=== PATIENT | female | born 1945 | race Caucasian/White ===

== ENCOUNTER 2019-10-31 08:11 | Outpatient (CLI) | payer MEDICARE, OTHER ==
[2019-10-31] MEDS ORDERED: IOVERSOL 320 100 ML VIAL IVP ONE ×2 (08:24→10:18)
[2019-10-31 09:22] LABS: ALBUMIN 3.7 g/dL (3.2-5.5); ALBUMIN/GLOBULIN RATIO 1.2 (1.0-2.2); BILIRUBIN,TOTAL 0.7 mg/dL (0.2-1.0); CALCIUM 9.6 mg/dL (8.5-10.3); CREATININE 1.2 mg/dL (0.4-1.0); TOTAL PROTEIN 6.9 g/dL (6.7-8.2)
[2019-10-31 10:36] LABS: BASOPHILS # (AUTO) 0.1 10^3/uL (0.0-0.1); BASOPHILS % (AUTO) 1.1 %; EOSINOPHILS # (AUTO) 0.2 10^3/uL (0.0-0.7); EOSINOPHILS % (AUTO) 2.6 %; HGB - HEMOGLOBIN 11.6 g/dL (12.0-16.0); LYMPHOCYTES # (AUTO) 2.2 10^3/uL (1.5-3.5); LYMPHOCYTES % (AUTO) 24.8 %; MEAN CORPUSCULAR HEMOGLOBIN 24.3 pg (27.0-31.0); MEAN CORPUSCULAR HGB CONC 29.5 g/dL (32.0-36.0); MEAN CORPUSCULAR VOLUME 82.2 fL (81.0-99.0); MEAN PLATELET VOLUME 9.2 fL (7.9-10.8); MONOCYTES # (AUTO) 0.5 10^3/uL (0.0-1.0); MONOCYTES % (AUTO) 5.7 %; NEUTROPHILS # (AUTO) 5.7 10^3/uL (1.5-6.6); NEUTROPHILS % (AUTO) 65.6 %; PLT - PLATELET COUNT 342 10^3/uL (130-450); RED BLOOD COUNT 4.78 10^6/uL (4.20-5.40); RED CELL DISTRIBUTION WIDTH 17.9 % (12.0-15.0); WHITE BLOOD COUNT 8.7 x10^3/uL (4.8-10.8)
[2019-10-31 10:58] LABS: CHOL/HDL RATIO 4.1 (<4.4); CHOLESTEROL 268 mg/dL; HDL CHOLESTEROL 65 mg/dL; LDL CHOLESTEROL,CALCULATED 178 mg/dL; LDL/HDL RATIO 2.7 (<4.4); VLDL CHOLESTEROL 25 mg/dL
[2019-10-31 11:22] LABS: HB2 TOTAL 12.2 g/dL; HEMOGLOBIN A1C 0.89 g/dL; HEMOGLOBIN A1C % 8.8 % (4.6-6.2)
--- NOTE | 2019-10-31 18:00 | CT Report ---
PROCEDURE: CHEST W INDICATIONS: SMOKER,PULMONARY NODULE,COPD CONTRAST: IV CONTRAST: Optiray 320 ml: 80 PO CONTRAST: *NO PO CONTRAST TECHNIQUE: After the administration of intravenous contrast, 5 mm thick sections acquired from the pulmonary api scott to the posterior costophrenic angles. 7 mm thick coronal MIP reformats were acquired. For radia tion dose reduction, the following was used: automated exposure control, adjustment of mA and/or kV according to patient size. COMPARISON: None. FINDINGS: Image quality: Excellent. Lungs and pleura: Moderate centrilobular emphysema is seen. 4 mm nodular density is noted in right up per lobe with mild adjacent atelectatic changes series 4 image 83. Scattered atelectasis and scarring in posterior aspect of bilateral upper lobes and right middle lobe is seen adjacent to the fissures. Oval nodular opacity in posterior aspect of left lingular segment anterior to the oblique fissure is seen measures 1.8 x 0.9 cm in size series 4 image 217. Atelectasis in posterior medial left lower lo be is also seen. No pleural effusions or pneumothorax. Central and peripheral airways are patent and normal in caliber. Mediastinum: Heart size is normal. No pericardial effusion. Borderline enlarged mediastinal lymph n odes are seen measures up to 1 cm in short axis diameter in precarinal space. Subcentimeter lymph nod es also noted in right hilar region measures up to 9 mm in size. Thoracic aorta and central pulmonary arteries are normal in size. Mild atherosclerotic calcifications are seen. Esophagus is normal in c aliber. There is a small hiatal hernia. Bones and chest wall: No suspicious bony lesions. No acute vertebral body compression fractures. Po stsurgical changes are noted in the lower cervical spine. Chronic appearing anterior wedge compressio n deformity at T11 level is seen. Degenerative endplate changes are noted throughout thoracic and upp er lumbar spine. No axillary or supraclavicular adenopathy by size criteria. Thyroid gland is within normal limits. Abdomen: Visualized upper abdominal solid organs appear normal. Upper abdominal bowel loops are nor mal in caliber. IMPRESSION: 1. Moderate centrilobular emphysema. Tiny 4 mm nodular density in right upper lobe with adjacent atel ectasis. Scarring/atelectasis scattered in bilateral lung du along the fissures. Questionable ova l nodular density along the anterior aspect of the oblique fissure involving the left lingula segment and measures 1.8 x 0.9 cm in size. Finding likely represent scarring/atelectasis. Given the size of the lesion, follow-up CT of chest study in 6 months is recommended for evaluation of stability. 2. No pleural effusion or pneumothorax. Airway is patent. 3. Borderline enlarged mediastinal and right hilar lymph nodes as above. This is a fairly nonspecific finding. Reviewed by: Edward Roberts MD on 10/31/2019 5:59 PM PDT Approved by: Edward Roberts MD on 10/31/2019 5:59 PM PDT Station ID: [id number]
== END 2019-10-31 08:12 | disposition home or self-care (01) ==
LOC: LAB 08:11
PROVIDERS: ATTEND Nurse Practitioner
DX: J43.2 Centrilobular emphysema (principal); R91.1 Solitary pulmonary nodule; R59.0 Localized enlarged lymph nodes; E11.9 Type 2 diabetes mellitus without complications; I73.9 Peripheral vascular disease, unspecified
CPT/HCPCS: 36415; 71260; 80053; 80061; 83036; 84443; 85025; Q9967; 83721

== ENCOUNTER 2019-11-07 07:53 | Outpatient (CLI) | payer MEDICARE, OTHER | END 2019-11-07 07:54 | disposition home or self-care (01) | LOC: DI 07:53 | PROVIDERS: ATTEND Nurse Practitioner | DX: R01.1 Cardiac murmur, unspecified (principal); I08.0 Rheumatic disorders of both mitral and aortic valves; I27.20 Pulmonary hypertension, unspecified | CPT/HCPCS: 93306 ==

== ENCOUNTER 2020-02-05 14:39 | Outpatient (CLI) | payer MEDICARE, OTHER ==
[2020-02-05 14:57] LABS: BASOPHILS # (AUTO) 0.1 10^3/uL (0.0-0.1); BASOPHILS % (AUTO) 1.3 %; EOSINOPHILS # (AUTO) 0.5 10^3/uL (0.0-0.7); EOSINOPHILS % (AUTO) 6.8 %; HGB - HEMOGLOBIN 12.1 g/dL (12.0-16.0); LYMPHOCYTES % (AUTO) 28.3 %; MEAN CORPUSCULAR HEMOGLOBIN 25.5 pg (27.0-31.0); MEAN CORPUSCULAR HGB CONC 30.4 g/dL (32.0-36.0); MONOCYTES # (AUTO) 0.5 10^3/uL (0.0-1.0); MONOCYTES % (AUTO) 7.1 %; NEUTROPHILS # (AUTO) 4.1 10^3/uL (1.5-6.6); NEUTROPHILS % (AUTO) 56.2 %; PLT - PLATELET COUNT 283 10^3/uL (130-450); RED BLOOD COUNT 4.74 10^6/uL (4.20-5.40); RED CELL DISTRIBUTION WIDTH 16.1 % (12.0-15.0); WHITE BLOOD COUNT 7.2 x10^3/uL (4.8-10.8)
[2020-02-05 15:20] LABS: ALBUMIN/GLOBULIN RATIO 1.1 (1.0-2.2); ALKALINE PHOSPHATASE 122 IU/L (42-121); ALT ALANINE AMINOTRANSFERASE 12 IU/L (10-60); AST ASPARTATE AMINOTRANSFERASE 17 IU/L (10-42); BILIRUBIN,TOTAL 0.9 mg/dL (0.2-1.0); BUN - BLOOD UREA NITROGEN 24 mg/dL (6-20); CARBON DIOXIDE - CO2 27 mmol/L (21-32); CHLORIDE 102 mmol/L (101-111); CHOL/HDL RATIO 2.6 (<4.4); CHOLESTEROL 169 mg/dL; CREATININE 1.3 mg/dL (0.4-1.0); GLUCOSE 180 mg/dL (70-100); HDL CHOLESTEROL 66 mg/dL; LDL CHOLESTEROL,CALCULATED 89 mg/dL; LDL/HDL RATIO 1.3 (<4.4); SODIUM 140 mmol/L (135-145); TOTAL PROTEIN 7.5 g/dL (6.7-8.2); VLDL CHOLESTEROL 14 mg/dL
[2020-02-05] MEDS ORDERED: IOVERSOL 320 100 ML VIAL IVP ONE ×2 (15:23→16:51)
--- NOTE | 2020-02-05 16:51 | CT Report ---
PROCEDURE: CHEST W INDICATIONS: PULMONARY NODULE, SMOKER CONTRAST: IV CONTRAST: Optiray 320 ml: 80 PO CONTRAST: *NO PO CONTRAST TECHNIQUE: After the administration of intravenous contrast, 5 mm thick sections acquired from the pulmonary api scott to the posterior costophrenic angles. 7 mm thick coronal MIP reformats were acquired. For radia tion dose reduction, the following was used: automated exposure control, adjustment of mA and/or kV according to patient size. COMPARISON: None. FINDINGS: Image quality: Excellent. Lungs and pleura: No acute air space opacities. There has been no change in a right upper lobe nodul e measuring 4 mm with adjacent slight alveolar airspace disease possibly representing scarring from a prior inflammatory event. This is best seen centered on series 4 image 83 on the prior study from and on series 4 image 77 currently. An ovoid area of what appears to have represented rounded atelectasis has virtually completely resolved at the lingular segment margin left upper lobe near th e ventricular apex. Additional patchy areas of lung scarring are present stable over time and centril obular emphysema is prominent in this patient consistent with COPD. No adenopathy has developed. No d efinite acute bone or soft tissue lesion is found. No pleural effusions or pneumothorax. Central and peripheral airways are patent and normal in caliber. Mediastinum: Heart size is normal. No pericardial effusion. No mediastinal or hilar adenopathy by size criteria. Thoracic aorta and central pulmonary arteries are normal in size. Esophagus is gema l in caliber. No hiatal hernia. Bones and chest wall: No suspicious bony lesions. No vertebral body compression fractures. No axil douglas or supraclavicular adenopathy by size criteria. Thyroid gland appears normal where well seen. Abdomen: Visualized upper abdominal solid organs appear normal. Upper abdominal bowel loops are nor mal in caliber. IMPRESSION: Stable appearance of a 4 mm nodule right upper lobe, virtual resolution of a larger nodular radiodens ity at the lingular segment left upper lobe near the ventricular apex. No new pulmonary nodule is see n. Presumed long-standing smoking history. 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 Reviewed by: Pablo Perez MD on 02/05/2020 4:49 PM PDT Approved by: Pablo Perez MD on 02/05/2020 4:49 PM PDT Station ID: [id number]
== END 2020-02-05 14:40 | disposition home or self-care (01) ==
LOC: LAB 14:39 → DI 14:40
PROVIDERS: ATTEND Nurse Practitioner
DX: R91.1 Solitary pulmonary nodule (principal); J44.9 Chronic obstructive pulmonary disease, unspecified; F17.200 Nicotine dependence, unspecified, uncomplicated; E78.5 Hyperlipidemia, unspecified; E11.9 Type 2 diabetes mellitus without complications; I10 Essential (primary) hypertension
CPT/HCPCS: 36415; 71260; 80053; 80061; 83036; 85025; Q9967; 82043; 82570; 83721

== ENCOUNTER 2020-02-05 15:20 | Outpatient (CLI) | payer MEDICARE, OTHER ==
--- NOTE | 2020-02-06 06:49 | XRAY Report ---
PROCEDURE: Knee 3 View RT INDICATIONS: RT KNEE JOINT PAIN TECHNIQUE: 3 views of the right knee(s) were acquired. COMPARISON: None. FINDINGS: Bones: No fractures or dislocations. There are severe prbo-lb-atsl joint space loss of the right me dial compartment. There is hardware fixation within the patella. Moderate marginal spur formation in the patellofemoral and medial compartments. There is mild tibiofemoral subluxation. Rounded lucency a long the lateral tibial plateau suggesting subcortical cyst. Soft tissues: Small joint effusion. No suspicious soft tissue calcifications. Moderate atherosclero tic calcification. IMPRESSION: 1. Severe medial compartment joint space loss and osteoarthritic spurring. 2. Intact surgical hardware in the patella. 3. Small joint effusion. 4. Probable intraosseous ganglion in the lateral tibial plateau. Reviewed by: Jenni Diaz MD on 02/05/2020 5:35 PM PDT Approved by: Jenni Diaz MD on 02/05/2020 5:35 PM PDT Station ID: [id number]
== END 2020-02-05 15:21 | disposition home or self-care (01) ==
LOC: DI 15:20
PROVIDERS: ATTEND Nurse Practitioner
DX: M17.11 Unilateral primary osteoarthritis, right knee (principal); R91.1 Solitary pulmonary nodule; J44.9 Chronic obstructive pulmonary disease, unspecified; F17.200 Nicotine dependence, unspecified, uncomplicated; E78.5 Hyperlipidemia, unspecified; E11.9 Type 2 diabetes mellitus without complications; I10 Essential (primary) hypertension
CPT/HCPCS: 36415; 71260; 73562; 80053; 80061; 83036; 85025; Q9967; 82043; 82570; 83721

== ENCOUNTER 2020-05-18 13:03 | Outpatient (CLI) | payer MEDICARE, OTHER | END 2020-05-18 13:04 | disposition critical access hospital (66) | LOC: EMS 13:03 | PROVIDERS: ATTEND Surgery | DX: R06.02 Shortness of breath (principal); R05 Cough | CPT/HCPCS: A0425; A0427 ==

== ENCOUNTER 2020-05-18 13:16 | Inpatient (IN) | payer MEDICARE, OTHER ==
[2020-05-18] MEDS ORDERED: methylPREDNISolone SUCCINATE 125 MG/2 ML VIAL IVP STA (13:21)
[2020-05-18] MEDS ORDERED: cefTRIAXone 2 GM in SODIUM CHLORIDE 0.9% MINIBAG 100 ML IV STA (13:21)
[2020-05-18] MEDS ORDERED: LEVALBUTEROL 1.25 MG/3 ML NEB INH STA (13:21)
--- NOTE | 2020-05-18 13:24 | ED Physician Documentation ---
PD HPI DYSPNEA - Stated complaint Stated Complaint: SOA - History obtained from History obtained from: Patient, EMS - Additional information Additional information: 75-year-old woman presents by ambulance from home for apparent COPD exacerba tion. For several weeks now she is had increased shortness of breath and actually just finished a 10-day outpatient steroid taper a couple of days ago. She has increasing shortness of breath despite that with a cough productive of scant green mucus, noted to have a temperature of 100.0. She only has pain when she coughs. She was noted to have a pulse oximetry of 65% at home. She does wear oxygen at night usually but has did wear it continuously for the last week or so. Review of Systems Ten Systems: 10 systems reviewed and negative Constitutional: reports: Chills, Fatigue Nose: denies: Rhinorrhea / runny nose Throat: denies: Oral lesions / sores Respiratory: reports: Dyspnea, Cough GI: denies: Abdominal Pain PD PAST MEDICAL HISTORY - Past Medical History Past Medical History: Yes Respiratory: COPD - Present Medications Home Medications: Ambulatory Orders Medication Instructions Recorded Confirmed Albuterol Sulf [Ventolin Hfa 2 puffs INH Q4H PRN 05/18/20 05/18/20 Inhaler] Amlodipine Besylate [Norvasc] 5 mg PO DAILY 05/18/20 05/18/20 Atorvastatin [Lipitor] 1 tab PO DAILY 05/18/20 05/18/20 Atorvastatin [Lipitor] 10 mg PO QPM 05/18/20 Clopidogrel [Plavix] 1 tab PO DAILY 05/18/20 05/18/20 Clopidogrel [Plavix] 75 mg PO DAILY 05/18/20 Diclofenac Sodium [Voltaren] 4 gm TOP QID PRN 05/18/20 05/18/20 Fluticasone/Umeclidin/Vilanter 1 puffs INH DAILY 05/18/20 05/18/20 [Trelegy Ellipta 100-62.5-25] Imipramine HCl 150 mg PO QPM 05/18/20 05/18/20 Ipratropium/Albuterol [Duoneb] 3 ml INH TID PRN 05/18/20 05/18/20 Losartan [Cozaar] 50 mg PO DAILY 05/18/20 05/18/20 Metformin HCl [Glucophage Xr] 1,000 mg PO BID 05/18/20 05/18/20 Oxybutynin [Ditropan] 5 mg PO BID 05/18/20 05/18/20 Roflumilast [Daliresp] 250 mcg PO DAILY 05/18/20 05/18/20 - Allergies Allergies/Adverse Reactions: Allergies Allergy/AdvReac Type Severity Reaction Status Date / Time No Known Drug Allergies Allergy Verified 05/18/20 13:31 - Social History Does the pt smoke?: Yes Does the pt have substance abuse?: No - Family History Family history: reports: Non contributory PD ED PE NORMAL - Vitals Vital signs reviewed: Yes - General General: Alert and oriented X 3, Other (She appears breathless and is speaking i n short sentences.) - HEENT HEENT: PERRL, EOMI - Neck Neck: Supple, no meningeal sign, No bony TTP - Cardiac Cardiac: Other (Tachycardic but regular, no clear murmur but heart sounds are somewhat obscured by loud breath sounds.) - Respiratory Respiratory: Other (Neck and mildly labored, rhonchorous throughout with moderate air motion and expiratory wheezing.) - Abdomen Abdomen: Soft, Non tender - Back Back: No CVA TTP, No spinal TTP - Derm Derm: Normal color, No rash - Extremities Extremities: No edema, No calf tenderness / cord - Neuro Neuro: Alert and oriented X 3, Normal speech Results - Vitals Vitals: Vital Signs - 24 hr 05/18/20 05/18/20 13:29 14:04 Temperature 37.9 C Heart Rate 122 H 117 H Respiratory 26 H 33 H Rate Blood Pressure 106/89 H O2 Saturation 97 Oxygen O2 Source Room air - EKG (time done) 1424 Rate: Rate (enter#) (120) Rhythm: Sinus tachycardia, LAE [place]: Normal Intervals: Normal IN QRS: Normal Ischemia: Normal ST segments Computer interpretation: Agree with computer - Labs Labs: Laboratory Tests 05/18/20 05/18/20 05/18/20 13:43 13:43 13:43 WBC 18.6 H RBC 3.91 L Hgb 10.5 L Hct 33.8 L MCV 86.4 MCH 26.9 L MCHC 31.1 L RDW 14.6 Plt Count 307 MPV 9.3 Neut # (Auto) 15.6 H Lymph # (Auto) 1.5 [place] # (Auto) 1.3 H Eos # (Auto) 0.0 Baso # (Auto) 0.1 Absolute Nucleated RBC 0.00 Nucleated RBC % 0.0 Sodium 134 L Potassium 3.6 Chloride 99 L Carbon Dioxide 21 Anion Gap 14.0 H BUN 21 H Creatinine 1.1 H Estimated GFR (MDRD) 48 L Glucose 145 H Lactic Acid 3.5 H* Calcium 9.2 Total Bilirubin 1.0 AST 15 ALT 11 Alkaline Phosphatase 95 Troponin I High Sens B-Natriuretic Peptide Total Protein 6.9 Albumin 3.3 Globulin 3.6 Albumin/Globulin Ratio 0.9 L Nasal Adenovirus (PCR) Nasal B. parapertussis DNA (PCR) Nasal Coronavir 229E PCR Nasal Coronavir HKU1 PCR Nasal Coronavir NL63 PCR Nasal Coronavir OC43 PCR Nasal Enterovir/Rhinovir PCR Nasal Influenza B PCR Nasal Influenza A PCR Nasal Parainfluen 1 PCR Nasal Parainfluen 2 PCR Nasal Parainfluen 3 PCR Nasal Parainfluen 4 PCR Nasal RSV (PCR) Nasal B.pertussis DNA PCR Nasal C.pneumoniae (PCR) Scott Human Metapneumo PCR Nasal M.pneumoniae (PCR) Nasal SARS-CoV-2 (PCR) 05/18/20 05/18/20 05/18/20 13:43 13:43 14:00 WBC RBC Hgb Hct MCV MCH MCHC RDW Plt Count MPV Neut # (Auto) Lymph # (Auto) [place] # (Auto) Eos # (Auto) Baso # (Auto) Absolute Nucleated RBC Nucleated RBC % Sodium Potassium Chloride Carbon Dioxide Anion Gap BUN Creatinine Estimated GFR (MDRD) Glucose Lactic Acid Calcium Total Bilirubin AST ALT Alkaline Phosphatase Troponin I High Sens 9.3 B-Natriuretic Peptide 71 Total Protein Albumin Globulin Albumin/Globulin Ratio Nasal Adenovirus (PCR) NOT DETECTED Nasal B. parapertussis DNA (PCR) NOT DETECTED Nasal Coronavir 229E PCR NOT DETECTED Nasal Coronavir HKU1 PCR NOT DETECTED Nasal Coronavir NL63 PCR NOT DETECTED Nasal Coronavir OC43 PCR NOT DETECTED Nasal Enterovir/Rhinovir PCR NOT DETECTED Nasal Influenza B PCR NOT DETECTED Nasal Influenza A PCR NOT DETECTED Nasal Parainfluen 1 PCR NOT DETECTED Nasal Parainfluen 2 PCR NOT DETECTED Nasal Parainfluen 3 PCR NOT DETECTED Nasal Parainfluen 4 PCR NOT DETECTED Nasal RSV (PCR) NOT DETECTED Nasal B.pertussis DNA PCR NOT DETECTED Nasal C.pneumoniae (PCR) NOT DETECTED Scott Human Metapneumo PCR NOT DETECTED Nasal M.pneumoniae (PCR) NOT DETECTED Nasal SARS-CoV-2 (PCR) NOT DETECTED - Rads (name of study) Single view chest x-ray Radiology: EMP read contemporaneously (Hyperinflation and flattening of the hemidiaphragm can suggestive of COPD, no consolidation. Increased vascularity suggestive of edema.) PD MEDICAL DECISION MAKING - ED course ED course: 75-year-old woman with history of COPD presents with apparent exacerbation with wheezing, rhonchi, productive cough, borderline febrile. She is tachypneic, tachycardic. Nothing in the history or physical to suggest PE. Nothing in the history physical or labs to suggest ACS or CHF noting that the radiologist felt there might be some edematous component to her chest x-ray though. She was looking better after 3 nebs in the department but still tachycardic to 120 and tachypneic into the mid 20s and as such merits admission. In the department besides to Xopenex nebs in addition to the DuoNeb she received in route she also received 125 mg of Solu-Medrol and 2 g of Rocephin after blood cultures. Departure - Departure Disposition: 66 [facility] DC/Xfer Clinical Impression: COPD exacerbation Condition: Serious
[2020-05-18 13:47] LABS: BASOPHILS # (AUTO) 0.1 10^3/uL (0.0-0.1); BASOPHILS % (AUTO) 0.3 %; EOSINOPHILS % (AUTO) 0.2 %; HGB - HEMOGLOBIN 10.5 g/dL (12.0-16.0); LYMPHOCYTES # (AUTO) 1.5 10^3/uL (1.5-3.5); LYMPHOCYTES % (AUTO) 8.2 %; MEAN CORPUSCULAR HEMOGLOBIN 26.9 pg (27.0-31.0); MEAN CORPUSCULAR HGB CONC 31.1 g/dL (32.0-36.0); MEAN CORPUSCULAR VOLUME 86.4 fL (81.0-99.0); MEAN PLATELET VOLUME 9.3 fL (7.9-10.8); MONOCYTES # (AUTO) 1.3 10^3/uL (0.0-1.0); MONOCYTES % (AUTO) 7.1 %; NEUTROPHILS # (AUTO) 15.6 10^3/uL (1.5-6.6); NEUTROPHILS % (AUTO) 83.7 %; PLT - PLATELET COUNT 307 10^3/uL (130-450); RED BLOOD COUNT 3.91 10^6/uL (4.20-5.40); RED CELL DISTRIBUTION WIDTH 14.6 % (12.0-15.0); WHITE BLOOD COUNT 18.6 x10^3/uL (4.8-10.8)
[2020-05-18 13:58] LABS: ALBUMIN 3.3 g/dL (3.2-5.5); ALBUMIN/GLOBULIN RATIO 0.9 (1.0-2.2); CALCIUM 9.2 mg/dL (8.5-10.3); CREATININE 1.1 mg/dL (0.4-1.0); TOTAL PROTEIN 6.9 g/dL (6.7-8.2)
--- NOTE | 2020-05-18 13:59 | XRAY Report ---
PROCEDURE: Chest 1 View X-Ray INDICATIONS: dyspnea TECHNIQUE: One view of the chest was acquired. COMPARISON: CT chest 02/05/2020. FINDINGS: Surgical changes and devices: Right shoulder tendon anchor as well as lower cervical spine fixation s crews are noted. Lungs and pleura: Lungs are hyperinflated. Mild appearance of chronic interstitial changes are noted. Mild appearance of increased vascularity. Mediastinum: Mediastinal contours appear normal. Heart size is normal. Bones and chest wall: No suspicious bony lesions. Overlying soft tissues appear unremarkable. IMPRESSION: Hyperinflation and flattening of the hemidiaphragm suggestive COPD. No consolidations. Increased vasc ularity is present suggestive of edema. Reviewed by: Yisel Richard MD on 05/18/2020 1:58 PM PST Approved by: Yisel Richard MD on 05/18/2020 1:58 PM [facility] Station ID: [id number]
[2020-05-18] MEDS ORDERED: LEVALBUTEROL 1.25 MG/3 ML NEB INH ONE (14:10)
[2020-05-18] MEDS ORDERED: SODIUM CHLORIDE 0.9% 1,000 ML IV STA (14:30)
[2020-05-18] MEDS ORDERED: SODIUM CHLORIDE FLUSH 0.9% 10 ML SYRINGE IVP PRN (14:42)
[2020-05-18] MEDS ORDERED: IPRATROPIUM/ALBUTEROL 3 ML NEB INH PRN (14:54)
--- NOTE | 2020-05-18 14:58 | HISTORY & PHYSICAL EXAMINATION ---
Chief Complaint - Chief Complaint Chief Complaint: dyspnea and hypoxia History of Present Illness - Admitted From Admitted From:: [facility] ED - History Obtained From Records Reviewed: yes History obtained from: patient - History of Present Illness HPI Comment/Other: Patient is a 75-year-old female with medical history significant for COPD, italo betes mellitus and hypertension who presented to the ED with complaint of dyspnea for the past 1-1/2 weeks. However it was significantly worse today. When her daughter came over to her house and so her distress she called EMS. The patient recently moved to [facility] to be close to her daughter. She moved from [facility]. She has also been experiencing productive greenish cough for the past week. She cannot tell if she was febrile at home but reported chills. She denied chest pain, nausea, vomiting, abdominal pain. She was recently on steroid taper ordered by her primary care physician Gabriela Schaffer. In the ED she was very tachypneic with a heart rate as high as 35. She was also tachycardic. Had a white blood cell count of 18.6 and a lactic acid of 3.5. She had hyperinflation and flattening of the hemidiaphragm on chest x-ray which was suggestive of COPD. As a result she was presented for admission for further treatment. At bedside she has significant conversational dyspnea on auscultation there is decreased air movement through her lung. She has some expiratory wheezing as well. She uses 2 L of oxygen via nasal cannula during the day and 3 L at night. The rest of her history is unremarkable. History - Past Medical History Cardiovascular: reports: Hypertension Respiratory: reports: COPD Endocrine/Autoimmune: reports: Type 2 diabetes - Past Surgical History Ortho: reports: Knee replacement (Right side), Rotator cuff repair (Right side), Other (Cervical surgery) HEENT: reports: Tonsil/Adenoidectomy - Family & Social History Family History Comment/Other: Her brother recently in March 2020 from a CVA. Her father when the patient was 16 years old from lung cancer. He was a smoker. Her mother of natural causes. Living arrangement: At home Living Situation: Alone Social History Notes: The patient lives alone but her family lives nearby. She moved to [facility] to live close to her daughter. She used to living [facility]. She reports quitting smoking cigarettes a few weeks ago. She has smoked cigarettes from the age of 15. She used to smoke 1 pack/day. She reports drinking a glass of wine daily. She denies any recreational substances. Meds/Allgy - Home Medications Home Medications: Ambulatory Orders Medication Instructions Recorded Confirmed Albuterol Sulf [Ventolin Hfa 2 puffs INH Q4H PRN 05/18/20 05/18/20 Inhaler] Amlodipine Besylate [Norvasc] 5 mg PO DAILY 05/18/20 05/18/20 Atorvastatin [Lipitor] 1 tab PO DAILY 05/18/20 05/18/20 Atorvastatin [Lipitor] 10 mg PO QPM 05/18/20 Clopidogrel [Plavix] 1 tab PO DAILY 05/18/20 05/18/20 Clopidogrel [Plavix] 75 mg PO DAILY 05/18/20 Diclofenac Sodium [Voltaren] 4 gm TOP QID PRN 05/18/20 05/18/20 Fluticasone/Umeclidin/Vilanter 1 puffs INH DAILY 05/18/20 05/18/20 [Trelegy Ellipta 100-62.5-25] Imipramine HCl 150 mg PO QPM 05/18/20 05/18/20 Ipratropium/Albuterol [Duoneb] 3 ml INH TID PRN 05/18/20 05/18/20 Losartan [Cozaar] 50 mg PO DAILY 05/18/20 05/18/20 Metformin HCl [Glucophage Xr] 1,000 mg PO BID 05/18/20 05/18/20 Oxybutynin [Ditropan] 5 mg PO BID 05/18/20 05/18/20 Roflumilast [Daliresp] 250 mcg PO DAILY 05/18/20 05/18/20 - Allergies Allergies/Adverse Reactions: Allergies Allergy/AdvReac Type Severity Reaction Status Date / Time No Known Drug Allergies Allergy Verified 05/18/20 13:31 Review of Systems - Constitutional Constitutional: reports: Fever, Chills - Eyes Eyes: denies: Pain, Vision loss, Dipolpia - Ears, Nose & Throat Ears, Nose & Throat: reports: Sore throat. denies: Ear pain, Hoarseness - Cardiovascular Cariovascular: reports: Palpitations. denies: Chest pain, Edema, Lightheadedne ss, Syncope - Respiratory Respiratory: reports: Cough, Sputum production, Wheezing, SOB at rest, SOB with exertion - Gastrointestinal Gastrointestinal: denies: Abdominal pain, Abdominal distention, Diarrhea, Nausea, Vomiting, Coffee grounds emesis, Reflux/heartburn - Genitourinary Genitourinary: denies: Dysuria, Frequency, Urgency, Hematuria - Musculoskeletal Musculoskeletal: denies: Muscle pain, Back pain, Muscle aches, Stiffness - Integumentary Integumentary: denies: Rash, Pruritis, Lesions - Neurological Neurological: denies: General weakness, Focal weakness, Headache, Dizziness - Psychiatric Psychiatric: denies: Depression, Anxiety - Endocrine Endocrine: denies: Polyuria, Polydypsia - Hematologic/Lymphatic Hematologic/Lymphatic: denies: Anemia, Bruising, Petechiae Prior Level of Functionality: The patient lives alone but her family lives nearby. She moved to [facility] to live close to her daughter. She used to living [facility]. She is independent of activities of daily living. Exam - Vital Signs Vital Signs: Vital Signs x48h Temp Pulse Resp BP Pulse Ox 05/18/20 14:04 117 H 33 H 05/18/20 13:29 37.9 C 122 H 26 H 106/89 H 97 - Physical Exam General Appearance: positive: Alert, Moderate distress (Respiratory distress) Eyes Bilateral: positive: PERRL, EOMI ENT: positive: Dry mucous membranes Neck: positive: No JVD, Trachea midline Respiratory: positive: Wheezes, Other (Moderate Respiratory distress, Labored breathing, Conversational dyspnea). negative: Rales, Rhonchi Cardiovascular: positive: No murmur, Tachycardia Back: positive: Nml inspection Skin: positive: Color nml, No rash, Warm, Dry Extremities: positive: Non-tender, Full ROM, Nml appearance, No pedal edema Neurologic/Psychiatric: positive: Oriented x3, Mood/affect nml Conclusion/Plan - Problem List (1) COPD exacerbation Conclusion/Plan: DuoNeb ordered 4 times daily. Albuterol ordered every 4 hours as needed. Budesonide and formoterol ordered. Solu-Medrol 40 mg 3 times daily IV ordered. Patient was given Solu-Medrol 125 mg IV x1 in the ED. Admitting patient on supplemental oxygen. On Rocephin and azithromycin. (2) Diabetes mellitus Conclusion/Plan: Metformin held. Sliding scale insulin ordered. Carb controlled diet ordered. Qualifiers: Diabetes mellitus type: type 2 (3) Hypertension Conclusion/Plan: Currently normotensive. If needed will order an antihypertensive as needed. (4) Lactic acidosis Conclusion/Plan: Likely from respiratory failure. Patient receiving IV hydration. Treating patient's COPD exacerbation. We will trend lactic acid. Initial lactic acid was 3.5. Recheck 2.3. (5) Sore throat Conclusion/Plan: Magic wash ordered every 4 hours as needed. Patient has history of frequent oral thrush. - Lab Results Fish Bones: 05/18/20 13:43 05/18/20 13:43 Core Measures - Anticipated LOS I expect patient to be DC'd or transferred within 96 hours.: Yes - DVT/VTE - Prophylaxis VTE/DVT Device ordered at admit?: Yes VTE/DVT Prophylaxis med ordered at admit?: Yes
[2020-05-18 15:02] LABS: VBG PCO2 38.3 mmHg (41-51); VBG PH 7.357 (7.31-7.41); VBG PO2 29.5 mmHg (25-47)
[2020-05-18 15:03] LABS: VBG BASE EXCESS -4.1 mmol/L (-2 - +2); VBG TOTAL CO2 22.2 mmol/L (24-29)
[2020-05-18 15:21] LABS: C. PNEUMONIAE- RESP PCR PANEL NOT DETECTED
[2020-05-18] MEDS: SODIUM CHLORIDE 0.9% 1,000 ML IV SCH (15:29)
[2020-05-18] MEDS ORDERED: AZITHROMYCIN INJ 500 MG in SODIUM CHLORIDE 0.9% 250 ML IV ONE (17:00)
[2020-05-18] MEDS: ALBUTEROL NEB 2.5 MG/3 ML INH PRN ×2 (17:51→19:42)
[2020-05-18] MEDS: SODIUM CHLORIDE FLUSH 0.9% 10 ML SYRINGE IVP SCH (18:41)
[2020-05-18] MEDS: INSULIN ASPART 300 UNIT/3 ML PEN SUBQ SCH ×2 (18:41→21:30)
[2020-05-18] MEDS: ACETAMINOPHEN 325 MG TABLET PO PRN (18:42)
[2020-05-18] MEDS: BUDESONIDE 0.5 MG/2 ML NEB INH SCH (19:42)
[2020-05-18] MEDS: FORMOTEROL FUMARATE NEB 20 MCG/2 ML INH SCH (19:42)
[2020-05-18] MEDS: guaiFENesin 600 MG TABLET PO SCH (21:33)
[2020-05-18] MEDS ORDERED: methylPREDNISolone SUCCINATE 40 MG/ML VIAL IVP SCH (22:00)
[2020-05-18] MEDS: IPRATROPIUM/ALBUTEROL 3 ML NEB INH SCH (22:53)
[2020-05-18] MEDS: methylPREDNISolone SUCCINATE 40 MG/ML VIAL IVP SCH (23:20)
[2020-05-19] MEDS: SODIUM CHLORIDE 0.9% 1,000 ML IV SCH ×3 (01:45→21:36)
[2020-05-19] MEDS: SODIUM CHLORIDE FLUSH 0.9% 10 ML SYRINGE IVP SCH ×4 (01:46→23:47)
[2020-05-19 05:28] LABS: BASOPHILS % (AUTO) 0.2 %; HGB - HEMOGLOBIN 10.2 g/dL (12.0-16.0); LYMPHOCYTES # (AUTO) 0.4 10^3/uL (1.5-3.5); LYMPHOCYTES % (AUTO) 3.2 %; MEAN CORPUSCULAR HEMOGLOBIN 26.5 pg (27.0-31.0); MEAN CORPUSCULAR HGB CONC 30.4 g/dL (32.0-36.0); MEAN CORPUSCULAR VOLUME 87.3 fL (81.0-99.0); MEAN PLATELET VOLUME 9.6 fL (7.9-10.8); MONOCYTES # (AUTO) 0.1 10^3/uL (0.0-1.0); MONOCYTES % (AUTO) 0.9 %; NEUTROPHILS # (AUTO) 11.5 10^3/uL (1.5-6.6); PLT - PLATELET COUNT 306 10^3/uL (130-450); RED BLOOD COUNT 3.85 10^6/uL (4.20-5.40); RED CELL DISTRIBUTION WIDTH 14.7 % (12.0-15.0); WHITE BLOOD COUNT 12.1 x10^3/uL (4.8-10.8)
[2020-05-19 05:44] LABS: CALCIUM 9.2 mg/dL (8.5-10.3); CREATININE 0.9 mg/dL (0.4-1.0)
[2020-05-19] MEDS: PANTOPRAZOLE 40 MG TABLET PO SCH (06:36)
[2020-05-19] MEDS: methylPREDNISolone SUCCINATE 40 MG/ML VIAL IVP SCH ×3 (06:37→21:34)
[2020-05-19] MEDS: IPRATROPIUM/ALBUTEROL 3 ML NEB INH SCH ×4 (07:48→20:52)
[2020-05-19] MEDS: FORMOTEROL FUMARATE NEB 20 MCG/2 ML INH SCH ×2 (07:48→20:51)
[2020-05-19] MEDS: BUDESONIDE 0.5 MG/2 ML NEB INH SCH ×2 (07:48→20:52)
--- NOTE | 2020-05-19 08:41 | XRAY Report ---
PROCEDURE: Chest 1 View X-Ray INDICATIONS: dyspnea, hypoxia TECHNIQUE: One view of the chest was acquired. COMPARISON: 05/18/2020, correlation is also made with CT 02/05/2020 FINDINGS: Surgical changes and devices: There is partial visualization of cervical fixation hardware. Lungs and pleura: No pleural effusions or pneumothorax. Lungs are clear. The lungs are hyperexpand ed. Mediastinum: The aorta is prominent and tortuous. The cardiac contours are within normal limits. Bones and chest wall: Age-appropriate degenerative changes are seen. No suspicious bony lesions. Overlying soft tissues appear unremarkable. IMPRESSION: Hyperexpanded lungs, without an acute abnormality identified. Reviewed by: Amol Hernandez MD on 05/19/2020 7:40 AM [facility] Approved by: Amol Hernandez MD on 05/19/2020 7:40 AM [facility] Station ID: [id number]
[2020-05-19] MEDS: cefTRIAXone 1 GM in SODIUM CHLORIDE 0.9% MINIBAG 100 ML IV SCH (08:52)
[2020-05-19] MEDS: guaiFENesin 600 MG TABLET PO SCH ×2 (08:55→21:30)
[2020-05-19] MEDS: ENOXAPARIN 40 MG/0.4 ML SYRINGE SUBQ SCH (08:57)
[2020-05-19] MEDS: INSULIN ASPART 300 UNIT/3 ML PEN SUBQ SCH ×4 (08:59→21:31)
[2020-05-19] MEDS: AZITHROMYCIN INJ 500 MG in SODIUM CHLORIDE 0.9% 250 ML IV SCH (10:02)
[2020-05-19] MEDS: NICOTINE 14 MG PATCH TOP SCH (10:13)
--- NOTE | 2020-05-19 11:22 | PHARMACY PROGRESS NOTE ---
- Best Possible Medication History Admit Date and Time: 05/18/20 1442 Processed by: Pharmacy Medication History completed: Yes Patient Interview: Completed Secondary Source(s): Physician records, Insurance records As the person ultimately responsible for medication therapy, providers are able to order a medication from an existing home medication list in [facility] via the "Reconcile Routine" prior to Confirmation of that medication by network and threat support specialist. Such practice is discouraged except when the physician, in their clinical judgment, deems that a medical need exists for a medication without regard to previous use.
[2020-05-19] MEDS: ACETAMINOPHEN 325 MG TABLET PO PRN (11:29)
--- NOTE | 2020-05-19 11:41 | PROVIDER PROGRESS NOTE ---
Assessment/Plan - Problem List (1) COPD exacerbation Assessment/Plan: There is slight improvement in patient's respiratory status. DuoNeb ordered 4 times daily. Albuterol ordered every 4 hours as needed. Budesonide and formoterol ordered. Solu-Medrol 80 mg 3 times daily IV ordered. Patient was given Solu-Medrol 125 mg IV x1 in the ED. On supplemental oxygen. On Rocephin and azithromycin. Patient declined BiPAP/CPAP One of the patient's blood cultures came back positive for MRSE. While this is usually a contaminant, the patient presented with a lactic acid of 3.5, WBC 18, temperature of 38 C, tachypneic and tachycardic. She was also positive for MRSA in her nares As a result the patient was started on vancomycin today.Pharmacy to dose (2) Bacteremia Assessment/Plan: One of the patient's blood cultures came back positive for MRSE. While this is usually a contaminant, the patient presented with a lactic acid of 3.5, WBC 18, temperature of 38 C, tachypneic and tachycardic. She was also positive for MRSA in her nares As a result the patient was started on vancomycin today.Pharmacy to dose (3) Diabetes mellitus Qualifiers: Diabetes mellitus type: type 2 Assessment/Plan: Metformin held. Sliding scale insulin ordered. Carb controlled diet ordered. (4) Hypertension Assessment/Plan: Currently normotensive. If needed will order an antihypertensive as needed. (5) Lactic acidosis Assessment/Plan: Likely from respiratory failure and possible infection Patient receiving IV hydration. Treating patient's COPD exacerbation. We will trend lactic acid. Initial lactic acid was 3.5. Recheck 1.3 (6) Sore throat Assessment/Plan: Magic wash ordered every 4 hours as needed. Patient has history of frequent oral thrush. - Current Meds Current Meds: Current Medications Generic Name Dose Route Start Last Admin Trade Name Freq PRN Reason Stop Dose Admin Acetaminophen 650 mg 05/18/20 14:42 05/19/20 11:29 Acetaminophen 325 Mg Tablet PO 650 mg Q4HR PRN Administration Pain 1 to 4 Albuterol 2.5 mg 05/18/20 17:35 05/18/20 19:42 Albuterol Neb 2.5 Mg/3 Ml INH 2.5 mg RTQ4H PRN Administration Wheezing Albuterol/Ipratropium 3 ml 05/18/20 21:00 05/19/20 11:29 Ipratropium/Albuterol 3 Ml Neb INH 3 ml RTQID LUCHO Administration Budesonide 0.5 mg 05/18/20 19:00 05/19/20 07:48 Budesonide 0.5 Mg/2 Ml Neb INH 0.5 mg RTBID LUCHO Administration Enoxaparin Sodium 40 mg 05/19/20 09:00 05/19/20 08:57 Enoxaparin 40 Mg/0.4 Ml Syringe SUBQ 40 mg DAILY LUCHO Administration Formoterol Fumarate 20 mcg 05/18/20 19:00 05/19/20 07:48 Formoterol Fumarate Neb 20 Mcg/2 Ml INH 20 mcg RTBID LUCHO Administration Guaifenesin 600 mg 05/18/20 21:00 05/19/20 08:55 Guaifenesin 600 Mg Tablet PO 600 mg BID LUCHO Administration Sodium Chloride 1,000 mls @ 100 mls/hr 05/18/20 15:00 05/19/20 08:55 Normal Saline 0.9% IV 0 mls/hr .Q10H LUCHO Infusion Azithromycin 500 mg/ Sodium 250 mls @ 250 mls/hr 05/19/20 09:00 05/19/20 10:02 Chloride IV 05/20/20 09:59 250 mls/hr DAILY LUCHO Administration Ceftriaxone Sodium 1 gm/ 100 mls @ 200 mls/hr 05/19/20 09:00 05/19/20 09:31 Sodium Chloride IV 05/23/20 09:29 Infused DAILY LUCHO Infusion Insulin Aspart 1 - 5 unit 05/18/20 17:00 05/19/20 08:59 Insulin Aspart 300 Unit/3 Ml Pen SUBQ 1 unit 0800,1200,1700,2100 LUCHO Administration Protocol Methylprednisolone 80 mg 05/18/20 22:00 05/19/20 06:37 Methylprednisolone Succinate 40 Mg/Ml Vial IVP 80 mg TID LUCHO Administration Nicotine 1 patch 05/19/20 10:00 05/19/20 10:13 Nicotine 14 Mg Patch TOP 1 patch DAILY LUCHO Administration Pantoprazole Sodium 40 mg 05/19/20 07:00 05/19/20 06:36 Pantoprazole 40 Mg Tablet PO 40 mg QDAC LUCHO Administration Sodium Chloride 10 ml 05/18/20 17:00 05/19/20 10:08 Sodium Chloride Flush 0.9% 10 Ml Syringe IVP Not Given 0100,0900,1700 LUCHO - Lab Result Fish Bone Diagrams: 05/20/20 05:12 05/20/20 05:12 - Additional Planning My Orders: My Active Orders 05/18/20 14:42 Activity Orders [RC] Q2HR IO [RC] IOSHIFT Initiate Bowel Care Protocol [RC] .protocol Initiate Line Care Protocol [RC] QSHIFT Initiate Personal Care Protoco [RC] .protocol Oxygen Therapy [RC] .PRN Telemetry- [RC] Q4HR Vital Signs [RC] 0800,1600,0000 Acetaminophen [Tylenol] 650 mg PO Q4HR PRN Sodium Chloride Flush 0.9% [Normal Saline Flush 0.9%] 10 ml IVP PRN PRN Condition of Patient [OTHERS] Routine DVT Prophylaxis [OTHERS] Routine 05/18/20 14:49 SCDs [RC] QSHIFT 05/18/20 15:00 Sodium Chloride 0.9% [Normal Saline 0.9%] 1,000 ml IV 100 mls/hr 05/18/20 15:04 Blood Glucose Checks - Eating [RC] 0800,1200,1700,2100 Initiate Hypoglycemia Protocol [RC] .protocol 05/18/20 Dinner Carb-controlled Diet [DIET] 05/18/20 17:00 Insulin Aspart [NovoLOG] 1 - 5 unit SUBQ 0800,1200,1700,2100 Sodium Chloride Flush 0.9% [Normal Saline Flush 0.9%] 10 ml IVP 0100,0900,1700 05/18/20 17:35 Nebulizer/MDI Tx. [RC] .QID Resp Teach Nebulizer/MDI [RC] .ONCE Albuterol 2.5 mg INH RTQ4H PRN 05/18/20 17:36 Code Status [OTHERS] Routine 05/18/20 17:38 Magic Mouthwash 30 ml PO Q4H PRN 05/18/20 19:00 Budesonide [Pulmicort] 0.5 mg INH RTBID Formoterol Fumarate [Perforomist] 20 mcg INH RTBID 05/18/20 21:00 Ipratropium/Albuterol [Duoneb] 3 ml INH RTQID guaiFENesin [Mucinex] 600 mg PO BID 05/18/20 22:00 methylPREDNISolone SUCCINATE [SOLU-Medrol (40MG VIAL)] 80 mg IVP TID 05/19/20 07:00 Pantoprazole [Protonix] 40 mg PO QDAC 05/19/20 09:00 Azithromycin Inj [Zithromax Inj] 500 mg Sodium Chloride 0.9% [Normal Saline 0.9%] 250 ml IV DAILY Enoxaparin [Lovenox] 40 mg SUBQ DAILY cefTRIAXone [Rocephin] 1 gm Sodium Chloride 0.9% Minibag [Normal Saline 0.9% Minibag] 100 ml IV DAILY 05/19/20 10:00 Nicotine 14 mg Patch [Nicoderm] 1 patch TOP DAILY 05/19/20 11:38 Carboxymethylcellulose 1% Opht [Refresh 1% Ophth Drops] 1 drops EACHEYE PRN PRN 05/20/20 05:00 BMP - BASIC METABOLIC PANEL [CHEM] DAILYLAB CBC - COMP BLD CT W/AUTO DIFF [HEME] DAILYLAB 05/21/20 05:00 BMP - BASIC METABOLIC PANEL [CHEM] DAILYLAB CBC - COMP BLD CT W/AUTO DIFF [HEME] DAILYLAB 05/22/20 05:00 BMP - BASIC METABOLIC PANEL [CHEM] DAILYLAB CBC - COMP BLD CT W/AUTO DIFF [HEME] DAILYLAB 05/23/20 05:00 BMP - BASIC METABOLIC PANEL [CHEM] DAILYLAB CBC - COMP BLD CT W/AUTO DIFF [HEME] DAILYLAB Subjective - Subjective Patient Reports: Other (Patient's work of breathing appears slightly improved today. However she was still very dyspneic. She denied chest pain, abdominal pain, nausea or vomiting. She complains of feeling hot. One of her blood cultures came back pos for MRSE. Nares were MRSA+) Objective Vital Signs: Vital Signs - 24 hr 05/18/20 05/18/20 05/18/20 13:29 14:04 15:47 Temperature 37.9 C Heart Rate 122 H 117 H 111 H Heart Rate [ Brachial] Respiratory 26 H 33 H 26 H Rate Blood Pressure 106/89 H 125/66 Blood Pressure [Left Brachial artery] Blood Pressure [Right Brachial artery] O2 Saturation 97 100 05/18/20 05/18/20 05/18/20 16:00 17:59 19:43 Temperature 38.0 C H Heart Rate 109 H 95 Heart Rate [ 112 H Brachial] Respiratory 22 28 H 24 Rate Blood Pressure Blood Pressure 130/63 [Left Brachial artery] Blood Pressure [Right Brachial artery] O2 Saturation 95 05/18/20 05/19/20 05/19/20 21:37 00:00 01:43 Temperature 37.0 C 36.8 C 36.9 C Heart Rate Heart Rate [ 91 55 L 85 Brachial] Respiratory 20 22 Rate Blood Pressure Blood Pressure 99/60 99/80 112/71 [Left Brachial artery] Blood Pressure [Right Brachial artery] O2 Saturation 95 97 99 05/19/20 05/19/20 07:48 08:00 Temperature 37.2 C Heart Rate 94 Heart Rate [ 95 Brachial] Respiratory 18 16 Rate Blood Pressure Blood Pressure [Left Brachial artery] Blood Pressure 109/71 [Right Brachial artery] O2 Saturation 93 Oxygen O2 Source Nasal cannula I&O (Last 24 Hrs): Intake and Output Totals x24h 05/17/20 05/18/20 05/19/20 23:59 23:59 23:59 Intake Total 1650 2056.667 Output Total 750 Balance 1650 1306.667 General: Alert, Oriented x3, Mild distress, Moderate distress HEENT: Atraumatic, PERRLA, EOMI Neck: Supple, No JVD Cardiovascular: Regular rate Respiratory: Other (Diminished breath sounds with inspiratory and expiratory wheezing. However this was an improvement from the previous day.) Abdomen: Normal bowel sounds, Soft Extremities: No clubbing, No edema - Results Results: Laboratory Results WBC 12.1 x10^3/uL (4.8-10.8) H 05/19/20 03:56 RBC 3.85 10^6/uL (4.20-5.40) L 05/19/20 03:56 Hgb 10.2 g/dL (12.0-16.0) L 05/19/20 03:56 Hct 33.6 % (37.0-47.0) L 05/19/20 03:56 MCV 87.3 fL (81.0-99.0) 05/19/20 03:56 MCH 26.5 pg (27.0-31.0) L 05/19/20 03:56 MCHC 30.4 g/dL (32.0-36.0) L 05/19/20 03:56 RDW 14.7 % (12.0-15.0) 05/19/20 03:56 Plt Count 306 10^3/uL (130-450) 05/19/20 03:56 MPV 9.6 fL (7.9-10.8) 05/19/20 03:56 Neut # (Auto) 11.5 10^3/uL (1.5-6.6) H 05/19/20 03:56 Lymph # (Auto) 0.4 10^3/uL (1.5-3.5) L 05/19/20 03:56 [place] # (Auto) 0.1 10^3/uL (0.0-1.0) 05/19/20 03:56 Eos # (Auto) 0.0 10^3/uL (0.0-0.7) 05/19/20 03:56 Baso # (Auto) 0.0 10^3/uL (0.0-0.1) 05/19/20 03:56 Absolute Nucleated RBC 0.00 x10^3/uL 05/19/20 03:56 Nucleated RBC % 0.0 /100WBC 05/19/20 03:56 VBG pH 7.357 (7.31-7.41) 05/18/20 14:56 VBG pCO2 38.3 mmHg (41-51) L 05/18/20 14:56 VBG pO2 29.5 mmHg (25-47) 05/18/20 14:56 VBG HCO3 21.0 mmol/L (23-28) L 05/18/20 14:56 VBG Total CO2 22.2 mmol/L (24-29) L 05/18/20 14:56 VBG O2 Saturation 57.5 % (60-80) L 05/18/20 14:56 VBG Base Excess -4.1 mmol/L (-2 - +2) L 05/18/20 14:56 Sodium 139 mmol/L (135-145) 05/19/20 03:56 Potassium 3.9 mmol/L (3.5-5.0) 05/19/20 03:56 Chloride 108 mmol/L (101-111) 05/19/20 03:56 Carbon Dioxide 22 mmol/L (21-32) 05/19/20 03:56 Anion Gap 9.0 (6-13) 05/19/20 03:56 BUN 19 mg/dL (6-20) 05/19/20 03:56 Creatinine 0.9 mg/dL (0.4-1.0) 05/19/20 03:56 Estimated GFR (MDRD) 61 (>89) L 05/19/20 03:56 Glucose 214 mg/dL (70-100) H 05/19/20 03:56 Lactic Acid 2.3 mmol/L (0.5-2.2) H 05/18/20 22:02 Calcium 9.2 mg/dL (8.5-10.3) 05/19/20 03:56 Total Bilirubin 1.0 mg/dL (0.2-1.0) 05/18/20 13:43 AST 15 IU/L (10-42) 05/18/20 13:43 ALT 11 IU/L (10-60) 05/18/20 13:43 Alkaline Phosphatase 95 IU/L (42-121) 05/18/20 13:43 Troponin I High Sens 9.3 ng/L (2.3-14.8) 05/18/20 13:43 B-Natriuretic Peptide 71 pg/mL (5-100) 05/18/20 13:43 Total Protein 6.9 g/dL (6.7-8.2) 05/18/20 13:43 Albumin 3.3 g/dL (3.2-5.5) 05/18/20 13:43 Globulin 3.6 g/dL (2.1-4.2) 05/18/20 13:43 Albumin/Globulin Ratio 0.9 (1.0-2.2) L 05/18/20 13:43 Nasal Adenovirus (PCR) NOT DETECTED 05/18/20 14:00 Nasal B. parapertussis DNA (PCR) NOT DETECTED 05/18/20 14:00 Nasal Coronavir 229E PCR NOT DETECTED 05/18/20 14:00 Nasal Coronavir HKU1 PCR NOT DETECTED 05/18/20 14:00 Nasal Coronavir NL63 PCR NOT DETECTED 05/18/20 14:00 Nasal Coronavir OC43 PCR NOT DETECTED 05/18/20 14:00 Nasal Enterovir/Rhinovir PCR NOT DETECTED 05/18/20 14:00 Nasal Influenza B PCR NOT DETECTED 05/18/20 14:00 Nasal Influenza A PCR NOT DETECTED 05/18/20 14:00 Nasal Parainfluen 1 PCR NOT DETECTED 05/18/20 14:00 Nasal Parainfluen 2 PCR NOT DETECTED 05/18/20 14:00 Nasal Parainfluen 3 PCR NOT DETECTED 05/18/20 14:00 Nasal Parainfluen 4 PCR NOT DETECTED 05/18/20 14:00 Nasal RSV (PCR) NOT DETECTED 05/18/20 14:00 Nasal B.pertussis DNA PCR NOT DETECTED 05/18/20 14:00 Nasal C.pneumoniae (PCR) NOT DETECTED 05/18/20 14:00 Scott Human Metapneumo PCR NOT DETECTED 05/18/20 14:00 Nasal M.pneumoniae (PCR) NOT DETECTED 05/18/20 14:00 Nasal SARS-CoV-2 (PCR) NOT DETECTED 05/18/20 14:00 ABX Reporting Has patient been on IV antibiotics over the past 48 hours?: Yes
[2020-05-19] MEDS: CARBOXYMETHYLCELLULOSE OPHTH DROPS EACHEYE PRN ×2 (12:16→22:16)
[2020-05-19] MEDS: MAGIC MOUTHWASH 120 ML BOTTLE PO PRN ×2 (13:26→21:33)
--- NOTE | 2020-05-19 16:47 | PHARMACY PROGRESS NOTE ---
- Therapy Status Vancomycin regimen day #: 1 Therapy status: Awaiting steady state Basis for treatment: Empirical Treatment indication: Sepsis Trough goal: 15-20 Concurrent antibiotics: Ceftriaxone and azithromycin - RANDOLPH Risk Risk level for Acute Kidney Injury: Moderate Acute Kidney Injury risk factors: Baseline CrCl <50, Goal trough >15, Sepsis - Monitoring and Recommendation Clinical response to treatment: I&O Previous 24 hours 05/17/20 05/18/20 05/19/20 23:59 23:59 23:59 Intake Total 1650 2440.000 Output Total 975 Balance 1650 1465.000 Lab Results 05/19/20 05/18/20 03:56 13:43 BUN 19 21 H Creatinine 0.9 1.1 H Estimated GFR (MDRD) 61 L 48 L Cultures 05/18/20 13:43 Blood Blood Culture (PCR) - Final 05/18/20 13:43 Blood Blood Culture - Preliminary 05/18/20 13:40 Blood Blood Culture - Preliminary NO GROWTH AFTER 1 DAY Monitoring plan: Daily serum creatinine, Draw trough early, Suggest ongoing fluid replacement Areas for additional monitoring: IV to PO when appropriate, Therapy de- escalation based on culture results Pharmacy recommendation: Continue current regime
[2020-05-19] MEDS: MORPHINE 2 MG/ML CARPUJECT IVP PRN ×2 (16:58→22:16)
[2020-05-19] MEDS ORDERED: VANCOMYCIN INJ 1 GM, VANCOMYCIN INJ 500 MG in SODIUM CHLORIDE 0.9% 500 ML IV ONE (18:00)
[2020-05-19] MEDS: ethyl alcohoL 62% SWAB AMPULE NAS SCH (21:29)
[2020-05-20] MEDS: ALBUTEROL NEB 2.5 MG/3 ML INH PRN (01:40)
[2020-05-20] MEDS: BENZOCAINE/MENTHOL LOZENGE MM PRN ×3 (01:56→07:06)
[2020-05-20] MEDS: MORPHINE 2 MG/ML CARPUJECT IVP PRN ×2 (02:00→08:38)
[2020-05-20 05:22] LABS: BASOPHILS % (AUTO) 0.1 %; EOSINOPHILS % (AUTO) 0.1 %; LYMPHOCYTES # (AUTO) 0.4 10^3/uL (1.5-3.5); LYMPHOCYTES % (AUTO) 2.8 %; MEAN CORPUSCULAR HEMOGLOBIN 27.4 pg (27.0-31.0); MEAN CORPUSCULAR HGB CONC 31.4 g/dL (32.0-36.0); MEAN CORPUSCULAR VOLUME 87.1 fL (81.0-99.0); MEAN PLATELET VOLUME 9.1 fL (7.9-10.8); MONOCYTES # (AUTO) 0.3 10^3/uL (0.0-1.0); MONOCYTES % (AUTO) 1.8 %; NEUTROPHILS # (AUTO) 13.9 10^3/uL (1.5-6.6); NEUTROPHILS % (AUTO) 94.8 %; PLT - PLATELET COUNT 329 10^3/uL (130-450); RED BLOOD COUNT 3.65 10^6/uL (4.20-5.40); RED CELL DISTRIBUTION WIDTH 14.9 % (12.0-15.0); WHITE BLOOD COUNT 14.7 x10^3/uL (4.8-10.8)
[2020-05-20 05:30] LABS: CALCIUM 9.1 mg/dL (8.5-10.3); CREATININE 0.7 mg/dL (0.4-1.0)
[2020-05-20] MEDS: methylPREDNISolone SUCCINATE 40 MG/ML VIAL IVP SCH ×3 (06:57→20:55)
[2020-05-20] MEDS: PANTOPRAZOLE 40 MG TABLET PO SCH (07:06)
[2020-05-20] MEDS: SODIUM CHLORIDE 0.9% 1,000 ML IV SCH ×2 (07:06→18:57)
[2020-05-20] MEDS: IPRATROPIUM/ALBUTEROL 3 ML NEB INH SCH ×4 (07:13→19:51)
[2020-05-20] MEDS: FORMOTEROL FUMARATE NEB 20 MCG/2 ML INH SCH ×2 (07:14→19:51)
[2020-05-20] MEDS: BUDESONIDE 0.5 MG/2 ML NEB INH SCH ×2 (07:14→19:51)
[2020-05-20] MEDS: INSULIN ASPART 300 UNIT/3 ML PEN SUBQ SCH ×4 (07:39→20:53)
[2020-05-20] MEDS: cefTRIAXone 1 GM in SODIUM CHLORIDE 0.9% MINIBAG 100 ML IV SCH (08:01)
[2020-05-20] MEDS: ENOXAPARIN 40 MG/0.4 ML SYRINGE SUBQ SCH (08:01)
[2020-05-20] MEDS: guaiFENesin 600 MG TABLET PO SCH ×2 (08:02→20:48)
[2020-05-20] MEDS: SODIUM CHLORIDE FLUSH 0.9% 10 ML SYRINGE IVP SCH ×3 (08:02→23:43)
[2020-05-20] MEDS: NICOTINE 14 MG PATCH TOP SCH (08:02)
[2020-05-20] MEDS: ethyl alcohoL 62% SWAB AMPULE NAS SCH ×2 (08:02→20:47)
--- NOTE | 2020-05-20 08:10 | PROVIDER PROGRESS NOTE ---
Assessment/Plan - Problem List (1) COPD exacerbation Assessment/Plan: Patient's respiratory status continues to slowly improve. DuoNeb ordered 4 times daily. Albuterol ordered every 4 hours as needed. Budesonide and formoterol ordered. Solu-Medrol 80 mg 3 times daily IV ordered. Patient was given Solu-Medrol 125 mg IV x1 in the ED. On supplemental oxygen. On Rocephin and azithromycin. Patient declined BiPAP/CPAP She had a choking episode this morning. A swallow eval was done. A mechanical soft diet was recommended. (2) Bacteremia Assessment/Plan: One of the patient's blood cultures came back positive for MRSE. While this is usually a contaminant, the patient presented with a lactic acid of 3.5, WBC 18, temperature of 38 C, tachypneic and tachycardic. She was also positive for MRSA in her nares As a result the patient was started on vancomycin today.Pharmacy to dose Patient's WBC today is 14.7. (3) Diabetes mellitus Qualifiers: Diabetes mellitus type: type 2 Assessment/Plan: Metformin held. Sliding scale insulin ordered. Carb controlled diet ordered. (4) Hypertension Assessment/Plan: Currently normotensive. If needed will order an antihypertensive as needed. (5) Lactic acidosis Assessment/Plan: Resolved (6) Sore throat Assessment/Plan: Magic wash ordered every 4 hours as needed. Patient has history of frequent oral thrush. - Current Meds Current Meds: Current Medications Generic Name Dose Route Start Last Admin Trade Name Freq PRN Reason Stop Dose Admin Acetaminophen 650 mg 05/18/20 14:42 05/19/20 11:29 Acetaminophen 325 Mg Tablet PO 650 mg Q4HR PRN Administration Pain 1 to 4 Albuterol 2.5 mg 05/18/20 17:35 05/20/20 01:40 Albuterol Neb 2.5 Mg/3 Ml INH 2.5 mg RTQ4H PRN Administration Wheezing Albuterol/Ipratropium 3 ml 05/18/20 21:00 05/20/20 07:13 Ipratropium/Albuterol 3 Ml Neb INH 3 ml RTQID LUCHO Administration Alcohol 1 amp 05/19/20 21:00 05/19/20 21:29 Ethyl Alcohol 62% Swab Ampule AYAKA 1 amp BID LUCHO Administration Budesonide 0.5 mg 05/18/20 19:00 05/20/20 07:14 Budesonide 0.5 Mg/2 Ml Neb INH 0.5 mg RTBID LUCHO Administration Carboxymethylcellulose 1 drops 05/19/20 11:38 05/19/20 22:16 Carboxymethylcellulose Ophth Drops EACHEYE 1 drops PRN PRN Administration Dry Eye Enoxaparin Sodium 40 mg 05/19/20 09:00 05/19/20 08:57 Enoxaparin 40 Mg/0.4 Ml Syringe SUBQ 40 mg DAILY LUCHO Administration Formoterol Fumarate 20 mcg 05/18/20 19:00 05/20/20 07:14 Formoterol Fumarate Neb 20 Mcg/2 Ml INH 20 mcg RTBID LUCHO Administration Guaifenesin 600 mg 05/18/20 21:00 05/19/20 21:30 Guaifenesin 600 Mg Tablet PO 600 mg BID LUCHO Administration Sodium Chloride 1,000 mls @ 100 mls/hr 05/18/20 15:00 05/20/20 07:06 Normal Saline 0.9% IV 100 mls/hr .Q10H LUCHO Administration Azithromycin 500 mg/ Sodium 250 mls @ 250 mls/hr 05/19/20 09:00 05/19/20 11:02 Chloride IV 05/20/20 09:59 Infused DAILY LUCHO Infusion Ceftriaxone Sodium 1 gm/ 100 mls @ 200 mls/hr 05/19/20 09:00 05/19/20 09:31 Sodium Chloride IV 05/23/20 09:29 Infused DAILY LUCHO Infusion Insulin Aspart 1 - 9 unit 05/19/20 17:00 05/20/20 07:39 Insulin Aspart 300 Unit/3 Ml Pen SUBQ 3 unit 0800,1200,1700,2100 LUCHO Administration Protocol Methylprednisolone 80 mg 05/18/20 22:00 05/20/20 06:57 Methylprednisolone Succinate 40 Mg/Ml Vial IVP 80 mg TID LUCHO Administration Morphine Sulfate 2 mg 05/19/20 16:42 05/20/20 02:00 Morphine 2 Mg/Ml Carpuject IVP 2 mg Q4HR PRN Administration Pain or air hunger Multi-Ingredient Mouthwash/Gargle 30 ml 05/18/20 17:38 05/19/20 21:33 Magic Mouthwash 120 Ml Bottle PO 30 ml Q4H PRN Administration Mouth Sore Pain Nicotine 1 patch 05/19/20 10:00 05/19/20 10:13 Nicotine 14 Mg Patch TOP 1 patch DAILY LUCHO Administration Pantoprazole Sodium 40 mg 05/19/20 07:00 05/20/20 07:06 Pantoprazole 40 Mg Tablet PO 40 mg QDAC LUCHO Administration Sodium Chloride 10 ml 05/18/20 17:00 05/19/20 23:47 Sodium Chloride Flush 0.9% 10 Ml Syringe IVP Not Given 0100,0900,1700 LUCHO Throat Lozenges 1 lozenge 05/20/20 00:44 05/20/20 07:06 Benzocaine/Menthol Lozenge MM 1 lozenge Q2HR PRN Administration Throat pain - Lab Result Fish Bone Diagrams: 05/20/20 05:12 05/20/20 05:12 - Additional Planning My Orders: My Active Orders 05/19/20 09:00 Azithromycin Inj [Zithromax Inj] 500 mg Sodium Chloride 0.9% [Normal Saline 0.9%] 250 ml IV DAILY Enoxaparin [Lovenox] 40 mg SUBQ DAILY cefTRIAXone [Rocephin] 1 gm Sodium Chloride 0.9% Minibag [Normal Saline 0.9% Minibag] 100 ml IV DAILY 05/19/20 10:00 Nicotine 14 mg Patch [Nicoderm] 1 patch TOP DAILY 05/19/20 11:38 Carboxymethylcellulose 1% Opht [Refresh 1% Ophth Drops] 1 drops EACHEYE PRN PRN 05/19/20 16:42 Morphine Inj (Carpuject) [Morphine (Carpuject)] 2 mg IVP Q4HR PRN 05/19/20 17:00 Insulin Aspart [NovoLOG] 1 - 9 unit SUBQ 0800,1200,1700,2100 05/19/20 21:00 ethyl alcohoL 62% swab [NoZin] 1 amp AYAKA BID 05/20/20 00:44 Benzocaine/Menthol [Cepacol] 1 lozenge MM Q2HR PRN 05/20/20 08:05 Echo Transthoracic Complete [ECHO] Routine 05/20/20 18:00 Vancomycin Inj [Vancomycin] 1 gm Sodium Chloride 0.9% [Normal Saline 0.9%] 250 ml IV Q24H 05/21/20 05:00 BMP - BASIC METABOLIC PANEL [CHEM] DAILYLAB CBC - COMP BLD CT W/AUTO DIFF [HEME] DAILYLAB 05/22/20 05:00 BMP - BASIC METABOLIC PANEL [CHEM] DAILYLAB CBC - COMP BLD CT W/AUTO DIFF [HEME] DAILYLAB 05/23/20 05:00 BMP - BASIC METABOLIC PANEL [CHEM] DAILYLAB CBC - COMP BLD CT W/AUTO DIFF [HEME] DAILYLAB Subjective - Subjective Patient Reports: Other (Patient complained of not doing well this morning. She had a choking episode when she was eating. It appears she was trying to swallow at the same time she felt the need to take a breath.) Objective Vital Signs: Vital Signs - 24 hr 05/19/20 05/19/20 05/19/20 11:54 15:34 16:05 Temperature 37.1 C 37.0 C Heart Rate 104 H Heart Rate [ 107 H 116 H Brachial] Respiratory 24 30 H 24 Rate Blood Pressure 103/54 L [Left Brachial artery] Blood Pressure 123/71 [Right Brachial artery] O2 Saturation 94 94 05/19/20 05/19/20 05/20/20 20:00 20:50 00:00 Temperature 36.8 C 37.0 C Heart Rate 106 H Heart Rate [ 109 H 105 H Brachial] Respiratory 20 20 16 Rate Blood Pressure 130/73 [Left Brachial artery] Blood Pressure 132/71 H [Right Brachial artery] O2 Saturation 94 94 05/20/20 05/20/20 05/20/20 01:40 04:00 05:35 Temperature 36.8 C 36.9 C Heart Rate 103 H Heart Rate [ 108 H 118 H Brachial] Respiratory 18 22 18 Rate Blood Pressure 123/75 [Left Brachial artery] Blood Pressure 151/80 H [Right Brachial artery] O2 Saturation 96 95 05/20/20 07:28 Temperature Heart Rate 98 Heart Rate [ Brachial] Respiratory 18 Rate Blood Pressure [Left Brachial artery] Blood Pressure [Right Brachial artery] O2 Saturation Oxygen O2 Source Nasal cannula I&O (Last 24 Hrs): Intake and Output Totals x24h 05/18/20 05/19/20 05/20/20 23:59 23:59 23:59 Intake Total 1650 4465.000 950 Output Total 1125 1825 Balance 1650 3340.000 -875 General: Alert, Oriented x3, Cooperative, Mild distress, Moderate distress HEENT: PERRLA, EOMI Neck: Supple, No JVD Neuro: Alert, Non Focal, Oriented Times 3 Cardiovascular: Regular rate Respiratory: Other (Bilateral wheezing. Both inspiratory and expiratory wheezing. However this is improved today compared to yesterday.) Abdomen: Normal bowel sounds, Soft Extremities: No clubbing, No cyanosis, No edema - Results Results: Laboratory Results WBC 14.7 x10^3/uL (4.8-10.8) H 05/20/20 05:12 RBC 3.65 10^6/uL (4.20-5.40) L 05/20/20 05:12 Hgb 10.0 g/dL (12.0-16.0) L 05/20/20 05:12 Hct 31.8 % (37.0-47.0) L 05/20/20 05:12 MCV 87.1 fL (81.0-99.0) 05/20/20 05:12 MCH 27.4 pg (27.0-31.0) 05/20/20 05:12 MCHC 31.4 g/dL (32.0-36.0) L 05/20/20 05:12 RDW 14.9 % (12.0-15.0) 05/20/20 05:12 Plt Count 329 10^3/uL (130-450) 05/20/20 05:12 MPV 9.1 fL (7.9-10.8) 05/20/20 05:12 Neut # (Auto) 13.9 10^3/uL (1.5-6.6) H 05/20/20 05:12 Lymph # (Auto) 0.4 10^3/uL (1.5-3.5) L 05/20/20 05:12 Coal # (Auto) 0.3 10^3/uL (0.0-1.0) 05/20/20 05:12 Eos # (Auto) 0.0 10^3/uL (0.0-0.7) 05/20/20 05:12 Baso # (Auto) 0.0 10^3/uL (0.0-0.1) 05/20/20 05:12 Absolute Nucleated RBC 0.00 x10^3/uL 05/20/20 05:12 Nucleated RBC % 0.0 /100WBC 05/20/20 05:12 VBG pH 7.357 (7.31-7.41) 05/18/20 14:56 VBG pCO2 38.3 mmHg (41-51) L 05/18/20 14:56 VBG pO2 29.5 mmHg (25-47) 05/18/20 14:56 VBG HCO3 21.0 mmol/L (23-28) L 05/18/20 14:56 VBG Total CO2 22.2 mmol/L (24-29) L 05/18/20 14:56 VBG O2 Saturation 57.5 % (60-80) L 05/18/20 14:56 VBG Base Excess -4.1 mmol/L (-2 - +2) L 05/18/20 14:56 Sodium 139 mmol/L (135-145) 05/20/20 05:12 Potassium 3.3 mmol/L (3.5-5.0) L 05/20/20 05:12 Chloride 109 mmol/L (101-111) 05/20/20 05:12 Carbon Dioxide 20 mmol/L (21-32) L 05/20/20 05:12 Anion Gap 10.0 (6-13) 05/20/20 05:12 BUN 19 mg/dL (6-20) 05/20/20 05:12 Creatinine 0.7 mg/dL (0.4-1.0) 05/20/20 05:12 Estimated GFR (MDRD) 81 (>89) L 05/20/20 05:12 Glucose 234 mg/dL (70-100) H 05/20/20 05:12 Lactic Acid 1.3 mmol/L (0.5-2.2) 05/19/20 18:08 Calcium 9.1 mg/dL (8.5-10.3) 05/20/20 05:12 Total Bilirubin 1.0 mg/dL (0.2-1.0) 05/18/20 13:43 AST 15 IU/L (10-42) 05/18/20 13:43 ALT 11 IU/L (10-60) 05/18/20 13:43 Alkaline Phosphatase 95 IU/L (42-121) 05/18/20 13:43 Troponin I High Sens 9.3 ng/L (2.3-14.8) 05/18/20 13:43 B-Natriuretic Peptide 71 pg/mL (5-100) 05/18/20 13:43 Total Protein 6.9 g/dL (6.7-8.2) 05/18/20 13:43 Albumin 3.3 g/dL (3.2-5.5) 05/18/20 13:43 Globulin 3.6 g/dL (2.1-4.2) 05/18/20 13:43 Albumin/Globulin Ratio 0.9 (1.0-2.2) L 05/18/20 13:43 Nasal Adenovirus (PCR) NOT DETECTED 05/18/20 14:00 Nasal B. parapertussis DNA (PCR) NOT DETECTED 05/18/20 14:00 Nasal Coronavir 229E PCR NOT DETECTED 05/18/20 14:00 Nasal Coronavir HKU1 PCR NOT DETECTED 05/18/20 14:00 Nasal Coronavir NL63 PCR NOT DETECTED 05/18/20 14:00 Nasal Coronavir OC43 PCR NOT DETECTED 05/18/20 14:00 Nasal Enterovir/Rhinovir PCR NOT DETECTED 05/18/20 14:00 Nasal Influenza B PCR NOT DETECTED 05/18/20 14:00 Nasal Influenza A PCR NOT DETECTED 05/18/20 14:00 Nasal Parainfluen 1 PCR NOT DETECTED 05/18/20 14:00 Nasal Parainfluen 2 PCR NOT DETECTED 05/18/20 14:00 Nasal Parainfluen 3 PCR NOT DETECTED 05/18/20 14:00 Nasal Parainfluen 4 PCR NOT DETECTED 05/18/20 14:00 Nasal RSV (PCR) NOT DETECTED 05/18/20 14:00 Nasal Screen MRSA (PCR) POSITIVE (NEGATIVE) A* 05/19/20 18:10 Nasal B.pertussis DNA PCR NOT DETECTED 05/18/20 14:00 Nasal C.pneumoniae (PCR) NOT DETECTED 05/18/20 14:00 [place] Human Metapneumo PCR NOT DETECTED 05/18/20 14:00 Nasal M.pneumoniae (PCR) NOT DETECTED 05/18/20 14:00 Nasal SARS-CoV-2 (PCR) NOT DETECTED 05/18/20 14:00 ABX Reporting Has patient been on IV antibiotics over the past 48 hours?: Yes
[2020-05-20] MEDS ORDERED: POTASSIUM CHLORIDE 20 MEQ TABLET PO ONE (08:12)
[2020-05-20] MEDS: AZITHROMYCIN INJ 500 MG in SODIUM CHLORIDE 0.9% 250 ML IV SCH (08:40)
--- NOTE | 2020-05-20 11:59 | PHARMACY PROGRESS NOTE ---
- Therapy Status Therapy status: Awaiting steady state Basis for treatment: Empirical Trough goal: 15-20 - [facility] Risk Risk level for Acute Kidney Injury: Moderate Acute Kidney Injury risk factors: Goal trough >15, Diabetes, Sepsis - Monitoring and Recommendation Clinical response to treatment: I&O Previous 24 hours 05/18/20 05/19/20 05/20/20 23:59 23:59 23:59 Intake Total 1650 4465.000 1540 Output Total 1125 1825 Balance 1650 3340.000 -285 Lab Results 05/20/20 05/19/20 05/18/20 05:12 03:56 13:43 BUN H Creatinine 0.7 0.9 1.1 H Estimated GFR (MDRD) 81 L 61 L 48 L Cultures 05/18/20 13:43 Blood Blood Culture (PCR) - Final 05/18/20 13:43 Blood Blood Culture - Preliminary 05/18/20 13:40 Blood Blood Culture - Preliminary NO GROWTH AFTER 1 DAY Monitoring plan: Daily serum creatinine, Draw trough early, Suggest ongoing fluid replacement (Renal function improved significantly, adjusted dose to 1000 mg (~15mg/kg) Q12h, plan to check level 05/21 prior to 4th dose. Blood cultures show CoNS, likely contaminant. Will continue to follow cultures.) Areas for additional monitoring: IV to PO when appropriate, Therapy de- escalation based on culture results Pharmacy recommendation: Continue current regime
[2020-05-20] MEDS: VANCOMYCIN INJ 1 GM in SODIUM CHLORIDE 0.9% 250 ML IV SCH ×2 (12:33→23:54)
[2020-05-20] MEDS: ACETAMINOPHEN 325 MG TABLET PO PRN ×2 (14:39→20:48)
[2020-05-20] MEDS: CARBOXYMETHYLCELLULOSE OPHTH DROPS EACHEYE PRN (20:52)
[2020-05-20] MEDS: MAGIC MOUTHWASH 120 ML BOTTLE PO PRN (20:57)
[2020-05-21] MEDS: diphenhydrAMINE 25 MG CAPSULE PO PRN (00:01)
[2020-05-21] MEDS: methylPREDNISolone SUCCINATE 40 MG/ML VIAL IVP SCH (05:40)
[2020-05-21] MEDS: PANTOPRAZOLE 40 MG TABLET PO SCH (05:40)
[2020-05-21] MEDS: CARBOXYMETHYLCELLULOSE OPHTH DROPS EACHEYE PRN (05:41)
[2020-05-21] MEDS: MAGIC MOUTHWASH 120 ML BOTTLE PO PRN (05:43)
[2020-05-21] MEDS: SODIUM CHLORIDE 0.9% 1,000 ML IV SCH ×2 (05:47→23:04)
[2020-05-21 06:00] LABS: BASOPHILS % (AUTO) 0.2 %; HGB - HEMOGLOBIN 11.8 g/dL (12.0-16.0); LYMPHOCYTES # (AUTO) 0.5 10^3/uL (1.5-3.5); LYMPHOCYTES % (AUTO) 4.8 %; MEAN CORPUSCULAR HGB CONC 31.5 g/dL (32.0-36.0); MEAN CORPUSCULAR VOLUME 85.8 fL (81.0-99.0); MEAN PLATELET VOLUME 9.2 fL (7.9-10.8); MONOCYTES # (AUTO) 0.2 10^3/uL (0.0-1.0); MONOCYTES % (AUTO) 2.4 %; NEUTROPHILS # (AUTO) 8.8 10^3/uL (1.5-6.6); PLT - PLATELET COUNT 386 10^3/uL (130-450); RED BLOOD COUNT 4.37 10^6/uL (4.20-5.40); WHITE BLOOD COUNT 9.5 x10^3/uL (4.8-10.8)
[2020-05-21 06:10] LABS: CALCIUM 9.3 mg/dL (8.5-10.3); CREATININE 0.7 mg/dL (0.4-1.0)
[2020-05-21] MEDS: BUDESONIDE 0.5 MG/2 ML NEB INH SCH ×2 (07:31→20:29)
[2020-05-21] MEDS: FORMOTEROL FUMARATE NEB 20 MCG/2 ML INH SCH ×2 (07:31→20:29)
[2020-05-21] MEDS: IPRATROPIUM/ALBUTEROL 3 ML NEB INH SCH ×4 (07:31→20:29)
[2020-05-21] MEDS: INSULIN ASPART 300 UNIT/3 ML PEN SUBQ SCH ×4 (07:57→21:51)
[2020-05-21] MEDS: ENOXAPARIN 40 MG/0.4 ML SYRINGE SUBQ SCH (08:14)
[2020-05-21] MEDS: cefTRIAXone 1 GM in SODIUM CHLORIDE 0.9% MINIBAG 100 ML IV SCH (08:14)
[2020-05-21] MEDS: guaiFENesin 600 MG TABLET PO SCH ×2 (08:14→21:48)
[2020-05-21] MEDS: ethyl alcohoL 62% SWAB AMPULE NAS SCH ×2 (08:14→21:48)
[2020-05-21] MEDS: SODIUM CHLORIDE FLUSH 0.9% 10 ML SYRINGE IVP SCH ×2 (08:15→17:40)
[2020-05-21] MEDS: NICOTINE 14 MG PATCH TOP SCH (08:15)
--- NOTE | 2020-05-21 09:09 | XRAY Report ---
PROCEDURE: Chest 1 View X-Ray INDICATIONS: Had aspiration/choking yesterday TECHNIQUE: One view of the chest was acquired. COMPARISON: Chest x-ray 05/19/2020 FINDINGS: Surgical changes and devices: Partially visualized lower cervical fixation rods are noted. Lungs and pleura: Chronic interstitial changes are present. There is blunting of the costophrenic ang les bilaterally with prominent dependent changes in the bases, minimally improved. Mediastinum: Mediastinal contours appear normal. Heart size is normal. Bones and chest wall: No suspicious bony lesions. Overlying soft tissues appear unremarkable. IMPRESSION: Persistent appearance of chronic interstitial changes with likely minimal effusions and bibasilar ate lectasis, minimally improved. Reviewed by: Yisel Richard MD on 05/21/2020 9:07 AM [facility] Approved by: Yisel Rcihard MD on 05/21/2020 9:07 AM [facility] Station ID: [id number]
[2020-05-21] MEDS: MORPHINE 2 MG/ML CARPUJECT IVP PRN ×2 (10:16→21:49)
[2020-05-21] MEDS: INSULIN GLARGINE 300 UNIT/3 ML PEN SUBQ SCH (10:22)
[2020-05-21] MEDS: predniSONE 20 MG TABLET PO SCH (10:24)
[2020-05-21 11:52] LABS: VANCOMYCIN,TROUGH 17.4 ug/mL (10.0-20.0)
[2020-05-21] MEDS: VANCOMYCIN INJ 1 GM in SODIUM CHLORIDE 0.9% 250 ML IV SCH (12:08)
--- NOTE | 2020-05-21 15:08 | PROVIDER PROGRESS NOTE ---
Subjective - Prog Note Date Prog Note Date: 05/21/20 - Subjective Subjective: She reports feeling much improved compared to admission. She still does not feel quite back to her baseline. She still has wheezing present at all times. She has not been ambulating yet. Still has a nonproductive cough. Current Medications - Current Medications Current Medications: Active Medications Acetaminophen (Acetaminophen 325 Mg Tablet) 650 mg PO Q4HR PRN PRN Reason: Pain 1 to 4 Last Admin: 05/20/20 20:48 Dose: 650 mg Documented by: Albuterol (Albuterol Neb 2.5 Mg/3 Ml) 2.5 mg INH RTQ4H PRN PRN Reason: Wheezing Last Admin: 05/20/20 01:40 Dose: 2.5 mg Documented by: Albuterol/Ipratropium (Ipratropium/Albuterol 3 Ml Neb) 3 ml INH RTQID [facility] Last Admin: 05/21/20 12:20 Dose: 3 ml Documented by: Alcohol (Ethyl Alcohol 62% Swab Ampule) 1 amp AYAKA BID [facility] Last Admin: 05/21/20 08:14 Dose: 1 amp Documented by: Budesonide (Budesonide 0.5 Mg/2 Ml Neb) 0.5 mg INH RTBID [facility] Last Admin: 05/21/20 07:31 Dose: 0.5 mg Documented by: Carboxymethylcellulose (Carboxymethylcellulose Ophth Drops) 1 drops EACHEYE PRN PRN PRN Reason: Dry Eye Last Admin: 05/21/20 05:41 Dose: 1 drops Documented by: Diphenhydramine HCl (Diphenhydramine 25 Mg Capsule) 25 mg PO QPM PRN PRN Reason: Insomnia Last Admin: 05/21/20 00:01 Dose: 25 mg Documented by: Enoxaparin Sodium (Enoxaparin 40 Mg/0.4 Ml Syringe) 40 mg SUBQ DAILY [facility] Last Admin: 05/21/20 08:14 Dose: 40 mg Documented by: Formoterol Fumarate (Formoterol Fumarate Neb 20 Mcg/2 Ml) 20 mcg INH RTBID [facility] Last Admin: 05/21/20 07:31 Dose: 20 mcg Documented by: Guaifenesin (Guaifenesin 600 Mg Tablet) 600 mg PO BID [facility] Last Admin: 05/21/20 08:14 Dose: 600 mg Documented by: Sodium Chloride (Normal Saline 0.9%) 1,000 mls @ 100 mls/hr IV .Q10H [facility] Last Admin: 05/21/20 05:47 Dose: 100 mls/hr Documented by: Ceftriaxone Sodium 1 gm/ (Sodium Chloride) 100 mls @ 200 mls/hr IV DAILY [facility] Stop: 05/23/20 09:29 Last Infusion: 05/21/20 10:16 Dose: Infused Documented by: Vancomycin HCl 1 gm/ Sodium (Chloride) 250 mls @ 167 mls/hr IV Q12H [facility] Last Infusion: 05/21/20 14:19 Dose: Infused Documented by: Insulin Aspart (Insulin Aspart 300 Unit/3 Ml Pen) 2 - 10 unit SUBQ 0800,1200,1700,2100 [facility]; Protocol Last Admin: 05/21/20 11:40 Dose: 6 unit Documented by: Insulin Glargine (Insulin Glargine 300 Unit/3 Ml Pen) 10 unit SUBQ DAILY [facility] Last Admin: 05/21/20 10:22 Dose: 10 unit Documented by: Morphine Sulfate (Morphine 2 Mg/Ml Carpuject) 2 mg IVP Q4HR PRN PRN Reason: Pain or air hunger Last Admin: 05/21/20 10:16 Dose: 2 mg Documented by: Multi-Ingredient Mouthwash/Gargle (Magic Mouthwash 120 Ml Bottle) 30 ml PO Q4H PRN PRN Reason: Mouth Sore Pain Last Admin: 05/21/20 05:43 Dose: 30 ml Documented by: Nicotine (Nicotine 14 Mg Patch) 1 patch TOP DAILY [facility] Last Admin: 05/21/20 08:15 Dose: 1 patch Documented by: Pantoprazole Sodium (Pantoprazole 40 Mg Tablet) 40 mg PO QDAC [facility] Last Admin: 05/21/20 05:40 Dose: 40 mg Documented by: Prednisone (Prednisone 20 Mg Tablet) 40 mg PO DAILYWM [facility] Last Admin: 05/21/20 10:24 Dose: 40 mg Documented by: Sodium Chloride (Sodium Chloride Flush 0.9% 10 Ml Syringe) 10 ml IVP PRN PRN PRN Reason: NEEDED PER PROVIDER ORDERS Sodium Chloride (Sodium Chloride Flush 0.9% 10 Ml Syringe) 10 ml IVP 0100,0900,1700 [facility] Last Admin: 05/21/20 08:15 Dose: Not Given Documented by: Throat Lozenges (Benzocaine/Menthol Lozenge) 1 lozenge MM Q2HR PRN PRN Reason: Throat pain Last Admin: 05/20/20 07:06 Dose: 1 lozenge Documented by: Albuterol Sulf [Ventolin Hfa Inhaler] 2 puffs INH Q4H PRN 05/18/20 Amlodipine Besylate [Norvasc] 10 mg PO DAILY 05/18/20 Atorvastatin [Lipitor] 10 mg PO QPM 05/18/20 Clopidogrel [Plavix] 75 mg PO DAILY 05/18/20 Diclofenac Sodium [Voltaren] 4 gm TOP QID PRN 05/18/20 Fluticasone/Umeclidin/Vilanter [Trelegy Ellipta 100-62.5-25] 1 puffs INH DAILY 05/18/20 Imipramine HCl 150 mg PO QPM 05/18/20 Ipratropium/Albuterol [Duoneb] 3 ml INH TID PRN 05/18/20 Losartan [Cozaar] 50 mg PO QPM 05/18/20 Metformin HCl [Glucophage Xr] 500 mg PO BID 05/18/20 Oxybutynin [Ditropan] 5 mg PO DAILY 05/18/20 Roflumilast [Daliresp] 250 mcg PO DAILY 05/18/20 Objective - Vital Signs/Intake & Output Reviewed Vital Signs: Yes Vital Signs: Vital Signs x48h Temp Pulse Pulse Resp BP Pulse Ox 05/21/20 12:33 37.0 C 114 H 22 152/92 H 97 05/21/20 12:20 111 H 20 05/21/20 08:47 36.4 C L 106 H 20 166/103 H 95 05/21/20 07:31 109 H 22 Intake & Output: Intake & Output 05/18/20 05/19/20 05/20/20 05/21/20 23:59 23:59 23:59 23:59 Intake Total 1650 4465.000 3140 2080 Output Total 1125 2275 2050 Balance 1650 3340.000 865 30 - Objective General Appearance: positive: No acute distress, Alert Eyes Bilateral: positive: Normal inspection, Conjunctivae nml ENT: positive: ENT inspection nml, Other (Nasal cannula in place.) Neck: positive: Nml inspection Respiratory: positive: No respiratory distress, Wheezes. negative: Rales Cardiovascular: positive: Tachycardia. negative: Irregularly irregular, Systolic murmur Abdomen: positive: Non-tender, No distention. negative: Tenderness Skin: positive: Warm, Dry Extremities: positive: No pedal edema Neurologic/Psychiatric: negative: Disoriented to person, Disoriented to place - Lab Results Fish Bones: 05/21/20 05:12 05/21/20 05:12 Other Labs: Lab Results x24hrs 05/21/20 05/21/20 05/21/20 Range/Units 11:35 05:12 05:12 WBC 9.5 (4.8-10.8) x10^3/uL RBC 4.37 (4.20-5.40) 10^6/uL Hgb 11.8 L (12.0-16.0) g/dL Hct 37.5 (37.0-47.0) % MCV 85.8 (81.0-99.0) fL MCH 27.0 (27.0-31.0) pg MCHC 31.5 L (32.0-36.0) g/dL RDW 15.0 (12.0-15.0) % Plt Count 386 (130-450) 10^3/uL MPV 9.2 (7.9-10.8) fL Neut # (Auto) 8.8 H (1.5-6.6) 10^3/uL Lymph # (Auto) 0.5 L (1.5-3.5) 10^3/uL [place] # (Auto) 0.2 (0.0-1.0) 10^3/uL Eos # (Auto) 0.0 (0.0-0.7) 10^3/uL Baso # (Auto) 0.0 (0.0-0.1) 10^3/uL Absolute Nucleated RBC 0.00 x10^3/uL Nucleated RBC % 0.0 /100WBC Sodium 138 (135-145) mmol/L Potassium 3.6 (3.5-5.0) mmol/L Chloride 106 (101-111) mmol/L Carbon Dioxide 23 (21-32) mmol/L Anion Gap 9.0 (6-13) BUN 15 (6-20) mg/dL Creatinine 0.7 (0.4-1.0) mg/dL Estimated GFR (MDRD) 81 L (>89) Glucose 223 H (70-100) mg/dL Calcium 9.3 (8.5-10.3) mg/dL Last Dose Date 05/21/20 Last Dose Time 01:33 Vancomycin Trough 17.4 (10.0-20.0) ug/mL ABX Reporting Has patient been on IV antibiotics over the past 48 hours?: Yes Assessment/Plan - Problem List (1) COPD exacerbation Impression: She is improving but not back to her baseline. She is on her baseline 3 L of oxygen but she does continue to have wheezing throughout all lung du. We we will change her to oral prednisone today. Continue with nebulizers [id number]. Continue with ceftriaxone IV. She is on appropriate medical therapy at home. We will continue to assess her on a daily basis but suspect she will be ready for discharge over next 24 to 48 hours. (2) Bacteremia due to Staphylococcus epidermidis Impression: Culture from admission grew MRSE in 1 out of 4 blood cultures. I suspect this is a contaminant but she did present with a fever of 38.0 C as well as a leukocytosis and elevated lactic acidosis. There has been no obvious source of infection. She has been on vancomycin IV and her white count has improved and she has been afebrile. Will discuss with infectious disease as at this point, I am not sure if she should be truly treated for this or not. (3) Chronic respiratory failure with hypoxia Impression: This is secondary to COPD. This is stable. She is on 2 L of oxygen at rest and 3 L with exertion. We will perform an exercise desaturation test prior to discharge. (4) Hypertension Impression: Blood pressure has been elevated with systolic in the 140s. We will resume her home amlodipine and losartan. (5) Type 2 diabetes mellitus Impression: Her blood glucose has been elevated at greater than 200. This is likely due to the steroids. We will continue with sliding scale and carb controlled diet. We will add Lantus 10 units daily.
--- NOTE | 2020-05-21 16:57 | PHARMACY PROGRESS NOTE ---
- Therapy Status Vancomycin regimen day #: 2 Therapy status: Trough therapeutic Basis for treatment: Empirical Trough goal: 15-20 - [facility] Risk Risk level for Acute Kidney Injury: Moderate Acute Kidney Injury risk factors: Goal trough >15, Diabetes, Sepsis - Monitoring and Recommendation Clinical response to treatment: I&O Previous 24 hours 05/19/20 05/20/20 05/21/20 23:59 23:59 23:59 Intake Total 4465.000 3140 2320 Output Total 1125 2275 2050 Balance 3340.000 865 270 Lab Results 05/21/20 05/20/20 05/19/20 05:12 05:12 03:56 BUN Creatinine 0.7 0.7 0.9 Estimated GFR (MDRD) 81 L 81 L 61 L 05/18/20 13:43 BUN 21 H Creatinine 1.1 H Estimated GFR (MDRD) 48 L Vancomycin Monitoring 05/21/20 11:35 Vancomycin Trough 17.4 Cultures 05/18/20 13:43 Blood Blood Culture - Preliminary Staphylococcus Epidermidis 05/18/20 13:40 Blood Blood Culture - Preliminary NO GROWTH AFTER 2 DAYS 05/18/20 13:43 Blood Blood Culture (PCR) - Final A/P: Renal function stable today, good UOP, level within range, drawn before the 4th dose.Currently no other nephrotoxic agents. Blood cx showing staph epi, likely contaminant. Consider discontinuing vancomycin therapy. Plan to recheck level at steady state, prior to 7th or 8th dose. Monitoring plan: Daily serum creatinine, Draw trough early, Suggest ongoing fluid replacement (Renal function improved significantly, adjusted dose to 1000 mg (~15mg/kg) Q12h, plan to check level 05/21 prior to 4th dose. Blood cultures show CoNS, likely contaminant. Will continue to follow cultures.) Next trough due prior to maintenance dose #: 8 Next trough due (date/time): 05/23 @~1130 Areas for additional monitoring: IV to PO when appropriate, Therapy de- escalation based on culture results Pharmacy recommendation: Continue current regime
[2020-05-21] MEDS: ACETAMINOPHEN 325 MG TABLET PO PRN (18:22)
[2020-05-21] MEDS: ATORVASTATIN 10 MG TABLET PO SCH (21:48)
[2020-05-21] MEDS: LOSARTAN 50 MG TABLET PO SCH (21:48)
[2020-05-22] MEDS: SODIUM CHLORIDE FLUSH 0.9% 10 ML SYRINGE IVP SCH ×3 (00:06→19:57)
[2020-05-22] MEDS: VANCOMYCIN INJ 1 GM in SODIUM CHLORIDE 0.9% 250 ML IV SCH ×2 (00:06→11:15)
[2020-05-22 05:33] LABS: BASOPHILS % (AUTO) 0.2 %; EOSINOPHILS % (AUTO) 0.1 %; HGB - HEMOGLOBIN 11.2 g/dL (12.0-16.0); LYMPHOCYTES % (AUTO) 18.3 %; MEAN CORPUSCULAR HEMOGLOBIN 26.7 pg (27.0-31.0); MEAN CORPUSCULAR HGB CONC 31.3 g/dL (32.0-36.0); MEAN CORPUSCULAR VOLUME 85.2 fL (81.0-99.0); MEAN PLATELET VOLUME 9.3 fL (7.9-10.8); MONOCYTES % (AUTO) 7.3 %; PLT - PLATELET COUNT 426 10^3/uL (130-450); RED CELL DISTRIBUTION WIDTH 14.7 % (12.0-15.0); WHITE BLOOD COUNT 12.2 x10^3/uL (4.8-10.8)
[2020-05-22 05:50] LABS: ABNORMAL LYMPHS % (MANUAL) 0 %
[2020-05-22 05:52] LABS: CALCIUM 9.2 mg/dL (8.5-10.3); CREATININE 0.6 mg/dL (0.4-1.0)
[2020-05-22] MEDS: diphenhydrAMINE 25 MG CAPSULE PO PRN (06:10)
[2020-05-22] MEDS: PANTOPRAZOLE 40 MG TABLET PO SCH (06:10)
[2020-05-22 06:24] LABS: BAND NEUTROPHILS % (MANUAL) 1 %; DIFFERENTIAL COMMENT MANUAL DIFFERENTIAL; LYMPHOCYTES # (MANUAL) 3.2 10^3/uL (1.5-3.5); LYMPHOCYTES % (MANUAL) 26 %; MONOCYTES # (MANUAL) 0.7 10^3/uL (0.0-1.0); PLATELET ESTIMATE, MANUAL NORMAL (130-450,000) (NORMAL); RBC MORPHOLOGY (MULTIPLE) NORMAL APPEARANCE (NORMAL)
[2020-05-22] MEDS: FORMOTEROL FUMARATE NEB 20 MCG/2 ML INH SCH ×2 (07:19→19:30)
[2020-05-22] MEDS: BUDESONIDE 0.5 MG/2 ML NEB INH SCH ×2 (07:19→19:30)
[2020-05-22] MEDS: IPRATROPIUM/ALBUTEROL 3 ML NEB INH SCH ×4 (07:19→19:30)
[2020-05-22] MEDS: predniSONE 20 MG TABLET PO SCH (08:28)
[2020-05-22] MEDS: guaiFENesin 600 MG TABLET PO SCH ×2 (08:29→21:19)
[2020-05-22] MEDS: CLOPIDOGREL 75 MG TABLET PO SCH (08:29)
[2020-05-22] MEDS: amLODIPine 5 MG TABLET PO SCH (08:29)
[2020-05-22] MEDS: NICOTINE 14 MG PATCH TOP SCH (08:30)
[2020-05-22] MEDS: ethyl alcohoL 62% SWAB AMPULE NAS SCH ×2 (08:30→21:22)
[2020-05-22] MEDS: INSULIN GLARGINE 300 UNIT/3 ML PEN SUBQ SCH (08:32)
[2020-05-22] MEDS: ENOXAPARIN 40 MG/0.4 ML SYRINGE SUBQ SCH ×2 (08:33→08:34)
[2020-05-22] MEDS: cefTRIAXone 1 GM in SODIUM CHLORIDE 0.9% MINIBAG 100 ML IV SCH (08:35)
[2020-05-22] MEDS: INSULIN ASPART 300 UNIT/3 ML PEN SUBQ SCH ×4 (08:40→21:22)
[2020-05-22] MEDS: SODIUM CHLORIDE 0.9% 1,000 ML IV SCH (11:17)
--- NOTE | 2020-05-22 11:41 | PROVIDER PROGRESS NOTE ---
Subjective - Prog Note Date Prog Note Date: 05/22/20 - Subjective Subjective: She is much improved today. She reports no dyspnea at rest. She was able to walk although she felt a little short of breath with exertion. Feels that her wheezing has improved. She feels quite close to her baseline. Current Medications - Current Medications Current Medications: Active Medications Acetaminophen (Acetaminophen 325 Mg Tablet) 650 mg PO Q4HR PRN PRN Reason: Pain 1 to 4 Last Admin: 05/21/20 18:22 Dose: 650 mg Documented by: Albuterol (Albuterol Neb 2.5 Mg/3 Ml) 2.5 mg INH RTQ4H PRN PRN Reason: Wheezing Last Admin: 05/20/20 01:40 Dose: 2.5 mg Documented by: Albuterol/Ipratropium (Ipratropium/Albuterol 3 Ml Neb) 3 ml INH RTQID [facility] Last Admin: 05/22/20 10:55 Dose: 3 ml Documented by: Alcohol (Ethyl Alcohol 62% Swab Ampule) 1 amp AYAKA BID [facility] Last Admin: 05/22/20 08:30 Dose: 1 amp Documented by: Amlodipine Besylate (Amlodipine 5 Mg Tablet) 10 mg PO DAILY [facility] Last Admin: 05/22/20 08:29 Dose: 10 mg Documented by: Atorvastatin Calcium (Atorvastatin 10 Mg Tablet) 10 mg PO QPM [facility] Last Admin: 05/21/20 21:48 Dose: 10 mg Documented by: Budesonide (Budesonide 0.5 Mg/2 Ml Neb) 0.5 mg INH RTBID [facility] Last Admin: 05/22/20 07:19 Dose: 0.5 mg Documented by: Carboxymethylcellulose (Carboxymethylcellulose Ophth Drops) 1 drops EACHEYE PRN PRN PRN Reason: Dry Eye Last Admin: 05/21/20 05:41 Dose: 1 drops Documented by: Clopidogrel Bisulfate (Clopidogrel 75 Mg Tablet) 75 mg PO DAILY [facility] Last Admin: 05/22/20 08:29 Dose: 75 mg Documented by: Diphenhydramine HCl (Diphenhydramine 25 Mg Capsule) 25 mg PO QPM PRN PRN Reason: Insomnia Last Admin: 05/22/20 06:10 Dose: 25 mg Documented by: Enoxaparin Sodium (Enoxaparin 40 Mg/0.4 Ml Syringe) 40 mg SUBQ DAILY [facility] Last Admin: 05/22/20 08:34 Dose: 40 mg Documented by: Formoterol Fumarate (Formoterol Fumarate Neb 20 Mcg/2 Ml) 20 mcg INH RTBID [facility] Last Admin: 05/22/20 07:19 Dose: 20 mcg Documented by: Guaifenesin (Guaifenesin 600 Mg Tablet) 600 mg PO BID [facility] Last Admin: 05/22/20 08:29 Dose: 600 mg Documented by: Sodium Chloride (Normal Saline 0.9%) 1,000 mls @ 100 mls/hr IV .Q10H [facility] Last Admin: 05/22/20 11:17 Dose: 100 mls/hr Documented by: Ceftriaxone Sodium 1 gm/ (Sodium Chloride) 100 mls @ 200 mls/hr IV DAILY [facility] Stop: 05/23/20 09:29 Last Infusion: 05/22/20 09:15 Dose: Infused Documented by: Insulin Aspart (Insulin Aspart 300 Unit/3 Ml Pen) 2 - 10 unit SUBQ 0800,1200,1700,2100 [facility]; Protocol Last Admin: 05/22/20 11:17 Dose: 6 unit Documented by: Insulin Glargine (Insulin Glargine 300 Unit/3 Ml Pen) 10 unit SUBQ DAILY [facility] Last Admin: 05/22/20 08:32 Dose: 10 unit Documented by: Losartan Potassium (Losartan 50 Mg Tablet) 50 mg PO QPM [facility] Last Admin: 05/21/20 21:48 Dose: 50 mg Documented by: Morphine Sulfate (Morphine 2 Mg/Ml Carpuject) 2 mg IVP Q4HR PRN PRN Reason: Pain or air hunger Last Admin: 05/21/20 21:49 Dose: 2 mg Documented by: Multi-Ingredient Mouthwash/Gargle (Magic Mouthwash 120 Ml Bottle) 30 ml PO Q4H PRN PRN Reason: Mouth Sore Pain Last Admin: 05/21/20 05:43 Dose: 30 ml Documented by: Nicotine (Nicotine 14 Mg Patch) 1 patch TOP DAILY [facility] Last Admin: 05/22/20 08:30 Dose: 1 patch Documented by: Pantoprazole Sodium (Pantoprazole 40 Mg Tablet) 40 mg PO QDAC [facility] Last Admin: 05/22/20 06:10 Dose: 40 mg Documented by: Prednisone (Prednisone 20 Mg Tablet) 40 mg PO DAILYWM [facility] Last Admin: 05/22/20 08:28 Dose: 40 mg Documented by: Sodium Chloride (Sodium Chloride Flush 0.9% 10 Ml Syringe) 10 ml IVP PRN PRN PRN Reason: NEEDED PER PROVIDER ORDERS Sodium Chloride (Sodium Chloride Flush 0.9% 10 Ml Syringe) 10 ml IVP 0100,0900,1700 [facility] Last Admin: 05/22/20 08:40 Dose: Not Given Documented by: Throat Lozenges (Benzocaine/Menthol Lozenge) 1 lozenge MM Q2HR PRN PRN Reason: Throat pain Last Admin: 05/20/20 07:06 Dose: 1 lozenge Documented by: Albuterol Sulf [Ventolin Hfa Inhaler] 2 puffs INH Q4H PRN 05/18/20 Amlodipine Besylate [Norvasc] 10 mg PO DAILY 05/18/20 Atorvastatin [Lipitor] 10 mg PO QPM 05/18/20 Clopidogrel [Plavix] 75 mg PO DAILY 05/18/20 Diclofenac Sodium [Voltaren] 4 gm TOP QID PRN 05/18/20 Fluticasone/Umeclidin/Vilanter [Trelegy Ellipta 100-62.5-25] 1 puffs INH DAILY 05/18/20 Imipramine HCl 150 mg PO QPM 05/18/20 Ipratropium/Albuterol [Duoneb] 3 ml INH TID PRN 05/18/20 Losartan [Cozaar] 50 mg PO QPM 05/18/20 Metformin HCl [Glucophage Xr] 500 mg PO BID 05/18/20 Oxybutynin [Ditropan] 5 mg PO DAILY 05/18/20 Roflumilast [Daliresp] 250 mcg PO DAILY 05/18/20 Objective - Vital Signs/Intake & Output Reviewed Vital Signs: Yes Vital Signs: Vital Signs x48h Temp Pulse Pulse Resp BP Pulse Ox 05/22/20 10:55 105 H 18 05/22/20 08:25 36.3 C L 107 H 18 145/99 H 100 05/22/20 07:19 105 H 18 05/22/20 04:30 36.9 C 109 H 18 166/92 H 96 Intake & Output: Intake & Output 01/17/21 01/18/21 01/19/21 01/20/21 23:59 23:59 23:59 23:59 Intake Total 4465.000 3140 3960 1670 Output Total 1125 2275 2550 1650 Balance 3340.628 927 3570 20 - Objective General Appearance: positive: No acute distress, Alert Eyes Bilateral: positive: Normal inspection, Conjunctivae nml ENT: positive: ENT inspection nml Neck: positive: Nml inspection, Other (Nasal cannula in place.) Respiratory: positive: No respiratory distress, Wheezes (Faint expiratory wheezes bilaterally. Much improved compared to yesterday.) Cardiovascular: positive: Tachycardia. negative: Irregularly irregular, Systolic murmur Abdomen: positive: Non-tender, No distention. negative: Tenderness Skin: positive: Warm, Dry Extremities: positive: No pedal edema Neurologic/Psychiatric: negative: Disoriented to person, Disoriented to place - Lab Results Fish Bones: 05/22/20 03:55 05/22/20 03:55 Other Labs: Lab Results x24hrs 05/22/20 05/22/20 05/21/20 Range/Units 03:55 03:55 11:35 WBC 12.2 H (4.8-10.8) x10^3/uL RBC 4.20 (4.20-5.40) 10^6/uL Hgb 11.2 L (12.0-16.0) g/dL Hct 35.8 L (37.0-47.0) % MCV 85.2 (81.0-99.0) fL MCH 26.7 L (27.0-31.0) pg MCHC 31.3 L (32.0-36.0) g/dL RDW 14.7 (12.0-15.0) % Plt Count 426 (130-450) 10^3/uL MPV 9.3 (7.9-10.8) fL Neut # (Auto) Not Reportable Lymph # (Auto) Not Reportable [place] # (Auto) Not Reportable Eos # (Auto) Not Reportable Baso # (Auto) Not Reportable Absolute Nucleated RBC Not Reportable Total Counted 100 Band Neuts % (Manual) 1 (0 - 10) % Abnorm Lymph % (Manual) 0 % Nucleated RBC % Not Reportable Neutrophils # (Manual) 8.3 H (1.5-6.6) 10^3/uL Lymphocytes # (Manual) 3.2 (1.5-3.5) 10^3/uL Monocytes # (Manual) 0.7 (0.0-1.0) 10^3/uL Eosinophils # (Manual) 0.0 (0-0.7) 10^3/uL Basophils # (Manual) 0.0 (0-0.1) 10^3/uL Differential Comment MANUAL DIFFERENTIAL Platelet Estimate NORMAL (130-450,000) (NORMAL) RBC Morph Micro Appear NORMAL APPEARANCE (NORMAL) Sodium 140 (135-145) mmol/L Potassium 3.6 (3.5-5.0) mmol/L Chloride 107 (101-111) mmol/L Carbon Dioxide 24 (21-32) mmol/L Anion Gap 9.0 (6-13) BUN 15 (6-20) mg/dL Creatinine 0.6 (0.4-1.0) mg/dL Estimated GFR (MDRD) 97 (>89) Glucose 142 H (70-100) mg/dL Calcium 9.2 (8.5-10.3) mg/dL Last Dose Date 05/21/20 Last Dose Time 01:33 Vancomycin Trough 17.4 (10.0-20.0) ug/mL Assessment/Plan - Problem List (1) COPD exacerbation Impression: She is much improved today. She feels close to her baseline and her wheezing is significantly improved. We will keep her hospitalized 1 more day and we will look to discharge her tomorrow. Up and out of bed as tolerated. We will discharge her on a prednisone taper over a few days given the severity of her COPD and that she has had multiple tapers in the past. Continue supplemental oxygen. Selena arango [id number]. (2) Bacteremia due to Staphylococcus epidermidis Impression: This is likely a contaminant. I discussed this with infectious disease at [facility] who are in agreement given it was just 1 out of 4 bottles and this is a common contaminant. We will discontinue the vancomycin. We will not repeat blood cultures given her clinical improvement. (3) Chronic respiratory failure with hypoxia Impression: She is on her baseline 2 L of oxygen at rest. We will perform an exercise desaturation test prior to discharge tomorrow. (4) Hypertension Impression: Stable. We have resumed her home and hypertensives. (5) Type 2 diabetes mellitus Impression: Blood glucose is better controlled after adding Lantus. We will continue with the current insulin regimen. We will discharge her on her home regimen.
[2020-05-22] MEDS: ACETAMINOPHEN 325 MG TABLET PO PRN (19:55)
[2020-05-22] MEDS: LOSARTAN 50 MG TABLET PO SCH (21:19)
[2020-05-22] MEDS: ATORVASTATIN 10 MG TABLET PO SCH (21:19)
[2020-05-23] MEDS: SODIUM CHLORIDE FLUSH 0.9% 10 ML SYRINGE IVP SCH ×2 (01:00→08:28)
[2020-05-23 05:55] LABS: BASOPHILS % (AUTO) 0.3 %; EOSINOPHILS % (AUTO) 0.3 %; HGB - HEMOGLOBIN 11.5 g/dL (12.0-16.0); LYMPHOCYTES # (AUTO) 3.5 10^3/uL (1.5-3.5); MEAN CORPUSCULAR HEMOGLOBIN 26.9 pg (27.0-31.0); MEAN CORPUSCULAR HGB CONC 31.5 g/dL (32.0-36.0); MEAN CORPUSCULAR VOLUME 85.5 fL (81.0-99.0); MEAN PLATELET VOLUME 9.2 fL (7.9-10.8); MONOCYTES # (AUTO) 0.7 10^3/uL (0.0-1.0); MONOCYTES % (AUTO) 6.1 %; NEUTROPHILS # (AUTO) 6.7 10^3/uL (1.5-6.6); NEUTROPHILS % (AUTO) 60.1 %; PLT - PLATELET COUNT 377 10^3/uL (130-450); RED BLOOD COUNT 4.27 10^6/uL (4.20-5.40); RED CELL DISTRIBUTION WIDTH 14.8 % (12.0-15.0); WHITE BLOOD COUNT 11.1 x10^3/uL (4.8-10.8)
[2020-05-23 06:03] LABS: CREATININE 0.6 mg/dL (0.4-1.0)
[2020-05-23] MEDS: PANTOPRAZOLE 40 MG TABLET PO SCH (06:12)
[2020-05-23] MEDS ORDERED: POTASSIUM CHLORIDE 20 MEQ TABLET PO ONE (07:24)
[2020-05-23] MEDS: FORMOTEROL FUMARATE NEB 20 MCG/2 ML INH SCH (07:38)
[2020-05-23] MEDS: BUDESONIDE 0.5 MG/2 ML NEB INH SCH (07:38)
[2020-05-23] MEDS: IPRATROPIUM/ALBUTEROL 3 ML NEB INH SCH ×2 (07:38→11:26)
--- NOTE | 2020-05-23 07:59 | Discharge Plan ---
Discharge Plan Problem Reviewed?: Yes Disposition: Home Health Service Condition: Stable Prescriptions: Potassium Chloride 10 meq PO DAILY #30 tablet.er Diet: Regular Activity Restrictions: Activity as Tolerated Instruction Topics: COPD Dc, MRSA Infec Health Concerns: You were seen in the hospital because of exacerbation of your COPD. You were treated with steroids, antibiotics, and breathing treatments with improvement in your breathing. You need 2 L of oxygen at rest and 3 L with exertion. We did check for infection and initially one of the cultures that we al from your blood did grow bacteria. After review of this, this was felt to be a skin contaminant and not a true infection. This was discussed with infectious disease doctors who were in agreement. Plan of Treatment: There have been no changes made to your medications. You will not be discharged on steroids as you have already completed 5 days of therapy. I have written you a prescription for potassium as your potassium has been on the lower side. I placed a referral for pulmonary rehab as well. This can benefit you on an outpatient basis to help increase your conditioning. Care Goals: Return to the emergency department if you develop worsening shortness of breath, fever, chest pain. The goal is to try and control your COPD best we can to keep you to the hospital Assessment: Patient expressed understanding of the treatment plan. Additional Instructions or Follow Up instructions: Please follow-up with your primary care provider in 1 week. Follow-Up Care: [facility] - [facility], Home Health - PT No Smoking: If you smoke, Please STOP! Call for help. Follow-up with: Gabriela Schaffer ARNP, [employer] [facility] [employer] [Primary Care Provider] -
--- NOTE | 2020-05-23 08:02 | DISCHARGE SUMMARY ---
"Discharge Summary Admit Date: 05/18/20 Discharge Date: 05/23/20 Discharging Provider: Jonnie Gomez Primary Care Provider: Gabriela Schaffer Condition at Discharge: Stable Discharge Disposition: Home Health Service - DIAGNOSES Admission Diagnoses: COPD exacerbation Diabetes mellitus type 2 Hypertension Lactic acidosis Sore throat Discharge Diagnoses with Status of Each Condition: COPD exacerbation - resolved. Bacteremia due to contaminant - resolved. Chronic respiratory failure with hypoxia - stable. Hypertension - stable. Type 2 diabetes mellitus - stable. - HPI History of Present Illness: H&P per Dr. Verdugo: Patient is a 75-year-old female with medical history significant for COPD, diabetes mellitus and hypertension who presented to the ED with complaint of dyspnea for the past 1-1/2 weeks. However it was significantly worse today. When her daughter came over to her house and so her distress she called EMS. The patient recently moved to [facility] to be close to her daughter. She moved from [facility]. She has also been experiencing productive greenish cough for the past week. She cannot tell if she was febrile at home but reported chills. She denied chest pain, nausea, vomiting, abdominal pain. She was recently on steroid taper ordered by her primary care physician Gabriela Schaffer. In the ED she was very tachypneic with a heart rate as high as 35. She was also tachycardic. Had a white blood cell count of 18.6 and a lactic acid of 3.5. She had hyperinflation and flattening of the hemidiaphragm on chest x-ray which was suggestive of COPD. As a result she was presented for admission for further treatment. At bedside she has significant conversational dyspnea on auscultation there is decreased air movement through her lung. She has some expiratory wheezing as well. She uses 2 L of oxygen via nasal cannula during the day and 3 L at night. The rest of her history is unremarkable. - CONSULTS | PROCEDURES Consultations: PT - HOSPITAL COURSE Hospital Course: She was admitted to the floor for COPD exacerbation. She did have a low-grade fever on admission and an elevated white count as well as a lactic acid elevated at 3.5. There was concern for sepsis and so blood cultures were obtained. She was started on antibiotics with ceftriaxone/azithromycin for the COPD exacerbation as well as steroids. Lactic acidosis resolved after gentle IV hydration. One of her blood cultures came back positive for methicillin- resistant staph epidermidis. This was felt to be a contaminant given it was 1 out of 4 bottles but given her presentation with a low-grade fever, leukocytosis and elevated lactic acid, she was started on vancomycin empirically. During his hospitalization, she did not have any further fevers and her white count improved appropriately. The positive blood culture was discussed with infectious disease at [facility] and they were also in agreement that this is likely contaminant and so the vancomycin was discontinued. The patient COPD was slow to improve but on hospital day 5, she felt back to her baseline. She had completed 5 days of steroids. She was discharged on her home inhalers which is appropriate therapy for her COPD. She was referred to pulmonary rehab. She was evaluated by physical therapy prior to discharge given she has multiple steps at home. The patient declined a residential facility and so home health PT was recommended. We did do an exercise desaturation test prior to discharge and the patient continues to require 2 L of oxygen at rest and 3 L with activity which is what she was requiring prior to admission, - ALLERGIES Allergies/Adverse Reactions: Allergies Allergy/AdvReac Type Severity Reaction Status Date / Time No Known Drug Allergies Allergy Verified 05/18/20 13:31 - MEDICATIONS Home Medications: Ambulatory Orders Medication Instructions Recorded Confirmed Albuterol Sulf [Ventolin Hfa 2 puffs INH Q4H PRN 05/18/20 05/18/20 Inhaler] Amlodipine Besylate [Norvasc] 10 mg PO DAILY 05/18/20 05/19/20 Atorvastatin [Lipitor] 10 mg PO QPM 05/18/20 05/19/20 Clopidogrel [Plavix] 75 mg PO DAILY 05/18/20 05/19/20 Diclofenac Sodium [Voltaren] 4 gm TOP QID PRN 05/18/20 05/18/20 Fluticasone/Umeclidin/Vilanter 1 puffs INH DAILY 05/18/20 05/18/20 [Trelegy Ellipta 100-62.5-25] Imipramine HCl 150 mg PO QPM 05/18/20 05/18/20 Ipratropium/Albuterol [Duoneb] 3 ml INH TID PRN 05/18/20 05/18/20 Losartan [Cozaar] 50 mg PO QPM 05/18/20 05/19/20 Metformin HCl [Glucophage Xr] 500 mg PO BID 05/18/20 05/19/20 Oxybutynin [Ditropan] 5 mg PO DAILY 05/18/20 05/19/20 Roflumilast [Daliresp] 250 mcg PO DAILY 05/18/20 05/18/20 Potassium Chloride 10 meq PO DAILY #30 tablet.er 05/23/20 - PHYSICAL EXAM AT DISCHARGE General Appearance: positive: No acute distress, Alert Eyes Bilateral: positive: Normal inspection, Conjunctivae nml ENT: positive: ENT inspection nml, Other (Nasal cannula in place.) Neck: positive: Nml inspection Respiratory: positive: No respiratory distress. negative: Wheezes, Rales Cardiovascular: positive: Regular rate & rhythm, Tachycardia. negative: Irregularly irregular, Systolic murmur Abdomen: positive: Non-tender, No distention. negative: Tenderness, Guarding, Rebound Skin: positive: Warm, Dry Extremities: positive: No pedal edema Neurologic/Psychiatric: positive: Motor nml. negative: Disoriented to person, Disoriented to place, Disoriented to time Physical Exam Other/Comments: Vital Signs - 24 hr 05/22/20 05/22/20 05/22/20 13:00 15:00 15:33 Temperature 36.9 C 37.2 C Heart Rate 105 H Heart Rate [ 110 H 104 H Brachial] Respiratory 18 20 20 Rate Blood Pressure [Left Brachial artery] Blood Pressure 116/77 110/73 [Right Brachial artery] O2 Saturation 97 95 05/22/20 05/22/20 05/23/20 19:30 20:17 00:06 Temperature 36.4 C L 36.6 C Heart Rate 92 Heart Rate [ 104 H 72 Brachial] Respiratory 18 20 16 Rate Blood Pressure 125/59 L 133/86 H [Left Brachial artery] Blood Pressure [Right Brachial artery] O2 Saturation 98 98 05/23/20 05/23/20 05/23/20 05:00 07:38 07:59 Temperature 36.8 C 36.8 C Heart Rate 104 H Heart Rate [ 103 H 100 Brachial] Respiratory 16 20 16 Rate Blood Pressure 147/91 H 147/85 H [Left Brachial artery] Blood Pressure [Right Brachial artery] O2 Saturation 96 98 05/23/20 11:26 Temperature Heart Rate 100 Heart Rate [ Brachial] Respiratory 22 Rate Blood Pressure [Left Brachial artery] Blood Pressure [Right Brachial artery] O2 Saturation Oxygen O2 Source Nasal cannula - LABS Result Diagrams: 05/23/20 05:41 05/23/20 05:41 Other Lab Results: Laboratory Results - last 24 hr 05/18/20 05/18/20 05/19/20 16:32 21:29 07:45 WBC RBC Hgb Hct MCV MCH MCHC RDW Plt Count MPV Neut # (Auto) Lymph # (Auto) [place] # (Auto) Eos # (Auto) Baso # (Auto) Absolute Nucleated RBC Nucleated RBC % Sodium Potassium Chloride Carbon Dioxide Anion Gap BUN Creatinine Estimated GFR (MDRD) Glucose POC Whole Bld Glucose 234 H 296 H 177 H Calcium 05/19/20 05/19/20 05/19/20 11:16 16:31 20:54 WBC RBC Hgb Hct MCV MCH MCHC RDW Plt Count MPV Neut # (Auto) Lymph # (Auto) [place] # (Auto) Eos # (Auto) Baso # (Auto) Absolute Nucleated RBC Nucleated RBC % Sodium Potassium Chloride Carbon Dioxide Anion Gap BUN Creatinine Estimated GFR (MDRD) Glucose POC Whole Bld Glucose 276 H 199 H 280 H Calcium 05/20/20 05/20/20 05/20/20 07:36 11:23 16:40 WBC RBC Hgb Hct MCV MCH MCHC RDW Plt Count MPV Neut # (Auto) Lymph # (Auto) [place] # (Auto) Eos # (Auto) Baso # (Auto) Absolute Nucleated RBC Nucleated RBC % Sodium Potassium Chloride Carbon Dioxide Anion Gap BUN Creatinine Estimated GFR (MDRD) Glucose POC Whole Bld Glucose 206 H 193 H 228 H Calcium 05/20/20 05/21/20 05/21/20 20:37 07:41 11:36 WBC RBC Hgb Hct MCV MCH MCHC RDW Plt Count MPV Neut # (Auto) Lymph # (Auto) [place] # (Auto) Eos # (Auto) Baso # (Auto) Absolute Nucleated RBC Nucleated RBC % Sodium Potassium Chloride Carbon Dioxide Anion Gap BUN Creatinine Estimated GFR (MDRD) Glucose POC Whole Bld Glucose 224 H 199 H 231 H Calcium 05/21/20 05/21/20 05/22/20 16:36 20:50 07:29 WBC RBC Hgb Hct MCV MCH MCHC RDW Plt Count MPV Neut # (Auto) Lymph # (Auto) [place] # (Auto) Eos # (Auto) Baso # (Auto) Absolute Nucleated RBC Nucleated RBC % Sodium Potassium Chloride Carbon Dioxide Anion Gap BUN Creatinine Estimated GFR (MDRD) Glucose POC Whole Bld Glucose 176 H 204 H 119 H Calcium 05/22/20 05/22/20 05/22/20 11:16 16:26 20:31 WBC RBC Hgb Hct MCV MCH MCHC RDW Plt Count MPV Neut # (Auto) Lymph # (Auto) [place] # (Auto) Eos # (Auto) Baso # (Auto) Absolute Nucleated RBC Nucleated RBC % Sodium Potassium Chloride Carbon Dioxide Anion Gap BUN Creatinine Estimated GFR (MDRD) Glucose POC Whole Bld Glucose 255 H 225 H 206 H Calcium 05/23/20 05/23/20 05/23/20 05:41 05:41 07:27 WBC 11.1 H RBC 4.27 Hgb 11.5 L Hct 36.5 L MCV 85.5 MCH 26.9 L MCHC 31.5 L RDW 14.8 Plt Count 377 MPV 9.2 Neut # (Auto) 6.7 H Lymph # (Auto) 3.5 [place] # (Auto) 0.7 Eos # (Auto) 0.0 Baso # (Auto) 0.0 Absolute Nucleated RBC 0.00 Nucleated RBC % 0.0 Sodium 140 Potassium 2.9 L Chloride 104 Carbon Dioxide 27 Anion Gap 9.0 BUN 16 Creatinine 0.6 Estimated GFR (MDRD) 97 Glucose 116 H POC Whole Bld Glucose 110 H Calcium 9.0 05/23/20 11:19 WBC RBC Hgb Hct MCV MCH MCHC RDW Plt Count MPV Neut # (Auto) Lymph # (Auto) [place] # (Auto) Eos # (Auto) Baso # (Auto) Absolute Nucleated RBC Nucleated RBC % Sodium Potassium Chloride Carbon Dioxide Anion Gap BUN Creatinine Estimated GFR (MDRD) Glucose POC Whole Bld Glucose 184 H Calcium - DIAGNOSTIC IMAGING Diagnostic Imaging Results: Final report reviewed - SEPSIS Current Stage of Sepsis: Ruled out - FOLLOW UP Follow Up: She will be following up with her primary care provider in 1 week. A referral was also made to pulmonary rehab. - TIME SPENT Time Spent in Discharge (Minutes): 34"
[2020-05-23] MEDS: CLOPIDOGREL 75 MG TABLET PO SCH (08:23)
[2020-05-23] MEDS: cefTRIAXone 1 GM in SODIUM CHLORIDE 0.9% MINIBAG 100 ML IV SCH (08:23)
[2020-05-23] MEDS: INSULIN ASPART 300 UNIT/3 ML PEN SUBQ SCH ×2 (08:23→11:59)
[2020-05-23] MEDS: guaiFENesin 600 MG TABLET PO SCH (08:23)
[2020-05-23] MEDS: amLODIPine 5 MG TABLET PO SCH (08:24)
[2020-05-23] MEDS: NICOTINE 14 MG PATCH TOP SCH (08:24)
[2020-05-23] MEDS: ethyl alcohoL 62% SWAB AMPULE NAS SCH (08:24)
[2020-05-23] MEDS: ENOXAPARIN 40 MG/0.4 ML SYRINGE SUBQ SCH (08:24)
[2020-05-23] MEDS: INSULIN GLARGINE 300 UNIT/3 ML PEN SUBQ SCH (08:27)
[2020-05-23 14:11] VITALS: BP 118/64
== END 2020-05-23 14:03 | disposition home health service (06) | DRG 191 ==
LOC: EDUNIT# → ED 13:16 → MS2 14:42
PROVIDERS: ADMIT Internal Medicine; ATTEND Internal Medicine
DX: J44.1 Chronic obstructive pulmonary disease with (acute) exacerbation (principal); F17.200 Nicotine dependence, unspecified, uncomplicated; E87.2 Acidosis; J96.11 Chronic respiratory failure with hypoxia; J02.9 Acute pharyngitis, unspecified; E11.9 Type 2 diabetes mellitus without complications; I10 Essential (primary) hypertension; F17.210 Nicotine dependence, cigarettes, uncomplicated; Z96.651 Presence of right artificial knee joint; Z99.81 Dependence on supplemental oxygen; Z79.51 Long term (current) use of inhaled steroids; Z79.02 Long term (current) use of antithrombotics/antiplatelets; Z79.899 Other long term (current) drug therapy; Z79.84 Long term (current) use of oral hypoglycemic drugs; Z22.322 Carrier or suspected carrier of Methicillin resistant Staphylococcus aureus
CPT/HCPCS: 36415; 71045; 80048; 80053; 80202; 82803; 83605; 83735; 83880; 84484; 85025; 87040; 87150; 87181; 87631; 87640; 92610; 93005; 93306; 94640; 94761; 96365; 96375; 97162; 99285; A9270; J1650; J1815; J3370; J7512; J7626; 0202U

== ENCOUNTER 2020-07-08 08:00 | Outpatient (CLI) | payer MEDICARE, OTHER ==
[2020-07-08 18:28] LABS: BASOPHILS # (AUTO) 0.1 10^3/uL (0.0-0.1); BASOPHILS % (AUTO) 0.7 %; EOSINOPHILS # (AUTO) 0.1 10^3/uL (0.0-0.7); HCT - HEMATOCRIT 40.8 % (37.0-47.0); HGB - HEMOGLOBIN 11.9 g/dL (12.0-16.0); LYMPHOCYTES % (AUTO) 25.8 %; MEAN CORPUSCULAR HEMOGLOBIN 25.9 pg (27.0-31.0); MEAN CORPUSCULAR HGB CONC 29.2 g/dL (32.0-36.0); MEAN CORPUSCULAR VOLUME 88.9 fL (81.0-99.0); MEAN PLATELET VOLUME 10.1 fL (7.9-10.8); MONOCYTES # (AUTO) 0.7 10^3/uL (0.0-1.0); NEUTROPHILS # (AUTO) 7.6 10^3/uL (1.5-6.6); PLT - PLATELET COUNT 392 10^3/uL (130-450); RED BLOOD COUNT 4.59 10^6/uL (4.20-5.40); RED CELL DISTRIBUTION WIDTH 14.6 % (12.0-15.0); WHITE BLOOD COUNT 11.5 x10^3/uL (4.8-10.8)
[2020-07-08 18:47] LABS: ALBUMIN 4.3 g/dL (3.2-5.5); ALBUMIN/GLOBULIN RATIO 1.3 (1.0-2.2); BILIRUBIN,TOTAL 0.6 mg/dL (0.2-1.0); POTASSIUM 4.2 mmol/L (3.5-5.0); TOTAL PROTEIN 7.5 g/dL (6.7-8.2)
[2020-07-08 20:37] LABS: ESTIMATED AVERAGE GLUCOSE 151 mg/dL (70-100); HEMOGLOBIN A1c% 6.9 % (4.27-6.07)
== END 2020-07-08 23:59 | disposition home or self-care (01) ==
LOC: LAB.WCP 08:00
PROVIDERS: ATTEND Nurse Practitioner
DX: E78.5 Hyperlipidemia, unspecified (principal); I27.20 Pulmonary hypertension, unspecified; J44.9 Chronic obstructive pulmonary disease, unspecified; E11.9 Type 2 diabetes mellitus without complications
CPT/HCPCS: 36415; 80053; 83036; 85025

== ENCOUNTER 2020-07-29 07:00 | Outpatient (CLI) | payer MEDICARE, OTHER ==
--- NOTE | 2020-07-29 12:45 | XRAY Report ---
PROCEDURE: Cervical Spine 2 View INDICATIONS: ARTHRITIS, CERVICAL SPINE TECHNIQUE: 2 view(s) of the cervical spine (4 images) were acquired. COMPARISON: None. FINDINGS: Bones: Bilateral laminectomies and posterior transverse pedicle screws with vertical fixation rods sp anning from C3 3 through C6 No fractures or dislocations to the T1 level. The lateral masses of C1 a ppear intact on the odontoid view. No suspicious bony lesions. Soft tissues: No prevertebral soft tissue swelling. IMPRESSION: No abnormal alignment this patient with prior mid and lower cervical laminectomies and p osterior fixation devices from C3 3 through C6. Reviewed by: Pablo Perez MD on 07/29/2020 12:43 PM PDT Approved by: Pablo Perez MD on 07/29/2020 12:43 PM PDT Station ID: [id number]
== END 2020-07-29 23:59 | disposition home or self-care (01) ==
LOC: DI.N 07:00
PROVIDERS: ATTEND Physician Assistant
DX: M47.812 Spondylosis without myelopathy or radiculopathy, cervical region (principal)

== ENCOUNTER 2020-09-26 18:35 | Outpatient (CLI) | payer MEDICARE, OTHER ==
--- NOTE | 2020-09-26 16:25 | XRAY Report ---
PROCEDURE: Knee 4 View RT INDICATIONS: OSTEOARTHRITIS, R KNEE TECHNIQUE: 4 views of the right knee(s) were acquired. COMPARISON: None. FINDINGS: Bones: Status post ORIF of patellar fracture with placement of K wires and cerclage wire. No fractur es or dislocations. No suspicious bony lesions. Severe medial compartment osteoarthritis with joint space narrowing, subchondral sclerosis and marginal osteophytosis.. Mild lateral and patellofemoral c ompartment osteoarthritis with marginal osteophytosis. Soft tissues: No joint effusion. No suspicious soft tissue calcifications. IMPRESSION: Tricompartmental osteoarthritis as described above. Reviewed by: Pam Isaacs MD, PhD on 09/26/2020 4:23 PM PDT Approved by: Pam Isaacs MD, PhD on 09/26/2020 4:23 PM PDT Station ID: [id number]
== END 2020-09-26 23:59 | disposition home or self-care (01) ==
LOC: DI.N 18:35
PROVIDERS: ATTEND Physician Assistant
DX: M17.11 Unilateral primary osteoarthritis, right knee (principal)

== ENCOUNTER 2021-02-09 10:02 | Outpatient (CLI) | payer MEDICARE, OTHER ==
--- NOTE | 2021-02-09 13:52 | CT Report ---
PROCEDURE: CHEST WO INDICATIONS: PULMONARY NODULE TECHNIQUE: Noncontrast 1mm axial images were acquired from the pulmonary apices to the posterior costophrenic an gles. Axial 5 mm soft tissue kernel reconstructions were performed as well as 8 mm axial MIP and cor onal and sagittal 5 mm reformations. For radiation dose reduction, the following was used: automate d exposure control, adjustment of mA and/or kV according to patient size. COMPARISON: 02/05/2020, 10/31/2019 FINDINGS: Image quality: Excellent. Lungs and pleura: There is nodular opacity seen involving the right upper lobe, with a 4 to 5 mm gabby tral focus, as before. Irregular thickening can be seen along both oblique fissures superiorly, which is stable compared to the prior examination and is attributed to scarring change. Underlying emphyse matous changes are seen. No acute air space opacities. No pleural effusions or pneumothorax. Centra l and peripheral airways are patent and normal in caliber. Mediastinum: Heart size is normal. No pericardial effusion. Mildly enlarged mediastinal lymph node s are seen, including a precarinal lymph node that measures 15 x 11 mm in greatest axial dimension. T horacic aorta and central pulmonary arteries are normal in size. Atherosclerotic calcification is see n. Esophagus is normal in caliber. No hiatal hernia. Bones and chest wall: No suspicious bony lesions. There is a chronic T11 anterior wedge deformity s een. No acute appearing vertebral body compression fractures. Mild dextroconvex scoliotic curvature i s seen. Age-appropriate degenerative changes are seen. No axillary or supraclavicular adenopathy by size criteria. The thyroid is normal in size and there are no incidental findings. Abdomen: Visualized upper abdominal solid organs and bowel loops appear normal in the absence of con trast. IMPRESSION: Stable right upper lobe pulmonary nodule, likely related to scarring change. Likely scarring seen along the oblique fissures. Emphysematous changes are seen. Stable mild mediastinal lymph node enlargement. Incidental note is made of: Chronic T11 anterior wedge deformity Dextroconvex scoliotic curvature Reviewed by: Amol Hernandez MD on 02/09/2021 12:51 PM AKDT Approved by: Amol Hernandez MD on 02/09/2021 12:51 PM AKDT Station ID: [id number]
== END 2021-02-09 10:03 | disposition home or self-care (01) ==
LOC: DI 10:02
PROVIDERS: ATTEND Internal Medicine
DX: R91.1 Solitary pulmonary nodule (principal); J43.9 Emphysema, unspecified; R59.0 Localized enlarged lymph nodes; R91.8 Other nonspecific abnormal finding of lung field

== ENCOUNTER 2021-10-29 08:42 | Outpatient (CLI) | payer MEDICARE, OTHER ==
[2021-10-29 08:56] LABS: BASOPHILS # (AUTO) 0.1 10^3/uL (0.0-0.1); BASOPHILS % (AUTO) 0.9 %; EOSINOPHILS # (AUTO) 0.3 10^3/uL (0.0-0.7); EOSINOPHILS % (AUTO) 3.6 %; HCT - HEMATOCRIT 31.6 % (37.0-47.0); HGB - HEMOGLOBIN 9.2 g/dL (12.0-16.0); LYMPHOCYTES # (AUTO) 2.7 10^3/uL (1.5-3.5); LYMPHOCYTES % (AUTO) 27.9 %; MEAN CORPUSCULAR HEMOGLOBIN 22.3 pg (27.0-31.0); MEAN CORPUSCULAR HGB CONC 29.1 g/dL (32.0-36.0); MEAN CORPUSCULAR VOLUME 76.7 fL (81.0-99.0); MEAN PLATELET VOLUME 8.9 fL (7.9-10.8); MONOCYTES # (AUTO) 0.6 10^3/uL (0.0-1.0); MONOCYTES % (AUTO) 6.7 %; NEUTROPHILS # (AUTO) 5.8 10^3/uL (1.5-6.6); NEUTROPHILS % (AUTO) 60.7 %; PLT - PLATELET COUNT 423 10^3/uL (130-450); RED BLOOD COUNT 4.12 10^6/uL (4.20-5.40); RED CELL DISTRIBUTION WIDTH 15.8 % (12.0-15.0); WHITE BLOOD COUNT 9.6 x10^3/uL (4.8-10.8)
[2021-10-29 09:19] LABS: ALBUMIN 3.9 g/dL (3.2-5.5); ALBUMIN/GLOBULIN RATIO 1.2 (1.0-2.2); ALKALINE PHOSPHATASE 94 IU/L (42-121); ALT ALANINE AMINOTRANSFERASE 14 IU/L (10-60); AST ASPARTATE AMINOTRANSFERASE 19 IU/L (10-42); BILIRUBIN,TOTAL 0.3 mg/dL (0.2-1.0); BUN - BLOOD UREA NITROGEN 20 mg/dL (6-20); CALCIUM 9.8 mg/dL (8.5-10.3); CARBON DIOXIDE - CO2 25 mmol/L (21-32); CHLORIDE 105 mmol/L (101-111); CHOL/HDL RATIO 2.5 (<4.4); CHOLESTEROL 204 mg/dL; CREATININE 1.1 mg/dL (0.4-1.0); GFR - MDRD 48 (>89); GLUCOSE 113 mg/dL (70-100); HDL CHOLESTEROL 81 mg/dL; LDL CHOLESTEROL,CALCULATED 100 mg/dL; LDL/HDL RATIO 1.2 (<4.4); POTASSIUM 4.4 mmol/L (3.5-5.0); SODIUM 140 mmol/L (135-145); TOTAL PROTEIN 7.1 g/dL (6.7-8.2); TRIGLYCERIDES 113 mg/dL; VLDL CHOLESTEROL 23 mg/dL
[2021-10-29 09:32] LABS: THYROID STIMULATING HORMONE 1.7 uIU/mL (0.34-5.60)
[2021-10-29 13:17] LABS: ESTIMATED AVERAGE GLUCOSE 160 mg/dL (70-100); HEMOGLOBIN A1c% 7.2 % (4.27-6.07)
== END 2021-10-29 08:43 | disposition home or self-care (01) ==
LOC: LAB 08:42
PROVIDERS: ATTEND Internal Medicine
DX: E78.5 Hyperlipidemia, unspecified (principal); E11.9 Type 2 diabetes mellitus without complications; R53.83 Other fatigue; I10 Essential (primary) hypertension
CPT/HCPCS: 36415; 80053; 80061; 82043; 82570; 83036; 83721; 84443; 85025

== ENCOUNTER 2021-10-31 08:00 | Outpatient (CLI) | payer MEDICARE, OTHER ==
[2021-10-31 13:12] LABS: CREATININE,URINE 105.1 mg/dL; MICROALBUM/CREATININE RATIO,UR 29.5 ug/mg (<30.0); MICROALBUMIN,URINE 3.1 mg/dL (0-300.0)
== END 2021-10-31 23:59 | disposition home or self-care (01) ==
LOC: LAB.N 08:00
PROVIDERS: ATTEND Family Medicine
DX: E11.9 Type 2 diabetes mellitus without complications (principal)
CPT/HCPCS: 82043; 82570

== ENCOUNTER 2021-10-31 12:00 | Outpatient (CLI) | payer MEDICARE, OTHER ==
[2021-10-31 12:12] LABS: BASOPHILS # (AUTO) 0.1 10^3/uL (0.0-0.1); EOSINOPHILS # (AUTO) 0.3 10^3/uL (0.0-0.7); EOSINOPHILS % (AUTO) 2.5 %; HCT - HEMATOCRIT 31.6 % (37.0-47.0); HGB - HEMOGLOBIN 9.4 g/dL (12.0-16.0); LYMPHOCYTES # (AUTO) 2.7 10^3/uL (1.5-3.5); LYMPHOCYTES % (AUTO) 25.9 %; MEAN CORPUSCULAR HEMOGLOBIN 22.8 pg (27.0-31.0); MEAN CORPUSCULAR HGB CONC 29.7 g/dL (32.0-36.0); MEAN CORPUSCULAR VOLUME 76.7 fL (81.0-99.0); MONOCYTES # (AUTO) 0.7 10^3/uL (0.0-1.0); MONOCYTES % (AUTO) 6.4 %; NEUTROPHILS # (AUTO) 6.8 10^3/uL (1.5-6.6); PLT - PLATELET COUNT 420 10^3/uL (130-450); RED BLOOD COUNT 4.12 10^6/uL (4.20-5.40); RED CELL DISTRIBUTION WIDTH 15.9 % (12.0-15.0); WHITE BLOOD COUNT 10.6 x10^3/uL (4.8-10.8)
[2021-10-31 12:52] LABS: FOLATE 7.91 ng/mL (5.90 - >24.8)
[2021-10-31 12:57] LABS: % IRON SATURATION 3 % (20-50); IRON 18 ug/dL (28-170); TOTAL IRON BINDING CAPACITY 595 ug/dL (250-450); TRANSFERRIN 425 mg/dL (192-382)
[2021-10-31 15:31] LABS: ABSOLUTE RETICS # AUTO 0.05 10^6/uL (0.020-0.110); RED BLOOD COUNT 4.15 10^6/uL (4.20-5.40); RETICULOCYTE COUNT % (AUTO) 1.21 % (0.5-2.3)
== END 2021-10-31 12:01 | disposition home or self-care (01) ==
LOC: LAB 12:00
PROVIDERS: ATTEND Internal Medicine
DX: D50.9 Iron deficiency anemia, unspecified (principal); E11.9 Type 2 diabetes mellitus without complications
CPT/HCPCS: 36415; 82043; 82570; 82607; 82728; 82746; 83540; 84466; 85025; 85045

== ENCOUNTER 2021-11-06 10:15 | Outpatient (CLI) | payer MEDICARE, OTHER | END 2021-11-06 10:16 | disposition critical access hospital (66) | LOC: EMS 10:15 | DX: S99.911A Unspecified injury of right ankle, initial encounter (principal); W18.39XA Other fall on same level, initial encounter; Y92.009 Unspecified place in unspecified non-institutional (private) residence as the place of occurrence of the external cause | CPT/HCPCS: A0425; A0427 ==

== ENCOUNTER 2021-11-06 10:28 | Emergency (ER) | payer MEDICARE, OTHER ==
--- NOTE | 2021-11-06 10:29 | ED Physician Documentation ---
PD HPI LOWER EXT INJURY - Stated complaint Stated Complaint: DIZZY, FALL - History obtained from History obtained from: Patient, Family (daughter), EMS - History of Present Illness PD HPI LOW EXT INJURY LOCATION: Right, Knee, Ankle, Other (some tender right lateral chestwall. Denies hitting head but does take Plavix.) Type of injury: Fall (she states she felt lightheaded and fell last night while walking. Has cane and walker but does not like to use them.) Where injury occurred: Home Similar symptoms before: Diagnosis (has had lightheaded with walking/ getting up at times the past couple of weeks. No near syncope. Seen in [facility] with labs done showing anemia, likely iron deficiency. No other acute labs abnormal.) Recently seen: Clinic Review of Systems Constitutional: denies: Fever, Chills Nose: denies: Rhinorrhea / runny nose, Congestion Throat: denies: Sore throat Cardiac: reports: Chest pain / pressure (right lateral chestwall some tender after fall and this morning.) Respiratory: denies: Cough GI: denies: Abdominal Pain, Nausea, Vomiting, Diarrhea, Bloody / black stool Skin: denies: Abrasion (s), Laceration (s) Musculoskeletal: reports: Joint pain (right ankle.), Joint swelling Neurologic: denies: Focal weakness, Numbness PD PAST MEDICAL HISTORY - Past Medical History Cardiovascular: None Respiratory: None - Present Medications Home Medications: Ambulatory Orders Medication Instructions Recorded Confirmed Albuterol Sulf [Ventolin Hfa 2 puffs INH Q4H PRN 05/18/20 05/18/20 Inhaler] Amlodipine Besylate [Norvasc] 10 mg PO DAILY 05/18/20 05/19/20 Atorvastatin [Lipitor] 10 mg PO QPM 05/18/20 05/19/20 Clopidogrel [Plavix] 75 mg PO DAILY 05/18/20 05/19/20 Diclofenac Sodium [Voltaren] 4 gm TOP QID PRN 05/18/20 05/18/20 Fluticasone/Umeclidin/Vilanter 1 puffs INH DAILY 05/18/20 05/18/20 [Trelegy Ellipta 100-62.5-25] Imipramine HCl 150 mg PO QPM 05/18/20 05/18/20 Ipratropium/Albuterol [Duoneb] 3 ml INH TID PRN 05/18/20 05/18/20 Losartan [Cozaar] 50 mg PO QPM 05/18/20 05/19/20 Metformin HCl [Glucophage Xr] 500 mg PO BID 05/18/20 05/19/20 Oxybutynin [Ditropan] 5 mg PO DAILY 05/18/20 05/19/20 Roflumilast [Daliresp] 250 mcg PO DAILY 05/18/20 05/18/20 Potassium Chloride 10 meq PO DAILY #30 tablet.er 05/23/20 Acetaminophen [Acetaminophen Extra 500 mg PO QID PRN #50 tablet 11/06/21 Strength] oxyCODONE [Roxicodone] 5 mg PO Q8H PRN #14 tablet 11/06/21 - Allergies Allergies/Adverse Reactions: Allergies Allergy/AdvReac Type Severity Reaction Status Date / Time No Known Drug Allergies Allergy Verified 11/06/21 10:40 - Living Situation Living Situation: reports: With family Living Arrangement: reports: At home - Social History Does the pt smoke?: No Does the pt drink ETOH?: No PD ED PE NORMAL - Vitals Vital signs reviewed: Yes - General General: Alert and oriented X 3, Well developed/nourished - HEENT HEENT: Atraumatic - Neck Neck: Supple, no meningeal sign, No bony TTP, No adenopathy, C-Spine cleared by NEXUS criteria - Cardiac Cardiac: RRR, No murmur - Respiratory Respiratory: No respiratory distress, Clear bilaterally, Other (right lateral chestwall tender without deformity nor crepitance. ) - Abdomen Abdomen: Soft, Non tender - Back Back: No spinal TTP - Derm Derm: Normal color, Warm and dry - Extremities Extremities: Other (right knee with some tenderness anteriorly. Right ankle with swelling/effusion lateral malleolus. Medial some tender. Achilles intact. Pain with palpation and inversion but no gross laxity. 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 Age related changes noted. ), See rad report chest xray Radiology: Prelim report reviewed (no acute abnormality.), See rad report right knee Radiology: Prelim report reviewed (no fractures.), See rad report right ankle Radiology: Prelim report reviewed (artifact from splint initially; repeat without splint shows distal fibular avulsion. No other noted fractures. ), See rad report PD MEDICAL DECISION MAKING - ED course Complexity details: reviewed results (initial xray with splint on still had wrinkles and lines the could be c/w fracture. Rpeated without splint and improved. Distal fibular avulsion likely. Head okay. ), considered differential, d/w patient Departure - Departure Disposition: 01 Home, Self Care Clinical Impression: Antiplatelet or antithrombotic long-term use Fall from slip, trip, or stumble Qualifiers: Encounter type: initial encounter Qualified Code(s): W01.0XXA - Fall on same level from slipping, tripping and stumbling without subsequent striking against object, initial encounter Chest wall contusion Qualifiers: Encounter type: initial encounter Laterality: right Qualified Code(s): S20.211A - Contusion of right front wall of thorax, initial encounter Fracture of distal end of fibula Qualifiers: Encounter type: initial encounter Fracture type: closed Fracture morphology: unspecified fracture morphology Laterality: right Qualified Code(s): S82.831A - Other fracture of upper and lower end of right fibula, initial encounter for closed fracture Condition: Stable Record reviewed to determine appropriate education?: Yes Instructions: ED Fx Ankle Lateral Malleolus Follow-Up: Geoff Plascencia MD [Primary Care Provider] - [facility] [Provider Group] Prescriptions: Acetaminophen [Acetaminophen Extra Strength] 500 mg PO QID PRN #50 tablet PRN Reason: Pain oxyCODONE [Roxicodone] 5 mg PO Q8H PRN #14 tablet PRN Reason: Pain Comments: Your CT of the head does not show any signs of acute bleeding or problems. Your chest x-ray and knee x-ray are normal as well. You will still likely be sore in those areas from the fall. The x-ray of your ankle showed a small likely avulsion fracture at the very tip of the fibula which is the outer part of the ankle. This should be able to be treated with the ankle brace/boot orthosis. Wear this when up and around for the next 2 to 3 weeks to allow support and healing of the ligaments. This type of fracture (small avulsion) is more billing representative of a ligament injury and not needing treated as a "fracture" per se. Elevate ice and rest your ankle often to reduce swelling. Use your walker to help support your balance. I would suggest some acetaminophen 4 times daily for the next 7 to 10 days to help with pain. To that add some Aleve for ibuprofen couple of times daily if needed or oxycodone every 6-8 hours if needed for worse pain. I transmitted your prescription to the [facility] pharmacy here in [place]. Call the orthopedic office for follow-up appointment for about a week from now or so. I am prescribing a short course of narcotic pain medication for you. These are potentially dangerous and addictive medications that should be used carefully. These medications may constipate you. Take an [id number] stool softener such as docusate twice daily with plenty of water while taking these medications. If you go 24 hours without a bowel movement, take [id number] MiraLAX, per package instructions. Do not drink or drive while taking these medications. If you received narcotic or sedating medications while in the emergency department do not drive for 24 hours. Store this medication in a safe, secure place and out of reach of children. It is a violation of federal law to give or sell this medication to another person or to use in a manner other than prescribed. The ED will not refill narcotic prescriptions, including prescriptions lost or stolen. You can dispose of unwanted medications at the [facility]'s office or at several pharmacies such as [facility]. Discharge Date/Time: 11/06/21 13:46
[2021-11-06] MEDS ORDERED: MORPHINE 2 MG/ML CARPUJECT IVP STA (10:41)
--- NOTE | 2021-11-06 11:31 | XRAY Report ---
PROCEDURE: Chest 1 View X-Ray INDICATIONS: fall, right chest tender TECHNIQUE: One view of the chest was acquired. COMPARISON: Chest x-ray one view, 05/18/2020 and 05/21/2020. FINDINGS: Surgical changes and devices: None. Lungs and pleura: Bilateral interstitial prominence. No focal consolidation. No pleural effusions or pneumothorax. Mediastinum: Mediastinal contours appear normal. Heart size is normal. Bones and chest wall: No suspicious bony lesions. Overlying soft tissues appear unremarkable. Bila teral shoulder joint degeneration. IMPRESSION: 1. No acute cardiopulmonary disease. 2. Bilateral chronic interstitial prominence. Reviewed by: Doris Balbuena MD on 11/06/2021 11:29 AM PDT Approved by: Doris Balbuena MD on 11/06/2021 11:29 AM PDT Station ID: [id number]
--- NOTE | 2021-11-06 11:36 | XRAY Report ---
PROCEDURE: Ankle 3 View RT INDICATIONS: fall, ankle injury TECHNIQUE: 3 views of the ankle were acquired. COMPARISON: None. FINDINGS: Suboptimal due to overlying artifacts. Bones: Oval spiral fracture of the distal fibula. There is a small ossicle distal to the lateral mal leolus, most likely sequelae of old injury. Ankle mortise is normally aligned. No suspicious bony le sions. Soft tissues: ? small tibiotalar joint effusion. Achilles tendon appears normal. Soft tissue swell ing over the lateral malleolus. IMPRESSION: 1. Probable spiral fracture of the distal fibula. Recommend a repeat examination after removing overl apping artifacts. Reviewed by: Doris Balbuena MD on 11/06/2021 11:35 AM PDT Approved by: Doris Balbuena MD on 11/06/2021 11:35 AM PDT Station ID: [id number]
--- NOTE | 2021-11-06 12:39 | XRAY Report ---
PROCEDURE: Knee 2 View RT INDICATIONS: FALL WITH KNEE PAIN TECHNIQUE: 3 views of the right knee(s) were acquired. COMPARISON: None. FINDINGS: Bones: No fractures or dislocations. No suspicious bony lesions. Medial and patellofemoral compart ment narrowing present. Fixation wires are noted overlying the patella. There is severe medial and mo derate patellofemoral compartment degenerative narrowing. Chondrocalcinosis is present as well as per iarticular osteophytes. Soft tissues: Mild joint effusion. No suspicious soft tissue calcifications. IMPRESSION: No visualized acute fracture or dislocation. However, occult injury cannot be excluded. Recommend short interval imaging follow-up in 7-10 days as clinically indicated for additional evalua tion. Reviewed by: Yisel Richard MD on 11/06/2021 12:38 PM PDT Approved by: Yisel Richard MD on 11/06/2021 12:38 PM PDT Station ID: [id number]
--- NOTE | 2021-11-06 12:42 | XRAY Report ---
PROCEDURE: Ankle 3 View RT INDICATIONS: fall ankle pain; repeat xray without splint TECHNIQUE: 3 views of the ankle were acquired. COMPARISON: None FINDINGS: Bones: There is small linear lucency at the distal fibula. Previous area of questioned spiral fractur e appears less prominent compared to prior exam. Ankle mortise is normally aligned. No suspicious gera ny lesions. Soft tissues: Significant lateral malleoli are edema is present. Achilles tendon appears normal. IMPRESSION: Small lucency at the distal fibular tip which could represent avulsion fracture. Previou s area of questionable spiral fracture of the tibia appears less prominent. However, given degree of soft tissue edema, occult fracture or ligamentous injury cannot be excluded. Recommend follow-up x-ra y in 7-[address]/MR as clinically appropriate. Reviewed by: Yisel Richard MD on 11/06/2021 12:41 PM PDT Approved by: Yisel Richard MD on 11/06/2021 12:41 PM PDT Station ID: [id number]
--- NOTE | 2021-11-06 13:06 | CT Report ---
PROCEDURE: HEAD WO INDICATIONS: fall, on plavix. no headache TECHNIQUE: Noncontrast 4.5 mm thick angled axial sections acquired from the foramen magnum to the vertex. For r adiation dose reduction, the following was used: automated exposure control, adjustment of mA and/or kV according to patient size. COMPARISON: None. FINDINGS: Image quality: Excellent. CSF spaces: Basal cisterns are patent. No extra-axial fluid collections. Ventricles are symmetric in size and shape. Brain: No midline shift. No acute intracranial hemorrhage or mass effect. There is generalized age-r elated cerebral and cerebellar parenchymal volume loss. Hypodensities in the subcortical and perivent ricular white matter are most commonly seen in the setting of chronic microvascular ischemic changes. Skull and face: Calvarium and visualized facial bones are intact, without suspicious lesions. Sinuses: Visualized sinuses and mastoids are clear. IMPRESSION: 1.No acute intracranial abnormality. 2.Chronic microvascular ischemic changes and age-related cerebral volume loss. Reviewed by: Matt Lebron MD on 11/06/2021 1:05 PM PDT Approved by: Matt Lebron MD on 11/06/2021 1:05 PM PDT Station ID: [id number]
[2021-11-06 13:11] VITALS: BP 150/90
[2021-11-06] MEDS ORDERED: KETOROLAC 15 MG/ML VIAL IVP STA (13:21)
[2021-11-06] MEDS ORDERED: HYDROmorphone 0.5 MG/0.5 ML SYRINGE IVP STA (13:21)
== END 2021-11-06 13:46 | disposition home or self-care (01) ==
LOC: EDUNIT# → ED 10:28
DX: S20.211A Contusion of right front wall of thorax, initial encounter (principal); S82.831A Other fracture of upper and lower end of right fibula, initial encounter for closed fracture; W01.0XXA Fall on same level from slipping, tripping and stumbling without subsequent striking against object, initial encounter; Z79.02 Long term (current) use of antithrombotics/antiplatelets
CPT/HCPCS: 70450; 71045; 73560; 73610; 96374; 96375; 99284; J1170

== ENCOUNTER 2022-03-11 08:28 | Outpatient (CLI) | payer MEDICARE, OTHER | END 2022-03-11 08:29 | disposition critical access hospital (66) | LOC: EMS 08:28 | DX: R06.00 Dyspnea, unspecified (principal); R53.1 Weakness; R05.9 Cough, unspecified; R11.0 Nausea; J44.9 Chronic obstructive pulmonary disease, unspecified; Z99.81 Dependence on supplemental oxygen | CPT/HCPCS: A0425; A0427 ==

== ENCOUNTER 2022-03-11 08:41 | Emergency (ER) | payer MEDICARE, OTHER ==
[2022-03-11] MEDS ORDERED: predniSONE 20 MG TABLET PO STA (08:51)
[2022-03-11] MEDS ORDERED: IPRATROPIUM/ALBUTEROL 3 ML NEB INH STA (08:51)
--- NOTE | 2022-03-11 08:53 | ED Physician Documentation ---
PD HPI DYSPNEA - Stated complaint Stated Complaint: SOA - History obtained from History obtained from: Patient, EMS - Additional information Additional information: Patient is a 77-year-old female with a history of COPD, uses home oxygen as n eeded at night, presenting for evaluation of worsening shortness of breath. She has had cough and congestion for 3 to 4 days and was seen at an outpatient clinic and started on prednisone. For some reason she did not take her medications yesterday. This morning she woke up feeling increasingly short of breath.When EMS arrived her oxygen saturations were 79% on room air. They did give 1 breathing treatment which has slightly helped. She reports cough of clear phlegm. She denies fever. She denies chest pain, abdominal pain, vomiting. Review of Systems Constitutional: denies: Fever Nose: reports: Congestion Cardiac: denies: Chest pain / pressure Respiratory: reports: Dyspnea, Cough GI: denies: Abdominal Pain, Vomiting : denies: Dysuria Musculoskeletal: denies: Back pain Neurologic: denies: Headache PD PAST MEDICAL HISTORY - Past Medical History Cardiovascular: None Respiratory: None Endocrine/Autoimmune: Type 2 diabetes - Past Surgical History Past Surgical History: No Ortho: Knee replacement, Rotator cuff repair, Other HEENT: Tonsil/Adenoidectomy - Present Medications Home Medications: Ambulatory Orders Medication Instructions Recorded Confirmed Albuterol Sulf [Ventolin Hfa 2 puffs INH Q4H PRN 05/18/20 05/18/20 Inhaler] Amlodipine Besylate [Norvasc] 10 mg PO DAILY 05/18/20 05/19/20 Atorvastatin [Lipitor] 10 mg PO QPM 05/18/20 05/19/20 Clopidogrel [Plavix] 75 mg PO DAILY 05/18/20 05/19/20 Diclofenac Sodium [Voltaren] 4 gm TOP QID PRN 05/18/20 05/18/20 Fluticasone/Umeclidin/Vilanter 1 puffs INH DAILY 05/18/20 05/18/20 [Trelegy Ellipta 100-62.5-25] Imipramine HCl 150 mg PO QPM 05/18/20 05/18/20 Ipratropium/Albuterol [Duoneb] 3 ml INH TID PRN 05/18/20 05/18/20 Losartan [Cozaar] 50 mg PO QPM 05/18/20 05/19/20 Metformin HCl [Glucophage Xr] 500 mg PO BID 05/18/20 05/19/20 Oxybutynin [Ditropan] 5 mg PO DAILY 05/18/20 05/19/20 Roflumilast [Daliresp] 250 mcg PO DAILY 05/18/20 05/18/20 Potassium Chloride 10 meq PO DAILY #30 tablet.er 05/23/20 Acetaminophen [Acetaminophen Extra 500 mg PO QID PRN #50 tablet 11/06/21 Strength] oxyCODONE [Roxicodone] 5 mg PO Q8H PRN #14 tablet 11/06/21 Amox/Clav 875/125 [Augmentin] 1 each PO Q12H #14 tablet 03/11/22 Azithromycin [Zithromax] 1 tab PO DAILY #4 tab 03/11/22 - Allergies Allergies/Adverse Reactions: Allergies Allergy/AdvReac Type Severity Reaction Status Date / Time No Known Drug Allergies Allergy Verified 11/06/21 10:40 - Social History Does the pt smoke?: No Smoking Status: Former smoker Does the pt drink ETOH?: No Does the pt have substance abuse?: No PD ED PE NORMAL - General General: Alert and oriented X 3, Other (Elderly, frail-appearing, tachypneic) - HEENT HEENT: Atraumatic - Neck Neck: Supple, no meningeal sign - Cardiac Cardiac: RRR, Strong equal pulses - Respiratory Respiratory: Other (Tachypneic, diminished breath sounds at the bases, wheezing) - Abdomen Abdomen: Soft, Non tender - Derm Derm: Warm and dry - Extremities Extremities: No edema - Neuro Neuro: Normal speech Results - Vitals Vitals: Vital Signs - 24 hr 03/11/22 03/11/22 03/11/22 08:52 08:55 09:08 Temperature 36.5 C Heart Rate 109 H 91 68 Respiratory 20 24 18 Rate Blood Pressure 144/74 H 144/74 H O2 Saturation 82 L 93 If not protocol 2 2 : Oxygen Flow, liters/minute 03/11/22 03/11/22 03/11/22 09:25 10:00 10:30 Temperature Heart Rate 83 90 95 Respiratory 19 23 23 Rate Blood Pressure 141/90 H 137/99 H 115/100 H O2 Saturation 98 100 94 If not protocol 2 2 2 : Oxygen Flow, liters/minute 03/11/22 03/11/22 03/11/22 11:04 11:30 12:29 Temperature Heart Rate 95 87 94 Respiratory 24 19 20 Rate Blood Pressure 118/85 H 141/85 H 142/86 H O2 Saturation 91 L 100 98 If not protocol 2 2 : Oxygen Flow, liters/minute 03/11/22 03/11/22 03/11/22 12:30 13:30 13:49 Temperature Heart Rate 94 92 92 Respiratory 25 H 21 18 Rate Blood Pressure 155/90 H 121/86 H 121/86 H O2 Saturation 99 93 99 If not protocol 2 2 2 : Oxygen Flow, liters/minute 03/11/22 03/11/22 14:00 14:30 Temperature Heart Rate 91 91 Respiratory 19 22 Rate Blood Pressure 122/85 H 144/93 H O2 Saturation 100 99 If not protocol 2 : Oxygen Flow, liters/minute Oxygen O2 Source Room air Oxygen Flow Rate 2 - EKG (time done) 0851 Rate: Rate (enter#) (87) Rhythm: NSR Ischemia: No: ST elevation c/w ischemia - Labs Labs: Laboratory Tests 03/11/22 03/11/22 03/11/22 09:06 09:06 09:06 WBC 28.4 H RBC 4.53 Hgb 11.9 L Hct 38.7 MCV 85.4 MCH 26.3 L MCHC 30.7 L RDW 15.6 H Plt Count 388 MPV 9.0 Neut # (Auto) 24.9 H Lymph # (Auto) 2.2 [place] # (Auto) 1.1 H Eos # (Auto) 0.0 Baso # (Auto) 0.1 Absolute Nucleated RBC 0.00 Nucleated RBC % 0.0 Manual Slide Review Indicated WBC Morphology 1+ HYPERSEG NEUT Platelet Estimate NORMAL (130-450,000) Platelet Morphology 1+ LARGE PLATELETS RBC Morph Micro Appear 1+ SCHISTOCYTES Sodium 135 Potassium 4.7 Chloride 102 Carbon Dioxide 24 Anion Gap 9.0 BUN 25 H Creatinine 0.9 Estimated GFR (MDRD) 60 L Glucose 176 H Lactic Acid Calcium 9.4 Total Bilirubin 1.0 AST 15 ALT 14 Alkaline Phosphatase 92 B-Natriuretic Peptide 116 H Total Protein 6.6 L Albumin 3.4 Globulin 3.2 Albumin/Globulin Ratio 1.1 Nasal Adenovirus (PCR) Nasal B. parapertussis DNA (PCR) Nasal Coronavir 229E PCR Nasal Coronavir HKU1 PCR Nasal Coronavir NL63 PCR Nasal Coronavir OC43 PCR Nasal Enterovir/Rhinovir PCR Nasal Influenza B PCR Nasal Influenza A PCR Nasal Parainfluen 1 PCR Nasal Parainfluen 2 PCR Nasal Parainfluen 3 PCR Nasal Parainfluen 4 PCR Nasal RSV (PCR) Nasal B.pertussis DNA PCR Nasal C.pneumoniae (PCR) Scott Human Metapneumo PCR Nasal M.pneumoniae (PCR) Nasal SARS-CoV-2 (PCR) 03/11/22 03/11/22 03/11/22 09:13 10:10 14:00 WBC RBC Hgb Hct MCV MCH MCHC RDW Plt Count MPV Neut # (Auto) Lymph # (Auto) [place] # (Auto) Eos # (Auto) Baso # (Auto) Absolute Nucleated RBC Nucleated RBC % Manual Slide Review WBC Morphology Platelet Estimate Platelet Morphology RBC Morph Micro Appear Sodium Potassium Chloride Carbon Dioxide Anion Gap BUN Creatinine Estimated GFR (MDRD) Glucose Lactic Acid 3.0 H* 2.6 H Calcium Total Bilirubin AST ALT Alkaline Phosphatase B-Natriuretic Peptide Total Protein Albumin Globulin Albumin/Globulin Ratio Nasal Adenovirus (PCR) NOT DETECTED Nasal B. parapertussis DNA (PCR) NOT DETECTED Nasal Coronavir 229E PCR NOT DETECTED Nasal Coronavir HKU1 PCR NOT DETECTED Nasal Coronavir NL63 PCR NOT DETECTED Nasal Coronavir OC43 PCR NOT DETECTED Nasal Enterovir/Rhinovir PCR NOT DETECTED Nasal Influenza B PCR NOT DETECTED Nasal Influenza A PCR NOT DETECTED Nasal Parainfluen 1 PCR NOT DETECTED Nasal Parainfluen 2 PCR NOT DETECTED Nasal Parainfluen 3 PCR NOT DETECTED Nasal Parainfluen 4 PCR NOT DETECTED Nasal RSV (PCR) NOT DETECTED Nasal B.pertussis DNA PCR NOT DETECTED Nasal C.pneumoniae (PCR) NOT DETECTED Scott Human Metapneumo PCR NOT DETECTED Nasal M.pneumoniae (PCR) NOT DETECTED Nasal SARS-CoV-2 (PCR) NOT DETECTED PD MEDICAL DECISION MAKING - ED course Complexity details: reviewed results, re-evaluated patient, d/w patient ED course: PORT/PSI Score = Category 3 Patient presenting with shortness of breath, wheezing, hypoxic. Appears to be in COPD exacerbation. She was given several neb treatments, resumed on her p.o. steroids as she had missed yesterday's dose. She was worked up with labs and imaging. She was found to have a left lower lobe pneumonia. She had significant improvement after nebs and steroids and was able to be weaned down on her oxygen. She does have home oxygen and was not requiring more than what she normally uses at home. She was breathing comfortably. Her port score places her into category 3. She is comfortable with plan for discharge with outpatient management of her COPD and pneumonia. She is advised on concerning symptoms to return for. Departure - Departure Disposition: Home, Self Care Clinical Impression: COPD exacerbation CAP (community acquired pneumonia) Qualifiers: Laterality: left Lung location: lower lobe of lung Qualified Code(s): J18.9 - Pneumonia, unspecified organism Condition: Stable Instructions: ED COPD Flare, ED Pneumonia Adult Prescriptions: Amox/Clav 875/125 [Augmentin] 1 each PO Q12H #14 tablet Azithromycin [Zithromax] 1 tab PO DAILY #4 tab Comments: You had a flareup of your COPD which was likely triggered by pneumonia. I have started you on 2 antibiotics and sent these prescriptions to [facility] in [place].I would recommend you continue with the prednisone that you are previously prescribed. You should also use oxygen as needed. No please have close follow-up with your primary care doctor. If you have any worsening symptoms please return to the ER. Discharge Date/Time: 03/11/22 15:18
[2022-03-11 09:12] LABS: BASOPHILS # (AUTO) 0.1 10^3/uL (0.0-0.1); BASOPHILS % (AUTO) 0.2 %; HCT - HEMATOCRIT 38.7 % (37.0-47.0); HGB - HEMOGLOBIN 11.9 g/dL (12.0-16.0); LYMPHOCYTES # (AUTO) 2.2 10^3/uL (1.5-3.5); LYMPHOCYTES % (AUTO) 7.8 %; MEAN CORPUSCULAR HEMOGLOBIN 26.3 pg (27.0-31.0); MEAN CORPUSCULAR HGB CONC 30.7 g/dL (32.0-36.0); MEAN CORPUSCULAR VOLUME 85.4 fL (81.0-99.0); MONOCYTES # (AUTO) 1.1 10^3/uL (0.0-1.0); MONOCYTES % (AUTO) 3.8 %; NEUTROPHILS # (AUTO) 24.9 10^3/uL (1.5-6.6); NEUTROPHILS % (AUTO) 87.7 %; PLT - PLATELET COUNT 388 10^3/uL (130-450); RED BLOOD COUNT 4.53 10^6/uL (4.20-5.40); RED CELL DISTRIBUTION WIDTH 15.6 % (12.0-15.0); WHITE BLOOD COUNT 28.4 x10^3/uL (4.8-10.8)
[2022-03-11 09:15] LABS: SLIDE REVIEW? Indicated
[2022-03-11 09:23] LABS: ALBUMIN 3.4 g/dL (3.2-5.5); ALBUMIN/GLOBULIN RATIO 1.1 (1.0-2.2); CALCIUM 9.4 mg/dL (8.5-10.3); CREATININE 0.9 mg/dL (0.4-1.0); POTASSIUM 4.7 mmol/L (3.5-5.0); TOTAL PROTEIN 6.6 g/dL (6.7-8.2)
--- NOTE | 2022-03-11 09:37 | XRAY Report ---
PROCEDURE: Chest 1 View X-Ray INDICATIONS: SOA TECHNIQUE: One view of the chest was acquired. COMPARISON: None. FINDINGS: Surgical changes and devices: Fusion hardware in visualized lower cervical spine is seen. Lungs and pleura: Air space opacities are noted in left mid to lower lung field. Trace left pleural effusion is also likely present. No gross pneumothorax. Right lung is clear. Mediastinum: Mildly tortuous thoracic aorta with aortic arch calcifications are seen. Heart size is normal.. Bones and chest wall: No suspicious bony lesions. Overlying soft tissues appear unremarkable. IMPRESSION: Finding is suggestive of left lower lobe infiltrate with possible trace left pleural effusion. No carmen ss pneumothorax. Right lung is clear. Reviewed by: Edward Roberts MD on 03/11/2022 9:35 AM PST Approved by: Edward Roberts MD on 03/11/2022 9:35 AM PST Station ID: [id number]
[2022-03-11 09:41] LABS: PLATELET ESTIMATE, MANUAL NORMAL (130-450,000) (NORMAL); PLATELET MORPHOLOGY 1+ LARGE PLATELETS (NORMAL); WBC MORPHOLOGY (MULTIPLE) 1+ HYPERSEG NEUT (NORMAL)
[2022-03-11] MEDS ORDERED: cefTRIAXone 1 GM in SODIUM CHLORIDE 0.9% MINIBAG 100 ML IV STA (09:56)
[2022-03-11] MEDS ORDERED: AZITHROMYCIN 250 MG TABLET PO STA (09:56)
[2022-03-11 10:23] LABS: B. PARAPERTUSSIS- RESP PCR PAN NOT DETECTED; B. PERTUSSIS- RESP PCR PANEL NOT DETECTED; C. PNEUMONIAE- RESP PCR PANEL NOT DETECTED; CORONAVIRUS 229E-RESP PCR NOT DETECTED; CORONAVIRUS HKU1-RESP PCR NOT DETECTED; CORONAVIRUS NL63-RESP PCR NOT DETECTED; CORONAVIRUS OC43-RESP PCR NOT DETECTED; HUMAN METAPNEUMOVIRUS NOT DETECTED; INFLUENZA A- RESP PCR PANEL NOT DETECTED; INFLUENZA B - RESP PCR PANEL NOT DETECTED; M. PNEUMONIAE- RESP PCR PANEL NOT DETECTED; PARAINFLUENZA VIRUS 1 NOT DETECTED; PARAINFLUENZA VIRUS 2 NOT DETECTED; PARAINFLUENZA VIRUS 3 NOT DETECTED; PARAINFLUENZA VIRUS 4 NOT DETECTED; RHINOVIRUS/ENTEROVIRUS NOT DETECTED; RSV- RESP PCR PANEL NOT DETECTED; SARS-CoV-2 -RESP PCR PANEL NOT DETECTED
[2022-03-11] MEDS ORDERED: SODIUM CHLORIDE 0.9% 1,000 ML IV STA (10:35)
[2022-03-11 14:52] VITALS: BP 144/93
== END 2022-03-11 15:18 | disposition home or self-care (01) ==
LOC: EDUNIT# → ED 08:41
DX: J44.0 Chronic obstructive pulmonary disease with (acute) lower respiratory infection (principal); J18.9 Pneumonia, unspecified organism; J44.1 Chronic obstructive pulmonary disease with (acute) exacerbation; R09.02 Hypoxemia; Z99.81 Dependence on supplemental oxygen; Z87.891 Personal history of nicotine dependence; I49.3 Ventricular premature depolarization; E11.9 Type 2 diabetes mellitus without complications; Z79.84 Long term (current) use of oral hypoglycemic drugs
CPT/HCPCS: 36415; 71045; 80053; 83605; 83880; 85025; 87040; 87633; 93005; 94640; 96365; 99284; A9270; J7512

== ENCOUNTER 2022-03-27 18:49 | Emergency (ER) | payer MEDICARE, OTHER ==
[2022-03-27] MEDS ORDERED: IPRATROPIUM/ALBUTEROL 3 ML NEB INH STA (19:40)
--- NOTE | 2022-03-27 19:41 | ED Physician Documentation ---
PD HPI DYSPNEA - Stated complaint Stated Complaint: SOA/WEAKNESS - Chief complaint Chief Complaint: Resp - History obtained from History obtained from: Patient - Additional information Additional information: 77-year-old woman with COPD, wears oxygen at home. She quit smoking about 2 and half years ago. Lives here with her daughter. Prior to quitting smoking she was having very frequent exacerbations and hospitalizations, has been doing somewhat better since she quit smoking. She was seen by my partner on March 11 for COPD exacerbation associate with a left lower lobe pneumonia. She was p laced on Augmentin and azithromycin. She was better while on the antibiotics, but since cessation of the antibiotics has gotten sicker again with a nonproductive cough and shortness of breath. She denies fevers. No pedal edema or calf pain. No chest pain. Review of Systems Ten Systems: 10 systems reviewed and negative Constitutional: reports: Fatigue. denies: Fever, Chills Cardiac: denies: Chest pain / pressure, Palpitations Respiratory: reports: Dyspnea, Cough PD PAST MEDICAL HISTORY - Past Medical History Cardiovascular: None Respiratory: None Endocrine/Autoimmune: Type 2 diabetes - Past Surgical History Past Surgical History: No Ortho: Knee replacement, Rotator cuff repair, Other HEENT: Tonsil/Adenoidectomy - Present Medications Home Medications: Ambulatory Orders Medication Instructions Recorded Confirmed Albuterol Sulf [Ventolin Hfa 2 puffs INH Q4H PRN 05/18/20 05/18/20 Inhaler] Amlodipine Besylate [Norvasc] 10 mg PO DAILY 05/18/20 05/19/20 Atorvastatin [Lipitor] 10 mg PO QPM 05/18/20 05/19/20 Clopidogrel [Plavix] 75 mg PO DAILY 05/18/20 05/19/20 Diclofenac Sodium [Voltaren] 4 gm TOP QID PRN 05/18/20 05/18/20 Fluticasone/Umeclidin/Vilanter 1 puffs INH DAILY 05/18/20 05/18/20 [Trelegy Ellipta 100-62.5-25] Imipramine HCl 150 mg PO QPM 05/18/20 05/18/20 Ipratropium/Albuterol [Duoneb] 3 ml INH TID PRN 05/18/20 05/18/20 Losartan [Cozaar] 50 mg PO QPM 05/18/20 05/19/20 Metformin HCl [Glucophage Xr] 500 mg PO BID 05/18/20 05/19/20 Oxybutynin [Ditropan] 5 mg PO DAILY 05/18/20 05/19/20 Roflumilast [Daliresp] 250 mcg PO DAILY 05/18/20 05/18/20 Potassium Chloride 10 meq PO DAILY #30 tablet.er 05/23/20 Acetaminophen [Acetaminophen Extra 500 mg PO QID PRN #50 tablet 11/06/21 Strength] oxyCODONE [Roxicodone] 5 mg PO Q8H PRN #14 tablet 11/06/21 Amox/Clav 875/125 [Augmentin] 1 each PO Q12H #14 tablet 03/11/22 Azithromycin [Zithromax] 1 tab PO DAILY #4 tab 03/11/22 Benzonatate [Tessalon] 200 mg PO TID PRN #20 cap 03/27/22 Cefdinir 300 mg PO BID #14 cap 03/27/22 Doxycycline [Vibramycin] 100 mg PO BID #14 tablet 03/27/22 guaiFENesin/CODEINE [Robitussin AC] 5 - 10 ml PO Q6H PRN #120 ml 03/27/22 predniSONE [Deltasone] 20 mg PO [id number] #21 tab 03/27/22 - Allergies Allergies/Adverse Reactions: Allergies Allergy/AdvReac Type Severity Reaction Status Date / Time No Known Drug Allergies Allergy Verified 11/06/21 10:40 - Social History Does the pt smoke?: No Smoking Status: Former smoker Does the pt drink ETOH?: No Does the pt have substance abuse?: No PD ED PE NORMAL - Vitals Vital signs reviewed: Yes - General General: Alert and oriented X 3 - HEENT HEENT: PERRL, EOMI - Neck Neck: Supple, no meningeal sign, No bony TTP - Cardiac Cardiac: RRR, No murmur - Respiratory Respiratory: Other (Frequent bronchitic coughing, diminished breath sounds throughout, mildly tachypneic but otherwise nonlabored. Speaking in full sentences.) - Abdomen Abdomen: Non tender - Extremities Extremities: No edema, No calf tenderness / cord - Neuro Neuro: Alert and oriented X 3, Normal speech Results - Vitals Vitals: Vital Signs - 24 hr 11/25/22 11/25/22 11/25/22 19:04 19:53 21:12 Temperature 36.8 C Heart Rate 99 98 97 Respiratory 30 H 26 H 18 Rate Blood Pressure 143/92 H 137/95 H O2 Saturation 95 100 If not protocol 2 : Oxygen Flow, liters/minute Oxygen O2 Source Room air Oxygen Flow Rate 3 - Labs Labs: Laboratory Tests 03/27/22 03/27/22 03/27/22 19:16 19:49 19:49 WBC 20.7 H RBC 4.55 Hgb 11.7 L Hct 38.7 MCV 85.1 MCH 25.7 L MCHC 30.2 L RDW 14.7 Plt Count 324 MPV 8.9 Neut # (Auto) Not Reportable Lymph # (Auto) Not Reportable Mclennan # (Auto) Not Reportable Eos # (Auto) Not Reportable Baso # (Auto) Not Reportable Absolute Nucleated RBC Not Reportable Total Counted 100 Band Neuts % (Manual) 1 Abnorm Lymph % (Manual) 0 Nucleated RBC % Not Reportable Neutrophils # (Manual) 18.6 H Lymphocytes # (Manual) 1.7 Monocytes # (Manual) 0.4 Eosinophils # (Manual) 0.0 Basophils # (Manual) 0.0 Differential Comment MANUAL DIFFERENTIAL Platelet Estimate NORMAL (130-450,000) Platelet Morphology NORMAL APPEARANCE RBC Morph Micro Appear NORMAL APPEARANCE VBG pH VBG pCO2 VBG pO2 VBG HCO3 VBG Total CO2 VBG O2 Saturation VBG Base Excess Sodium 139 Potassium 4.8 Chloride 105 Carbon Dioxide 26 Anion Gap 8.0 BUN 23 H Creatinine 0.8 Estimated GFR (MDRD) 69 L Glucose 171 H Lactic Acid Calcium 9.5 Phosphorus 3.2 Magnesium 2.0 Nasal Adenovirus (PCR) NOT DETECTED Nasal B. parapertussis DNA (PCR) NOT DETECTED Nasal Coronavir 229E PCR NOT DETECTED Nasal Coronavir HKU1 PCR NOT DETECTED Nasal Coronavir NL63 PCR NOT DETECTED Nasal Coronavir OC43 PCR NOT DETECTED Nasal Enterovir/Rhinovir PCR NOT DETECTED Nasal Influenza B PCR NOT DETECTED Nasal Influenza A PCR NOT DETECTED Nasal Parainfluen 1 PCR NOT DETECTED Nasal Parainfluen 2 PCR NOT DETECTED Nasal Parainfluen 3 PCR NOT DETECTED Nasal Parainfluen 4 PCR NOT DETECTED Nasal RSV (PCR) NOT DETECTED Nasal B.pertussis DNA PCR NOT DETECTED Nasal C.pneumoniae (PCR) NOT DETECTED Scott Human Metapneumo PCR NOT DETECTED Nasal M.pneumoniae (PCR) NOT DETECTED Nasal SARS-CoV-2 (PCR) NOT DETECTED 03/27/22 03/27/22 19:49 19:49 WBC RBC Hgb Hct MCV MCH MCHC RDW Plt Count MPV Neut # (Auto) Lymph # (Auto) Mclennan # (Auto) Eos # (Auto) Baso # (Auto) Absolute Nucleated RBC Total Counted Band Neuts % (Manual) Abnorm Lymph % (Manual) Nucleated RBC % Neutrophils # (Manual) Lymphocytes # (Manual) Monocytes # (Manual) Eosinophils # (Manual) Basophils # (Manual) Differential Comment Platelet Estimate Platelet Morphology RBC Morph Micro Appear VBG pH 7.383 VBG pCO2 44.4 VBG pO2 21.3 L VBG HCO3 25.9 VBG Total CO2 27.2 VBG O2 Saturation 38.1 L VBG Base Excess 0.5 Sodium Potassium Chloride Carbon Dioxide Anion Gap BUN Creatinine Estimated GFR (MDRD) Glucose Lactic Acid 0.8 Calcium Phosphorus Magnesium Nasal Adenovirus (PCR) Nasal B. parapertussis DNA (PCR) Nasal Coronavir 229E PCR Nasal Coronavir HKU1 PCR Nasal Coronavir NL63 PCR Nasal Coronavir OC43 PCR Nasal Enterovir/Rhinovir PCR Nasal Influenza B PCR Nasal Influenza A PCR Nasal Parainfluen 1 PCR Nasal Parainfluen 2 PCR Nasal Parainfluen 3 PCR Nasal Parainfluen 4 PCR Nasal RSV (PCR) Nasal B.pertussis DNA PCR Nasal C.pneumoniae (PCR) Scott Human Metapneumo PCR Nasal M.pneumoniae (PCR) Nasal SARS-CoV-2 (PCR) - Rads (name of study) 2 view chest x-ray demonstrates improved left basilar opacity and COPD. Radiology: EMP read contemporaneously PD MEDICAL DECISION MAKING - ED course ED course: 77-year-old woman with severe COPD presents with an exacerbation after recent pneumonia treated with Augmentin and azithromycin. She was improved on antibiotics but has relapsed somewhat, chest x-ray and blood work looks improved. Given the above findings though would restart antibiotics with a different regimen and third-generation oral cephalosporin and doxycycline were chosen. Departure - Departure Disposition: 01 Home, Self Care Clinical Impression: COPD exacerbation Condition: Good Record reviewed to determine appropriate education?: Yes Instructions: COPD Dc Prescriptions: Cefdinir 300 mg PO BID #14 cap predniSONE [Deltasone] 20 mg PO [id number] #21 tab guaiFENesin/CODEINE [Robitussin AC] 5 - 10 ml PO Q6H PRN #120 ml PRN Reason: Cough Benzonatate [Tessalon] 200 mg PO TID PRN #20 cap PRN Reason: Cough Doxycycline [Vibramycin] 100 mg PO BID #14 tablet Comments: Your chest x-ray and labs look improved over a couple of weeks ago. That said I think a repeat dosing of prednisone and different antibiotics are in order. Return for new or worsening symptoms. Follow-up with your doctor this week for recheck. I sent your prescription electronically to [facility] in [place]. Discharge Date/Time: 03/27/22 21:38
[2022-03-27 19:58] LABS: VBG BASE EXCESS 0.5 mmol/L (-2 - +2); VBG HCO3 25.9 mmol/L (23-28); VBG OXYGEN SATURATION 38.1 % (60-80); VBG PCO2 44.4 mmHg (41-51); VBG PH 7.383 (7.31-7.41); VBG PO2 21.3 mmHg (25-47); VBG TOTAL CO2 27.2 mmol/L (24-29)
[2022-03-27 20:00] LABS: BASOPHILS % (AUTO) 0.5 %; EOSINOPHILS % (AUTO) 0.2 %; HCT - HEMATOCRIT 38.7 % (37.0-47.0); HGB - HEMOGLOBIN 11.7 g/dL (12.0-16.0); LYMPHOCYTES % (AUTO) 3.6 %; MEAN CORPUSCULAR HEMOGLOBIN 25.7 pg (27.0-31.0); MEAN CORPUSCULAR HGB CONC 30.2 g/dL (32.0-36.0); MEAN CORPUSCULAR VOLUME 85.1 fL (81.0-99.0); MEAN PLATELET VOLUME 8.9 fL (7.9-10.8); MONOCYTES % (AUTO) 2.6 %; NEUTROPHILS % (AUTO) 92.7 %; PLT - PLATELET COUNT 324 10^3/uL (130-450); RED BLOOD COUNT 4.55 10^6/uL (4.20-5.40); RED CELL DISTRIBUTION WIDTH 14.7 % (12.0-15.0); WHITE BLOOD COUNT 20.7 x10^3/uL (4.8-10.8)
[2022-03-27 20:01] LABS: ABNORMAL LYMPHS % (MANUAL) 0 %
[2022-03-27 20:09] LABS: CALCIUM 9.5 mg/dL (8.5-10.3); CREATININE 0.8 mg/dL (0.4-1.0); PHOSPHORUS 3.2 mg/dL (2.5-4.6); POTASSIUM 4.8 mmol/L (3.5-5.0)
[2022-03-27 20:27] LABS: BAND NEUTROPHILS % (MANUAL) 1 %; LYMPHOCYTES # (MANUAL) 1.7 10^3/uL (1.5-3.5); LYMPHOCYTES % (MANUAL) 8 %; MONOCYTES # (MANUAL) 0.4 10^3/uL (0.0-1.0); NEUTROPHILS # (MANUAL) 18.6 10^3/uL (1.5-6.6); PLATELET ESTIMATE, MANUAL NORMAL (130-450,000) (NORMAL); PLATELET MORPHOLOGY NORMAL APPEARANCE (NORMAL); RBC MORPHOLOGY (MULTIPLE) NORMAL APPEARANCE (NORMAL)
[2022-03-27 20:28] LABS: DIFFERENTIAL COMMENT MANUAL DIFFERENTIAL
[2022-03-27] MEDS ORDERED: guaiFENesin/CODEINE 5 ML UDC PO STA (20:46)
[2022-03-27] MEDS ORDERED: BENZONATATE 100 MG CAPSULE PO STA (20:46)
[2022-03-27] MEDS ORDERED: DOXYCYCLINE 100 MG TABLET PO STA (20:46)
[2022-03-27 20:53] LABS: B. PARAPERTUSSIS- RESP PCR PAN NOT DETECTED; B. PERTUSSIS- RESP PCR PANEL NOT DETECTED; C. PNEUMONIAE- RESP PCR PANEL NOT DETECTED; CORONAVIRUS 229E-RESP PCR NOT DETECTED; CORONAVIRUS HKU1-RESP PCR NOT DETECTED; CORONAVIRUS NL63-RESP PCR NOT DETECTED; CORONAVIRUS OC43-RESP PCR NOT DETECTED; HUMAN METAPNEUMOVIRUS NOT DETECTED; INFLUENZA A- RESP PCR PANEL NOT DETECTED; INFLUENZA B - RESP PCR PANEL NOT DETECTED; M. PNEUMONIAE- RESP PCR PANEL NOT DETECTED; PARAINFLUENZA VIRUS 1 NOT DETECTED; PARAINFLUENZA VIRUS 2 NOT DETECTED; PARAINFLUENZA VIRUS 3 NOT DETECTED; PARAINFLUENZA VIRUS 4 NOT DETECTED; RHINOVIRUS/ENTEROVIRUS NOT DETECTED; RSV- RESP PCR PANEL NOT DETECTED; SARS-CoV-2 -RESP PCR PANEL NOT DETECTED
--- NOTE | 2022-03-27 21:13 | XRAY Report ---
PROCEDURE: Chest 2 View X-Ray INDICATIONS: cough/recent PNA/SOA TECHNIQUE: 2 views of the chest were acquired. COMPARISON: Chest x-ray 03/11/2022 FINDINGS: Surgical changes and devices: None. Lungs and pleura: There is hyperinflation of the lungs with flattening of the hemidiaphragms compati ble COPD. There are decreased left basilar airspace opacities compared to the prior study consistent with resolving pneumonia. No new areas of consolidation. No pleural effusions or pneumothorax. Mediastinum: Mediastinal contours are unchanged. Heart size is normal. Bones and chest wall: No suspicious bony abnormalities. Soft tissues appear unremarkable. IMPRESSION: 1. Decreased left basilar opacities consistent with resolving pneumonia. No new areas of consolidatio n. 2. Findings compatible with COPD redemonstrated. Reviewed by: Caleb Tyson MD on 03/27/2022 9:12 PM [facility] Approved by: Caleb Tyson MD on 03/27/2022 9:12 PM [facility] Station ID: [id number]
[2022-03-27] MEDS ORDERED: predniSONE 20 MG TABLET PO STA (21:32)
[2022-03-27 21:38] VITALS: BP 137/95
== END 2022-03-27 21:38 | disposition home or self-care (01) ==
LOC: ED 18:49
DX: J44.1 Chronic obstructive pulmonary disease with (acute) exacerbation (principal); Z87.891 Personal history of nicotine dependence
CPT/HCPCS: 36415; 71046; 80048; 82803; 83605; 83735; 84100; 85025; 87633; 94640; 99284; A9270; J7512

== ENCOUNTER 2023-03-27 08:59 | Outpatient (CLI) | payer MEDICARE, OTHER ==
--- NOTE | 2023-03-28 11:18 | CT Report ---
PROCEDURE: CHEST WO INDICATIONS: PULMONARY NODULE TECHNIQUE: Noncontrast 1mm axial images were acquired from the pulmonary apices to the posterior costophrenic an gles. Axial 5 mm soft tissue kernel reconstructions were performed as well as 8 mm axial MIP and cor onal and sagittal 5 mm reformations. For radiation dose reduction, the following was used: automate d exposure control, adjustment of mA and/or kV according to patient size. COMPARISON: CT chest on November 06, 2021 and October 31, 2019 FINDINGS: Image quality: Excellent. Lungs and pleura: Compared to CT chest dated November 06, 2021, no new or enlarging solid pulmonary nodule s or consolidation. Stable appearance of nodular opacity in the right upper lobe with 4 mm central fo cus (). Marked apical predominant centrilobular and paraseptal emphysema. Stable atelectasis/scar in the posterior aspect of the bilateral upper lobes and middle lobe adjacent to the fissures. Left lower lobe medial atelectasis/scar, stable. Mediastinum: Heart size is normal. No pericardial effusion. No large vessel abnormality. Ascending ao rta measures 4.1 cm (). Moderate calcification of the thoracic aorta. Mild coronary vessel calcif ication. Calcification of the aortic valve. No mediastinal adenopathy by size criteria. Small hiatal hernia. A few prominent, but not enlarged, mediastinal lymph nodes. For example, precarinal lymph no de measures 0.9 cm in short axis (06/27), previously 1.1 cm. Chest wall and lower neck: Thyroid is unremarkable. No axillary or supraclavicular adenopathy by size . Bones: No aggressive osseous abnormality. Moderate multilevel degenerative changes of the spine. Part ially visualized cervical spine hardware. Chronic T11 anterior wedge fracture with approximately 20% height loss and no osseous retropulsion. Dextroconvex curvature of the spine. Upper Abdomen: Limited noncontrast images of the upper abdomen demonstrate no acute findings. Moderat e calcification of the thoracic aorta. IMPRESSION: 1. Compared to CT chest dated November 06, 2021, no new or enlarging solid pulmonary nodules or consolidat ion. Stable appearance of nodular opacity in the right upper lobe with 4 mm central focus 2. Stable marked emphysema and scattered atelectasis/scar. 3. Similar to slightly decreased size of mediastinal adenopathy. Reviewed by: Holland Cee MD on 03/28/2023 11:17 AM PST Approved by: Holland Cee MD on 03/28/2023 11:17 AM PST Station ID: [id number]
== END 2023-03-27 09:00 | disposition home or self-care (01) ==
LOC: DI 08:59
PROVIDERS: ATTEND Internal Medicine
DX: R91.1 Solitary pulmonary nodule (principal); J43.9 Emphysema, unspecified; R59.0 Localized enlarged lymph nodes; D50.9 Iron deficiency anemia, unspecified; I10 Essential (primary) hypertension; E11.9 Type 2 diabetes mellitus without complications
CPT/HCPCS: 36415; 80053; 80061; 82043; 82570; 82728; 83036; 83721; 85025

== ENCOUNTER 2023-03-27 09:02 | Outpatient (CLI) | payer MEDICARE, OTHER ==
[2023-03-27 09:43] LABS: BASOPHILS # (AUTO) 0.1 10^3/uL (0.0-0.1); BASOPHILS % (AUTO) 1.1 %; EOSINOPHILS # (AUTO) 0.4 10^3/uL (0.0-0.7); EOSINOPHILS % (AUTO) 4.6 %; HCT - HEMATOCRIT 35.2 % (37.0-47.0); HGB - HEMOGLOBIN 10.2 g/dL (12.0-16.0); LYMPHOCYTES # (AUTO) 3.2 10^3/uL (1.5-3.5); LYMPHOCYTES % (AUTO) 35.9 %; MEAN CORPUSCULAR HEMOGLOBIN 25.5 pg (27.0-31.0); MEAN PLATELET VOLUME 9.3 fL (7.9-10.8); MONOCYTES # (AUTO) 0.7 10^3/uL (0.0-1.0); MONOCYTES % (AUTO) 7.4 %; NEUTROPHILS # (AUTO) 4.5 10^3/uL (1.5-6.6); NEUTROPHILS % (AUTO) 50.8 %; PLT - PLATELET COUNT 389 10^3/uL (130-450); RED CELL DISTRIBUTION WIDTH 15.4 % (12.0-15.0); WHITE BLOOD COUNT 8.8 x10^3/uL (4.8-10.8)
[2023-03-27 09:57] LABS: FERRITIN 6.3 ng/mL (11.0-306.8)
[2023-03-27 10:13] LABS: ESTIMATED AVERAGE GLUCOSE 151 mg/dL (70-100); HEMOGLOBIN A1c% 6.9 % (4.27-6.07)
[2023-03-27 10:50] LABS: ALBUMIN 4.1 g/dL (3.2-5.5); ALBUMIN/GLOBULIN RATIO 1.7 (1.0-2.2); ALKALINE PHOSPHATASE 82 IU/L (42-121); ALT ALANINE AMINOTRANSFERASE 12 IU/L (10-60); AST ASPARTATE AMINOTRANSFERASE 14 IU/L (10-42); BILIRUBIN,TOTAL 0.5 mg/dL (0.2-1.0); BUN - BLOOD UREA NITROGEN 24 mg/dL (6-20); CALCIUM 9.9 mg/dL (8.5-10.3); CARBON DIOXIDE - CO2 28 mmol/L (21-32); CHLORIDE 104 mmol/L (101-111); CHOL/HDL RATIO 2.3 (<4.4); CHOLESTEROL 180 mg/dL; CREATININE 1.3 mg/dL (0.6-1.3); GFR - MDRD 39 (>89); GLUCOSE 108 mg/dL (74-104); HDL CHOLESTEROL 78 mg/dL; LDL CHOLESTEROL,CALCULATED 83 mg/dL; LDL/HDL RATIO 1.1 (<4.4); POTASSIUM 4.7 mmol/L (3.5-4.5); SODIUM 139 mmol/L (135-145); TOTAL PROTEIN 6.5 g/dL (6.4-8.9); TRIGLYCERIDES 96 mg/dL (48-352); VLDL CHOLESTEROL 19 mg/dL
== END 2023-03-27 09:03 | disposition home or self-care (01) ==
LOC: LAB 09:02
PROVIDERS: ATTEND Internal Medicine
DX: D50.9 Iron deficiency anemia, unspecified (principal); I10 Essential (primary) hypertension; E11.9 Type 2 diabetes mellitus without complications
CPT/HCPCS: 36415; 80053; 80061; 82043; 82570; 82728; 83036; 83721; 85025

== ENCOUNTER 2023-04-21 12:19 | Emergency (ER) | payer MEDICARE, OTHER ==
--- NOTE | 2023-04-21 13:24 | XRAY Report ---
PROCEDURE: Chest 2 View X-Ray INDICATIONS: cough TECHNIQUE: 2 views of the chest were acquired. COMPARISON: None. FINDINGS: Surgical changes and devices: None. Lungs and pleura: Scarring at the lung bases versus small pleural effusions. Emphysema. Similar righ t middle lung zone scarring. Mediastinum: Mediastinal contours appear normal. Heart size is normal. Bones and chest wall: No suspicious bony lesions. Overlying soft tissues appear unremarkable. IMPRESSION: Scarring at the lung bases versus small pleural effusions. Reviewed by: Joon Willis MD on 04/21/2023 1:23 PM PST Approved by: Joon Willis MD on 04/21/2023 1:23 PM PST Station ID: [id number]
[2023-04-21 13:51] LABS: B. PARAPERTUSSIS- RESP PCR PAN NOT DETECTED; B. PERTUSSIS- RESP PCR PANEL NOT DETECTED; C. PNEUMONIAE- RESP PCR PANEL NOT DETECTED; CORONAVIRUS 229E-RESP PCR NOT DETECTED; CORONAVIRUS HKU1-RESP PCR NOT DETECTED; CORONAVIRUS NL63-RESP PCR NOT DETECTED; CORONAVIRUS OC43-RESP PCR NOT DETECTED; HUMAN METAPNEUMOVIRUS NOT DETECTED; INFLUENZA A- RESP PCR PANEL NOT DETECTED; INFLUENZA B - RESP PCR PANEL NOT DETECTED; M. PNEUMONIAE- RESP PCR PANEL NOT DETECTED; PARAINFLUENZA VIRUS 1 NOT DETECTED; PARAINFLUENZA VIRUS 2 NOT DETECTED; PARAINFLUENZA VIRUS 3 NOT DETECTED; PARAINFLUENZA VIRUS 4 NOT DETECTED; RHINOVIRUS/ENTEROVIRUS NOT DETECTED; RSV- RESP PCR PANEL NOT DETECTED; SARS-CoV-2 -RESP PCR PANEL NOT DETECTED
[2023-04-21] MEDS ORDERED: predniSONE 20 MG TABLET PO STA (16:10)
[2023-04-21] MEDS ORDERED: IPRATROPIUM/ALBUTEROL 3 ML NEB INH STA (16:10)
[2023-04-21 16:41] LABS: BASOPHILS # (AUTO) 0.1 10^3/uL (0.0-0.1); BASOPHILS % (AUTO) 0.6 %; EOSINOPHILS % (AUTO) 0.3 %; HCT - HEMATOCRIT 34.3 % (37.0-47.0); HGB - HEMOGLOBIN 10.3 g/dL (12.0-16.0); LYMPHOCYTES # (AUTO) 0.9 10^3/uL (1.5-3.5); LYMPHOCYTES % (AUTO) 7.5 %; MEAN CORPUSCULAR HEMOGLOBIN 25.4 pg (27.0-31.0); MEAN CORPUSCULAR VOLUME 84.7 fL (81.0-99.0); MEAN PLATELET VOLUME 9.1 fL (7.9-10.8); MONOCYTES # (AUTO) 0.3 10^3/uL (0.0-1.0); MONOCYTES % (AUTO) 2.7 %; NEUTROPHILS # (AUTO) 10.4 10^3/uL (1.5-6.6); NEUTROPHILS % (AUTO) 88.5 %; PLT - PLATELET COUNT 427 10^3/uL (130-450); RED BLOOD COUNT 4.05 10^6/uL (4.20-5.40); RED CELL DISTRIBUTION WIDTH 14.6 % (12.0-15.0); WHITE BLOOD COUNT 11.7 x10^3/uL (4.8-10.8)
[2023-04-21 16:59] LABS: ALBUMIN 4.2 g/dL (3.2-5.5); ALBUMIN/GLOBULIN RATIO 1.4 (1.0-2.2); BILIRUBIN,TOTAL 0.5 mg/dL (0.2-1.0); CALCIUM 10.6 mg/dL (8.5-10.3); CREATININE 1.2 mg/dL (0.6-1.3); POTASSIUM 4.3 mmol/L (3.5-4.5); TOTAL PROTEIN 7.3 g/dL (6.4-8.9)
--- NOTE | 2023-04-21 17:18 | ED Physician Documentation ---
History of Present Illness - Stated complaint Stated Complaint: COUGH/LOW O2 - Chief complaint Chief Complaint: Resp - History obtained from History obtained from: Patient, Family - History of Present Illness Timing: Today Pain level max: 0 Pain level now: 0 - Additonal information Additional information: Patient is an 78-year-old female with a longstanding history of COPD. She uses oxygen frequently at home, has a portable concentrator and a larger tank at home. She states often times she does not feel like she needs it so she does not use it. She has had some recent increase sputum production. She is currently only on 5 mg of prednisone at home. She is not on any long-acting beta agonist or inhaled steroids. She states that she does not like the inhaled steroids because they cause thrush. No fevers. No chills. Her daughter states that her oxygen levels are going up and down frequently at home, occasionally will be down into the 70s. No leg swelling. No chest pain. No recent travel. Review of Systems Constitutional: denies: Fever, Chills GI: denies: Vomiting, Diarrhea Skin: denies: Rash Musculoskeletal: denies: Neck pain, Back pain Neurologic: denies: Headache PD PAST MEDICAL HISTORY - Past Medical History Past Medical History: Yes Cardiovascular: None, Hypertension Respiratory: COPD Endocrine/Autoimmune: Type 2 diabetes Derm: None - Past Surgical History Past Surgical History: Yes Ortho: Knee replacement, Rotator cuff repair, Other HEENT: Tonsil/Adenoidectomy - Present Medications Home Medications: Ambulatory Orders Medication Instructions Recorded Confirmed Albuterol Sulf [Ventolin Hfa 2 puffs INH Q4H PRN 05/18/20 04/21/23 Inhaler] Atorvastatin [Lipitor] 10 mg PO QPM 05/18/20 04/21/23 Clopidogrel [Plavix] 75 mg PO DAILY 05/18/20 04/21/23 Imipramine HCl 150 mg PO QPM 05/18/20 04/21/23 Ipratropium/Albuterol [Duoneb] 3 ml INH TID PRN 05/18/20 04/21/23 Losartan [Cozaar] 50 mg PO QPM 05/18/20 04/21/23 Metformin HCl [Glucophage Xr] 500 mg PO BID 05/18/20 04/21/23 Oxybutynin [Ditropan] 5 mg PO DAILY 05/18/20 04/21/23 Potassium Chloride 10 meq PO DAILY #30 tablet.er 05/23/20 04/21/23 Acetaminophen [Acetaminophen Extra 500 mg PO QID PRN #50 tablet 11/06/21 04/21/23 Strength] Prednisone [Luis] 5 mg PO DAILY 04/21/23 04/21/23 Salmeterol Xinafoate [Serevent 50 mcg IH BID #1 each 04/21/23 Diskus] hydroCHLOROthiazide [Hydrodiuril] 12.5 mg PO DAILY 04/21/23 04/21/23 predniSONE [Deltasone] 10 mg PO [id number] #42 tab 04/21/23 - Allergies Allergies/Adverse Reactions: Allergies Allergy/AdvReac Type Severity Reaction Status Date / Time azithromycin Allergy Emesis Verified 04/21/23 12:41 - Social History Does the pt smoke?: No Smoking Status: Never smoker Does the pt drink ETOH?: Yes Does the pt have substance abuse?: No - Immunizations Immunizations are current?: Yes - POLST Patient has POLST: Yes PD ED PE NORMAL - Vitals Vital signs reviewed: Yes - General General: Alert and oriented X 3, No acute distress - HEENT HEENT: PERRL, Moist mucous membranes - Neck Neck: Supple, no meningeal sign - Cardiac Cardiac: RRR, Strong equal pulses - Respiratory Respiratory: No respiratory distress, Other (Mild diffuse wheezing bilaterally no respiratory distress) - Abdomen Abdomen: Soft, Non tender, Non distended - Derm Derm: Warm and dry - Extremities Extremities: No edema, No calf tenderness / cord - Neuro Neuro: Alert and oriented X 3 - Psych Psych: Normal mood, Normal affect Results - Vitals Vitals: Vital Signs - 24 hr 04/21/23 04/21/23 04/21/23 12:34 15:32 16:26 Temperature 36.7 C Heart Rate 96 94 80 Respiratory 30 H 26 H 20 Rate Blood Pressure 98/68 132/112 H O2 Saturation 100 98 04/21/23 17:12 Temperature 36.8 C Heart Rate 102 H Respiratory 27 H Rate Blood Pressure 117/82 H O2 Saturation 91 L Oxygen O2 Source Room air - EKG (time done) 1244 EKG releavant findings:: EKG personally interpreted by author of this note. Relevant findings are: Rate: Rate (enter#) (89) Rhythm: NSR [place]: Normal Intervals: Normal MT QRS: Normal Ischemia: Normal ST segments - Labs Labs: Laboratory Tests 04/21/23 04/21/23 04/21/23 12:52 16:21 16:21 WBC 11.7 H RBC 4.05 L Hgb 10.3 L Hct 34.3 L MCV 84.7 MCH 25.4 L MCHC 30.0 L RDW 14.6 Plt Count 427 MPV 9.1 Neut # (Auto) 10.4 H Lymph # (Auto) 0.9 L [place] # (Auto) 0.3 Eos # (Auto) 0.0 Baso # (Auto) 0.1 Absolute Nucleated RBC 0.00 Nucleated RBC % 0.0 Sodium 136 Potassium 4.3 Chloride 100 L Carbon Dioxide 29 Anion Gap 7.0 BUN 27 H Creatinine 1.2 Estimated GFR (MDRD) 43 L Glucose 148 H Calcium 10.6 H Total Bilirubin 0.5 AST 10 ALT 8 L Alkaline Phosphatase 98 Total Protein 7.3 Albumin 4.2 Globulin 3.1 Albumin/Globulin Ratio 1.4 Nasal Adenovirus (PCR) NOT DETECTED Nasal B. parapertussis DNA (PCR) NOT DETECTED Nasal Coronavir 229E PCR NOT DETECTED Nasal Coronavir HKU1 PCR NOT DETECTED Nasal Coronavir NL63 PCR NOT DETECTED Nasal Coronavir OC43 PCR NOT DETECTED Nasal Enterovir/Rhinovir PCR NOT DETECTED Nasal Influenza B PCR NOT DETECTED Nasal Influenza A PCR NOT DETECTED Nasal Parainfluen 1 PCR NOT DETECTED Nasal Parainfluen 2 PCR NOT DETECTED Nasal Parainfluen 3 PCR NOT DETECTED Nasal Parainfluen 4 PCR NOT DETECTED Nasal RSV (PCR) NOT DETECTED Nasal B.pertussis DNA PCR NOT DETECTED Nasal C.pneumoniae (PCR) NOT DETECTED Scott Human Metapneumo PCR NOT DETECTED Nasal M.pneumoniae (PCR) NOT DETECTED Nasal SARS-CoV-2 (PCR) NOT DETECTED - Rads (name of study) Chest x-ray Relevant Findings:: Final report received, See rad report PD Medical Decision Making - ED course Complexity details: reviewed results, re-evaluated patient, considered differential, d/w patient ED course: Patient with a longstanding history of COPD, appears to have a mild exacerbation. Respiratory PCR is negative. No acute findings on chest x-ray or laboratory testing. Feels better after albuterol treatment. Will place back on steroids. Will also prescribe a long-acting beta agonist to see if this helps to better control her COPD. She is not hypoxic here. Ambulating without difficulty. May benefit from a referral to a ingot header. No indication for antibiotics at this time. Patient and family counseled regarding signs and symptoms for which I believe and urgent re-evaluation would be necessary. Patient with good understanding of and agreement to plan and is comfortable going home at this time This document was made in part using voice recognition software. While efforts are made to proofread this document, sound alike and grammatical errors may occur. Departure - Departure Disposition: 01 Home, Self Care Clinical Impression: COPD exacerbation Condition: Good Instructions: ED COPD Flare Follow-Up: Geoff Plascencia MD [Primary Care Provider] - Within 1 week Prescriptions: predniSONE [Deltasone] 10 mg PO [id number] #42 tab Salmeterol Xinafoate [Serevent Diskus] 50 mcg IH BID #1 each Comments: Your prescriptions were sent to [facility] in [place]. Will start you on a steroid taper. You need to be using your albuterol nebulizer approximately every [address] you on a long-acting bronchodilator, this was sent to your pharmacy. If it is not covered by your insurance, your doctor may want to prescribe a different long-acting beta agonist. This inhaler does not contain a steroid so should not give you thrush. Please return if you worsen. Forms: PCP List Discharge Date/Time: 04/21/23 17:43
[2023-04-21 17:19] VITALS: BP 117/82; O2SAT 91
== END 2023-04-21 17:43 | disposition home or self-care (01) ==
LOC: ED 12:19
DX: J44.1 Chronic obstructive pulmonary disease with (acute) exacerbation (principal); Z99.81 Dependence on supplemental oxygen; I10 Essential (primary) hypertension; E11.9 Type 2 diabetes mellitus without complications; Z79.84 Long term (current) use of oral hypoglycemic drugs
CPT/HCPCS: 36415; 71046; 80053; 85025; 87633; 93005; 94640; 99284; J7512

== ENCOUNTER 2023-06-01 06:58 | Outpatient (CLI) | payer MEDICARE, OTHER | END 2023-06-01 06:59 | disposition critical access hospital (66) | LOC: EMS 06:58 | DX: S00.03XA Contusion of scalp, initial encounter (principal); M54.2 Cervicalgia; M54.50 Low back pain, unspecified; W18.39XA Other fall on same level, initial encounter; Y92.009 Unspecified place in unspecified non-institutional (private) residence as the place of occurrence of the external cause; Z79.02 Long term (current) use of antithrombotics/antiplatelets | CPT/HCPCS: A0425; A0429 ==

== ENCOUNTER 2023-06-03 11:08 | Emergency (ER) | payer MEDICARE, OTHER ==
--- NOTE | 2023-06-03 12:27 | ED Physician Documentation ---
PD HPI DYSPNEA - Stated complaint Stated Complaint: SOA - Chief complaint Chief Complaint: Resp - Additional information Additional information: 78-year-old female with history of severe COPD presents the emergency department today via EMS after having worsening shortness of breath. Patient says that she was seen here in our emergency department 2 to 3 days ago after experiencing a mechanical ground-level fall while taking her dog to the bathroom, since she has been home she feels like she has been more fatigued than normal been laying around more than normal and is now endorsing what she feels like is a worsening COPD exacerbation. Patient reports she is on home oxygen about 3 L [id number] but patient says that despite oxygen home nebulizer treatments nothing seems to be alleviating the shortness of breath and discomfort that she is experiencing. She denies any chest pain. No nausea or vomiting. PD PAST MEDICAL HISTORY - Past Medical History Past Medical History: Yes Cardiovascular: None, Hypertension Respiratory: COPD Endocrine/Autoimmune: Type 2 diabetes Derm: None - Past Surgical History Past Surgical History: Yes Ortho: Knee replacement, Rotator cuff repair, Other HEENT: Tonsil/Adenoidectomy - Present Medications Home Medications: Ambulatory Orders Medication Instructions Recorded Confirmed Albuterol Sulf [Ventolin Hfa 2 puffs INH Q4H PRN 05/18/20 04/21/23 Inhaler] Atorvastatin [Lipitor] 10 mg PO QPM 05/18/20 04/21/23 Clopidogrel [Plavix] 75 mg PO DAILY 05/18/20 04/21/23 Imipramine HCl 150 mg PO QPM 05/18/20 04/21/23 Ipratropium/Albuterol [Duoneb] 3 ml INH TID PRN 05/18/20 04/21/23 Losartan [Cozaar] 50 mg PO QPM 05/18/20 04/21/23 Metformin HCl [Glucophage Xr] 500 mg PO BID 05/18/20 04/21/23 Oxybutynin [Ditropan] 5 mg PO DAILY 05/18/20 04/21/23 Potassium Chloride 10 meq PO DAILY #30 tablet.er 05/23/20 04/21/23 Acetaminophen [Acetaminophen Extra 500 mg PO QID PRN #50 tablet 11/06/21 04/21/23 Strength] Prednisone [Luis] 5 mg PO DAILY 12/20/23 12/20/23 Salmeterol Xinafoate [Serevent 50 mcg IH BID #1 each 04/21/23 Diskus] hydroCHLOROthiazide [Hydrodiuril] 12.5 mg PO DAILY 04/21/23 04/21/23 Doxycycline [Vibramycin] 100 mg PO BID 5 Days #10 tablet 06/03/23 predniSONE [Deltasone] 10 mg PO [id number] #42 tab 06/03/23 - Allergies Allergies/Adverse Reactions: Allergies Allergy/AdvReac Type Severity Reaction Status Date / Time azithromycin Allergy Emesis Verified 06/03/23 11:22 - Social History Does the pt smoke?: No Smoking Status: Never smoker Does the pt drink ETOH?: Yes Does the pt have substance abuse?: No - Immunizations Immunizations are current?: Yes - POLST Patient has POLST: Yes PD ED PE NORMAL - Vitals Vital signs reviewed: Yes - General General: Alert and oriented X 3, Well developed/nourished, Other (increased work of breathing, speaking in about 3-4 word sentences before pausing to take a breath) - HEENT HEENT: Atraumatic, PERRL, EOMI - Cardiac Cardiac: Other (murmur,tachycardic) - Respiratory Respiratory: Other (Decreased breath sounds no wheezing or rhonchi) - Abdomen Abdomen: Normal bowel sounds, Non tender, No organomegaly - Back Back: No CVA TTP - Derm Derm: Normal color, Warm and dry, No rash - Extremities Extremities: No deformity, No edema, No calf tenderness / cord - Neuro Neuro: Alert and oriented X 3, 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, No motor deficit, Normal speech (55) Eye Opening: Spontaneous Motor: Obeys Commands Verbal: Oriented GCS Score: 15 - Psych Psych: Normal mood Results - Vitals Vitals: Vital Signs - 24 hr 06/03/23 06/03/23 06/03/23 11:17 13:13 13:42 Temperature 36.7 C 36.9 C Heart Rate 117 H 104 H 70 Respiratory 20 18 17 Rate Blood Pressure 119/86 H 138/75 H O2 Saturation 98 97 If not protocol 3 2 : Oxygen Flow, liters/minute 06/03/23 06/03/23 06/03/23 15:00 16:28 17:31 Temperature 37.1 C Heart Rate 105 H 101 H 79 Respiratory 20 18 18 Rate Blood Pressure 115/99 H 161/97 H O2 Saturation 99 96 If not protocol 2 3 2 : Oxygen Flow, liters/minute 06/03/23 18:49 Temperature 37.4 C Heart Rate 102 H Respiratory 18 Rate Blood Pressure 120/82 H O2 Saturation 96 If not protocol : Oxygen Flow, liters/minute Oxygen O2 Source Nasal cannula Oxygen Flow Rate 3 - Labs Labs: Laboratory Tests 06/03/23 06/03/23 06/03/23 12:33 12:33 12:33 WBC 6.8 RBC 3.85 L Hgb 10.2 L Hct 34.0 L MCV 88.3 MCH 26.5 L MCHC 30.0 L RDW 16.6 H Plt Count 295 MPV 8.9 Neut # (Auto) 4.8 Lymph # (Auto) 1.4 L [place] # (Auto) 0.5 Eos # (Auto) 0.0 Baso # (Auto) 0.1 Absolute Nucleated RBC 0.00 Nucleated RBC % 0.0 VBG pH 7.355 VBG pCO2 42.0 VBG pO2 26.7 VBG HCO3 22.9 L VBG Total CO2 24.2 VBG O2 Saturation 47.6 L VBG Base Excess -2.5 L Sodium 139 Potassium 3.9 Chloride 106 Carbon Dioxide 26 Anion Gap 7.0 BUN 22 H Creatinine 1.3 Estimated GFR (MDRD) 39 L Glucose 137 H Calcium 9.7 Magnesium 1.7 Total Bilirubin 0.5 AST 13 ALT 11 Alkaline Phosphatase 83 Total Protein 6.2 L Albumin 3.5 Globulin 2.7 Albumin/Globulin Ratio 1.3 Departure - Departure Disposition: 01 Home, Self Care Clinical Impression: COPD exacerbation Instructions: COPD Dc Prescriptions: predniSONE [Deltasone] 10 mg PO [id number] #42 tab Doxycycline [Vibramycin] 100 mg PO BID 5 Days #10 tablet Comments: . Thank you for trusting us with your care. As we discussed I think you really need to really evaluate your living situation as I am concerned that you are not able to care for yourself properly at home. In the meantime I think would be safest for you to discharge with your daughter to help you with your inhalers and medications that you need to take daily. Follow-up with your primary care provider to discuss long-term options and goals. I have sent a prescription to preferred pharmacy for a steroid taper to help with your COPD exacerbation as well as a medication called doxycycline that you will take twice a day for the next 5 days. Please come back to the emergency department for having any worsening shortness of breath, chest pain, worsening COPD symptoms despite the medications you are taking and make sure that you are taking your prescribed inhalers daily or as well as your nebulizer treatments. Wishing you a speedy recovery. Forms: PCP List Discharge Date/Time: 06/03/23 18:49
[2023-06-03 12:40] LABS: BASOPHILS # (AUTO) 0.1 10^3/uL (0.0-0.1); BASOPHILS % (AUTO) 0.7 %; EOSINOPHILS % (AUTO) 0.4 %; HGB - HEMOGLOBIN 10.2 g/dL (12.0-16.0); LYMPHOCYTES # (AUTO) 1.4 10^3/uL (1.5-3.5); LYMPHOCYTES % (AUTO) 20.6 %; MEAN CORPUSCULAR HEMOGLOBIN 26.5 pg (27.0-31.0); MEAN CORPUSCULAR VOLUME 88.3 fL (81.0-99.0); MEAN PLATELET VOLUME 8.9 fL (7.9-10.8); MONOCYTES # (AUTO) 0.5 10^3/uL (0.0-1.0); MONOCYTES % (AUTO) 6.8 %; NEUTROPHILS # (AUTO) 4.8 10^3/uL (1.5-6.6); NEUTROPHILS % (AUTO) 71.1 %; PLT - PLATELET COUNT 295 10^3/uL (130-450); RED BLOOD COUNT 3.85 10^6/uL (4.20-5.40); RED CELL DISTRIBUTION WIDTH 16.6 % (12.0-15.0); WHITE BLOOD COUNT 6.8 x10^3/uL (4.8-10.8)
[2023-06-03 12:41] LABS: VBG PH 7.355 (7.31-7.41); VBG PO2 26.7 mmHg (25-47)
[2023-06-03 12:42] LABS: VBG BASE EXCESS -2.5 mmol/L (-2 - +2); VBG HCO3 22.9 mmol/L (23-28); VBG OXYGEN SATURATION 47.6 % (60-80); VBG TOTAL CO2 24.2 mmol/L (24-29)
[2023-06-03] MEDS ORDERED: methylPREDNISolone SUCCINATE 125 MG/2 ML VIAL IVP STA (12:59)
[2023-06-03 13:08] LABS: ALBUMIN 3.5 g/dL (3.2-5.5); ALBUMIN/GLOBULIN RATIO 1.3 (1.0-2.2); BILIRUBIN,TOTAL 0.5 mg/dL (0.2-1.0); CALCIUM 9.7 mg/dL (8.5-10.3); CREATININE 1.3 mg/dL (0.6-1.3); MAGNESIUM 1.7 mg/dL (1.7-2.3); POTASSIUM 3.9 mmol/L (3.5-4.5); TOTAL PROTEIN 6.2 g/dL (6.4-8.9)
[2023-06-03] MEDS ORDERED: iohexoL-300 100 ML VIAL ONE (13:13)
[2023-06-03] MEDS: IPRATROPIUM/ALBUTEROL 3 ML NEB INH PRN ×2 (13:19→17:26)
[2023-06-03] MEDS ORDERED: SODIUM CHLORIDE 0.9% 1,000 ML IV ONE (13:22)
--- NOTE | 2023-06-03 14:51 | CT Report ---
PROCEDURE: Angio Chest INDICATIONS: r/o PE CONTRAST: Omni 300 80ml TECHNIQUE: After the administration of intravenous contrast, 2 mm axial images were acquired from the pulmonary apices to the posterior costophrenic angles during the arterial phase. In addition, 1 mm lung kernel and 5 mm soft tissue kernel reconstructions were performed. 3-dimensional coronal oblique maximum int ensity projection (MIP) reformats, 8 mm axial MIP, and 5 mm coronal and sagittal MPR reformats were t hen performed through the thorax. For radiation dose reduction, the following was used: automated exp osure control, adjustment of mA and/or kV according to patient size. COMPARISON: CT chest without contrast dated 03/27/2023. FINDINGS: Image quality: Excellent. Large vessels: No pulmonary emboli. Top normal size of ascending aorta, measuring 4.0 cm. Incidental note made of left ventricular hypertrophy. Reference axial image 73 of series 4. Additionally, there is subpulmonic stenosis, just below the pulmonic valve, in which the subpulmonic right ventricular mu scle is hypertrophied. This is well seen on axial image 65 of series 4 and coronal image 34 of series 8. Lungs and pleura: No consolidation. No pleural effusions. No pneumothorax. No suspicious pulmonary n odules which require follow up. Severe centrilobular emphysema. Mediastinum: Heart size is normal. No pericardial effusion. No large vessel abnormality. No mediastin al adenopathy by size criteria. Chest wall and lower neck: Thyroid is unremarkable. No axillary or supraclavicular adenopathy by size . Bones: No aggressive osseous abnormality. Upper Abdomen: Unremarkable. IMPRESSION: 1. No acute pulmonary emboli. 2. Severe emphysematous change. 3. Left ventricular hypertrophy. 4. 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 Reviewed by: Grady Palafox MD on 06/03/2023 2:49 PM PST Approved by: Grady Palafox MD on 06/03/2023 2:49 PM PST Station ID: [id number]
[2023-06-03] MEDS ORDERED: ACETAMINOPHEN 325 MG TABLET PO STA (15:06)
[2023-06-03] MEDS ORDERED: iohexoL-300 100 ML VIAL IVP ONE (15:16)
[2023-06-03] MEDS ORDERED: DOXYCYCLINE 100 MG TABLET PO STA (15:23)
[2023-06-03] MEDS ORDERED: ALBUTEROL NEB 2.5 MG/3 ML INH STA (16:16)
[2023-06-03 16:38] VITALS: O2SAT 96
[2023-06-03 19:03] VITALS: BP 120/82
== END 2023-06-03 18:49 | disposition home or self-care (01) ==
LOC: EDUNIT# → ED 11:08
DX: J44.1 Chronic obstructive pulmonary disease with (acute) exacerbation (principal); I10 Essential (primary) hypertension; E11.9 Type 2 diabetes mellitus without complications; Z79.84 Long term (current) use of oral hypoglycemic drugs
CPT/HCPCS: 36415; 71275; 80053; 82803; 83735; 85025; 94640; 96374; 99284; A9270; Q9967

== ENCOUNTER 2023-06-05 18:33 | Outpatient (CLI) | payer MEDICARE, OTHER | END 2023-06-05 23:59 | disposition critical access hospital (66) | LOC: EMS 18:33 | DX: R06.02 Shortness of breath (principal); R53.83 Other fatigue | CPT/HCPCS: A0425; A0427 ==

== ENCOUNTER 2023-06-05 18:39 | Inpatient (IN) | payer MEDICARE, OTHER ==
[2023-06-05 19:06] LABS: BASOPHILS % (AUTO) 0.2 %; EOSINOPHILS % (AUTO) 0.3 %; HCT - HEMATOCRIT 36.7 % (37.0-47.0); HGB - HEMOGLOBIN 11.1 g/dL (12.0-16.0); LYMPHOCYTES # (AUTO) 0.4 10^3/uL (1.5-3.5); LYMPHOCYTES % (AUTO) 3.1 %; MEAN CORPUSCULAR HEMOGLOBIN 26.2 pg (27.0-31.0); MEAN CORPUSCULAR HGB CONC 30.2 g/dL (32.0-36.0); MEAN CORPUSCULAR VOLUME 86.6 fL (81.0-99.0); MEAN PLATELET VOLUME 8.9 fL (7.9-10.8); MONOCYTES # (AUTO) 0.3 10^3/uL (0.0-1.0); MONOCYTES % (AUTO) 2.3 %; NEUTROPHILS # (AUTO) 11.2 10^3/uL (1.5-6.6); NEUTROPHILS % (AUTO) 93.7 %; PLT - PLATELET COUNT 400 10^3/uL (130-450); RED BLOOD COUNT 4.24 10^6/uL (4.20-5.40); WHITE BLOOD COUNT 11.9 x10^3/uL (4.8-10.8)
--- NOTE | 2023-06-05 19:13 | ED Physician Documentation ---
History of Present Illness - Stated complaint Stated Complaint: SOA, COPD - Chief complaint Chief Complaint: Resp - History obtained from History obtained from: Patient - History of Present Illness Timing: How many days ago (several days) Pain level max: 0 Pain level now: 0 - Additonal information Additional information: 78-year-old female with severe COPD presents to the emergency department with difficulty breathing, worsening over the past few days. She was seen here 2 days ago, did not have any acute findings on CT pulmonary angiogram of the chest. Improved with nebulizer treatment and steroids. She states she has been using her prednisone at home but her breathing is continuing to worsen. She is usually on 3 L of oxygen at home. She states she took her prednisone at home today. She received a breathing treatment and 125 mg Solu-Medrol with EMS tonight. Review of Systems Constitutional: denies: Fever, Chills Throat: denies: Sore throat Cardiac: denies: Palpitations Respiratory: reports: Dyspnea, Wheezing GI: denies: Vomiting, Diarrhea Skin: denies: Rash Musculoskeletal: denies: Neck pain, Back pain Neurologic: denies: Focal weakness, Numbness, Headache PD PAST MEDICAL HISTORY - Past Medical History Cardiovascular: None, Hypertension Respiratory: COPD Endocrine/Autoimmune: Type 2 diabetes Derm: None - Past Surgical History Past Surgical History: Yes Ortho: Knee replacement, Rotator cuff repair, Other HEENT: Tonsil/Adenoidectomy - Present Medications Home Medications: Ambulatory Orders Medication Instructions Recorded Confirmed Albuterol Sulf [Ventolin Hfa 2 puffs INH Q4H PRN 05/18/20 04/21/23 Inhaler] Atorvastatin [Lipitor] 10 mg PO QPM 05/18/20 04/21/23 Clopidogrel [Plavix] 75 mg PO DAILY 05/18/20 04/21/23 Imipramine HCl 150 mg PO QPM 05/18/20 04/21/23 Ipratropium/Albuterol [Duoneb] 3 ml INH TID PRN 05/18/20 04/21/23 Losartan [Cozaar] 50 mg PO QPM 05/18/20 04/21/23 Metformin HCl [Glucophage Xr] 500 mg PO BID 05/18/20 04/21/23 Oxybutynin [Ditropan] 5 mg PO DAILY 05/18/20 04/21/23 Potassium Chloride 10 meq PO DAILY #30 tablet.er 05/23/20 04/21/23 Acetaminophen [Acetaminophen Extra 500 mg PO QID PRN #50 tablet 11/06/21 04/21/23 Strength] Prednisone [Luis] 5 mg PO DAILY 04/21/23 04/21/23 Salmeterol Xinafoate [Serevent 50 mcg IH BID #1 each 04/21/23 Diskus] hydroCHLOROthiazide [Hydrodiuril] 12.5 mg PO DAILY 04/21/23 04/21/23 Doxycycline [Vibramycin] 100 mg PO BID 5 Days #10 tablet 06/03/23 predniSONE [Deltasone] 10 mg PO [id number] #42 tab 06/03/23 - Allergies Allergies/Adverse Reactions: Allergies Allergy/AdvReac Type Severity Reaction Status Date / Time azithromycin Allergy Emesis Verified 06/03/23 11:22 - Social History Does the pt smoke?: No Smoking Status: Never smoker Does the pt drink ETOH?: Yes Does the pt have substance abuse?: No - Immunizations Immunizations are current?: Yes - POLST Patient has POLST: Yes PD ED PE NORMAL - Vitals Vital signs reviewed: Yes - General General: Alert and oriented X 3, Other (Mild respiratory distress, Thin, frail, elderly female) - HEENT HEENT: Other (Dry lips and tongue) - Neck Neck: Supple, no meningeal sign - Cardiac Cardiac: Other (Tachycardic) - Respiratory Respiratory: Other (Diminished breath sounds bilateral, mild wheeze) - Abdomen Abdomen: Soft, Non tender, Non distended - Derm Derm: Warm and dry - Extremities Extremities: No edema, No calf tenderness / cord - Neuro Neuro: Alert and oriented X 3 Results - Vitals Vitals: Vital Signs - 24 hr 06/05/23 06/05/23 06/05/23 18:46 19:08 19:20 Temperature 36.6 C Heart Rate 140 H 133 H 126 H Respiratory 32 H 32 H 22 Rate Blood Pressure 183/109 H 148/98 H O2 Saturation 97 92 If not protocol 4 3 : Oxygen Flow, liters/minute 06/05/23 06/05/23 06/05/23 19:30 20:00 20:05 Temperature Heart Rate 127 H 125 H 122 H Respiratory 24 24 22 Rate Blood Pressure 102/89 H 145/89 H O2 Saturation 99 95 If not protocol 3 : Oxygen Flow, liters/minute 06/05/23 06/05/23 20:30 21:00 Temperature Heart Rate 122 H 116 H Respiratory 26 H 26 H Rate Blood Pressure 141/88 H 157/92 H O2 Saturation 95 95 If not protocol 3 : Oxygen Flow, liters/minute Oxygen O2 Source Nasal cannula - Labs Labs: Laboratory Tests 06/05/23 06/05/23 06/05/23 19:02 19:02 19:07 WBC 11.9 H RBC 4.24 Hgb 11.1 L Hct 36.7 L MCV 86.6 MCH 26.2 L MCHC 30.2 L RDW 17.0 H Plt Count 400 MPV 8.9 Neut # (Auto) 11.2 H Lymph # (Auto) 0.4 L Tensas # (Auto) 0.3 Eos # (Auto) 0.0 Baso # (Auto) 0.0 Absolute Nucleated RBC 0.00 Nucleated RBC % 0.0 Sodium 139 Potassium 4.3 Chloride 104 Carbon Dioxide 25 Anion Gap 10.0 BUN 33 H Creatinine 1.3 Estimated GFR (MDRD) 39 L Glucose 167 H Calcium 10.4 H Phosphorus 2.9 Magnesium 1.7 Total Bilirubin 0.5 AST 18 ALT 13 Alkaline Phosphatase 81 Total Protein 6.8 Albumin 4.0 Globulin 2.8 Albumin/Globulin Ratio 1.4 Lipase 12 Nasal Adenovirus (PCR) NOT DETECTED Nasal B. parapertussis DNA (PCR) NOT DETECTED Nasal Coronavir 229E PCR NOT DETECTED Nasal Coronavir HKU1 PCR NOT DETECTED Nasal Coronavir NL63 PCR NOT DETECTED Nasal Coronavir OC43 PCR NOT DETECTED Nasal Enterovir/Rhinovir PCR NOT DETECTED Nasal Influenza B PCR NOT DETECTED Nasal Influenza A PCR NOT DETECTED Nasal Parainfluen 1 PCR NOT DETECTED Nasal Parainfluen 2 PCR NOT DETECTED Nasal Parainfluen 3 PCR NOT DETECTED Nasal Parainfluen 4 PCR NOT DETECTED Nasal RSV (PCR) NOT DETECTED Nasal B.pertussis DNA PCR NOT DETECTED Nasal C.pneumoniae (PCR) NOT DETECTED Scott Human Metapneumo PCR DETECTED A Nasal M.pneumoniae (PCR) NOT DETECTED Nasal SARS-CoV-2 (PCR) NOT DETECTED - Rads (name of study) cxr Relevant Findings:: Final report received, See rad report PD Medical Decision Making - ED course Complexity details: reviewed results, re-evaluated patient, considered differential, d/w patient ED course: Patient was given several nebulizer treatments in the emergency department. Already took her oral prednisone at home and had Solu-Medrol with EMS. Despite 3 more nebulizer treatments in the emergency department, patient is still tachycardic, tachypneic and short of breath. No increased hypoxia, but is still having increased work of breathing. We will have her be admitted for further care. Will hold antibiotics at this time. No pneumonia on chest x-ray. Discussed the case with the nighttime hospitalist who accepts This document was made in part using voice recognition software. While efforts are made to proofread this document, sound alike and grammatical errors may occur. Departure - Departure Disposition: [facility] DC/[place] Clinical Impression: COPD exacerbation, Chronic respiratory failure with hypoxia Condition: Stable Discharge Date/Time: 06/05/23 21:47
[2023-06-05] MEDS: ALBUTEROL NEB 2.5 MG/3 ML INH STA ×2 (19:18→20:05)
[2023-06-05] MEDS: SODIUM CHLORIDE 0.9% 1,000 ML IV STA (19:24)
[2023-06-05 19:25] LABS: ALBUMIN/GLOBULIN RATIO 1.4 (1.0-2.2); BILIRUBIN,TOTAL 0.5 mg/dL (0.2-1.0); CALCIUM 10.4 mg/dL (8.5-10.3); CREATININE 1.3 mg/dL (0.6-1.3); MAGNESIUM 1.7 mg/dL (1.7-2.3); PHOSPHORUS 2.9 mg/dL (2.5-5.0); POTASSIUM 4.3 mmol/L (3.5-4.5); TOTAL PROTEIN 6.8 g/dL (6.4-8.9)
[2023-06-05] MEDS: SODIUM CHLORIDE 0.9% 500 ML IV STA (19:25)
--- NOTE | 2023-06-05 19:34 | XRAY Report ---
PROCEDURE: Chest 1V INDICATIONS: cough, dyspnea TECHNIQUE: One view of the chest was acquired. COMPARISON: 04/21/2023, 03/27/2023, 03/27/2022 FINDINGS: Surgical changes and devices: Cervical spine fixation hardware is partially seen. Lungs and pleura: No pleural effusions or pneumothorax. Lungs are clear, yet hyperexpanded. Mediastinum: The aorta is prominent and tortuous. The cardiac contours are within normal limits. Bones and chest wall: No suspicious bony lesions. Age-appropriate degenerative changes are seen. O verlying soft tissues appear unremarkable. IMPRESSION: Hyperexpanded lungs are seen, without an acute cardiopulmonary abnormality seen. Reviewed by: Amol Hernandez MD on 06/05/2023 6:33 PM [facility] Approved by: Amol Hernandez MD on 06/05/2023 6:33 PM [facility] Station ID: [id number]
[2023-06-05 20:09] LABS: B. PARAPERTUSSIS- RESP PCR PAN NOT DETECTED; B. PERTUSSIS- RESP PCR PANEL NOT DETECTED; C. PNEUMONIAE- RESP PCR PANEL NOT DETECTED; CORONAVIRUS 229E-RESP PCR NOT DETECTED; CORONAVIRUS HKU1-RESP PCR NOT DETECTED; CORONAVIRUS NL63-RESP PCR NOT DETECTED; CORONAVIRUS OC43-RESP PCR NOT DETECTED; HUMAN METAPNEUMOVIRUS DETECTED; INFLUENZA A- RESP PCR PANEL NOT DETECTED; INFLUENZA B - RESP PCR PANEL NOT DETECTED; M. PNEUMONIAE- RESP PCR PANEL NOT DETECTED; PARAINFLUENZA VIRUS 1 NOT DETECTED; PARAINFLUENZA VIRUS 2 NOT DETECTED; PARAINFLUENZA VIRUS 3 NOT DETECTED; PARAINFLUENZA VIRUS 4 NOT DETECTED; RHINOVIRUS/ENTEROVIRUS NOT DETECTED; RSV- RESP PCR PANEL NOT DETECTED; SARS-CoV-2 -RESP PCR PANEL NOT DETECTED
[2023-06-05] MEDS ORDERED: MAGNESIUM SULFATE 1 GM/2 ML VIAL IVP STA (21:10)
[2023-06-05] MEDS ORDERED: ZOLPIDEM 5 MG TABLET PO PRN (21:14)
--- NOTE | 2023-06-05 21:39 | HISTORY & PHYSICAL EXAMINATION ---
Chief Complaint - Chief Complaint Chief Complaint: SOB History of Present Illness - Admitted From Admitted From:: Home - History Obtained From Records Reviewed: Yes History obtained from: Patient, daughters, ER MD Exam Limitations: None - History of Present Illness HPI Comment/Other: 78-year-old female with severe COPD presents to the emergency department with difficulty breathing, worsening over the past few days. She was seen here 2 days ago, did not have any acute findings on CT pulmonary angiogram of the chest. Improved with nebulizer treatment and steroids. She states she has been using her prednisone at home but her breathing is continuing to worsen. She is usually on 3 L of oxygen at home. She states she took her prednisone at home today. She received a breathing treatment and 125 mg Solu-Medrol with EMS tonight. 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 Her father when the patient was 16 years old from lung cancer. He was a smoker. Her mother of natural causes. Living Situation: With family Social History Notes: The patient lives alone but her family lives nearby. She moved to [facility] to live close to her daughter. She used to living [facility]. She reports quitting smoking cigarettes a few weeks ago. She has smoked cigarettes from the age of 15. She used to smoke 1 pack/day. She repor ts drinking a glass of wine daily. She denies any recreational substances. - POLST Patient has POLST: Yes Meds/Allgy - Home Medications Home Medications: Ambulatory Orders Medication Instructions Recorded Confirmed Albuterol Sulf [Ventolin Hfa 2 puffs INH Q4H PRN 05/18/20 04/21/23 Inhaler] Atorvastatin [Lipitor] 10 mg PO QPM 05/18/20 04/21/23 Clopidogrel [Plavix] 75 mg PO DAILY 05/18/20 04/21/23 Imipramine HCl 150 mg PO QPM 05/18/20 04/21/23 Ipratropium/Albuterol [Duoneb] 3 ml INH TID PRN 05/18/20 04/21/23 Losartan [Cozaar] 50 mg PO QPM 05/18/20 04/21/23 Metformin HCl [Glucophage Xr] 500 mg PO BID 05/18/20 04/21/23 Oxybutynin [Ditropan] 5 mg PO DAILY 05/18/20 04/21/23 Potassium Chloride 10 meq PO DAILY #30 tablet.er 05/23/20 04/21/23 Acetaminophen [Acetaminophen Extra 500 mg PO QID PRN #50 tablet 11/06/21 04/21/23 Strength] Prednisone [Luis] 5 mg PO DAILY 04/21/23 04/21/23 Salmeterol Xinafoate [Serevent 50 mcg IH BID #1 each 04/21/23 Diskus] hydroCHLOROthiazide [Hydrodiuril] 12.5 mg PO DAILY 04/21/23 04/21/23 Doxycycline [Vibramycin] 100 mg PO BID 5 Days #10 tablet 06/03/23 predniSONE [Deltasone] 10 mg PO [id number] #42 tab 06/03/23 - Allergies Allergies/Adverse Reactions: Allergies Allergy/AdvReac Type Severity Reaction Status Date / Time azithromycin Allergy Emesis Verified 06/03/23 11:22 Review of Systems - Respiratory Respiratory: reports: Cough, Wheezing - Musculoskeletal Musculoskeletal: reports: Muscle weakness - Neurological Neurological: reports: General weakness Prior Level of Functionality: Independent with ADL Exam - Vital Signs Vital Signs: Vital Signs x48h Temp Pulse Resp BP Pulse Ox O2 Flow Rate 06/05/23 21:00 116 H 26 H 157/92 H 95 3 06/05/23 20:30 122 H 26 H 141/88 H 95 06/05/23 20:05 122 H 22 3 06/05/23 20:00 125 H 24 145/89 H 95 06/05/23 19:30 127 H 24 102/89 H 99 06/05/23 19:20 126 H 22 3 02/03/24 19:08 133 H 32 H 148/98 H 92 4 06/05/23 18:46 36.6 C 140 H 32 H 183/109 H 97 - Physical Exam General Appearance: positive: No acute distress Eyes Bilateral: positive: Normal inspection, PERRL ENT: positive: Pharynx nml Neck: positive: Nml inspection, Thyroid nml Respiratory: positive: Chest non-tender, Breath sounds nml, Rhonchi Cardiovascular: positive: Regular rate & rhythm Abdomen: positive: No organomegaly, Nml bowel sounds Back: positive: Nml inspection Extremities: positive: Non-tender, Full ROM Neurologic/Psychiatric: positive: Oriented x3, CN's nml (2-12) Sepsis Event Note (H) - Evaluation Current Stage of Sepsis: Ruled out Conclusion/Plan - Problem List (1) COPD exacerbation Conclusion/Plan: Duonebs Empiric antibiotics for secondary bacterial infection prevention patient has viral infection Human Metapneumovirus gentle hydration O2 supplementation IV prednisone IV magnesium CKD Avoid nephrotoxins and monitor creatinine (2) Chronic respiratory failure with hypoxia Conclusion/Plan: Supplemental oxygen Supportive care (3) Diabetes mellitus Conclusion/Plan: Check A1c Metformin is on hold due to elevated creatinine will need to resume or start insulin in am Qualifiers: Diabetes mellitus type: type 2 (4) Hypertension Conclusion/Plan: monitor BP continue home meds except HCTZ Have given one dose of lasix in am - Lab Results Fish Bones: 06/05/23 19:02 06/05/23 19:02 - Diagnostic Imaging Results Diagnostic Imaging Results: positive: Final report reviewed - EKG Results EKG Interpreted Independently: No
[2023-06-05] MEDS: HYDROcod/ACETAM 5/325 MG TABLET PO PRN (22:37)
[2023-06-05] MEDS: SODIUM CHLORIDE 0.9% 1,000 ML IV SCH (22:39)
[2023-06-05] MEDS: SODIUM CHLORIDE 0.9% IV SCH (23:28)
[2023-06-05] MEDS: METHYLPREDNISOLONE SUCCINATE IV SCH (23:28)
[2023-06-05] MEDS: IPRATROPIUM/ALBUTEROL 3 ML NEB INH PRN (23:56)
[2023-06-06] MEDS: MAGNESIUM SULFATE 2 GRAM 2 GM/50 ML BAG IV ONE (00:59)
[2023-06-06] MEDS: SODIUM CHLORIDE FLUSH 0.9% 10 ML SYRINGE IVP SCH (01:01)
[2023-06-06] MEDS: ACETAMINOPHEN 325 MG TABLET PO PRN (01:11)
[2023-06-06] MEDS: FUROSEMIDE 20 MG/2 ML VIAL IVP SCH (05:52)
[2023-06-06 06:06] LABS: EOSINOPHILS % (AUTO) 0.5 %; HCT - HEMATOCRIT 32.2 % (37.0-47.0); HGB - HEMOGLOBIN 9.6 g/dL (12.0-16.0); LYMPHOCYTES # (AUTO) 0.4 10^3/uL (1.5-3.5); LYMPHOCYTES % (AUTO) 5.4 %; MEAN CORPUSCULAR HEMOGLOBIN 25.9 pg (27.0-31.0); MEAN CORPUSCULAR HGB CONC 29.8 g/dL (32.0-36.0); MEAN CORPUSCULAR VOLUME 86.8 fL (81.0-99.0); MEAN PLATELET VOLUME 9.4 fL (7.9-10.8); MONOCYTES # (AUTO) 0.1 10^3/uL (0.0-1.0); MONOCYTES % (AUTO) 1.8 %; NEUTROPHILS % (AUTO) 91.4 %; PLT - PLATELET COUNT 325 10^3/uL (130-450); RED BLOOD COUNT 3.71 10^6/uL (4.20-5.40); RED CELL DISTRIBUTION WIDTH 16.9 % (12.0-15.0); WHITE BLOOD COUNT 6.5 x10^3/uL (4.8-10.8)
[2023-06-06 06:47] LABS: ALBUMIN 3.5 g/dL (3.2-5.5); ALBUMIN/GLOBULIN RATIO 1.6 (1.0-2.2); BILIRUBIN,TOTAL 0.4 mg/dL (0.2-1.0); CALCIUM 9.5 mg/dL (8.5-10.3); CREATININE 1.1 mg/dL (0.6-1.3); POTASSIUM 3.8 mmol/L (3.5-4.5); TOTAL PROTEIN 5.7 g/dL (6.4-8.9)
[2023-06-06] MEDS: METHYLPREDNISOLONE SUCCINATE IVP SCH (08:59)
[2023-06-06] MEDS: SODIUM CHLORIDE 0.9% IVP SCH (08:59)
[2023-06-06] MEDS: CLOPIDOGREL 75 MG TABLET PO SCH (09:04)
[2023-06-06] MEDS: ASCORBIC ACID 500 MG TABLET PO SCH (09:04)
[2023-06-06 09:38] LABS: ESTIMATED AVERAGE GLUCOSE 151 mg/dL (70-100); HEMOGLOBIN A1c% 6.9 % (4.27-6.07)
[2023-06-06] MEDS: IPRATROPIUM/ALBUTEROL 3 ML NEB INH PRN (10:27)
[2023-06-06] MEDS: AZITHROMYCIN INJ 500 MG in SODIUM CHLORIDE 0.9% 250 ML IV SCH (10:53)
--- NOTE | 2023-06-06 11:07 | PHARMACY PROGRESS NOTE ---
- Best Possible Medication History Admit Date and Time: 06/05/232113 Processed by: Pharmacy As the person ultimately responsible for medication therapy, providers are able to order a medication from an existing home medication list in [facility] via the "Reconcile Routine" prior to Confirmation of that medication by field support specialist. Such practice is discouraged except when the physician, in their clinical judgment, deems that a medical need exists for a medication without regard to previous use.
[2023-06-06] MEDS: cefTRIAXone 1 GM in SODIUM CHLORIDE 0.9% MINIBAG 100 ML IV SCH (11:40)
[2023-06-06] MEDS: LOSARTAN 50 MG TABLET PO SCH (16:44)
[2023-06-06] MEDS: methylPREDNISolone SUCCINATE 40 MG/ML VIAL IVP SCH (16:44)
[2023-06-06] MEDS: MORPHINE 2 MG/ML CARPUJECT IVP PRN (16:52)
[2023-06-06] MEDS ORDERED: LOSARTAN 50 MG TABLET PO SCH (21:00)
[2023-06-06] MEDS: ONDANSETRON 4 MG/2 ML VIAL IVP PRN (21:09)
[2023-06-06] MEDS: IMIPRAMINE 25 MG TABLET PO SCH (21:11)
[2023-06-06] MEDS: ATORVASTATIN 10 MG TABLET PO SCH (21:11)
--- NOTE | 2023-06-06 21:23 | PROVIDER PROGRESS NOTE ---
Assessment/Plan - Problem List (1) COPD exacerbation Assessment/Plan: COPD exacerbation most likely secondary to viral infection viral panel positive for metapneumovirus Plan: Continue DuoNebs. 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 She reports she has been admitted to the hospital 2-3 times over the last 12 months. In the event of a cardiopulmonary arrest, patient does not wish to be intubated, received chest compressions or shock. She is DO NOT RESUSCITATE. Patient has end-stage COPD and we discussed goals of care. Patient would like to meet with palliative care during this hospitalization. A consult has been placed with palliative care. Plan: Continue supportive care Continue supplemental oxygen (3) Diabetes Mellitus Plan: Sliding scale insulin (4) Hypertension Plan: Continue losartan - Current Meds Current Meds: Current Medications Generic Name Dose Route Start Last Admin Trade Name Freq PRN Reason Stop Dose Admin Acetaminophen 650 mg 06/05/23 21:14 06/06/23 05:52 Acetaminophen 325 Mg Tablet PO 650 mg Q4HR PRN Administration Pain 1 to 4, or Fever Hydrocodone Bitart/Acetaminophen 1 tab 06/05/23 21:14 06/06/23 11:39 Hydrocod/Acetam 5/325 Mg Tablet PO 1 tab Q4HR PRN Administration Pain 5 to 7 Albuterol/Ipratropium 3 ml 06/05/23 21:13 06/06/23 05:43 Ipratropium/Albuterol 3 Ml Neb INH 3 ml TID PRN Administration Shortness of Air/Wheezing Albuterol/Ipratropium 3 ml 06/05/23 21:20 06/06/23 10:27 Ipratropium/Albuterol 3 Ml Neb INH 3 ml Q4HR PRN Administration Wheezing Ascorbic Acid 500 mg 06/06/23 09:00 06/06/23 09:04 Ascorbic Acid 500 Mg Tablet PO 500 mg DAILY LUCHO Administration Atorvastatin Calcium 10 mg 06/06/23 21:00 06/06/23 21:11 Atorvastatin 10 Mg Tablet PO 10 mg QPM LUCHO Administration Clopidogrel Bisulfate 75 mg 06/06/23 09:00 06/06/23 09:04 Clopidogrel 75 Mg Tablet PO 75 mg DAILY LUCHO Administration Sodium Chloride 1,000 mls @ 100 mls/hr 06/05/23 22:00 06/06/23 13:44 Normal Saline 0.9% IV 100 mls/hr .Q10H LUCHO Administration Azithromycin 500 mg/ Sodium 250 mls @ 250 mls/hr 06/06/23 09:00 06/06/23 12:00 Chloride IV Infused DAILY LUCHO Infusion Ceftriaxone Sodium 1 gm/ 100 mls @ 200 mls/hr 06/06/23 09:00 06/06/23 12:15 Sodium Chloride IV Infused DAILY LUCHO Infusion Imipramine HCl 150 mg 06/06/23 21:00 06/06/23 21:11 Imipramine 25 Mg Tablet PO 150 mg QPM LUCHO Administration Losartan Potassium 50 mg 06/06/23 15:44 06/06/23 21:11 Losartan 50 Mg Tablet PO 50 mg QPM LUCHO Administration Methylprednisolone 60 mg 06/06/23 16:00 06/06/23 16:44 Methylprednisolone Succinate 40 Mg/Ml Vial IVP 60 mg Q8H LUCHO Administration Morphine Sulfate 2 mg 06/05/23 21:14 06/06/23 16:52 Morphine 2 Mg/Ml Carpuject IVP 2 mg Q2HR PRN Administration Pain 8 to 10 Ondansetron HCl 4 mg 06/05/23 21:14 06/06/23 21:09 Ondansetron 4 Mg/2 Ml Vial IVP 4 mg Q6HR PRN Administration Nausea / Vomiting Sodium Chloride 10 ml 06/06/23 01:00 06/06/23 16:44 Sodium Chloride Flush 0.9% 10 Ml Syringe IVP 10 ml 0100,0900,1700 LUCHO Administration - Lab Result Fish Bone Diagrams: 06/06/23 05:17 06/06/23 05:17 - Additional Planning My Orders: My Active Orders 06/06/23 15:44 Losartan [Cozaar] 50 mg PO QPM 06/06/23 16:00 methylPREDNISolone SUCCINATE [SOLU-Medrol (40MG VIAL)] 60 mg IVP Q8H Subjective - Subjective Patient Reports: Other (Alert. Continues to complain of chronic dyspnea) Objective Vital Signs: Vital Signs - 24 hr 06/05/23 06/05/23 06/05/23 21:30 21:44 21:47 Temperature 37.0 C Heart Rate Heart Rate [ 120 H Monitoring electrodes] Respiratory 22 Rate Blood Pressure [Left Brachial artery] Blood Pressure 162/94 H [Right Brachial artery] Blood Pressure [right leg] O2 Saturation 94 If not protocol 3 3 : Oxygen Flow, liters/minute 06/05/23 06/05/23 06/06/23 22:00 23:55 00:16 Temperature 38.0 C H Heart Rate 114 H Heart Rate [ 117 H Monitoring electrodes] Respiratory 20 18 Rate Blood Pressure [Left Brachial artery] Blood Pressure 143/92 H [Right Brachial artery] Blood Pressure [right leg] O2 Saturation 93 If not protocol 3 3 3 : Oxygen Flow, liters/minute 06/06/23 06/06/23 06/06/23 05:40 05:45 05:55 Temperature 36.3 C L Heart Rate 105 H Heart Rate [ 106 H Monitoring electrodes] Respiratory 20 22 Rate Blood Pressure [Left Brachial artery] Blood Pressure [Right Brachial artery] Blood Pressure 117/100 H [right leg] O2 Saturation 96 If not protocol 3 3 : Oxygen Flow, liters/minute 06/06/23 06/06/23 06/06/23 08:45 10:27 11:31 Temperature 36.4 C L 36.4 C L Heart Rate 100 Heart Rate [ 108 H 112 H Monitoring electrodes] Respiratory 20 20 20 Rate Blood Pressure 167/107 H [Left Brachial artery] Blood Pressure 148/95 H [Right Brachial artery] Blood Pressure [right leg] O2 Saturation 97 96 If not protocol 3 3 3 : Oxygen Flow, liters/minute 06/06/23 15:16 Temperature 36.3 C L Heart Rate Heart Rate [ 107 H Monitoring electrodes] Respiratory 22 Rate Blood Pressure [Left Brachial artery] Blood Pressure 161/101 H [Right Brachial artery] Blood Pressure [right leg] O2 Saturation 98 If not protocol 3 : Oxygen Flow, liters/minute Oxygen O2 Source Nasal cannula I&O (Last 24 Hrs): Intake and Output Totals x24h 06/04/23 06/05/23 06/06/23 23:59 23:59 23:59 Intake Total 1087.5 3090 Output Total 0 3000 Balance 1087.5 90 General: Alert, Mild distress HEENT: Atraumatic Neck: Supple, No JVD, No thyromegaly Neuro: Alert, Non Focal Cardiovascular: Regular rate, Normal S1, Normal S2, No murmurs Respiratory: Other (Poor air exchange in all lung du. Mild expiratory wheezing. No crackles.) Abdomen: Normal bowel sounds, Soft, No tenderness Extremities: No cyanosis, No edema Skin: No rashes - Results Results: Laboratory Results WBC 6.5 x10^3/uL (4.8-10.8) 06/06/23 05:17 RBC 3.71 10^6/uL (4.20-5.40) L 06/06/23 05:17 Hgb 9.6 g/dL (12.0-16.0) L 06/06/23 05:17 Hct 32.2 % (37.0-47.0) L 06/06/23 05:17 MCV 86.8 fL (81.0-99.0) 06/06/23 05:17 MCH 25.9 pg (27.0-31.0) L 06/06/23 05:17 MCHC 29.8 g/dL (32.0-36.0) L 06/06/23 05:17 RDW 16.9 % (12.0-15.0) H 06/06/23 05:17 Plt Count 325 10^3/uL (130-450) 06/06/23 05:17 MPV 9.4 fL (7.9-10.8) 06/06/23 05:17 Neut # (Auto) 6.0 10^3/uL (1.5-6.6) 06/06/23 05:17 Lymph # (Auto) 0.4 10^3/uL (1.5-3.5) L 06/06/23 05:17 [place] # (Auto) 0.1 10^3/uL (0.0-1.0) 06/06/23 05:17 Eos # (Auto) 0.0 10^3/uL (0.0-0.7) 06/06/23 05:17 Baso # (Auto) 0.0 10^3/uL (0.0-0.1) 06/06/23 05:17 Absolute Nucleated RBC 0.00 x10^3/uL 06/06/23 05:17 Nucleated RBC % 0.0 /100WBC 06/06/23 05:17 Sodium 140 mmol/L (135-145) 06/06/23 05:17 Potassium 3.8 mmol/L (3.5-4.5) 06/06/23 05:17 Chloride 107 mmol/L (101-111) 06/06/23 05:17 Carbon Dioxide 24 mmol/L (21-32) 06/06/23 05:17 Anion Gap 9.0 (6-13) 06/06/23 05:17 BUN 29 mg/dL (6-20) H 06/06/23 05:17 Creatinine 1.1 mg/dL (0.6-1.3) 06/06/23 05:17 Estimated GFR (MDRD) 48 (>89) L 06/06/23 05:17 Glucose 189 mg/dL (74-104) H 06/06/23 05:17 Estimat Average Glucose 151 mg/dL (70-100) H 06/06/23 05:17 Hemoglobin A1c % 6.9 % (4.27-6.07) H 06/06/23 05:17 Calcium 9.5 mg/dL (8.5-10.3) 06/06/23 05:17 Phosphorus 2.9 mg/dL (2.5-5.0) 06/05/23 19:02 Magnesium 1.7 mg/dL (1.7-2.3) 06/05/23 19:02 Total Bilirubin 0.4 mg/dL (0.2-1.0) 06/06/23 05:17 AST 14 IU/L (10-42) 06/06/23 05:17 ALT 10 IU/L (10-60) 06/06/23 05:17 Alkaline Phosphatase 64 IU/L (42-121) 06/06/23 05:17 Total Protein 5.7 g/dL (6.4-8.9) L 06/06/23 05:17 Albumin 3.5 g/dL (3.2-5.5) 06/06/23 05:17 Globulin 2.2 g/dL (2.1-4.2) 06/06/23 05:17 Albumin/Globulin Ratio 1.6 (1.0-2.2) 06/06/23 05:17 Lipase 12 U/L (11-82) 06/05/23 19:02 Nasal Adenovirus (PCR) NOT DETECTED 06/05/23 19:07 Nasal B. parapertussis DNA (PCR) NOT DETECTED 06/05/23 19:07 Nasal Coronavir 229E PCR NOT DETECTED 06/05/23 19:07 Nasal Coronavir HKU1 PCR NOT DETECTED 06/05/23 19:07 Nasal Coronavir NL63 PCR NOT DETECTED 06/05/23 19:07 Nasal Coronavir OC43 PCR NOT DETECTED 06/05/23 19:07 Nasal Enterovir/Rhinovir PCR NOT DETECTED 06/05/23 19:07 Nasal Influenza B PCR NOT DETECTED 06/05/23 19:07 Nasal Influenza A PCR NOT DETECTED 06/05/23 19:07 Nasal Parainfluen 1 PCR NOT DETECTED 06/05/23 19:07 Nasal Parainfluen 2 PCR NOT DETECTED 06/05/23 19:07 Nasal Parainfluen 3 PCR NOT DETECTED 06/05/23 19:07 Nasal Parainfluen 4 PCR NOT DETECTED 06/05/23 19:07 Nasal RSV (PCR) NOT DETECTED 06/05/23 19:07 Nasal B.pertussis DNA PCR NOT DETECTED 06/05/23 19:07 Nasal C.pneumoniae (PCR) NOT DETECTED 06/05/23 19:07 Scott Human Metapneumo PCR DETECTED A 06/05/23 19:07 Nasal M.pneumoniae (PCR) NOT DETECTED 06/05/23 19:07 Nasal SARS-CoV-2 (PCR) NOT DETECTED 06/05/23 19:07 Sepsis Event Note (H) - Evaluation Current Stage of Sepsis: Ruled out ABX Reporting Has patient been on IV antibiotics over the past 48 hours?: Yes Current Medications - Current Medications Current Medications: Active Medications Acetaminophen (Acetaminophen 325 Mg Tablet) 650 mg PO Q4HR PRN PRN Reason: Pain 1 to 4, or Fever Last Admin: 06/06/23 05:52 Dose: 650 mg Hydrocodone Bitart/Acetaminophen (Hydrocod/Acetam 5/325 Mg Tablet) 1 tab PO Q4HR PRN PRN Reason: Pain 5 to 7 Last Admin: 06/06/23 11:39 Dose: 1 tab Albuterol/Ipratropium (Ipratropium/Albuterol 3 Ml Neb) 3 ml INH TID PRN PRN Reason: Shortness of Air/Wheezing Last Admin: 06/06/23 05:43 Dose: 3 ml Albuterol/Ipratropium (Ipratropium/Albuterol 3 Ml Neb) 3 ml INH Q4HR PRN PRN Reason: Wheezing Last Admin: 06/06/23 10:27 Dose: 3 ml Ascorbic Acid (Ascorbic Acid 500 Mg Tablet) 500 mg PO DAILY LUCHO Last Admin: 06/06/23 09:04 Dose: 500 mg Atorvastatin Calcium (Atorvastatin 10 Mg Tablet) 10 mg PO QPM [facility] Last Admin: 06/06/23 21:11 Dose: 10 mg Clopidogrel Bisulfate (Clopidogrel 75 Mg Tablet) 75 mg PO DAILY [facility] Last Admin: 06/06/23 09:04 Dose: 75 mg Sodium Chloride (Normal Saline 0.9%) 1,000 mls @ 100 mls/hr IV .Q10H [facility] Last Admin: 06/06/23 13:44 Dose: 100 mls/hr Azithromycin 500 mg/ Sodium (Chloride) 250 mls @ 250 mls/hr IV DAILY [facility] Last Infusion: 06/06/23 12:00 Dose: Infused Ceftriaxone Sodium 1 gm/ (Sodium Chloride) 100 mls @ 200 mls/hr IV DAILY [facility] Last Infusion: 06/06/23 12:15 Dose: Infused Imipramine HCl (Imipramine 25 Mg Tablet) 150 mg PO QPM [facility] Last Admin: 06/06/23 21:11 Dose: 150 mg Losartan Potassium (Losartan 50 Mg Tablet) 50 mg PO QPM [facility] Last Admin: 06/06/23 21:11 Dose: 50 mg Methylprednisolone (Methylprednisolone Succinate 40 Mg/Ml Vial) 60 mg IVP Q8H [facility] Last Admin: 06/06/23 16:44 Dose: 60 mg Morphine Sulfate (Morphine 2 Mg/Ml Carpuject) 2 mg IVP Q2HR PRN PRN Reason: Pain 8 to 10 Last Admin: 06/06/23 16:52 Dose: 2 mg Morphine Sulfate (Morphine Wen 10 Mg/0.5 Ml Oral Syringe) 2.5 mg PO Q4H [facility] Ondansetron HCl (Ondansetron 4 Mg/2 Ml Vial) 4 mg IVP Q6HR PRN PRN Reason: Nausea / Vomiting Last Admin: 06/06/23 21:09 Dose: 4 mg Sodium Chloride (Sodium Chloride Flush 0.9% 10 Ml Syringe) 10 ml IVP PRN PRN PRN Reason: NEEDED PER PROVIDER ORDERS Sodium Chloride (Sodium Chloride Flush 0.9% 10 Ml Syringe) 10 ml IVP 0100,0900,1700 [facility] Last Admin: 06/06/23 16:44 Dose: 10 ml Zolpidem Tartrate (Zolpidem 5 Mg Tablet) 5 mg PO QPM PRN PRN Reason: Insomnia Albuterol Sulf [Ventolin Hfa Inhaler] 2 puffs INH Q4H PRN 05/18/20 Atorvastatin [Lipitor] 10 mg PO QPM 05/18/20 Clopidogrel [Plavix] 75 mg PO DAILY 05/18/20 Imipramine HCl 150 mg PO QPM 05/18/20 Ipratropium/Albuterol [Duoneb] 3 ml INH TID PRN 05/18/20 Losartan [Cozaar] 25 mg PO QPM 05/18/20 Metformin HCl [Glucophage Xr] 500 mg PO BID 05/18/20 Oxybutynin [Ditropan] 5 mg PO BID 05/18/20 Prednisone [Luis] 5 mg PO DAILY 04/21/23 hydroCHLOROthiazide [Hydrodiuril] 12.5 mg PO DAILY 04/21/23 Fluticasone/Umeclidin/Vilanter [Trelegy Ellipta 200-62.5-25] 1 each IH DAILY 06/06/23 Roflumilast [Daliresp] 250 mcg PO DAILY 06/06/23
[2023-06-06] MEDS: MORPHINE SOL 10 MG/0.5 ML ORAL SYRINGE PO SCH (21:44)
[2023-06-07] MEDS: SODIUM CHLORIDE FLUSH 0.9% 10 ML SYRINGE IVP PRN (06:35)
[2023-06-07] MEDS: INSULIN LISPRO 300 UNIT/3 ML PEN SUBQ SCH (08:27)
[2023-06-07] MEDS: MORPHINE SOL 10 MG/0.5 ML ORAL SYRINGE PO SCH (16:06)
--- NOTE | 2023-06-07 20:08 | CONSULTATION NOTE ---
Palliative Care Consultation - Referral Referring Provider: Dr. Chan Moreno Time of Visit: 10:45 - 12:20 pm Referral setting: Hospitalized patient Referral Reason: Advanced COPD and Goals of Care - Information Sources Records reviewed: RN notes reviewed, Previous records reviewed History/Review of Systems obtained from: Patient, Family (daughter Jazlyn) Exam limitations: Other (anxiety; STM) - History of Present Illness Brief History of Present Illness: This is a feisty 78-year-old woman who is here with severe COPD, with exacerbation most likely related to viral infection, viral panel positive for metapneumovirus. Patient describes a series of unfortunate events, including a fall on 06/01/2023, her legs were weak and they just gave out, she was not using her walker or cane she was letting her dog 80 out. She continued decline, with increasing shortness of breath, was seen in the ED department, 06/03, but unable to find acute findings, and improved with nebulizer treatment and steroids. She presented with worsening symptoms of tachycardia, tachypneic, hypoxia, and concern for declining status. She continues to receive steroids and has received antibiotics. Her distress is says she is now receiving morphine 5 mg p.o., does report this does help with effort. She is feeling somewhat better today, was quite sure and concerned that she was not going to make it yesterday. She does appear quite frail, she has lost 4 pounds over the last couple weeks, she has overall been having declining functional status, worsening dyspnea, poor appetite, and in review most likely poor medication adherence. She does have known chronic respiratory failure with hypoxia, and is on oxygen, though has a tendency not to use it sometimes at home. She does have a concentrator as well as a portable concentrator too. She had seen her primary care provider on 05/28/2023, with complaints of ongoing exhaustion, declining functional status, and worsening breathlessness, there was a pending palliative care outpatient referral made. Patient does understand that she is not going to get better, she is hoping to g et back to her previous level of functioning, though this was declining. She does admit she has been getting worse, she has been understanding that she is getting towards her end-of-life, she reports this is difficult to hear, and she does not feel ready for this. Though she is quite clear as far as her goal she does have a POLST with do not attempt resuscitation as well as limited additional interventions. This was revisited and confirmed on her admit here. Patient moved up from [place] 4 years ago, lived on a small house on her daughter's property, until they sold this and now lives in a condo just across the way. She has been living independently with support from her daughter Jazlyn and son-in-law Azael, she does have some hired assistance, but is quite sedentary and able to do less and less. Her daughter is quite attentive, is aware of the seriousness of her mother's illness, and is wondering about the trajectory in the context of trying to make plans moving forward. Palliative care is meeting with patient and then patient and daughter, and then daughter regarding goals of care, disease trajectory, and introduction of palliative care with goal to transition to outpatient palliative care when returns home. Medical/Surgical History - Past Medical History Cardiovascular: reports: Hypertension, Peripheral Vascular Disease, Other (aortic sclerosis) Respiratory: reports: COPD (oxygen dependent;), Shortness of breath, Other (pulmonary hypertension) Neuro: Other (forgetfulness) Endocrine/Autoimmune: reports: Type 2 diabetes GI: reports: Chronic constipation : reports: Incontinence, Nocturia, Frequency HEENT: reports: Chronic vision loss Psych: reports: Depression, Anxiety, Panic attacks Musculoskeletal: reports: Osteoarthritis, Fatigue, Other (acute back pain with fall) Derm: reports: None MRSA Hx?: No - Past Surgical History Ortho: reports: Knee replacement, Rotator cuff repair, Other (cervical fusion) HEENT: reports: Tonsil/Adenoidectomy - Substance History Use: Uses substance without health or social issues: Tobacco (hx of smoking;quit 2019) Social History - Living Situation Living arrangement: At home Living Situation: Alone Support System: Patient lives at home alone, daughter and son-in-law to provide support, she does have paid caregiver 1 to 2 days a week, 2 to 4 hours. Her daughter Jazlyn lives here in [place], she has a daughter and not lives in [place] who was just recently visiting. And she has a son who is not involved in her care, but he lives in [place]. Last she saw him was 2 years ago. Patient does have resources to be able to hire assistance, also introduced both to patient and daughter assisted living, adult family homes, and long-term care if needed Family History - Family History Family History: Mother: (lung cancer), Diabetes, Type 2, Father: , Cancer, Brother: , Cancer, CVA/TIA Medications/Allergies - Medications Active Medication List: Active Medications Acetaminophen (Acetaminophen 325 Mg Tablet) 650 mg PO Q4HR PRN PRN Reason: Pain 1 to 4, or Fever Last Admin: 06/06/23 05:52 Dose: 650 mg Hydrocodone Bitart/Acetaminophen (Hydrocod/Acetam 5/325 Mg Tablet) 1 tab PO Q4HR PRN PRN Reason: Pain 5 to 7 Last Admin: 06/06/23 11:39 Dose: 1 tab Albuterol/Ipratropium (Ipratropium/Albuterol 3 Ml Neb) 3 ml INH TID PRN PRN Reason: Shortness of Air/Wheezing Last Admin: 06/06/23 05:43 Dose: 3 ml Albuterol/Ipratropium (Ipratropium/Albuterol 3 Ml Neb) 3 ml INH Q4HR PRN PRN Reason: Wheezing Last Admin: 06/06/23 10:27 Dose: 3 ml Ascorbic Acid (Ascorbic Acid 500 Mg Tablet) 500 mg PO DAILY [facility] Last Admin: 06/07/23 08:23 Dose: 500 mg Atorvastatin Calcium (Atorvastatin 10 Mg Tablet) 10 mg PO QPM [facility] Last Admin: 06/06/23 21:11 Dose: 10 mg Clopidogrel Bisulfate (Clopidogrel 75 Mg Tablet) 75 mg PO DAILY [facility] Last Admin: 06/07/23 08:23 Dose: 75 mg Sodium Chloride (Normal Saline 0.9%) 1,000 mls @ 100 mls/hr IV .Q10H [facility] Last Admin: 06/07/23 09:46 Dose: 100 mls/hr Imipramine HCl (Imipramine 25 Mg Tablet) 150 mg PO QPM [facility] Last Admin: 06/06/23 21:11 Dose: 150 mg Insulin Human Lispro (Insulin Lispro 300 Unit/3 Ml Pen) 1 - 9 unit SUBQ 0800,1200,1700,2100 [facility]; Protocol Last Admin: 06/07/23 12:20 Dose: 3 unit Losartan Potassium (Losartan 50 Mg Tablet) 50 mg PO QPM [facility] Last Admin: 06/06/23 21:11 Dose: 50 mg Methylprednisolone (Methylprednisolone Succinate 40 Mg/Ml Vial) 60 mg IVP Q8H [facility] Last Admin: 06/07/23 08:22 Dose: 60 mg Morphine Sulfate (Morphine 2 Mg/Ml Carpuject) 2 mg IVP Q2HR PRN PRN Reason: Pain 8 to 10 Last Admin: 06/06/23 16:52 Dose: 2 mg Morphine Sulfate (Morphine Wen 10 Mg/0.5 Ml Oral Syringe) 2.5 mg PO Q4H [facility] Last Admin: 06/07/23 10:08 Dose: 2.5 mg Ondansetron HCl (Ondansetron 4 Mg/2 Ml Vial) 4 mg IVP Q6HR PRN PRN Reason: Nausea / Vomiting Last Admin: 06/07/23 12:31 Dose: 4 mg Sodium Chloride (Sodium Chloride Flush 0.9% 10 Ml Syringe) 10 ml IVP PRN PRN PRN Reason: NEEDED PER PROVIDER ORDERS Last Admin: 06/07/23 06:35 Dose: 10 ml Sodium Chloride (Sodium Chloride Flush 0.9% 10 Ml Syringe) 10 ml IVP 0100,0900,1700 [facility] Last Admin: 06/07/23 08:27 Dose: Not Given Zolpidem Tartrate (Zolpidem 5 Mg Tablet) 5 mg PO QPM PRN PRN Reason: Insomnia Albuterol Sulf [Ventolin Hfa Inhaler] 2 puffs INH Q4H PRN 05/18/20 Atorvastatin [Lipitor] 10 mg PO QPM 05/18/20 Clopidogrel [Plavix] 75 mg PO DAILY 05/18/20 Imipramine HCl 150 mg PO QPM 05/18/20 Ipratropium/Albuterol [Duoneb] 3 ml INH TID PRN 05/18/20 Losartan [Cozaar] 25 mg PO QPM 05/18/20 Metformin HCl [Glucophage Xr] 500 mg PO BID 05/18/20 Oxybutynin [Ditropan] 5 mg PO BID 05/18/20 Prednisone [Luis] 5 mg PO DAILY 04/21/23 hydroCHLOROthiazide [Hydrodiuril] 12.5 mg PO DAILY 04/21/23 Fluticasone/Umeclidin/Vilanter [Trelegy Ellipta 200-62.5-25] 1 each IH DAILY 06/06/23 Roflumilast [Daliresp] 250 mcg PO DAILY 06/06/23 - Allergies Allergies/Adverse Reactions: Allergies Allergy/AdvReac Type Severity Reaction Status Date / Time azithromycin Allergy Emesis Verified 06/03/23 11:22 Review of Systems - Constitutional Constitutional: reports: Fatigue, Weakness, Poor appetite, Weight loss - Eyes Eyes: reports: Vision loss - Ears, Nose & Throat Ears, Nose & Throat: reports: Hearing loss, Hearing aids, Postnasal drainage, Dry mouth - Cardiovascular Cardiovascular: reports: Exertional dyspnea, Decr. exercise tolerance - Respiratory Respiratory: reports: Cough, Wheezing, Orthopnea, SOB at rest, SOB with exertion - Gastrointestinal Gastrointestinal: reports: Constipation, Nausea, Poor appetite, Early satiety - Genitourinary Genitourinary: reports: Incontinence (currently using WIC) - Musculoskeletal Musculoskeletal: reports: Muscle pain, Back pain (acute on chronic with fall), Stiffness, Muscle weakness, Assistive devices (has cane and walker at home) - Integumentary Integumentary: reports: Dryness - Neurological Neurological: reports: General weakness, Memory problems - Psychiatric Psychiatric: reports: Depression, Anxiety - Endocrine Endocrine: reports: Diabetes type 2 - Hematologic/Lymphatic Hematologic/Lymph: reports: Anemia - All Other Systems All Other Systems: reports: Reviewed and negative Physical Exam - Vital Signs Vital Signs: Vital Signs x48h Temp Pulse Resp BP BP Pulse Ox O2 Flow Rate 06/07/23 10:15 160/111 H 06/07/23 08:29 36.2 C L 97 18 161/111 H 89 L 3 - Physical Exam General Appearance: positive: No acute distress, Alert, Anxious, Cachetic Neck: positive: Trachea midline Cardiovascular: positive: Tachycardia Respiratory: positive: Other (dry cough with conversation; increased respiratory effort and use of accessory muscles with conversation) Skin: positive: Pallor Neurologic/Psychiatric: positive: Oriented x3, Weakness, Depressed mood/affect Palliative Care - POLST Patient has POLST: Yes POLST Status: DNR, Selective Treatment Feelings of wellbeing/Perceived Quality of Life: Poor, Worsening Sleep: Sleeps poorly Constipation: Yes, Intermittent constipation Performance Status: Patient has had declining status this is related to weakness as well as increasing dyspnea. She does have a walker she is to be using in the home, she did have a serious fall on the . She does have a shower chair, though finds it quite exhausting to bathe at this point. She has been mostly bedbound since she arrived here at the hospital. She is to get up later this afternoon, but d oes feel exhausted overall. - Palliative Care Discussion: Patient's understanding of her current illness is that she does have bad COPD, she is getting closer to her time, this is not really what she wants to hear, and is quite tearful and anxious regarding this. She is hoping to regain some independence return back to her apartment, but does admit to increased frailty and decline over the last several months, and more acutely over the last few weeks.We did discuss various scenarios, given that patient is feeling little bit better, and the fluctuating journey of COPD, but did gently remind her she has had increased difficulty with breathlessness, is getting weaker with functional decline and recent fall, and does have increasing care needs. My concern is about her safety at home, recommended she get a Medi alert, definitely increased care over the next days to weeks, until we find where she "lands in the next few days". Did also introduce assisted living, given her difficulty with medication adherence, anxiety at being alone, being able to have meals brought to her, or if better socializing and a dining program. Daughter is hoping we will hire more caregivers, deferred her to the social worker clinical regarding the "list from [facility] "as well as the caregiving agencies. These of course would not provide 24/7 care, and it will be difficult to know where she is going to land, though we did talk about the natural progression of disease, and with each hospitalization or incident most often does not recover to her previous level of functioning. She confirms this with her most recent hospitalizations and ED visits. We discussed the route of going home with home health support with nursing, BGT and OT, but this does not solve the caregiving issue if needs more supervision and caregiving support. But this would focus on her goals which are to get stronger and try and maintain her independence we discussed an alternative setting, where she can be safe, improve her medications, can still receive home health in the setting also her therapies, and finally discussed the recommendation given her frailty and decline in functional status, to consider depending on the evaluation of PT/OT a rehab stay to give her more time to regain her strength. Did discuss with patient about hospice, she has some very strong biases based on her experience with her , her daughter is had positive experiences with hospice particularly with her in-laws, and sees this as something that would be a natural progression for her. We both recognize she is most likely not ready for this yet, though given her current status in the context of breathlessness at rest, oxygen dependence, chronic respiratory failure, frequent ED and hospitalization visits and the surprise question, I believe she would meet criteria for hospice at this point. When I met with the daughter, we discussed how this might look when we get to that point it is not if but when, review hospice care can be provided in multiple different settings, including a SNF, if she were to be at home though would need more robust caregiving, and eventually 23/11 care. Results - Lab Results Lab results reviewed: Yes Fish Bones: 06/06/23 05:17 06/06/23 05:17 Lab and Imaging Results: Lab Results x24hrs 06/07/23 06/07/23 Range/Units 11:37 08:10 POC Whole Bld Glucose 184 H 156 H (70 - 100) mg/dL Impression and Recommendations - Palliative Care Impression: This is a 78-year-old woman who has severe COPD, presents with exacerbation attributed to viral illness. She does present with high symptom burden, functional decline prior to acute hospitalization, and with increasing care needs. Patient does have some insight into the seriousness of her illness, but is hoping for some improvement and to be able to return back to independent living. Palliative care providing support regarding anticipatory guidance, establishing goals of care, and transitioning to outpatient palliative care support. Recommendations/Counseling Done: 1.Dyspnea. This is multifactorial, she has been having more respiratory effort, and primary care provider thought she may benefit from morphine as well. She has benefited here in patient, I do have concerns in the context of her history of medication adherence, and being able to manage this without caregiving support in her home setting. This would need to be explored. It is definitely good to cool though in the context of her worsening symptom burden. 2. Anxiety. Patient presents with worsening anxiety, appropriate given her declining status, she is also complaining of poor appetite. She may benefit from mirtazapine 7.5 mg at bedtime. 3. Advance care planning. Patient does have a POLST with DNAR and's limited additional interventions in place, patient is acutely ill, unclear in the context of expected improvement from this point, though most likely will not return to previous level of functioning. Counseling provided today regarding the continuum of care, patient's goals are consistent with trying to return to some semblance of independence, would recommend PT/OT eval and support, with consideration of a SNF placement for strengthening before going home. In troduced also assisted living, adult family home, and if continues to decline hospice across multiple different settings as an option. Plan is to continue to follow, [employer] to follow-up with daughter regarding caregiving resources and placement options.These were explored and questions answered as best my ability, but will defer to my social work colleagues for further detailed explanations. 95 minutes with review of chart , Coordination of care with hospitalist/hospital team, counseling with patient and daughter regarding symptom management, role of palliative care, exploring goals of care, transition planning, and anticipatory guidance.
--- NOTE | 2023-06-07 21:11 | PROVIDER PROGRESS NOTE ---
Assessment/Plan - Problem List (1) COPD exacerbation Assessment/Plan: COPD exacerbation most likely secondary to viral infection viral panel positive for metapneumovirus Plan: Continue DuoNebs. 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 She reports she has been admitted to the hospital 2-3 times over the last 12 months. In the event of a cardiopulmonary arrest, patient does not wish to be intubated, received chest compressions or shock. She is DO NOT RESUSCITATE. Patient has end-stage COPD and we discussed goals of care. Palliative care is following the patient. Plan: Continue supportive care Continue supplemental oxygen (3) Diabetes Mellitus Plan: Sliding scale insulin (4) Hypertension Plan: Losartan increased to 100 mg daily. - Current Meds Current Meds: Current Medications Generic Name Dose Route Start Last Admin Trade Name Freq PRN Reason Stop Dose Admin Acetaminophen 650 mg 06/05/23 21:14 06/06/23 05:52 Acetaminophen 325 Mg Tablet PO 650 mg Q4HR PRN Administration Pain 1 to 4, or Fever Hydrocodone Bitart/Acetaminophen 1 tab 06/05/23 21:14 06/06/23 11:39 Hydrocod/Acetam 5/325 Mg Tablet PO 1 tab Q4HR PRN Administration Pain 5 to 7 Albuterol/Ipratropium 3 ml 06/05/23 21:13 06/06/23 05:43 Ipratropium/Albuterol 3 Ml Neb INH 3 ml TID PRN Administration Shortness of Air/Wheezing Albuterol/Ipratropium 3 ml 06/05/23 21:20 06/06/23 10:27 Ipratropium/Albuterol 3 Ml Neb INH 3 ml Q4HR PRN Administration Wheezing Ascorbic Acid 500 mg 06/06/23 09:00 06/07/23 08:23 Ascorbic Acid 500 Mg Tablet PO 500 mg DAILY LUCHO Administration Atorvastatin Calcium 10 mg 06/06/23 21:00 06/06/23 21:11 Atorvastatin 10 Mg Tablet PO 10 mg QPM LUCHO Administration Clopidogrel Bisulfate 75 mg 06/06/23 09:00 06/07/23 08:23 Clopidogrel 75 Mg Tablet PO 75 mg DAILY LUCHO Administration Sodium Chloride 1,000 mls @ 100 mls/hr 06/05/23 22:00 06/07/23 09:46 Normal Saline 0.9% IV 100 mls/hr .Q10H LUCHO Administration Imipramine HCl 150 mg 06/06/23 21:00 06/06/23 21:11 Imipramine 25 Mg Tablet PO 150 mg QPM LUCHO Administration Insulin Human Lispro 1 - 9 unit 06/07/23 08:00 06/07/23 17:12 Insulin Lispro 300 Unit/3 Ml Pen SUBQ 1 unit 0800,1200,1700,2100 LUCHO Administration Protocol Methylprednisolone 60 mg 06/06/23 16:00 06/07/23 16:07 Methylprednisolone Succinate 40 Mg/Ml Vial IVP 60 mg Q8H LUCHO Administration Morphine Sulfate 2 mg 06/05/23 21:14 06/06/23 16:52 Morphine 2 Mg/Ml Carpuject IVP 2 mg Q2HR PRN Administration Pain 8 to 10 Morphine Sulfate 5 mg 06/07/23 15:00 06/07/23 19:43 Morphine Wne 10 Mg/0.5 Ml Oral Syringe PO 5 mg Q4H LUCHO Administration Ondansetron HCl 4 mg 06/05/23 21:14 06/07/23 12:31 Ondansetron 4 Mg/2 Ml Vial IVP 4 mg Q6HR PRN Administration Nausea / Vomiting Sodium Chloride 10 ml 06/05/23 21:14 06/07/23 06:35 Sodium Chloride Flush 0.9% 10 Ml Syringe IVP 10 ml PRN PRN Administration NEEDED PER PROVIDER ORDERS Sodium Chloride 10 ml 06/06/23 01:00 06/07/23 16:07 Sodium Chloride Flush 0.9% 10 Ml Syringe IVP Not Given 0100,0900,1700 LUCHO - Lab Result Fish Bone Diagrams: 06/06/23 05:17 06/06/23 05:17 - Additional Planning My Orders: My Active Orders 06/06/23 21:23 Palliative Care Consult [CONS] Routine 06/06/23 21:50 Blood Glucose Checks - Eating [RC] 0800,1200,1700,2100 Initiate Hypoglycemia Protocol [RC] .protocol 06/07/23 08:00 Insulin Lispro [Humalog Kwikpen U-100] 1 - 9 unit SUBQ 0800,1200,1700,2100 06/07/23 15:00 Morphine Oral Soln [Roxanol] 5 mg PO Q4H 06/07/23 Dinner Dysphagia - Soft and Bite Sized [DIET] 06/07/23 21:00 Losartan [Cozaar] 100 mg PO QPM 06/08/23 09:00 Roflumilast [Daliresp] 250 mcg PO DAILY Subjective - Subjective Patient Reports: Other (Alert. Continues to complain of shortness of breath. No other complaints at this time.) Objective Vital Signs: Vital Signs - 24 hr 06/06/23 06/07/23 06/07/23 23:55 00:19 05:00 Temperature 36.4 C L 36.6 C Heart Rate [ Brachial] Heart Rate [ 104 H 95 Monitoring electrodes] Respiratory 16 18 Rate Blood Pressure 148/97 H [Left Brachial artery] Blood Pressure 100/72 [Right Brachial artery] Blood Pressure [right leg] O2 Saturation 91 L 91 L If not protocol 3 3 3 : Oxygen Flow, liters/minute 06/07/23 06/07/23 06/07/23 08:29 10:15 14:00 Temperature 36.2 C L 36.9 C Heart Rate [ Brachial] Heart Rate [ 97 112 H Monitoring electrodes] Respiratory 18 18 Rate Blood Pressure 160/111 H 138/100 H [Left Brachial artery] Blood Pressure [Right Brachial artery] Blood Pressure 161/111 H [right leg] O2 Saturation 89 L 90 L If not protocol 3 4 : Oxygen Flow, liters/minute 06/07/23 06/07/23 15:59 19:00 Temperature 36.3 C L 36.1 C L Heart Rate [ 107 H 104 H Brachial] Heart Rate [ Monitoring electrodes] Respiratory 21 20 Rate Blood Pressure 168/113 H 181/115 H [Left Brachial artery] Blood Pressure 169/110 H 179/128 H [Right Brachial artery] Blood Pressure [right leg] O2 Saturation 90 L 91 L If not protocol 4 4 : Oxygen Flow, liters/minute Oxygen O2 Source Nasal cannula I&O (Last 24 Hrs): Intake and Output Totals x24h 06/05/23 06/06/23 06/07/23 23:59 23:59 23:59 Intake Total 1087.5 4325.000 1240 Output Total 0 3250 1900 Balance 1087.5 1075.000 -660 General: Alert, Oriented x3, No acute distress HEENT: Atraumatic Neck: Supple, No JVD, No thyromegaly Neuro: Alert, Non Focal Cardiovascular: Regular rate, Normal S1, Normal S2, No murmurs Respiratory: Other (Poor air exchange in all lung du. No wheezing no crackles.) Abdomen: Normal bowel sounds, Soft, No tenderness Extremities: No clubbing, No cyanosis, No edema Skin: No rashes - Results Results: Laboratory Results WBC 6.5 x10^3/uL (4.8-10.8) 06/06/23 05:17 RBC 3.71 10^6/uL (4.20-5.40) L 06/06/23 05:17 Hgb 9.6 g/dL (12.0-16.0) L 06/06/23 05:17 Hct 32.2 % (37.0-47.0) L 06/06/23 05:17 MCV 86.8 fL (81.0-99.0) 06/06/23 05:17 MCH 25.9 pg (27.0-31.0) L 06/06/23 05:17 MCHC 29.8 g/dL (32.0-36.0) L 06/06/23 05:17 RDW 16.9 % (12.0-15.0) H 06/06/23 05:17 Plt Count 325 10^3/uL (130-450) 06/06/23 05:17 MPV 9.4 fL (7.9-10.8) 06/06/23 05:17 Neut # (Auto) 6.0 10^3/uL (1.5-6.6) 06/06/23 05:17 Lymph # (Auto) 0.4 10^3/uL (1.5-3.5) L 06/06/23 05:17 [place] # (Auto) 0.1 10^3/uL (0.0-1.0) 06/06/23 05:17 Eos # (Auto) 0.0 10^3/uL (0.0-0.7) 06/06/23 05:17 Baso # (Auto) 0.0 10^3/uL (0.0-0.1) 06/06/23 05:17 Absolute Nucleated RBC 0.00 x10^3/uL 06/06/23 05:17 Nucleated RBC % 0.0 /100WBC 06/06/23 05:17 Sodium 140 mmol/L (135-145) 06/06/23 05:17 Potassium 3.8 mmol/L (3.5-4.5) 06/06/23 05:17 Chloride 107 mmol/L (101-111) 06/06/23 05:17 Carbon Dioxide 24 mmol/L (21-32) 06/06/23 05:17 Anion Gap 9.0 (6-13) 06/06/23 05:17 BUN 29 mg/dL (6-20) H 06/06/23 05:17 Creatinine 1.1 mg/dL (0.6-1.3) 06/06/23 05:17 Estimated GFR (MDRD) 48 (>89) L 06/06/23 05:17 Glucose 189 mg/dL (74-104) H 06/06/23 05:17 POC Whole Bld Glucose 241 mg/dL (70 - 100) H 06/07/23 20:47 Estimat Average Glucose 151 mg/dL (70-100) H 06/06/23 05:17 Hemoglobin A1c % 6.9 % (4.27-6.07) H 06/06/23 05:17 Calcium 9.5 mg/dL (8.5-10.3) 06/06/23 05:17 Phosphorus 2.9 mg/dL (2.5-5.0) 06/05/23 19:02 Magnesium 1.7 mg/dL (1.7-2.3) 06/05/23 19:02 Total Bilirubin 0.4 mg/dL (0.2-1.0) 06/06/23 05:17 AST 14 IU/L (10-42) 06/06/23 05:17 ALT 10 IU/L (10-60) 06/06/23 05:17 Alkaline Phosphatase 64 IU/L (42-121) 06/06/23 05:17 Total Protein 5.7 g/dL (6.4-8.9) L 06/06/23 05:17 Albumin 3.5 g/dL (3.2-5.5) 06/06/23 05:17 Globulin 2.2 g/dL (2.1-4.2) 06/06/23 05:17 Albumin/Globulin Ratio 1.6 (1.0-2.2) 06/06/23 05:17 Lipase 12 U/L (11-82) 06/05/23 19:02 Nasal Adenovirus (PCR) NOT DETECTED 06/05/23 19:07 Nasal B. parapertussis DNA (PCR) NOT DETECTED 06/05/23 19:07 Nasal Coronavir 229E PCR NOT DETECTED 06/05/23 19:07 Nasal Coronavir HKU1 PCR NOT DETECTED 06/05/23 19:07 Nasal Coronavir NL63 PCR NOT DETECTED 06/05/23 19:07 Nasal Coronavir OC43 PCR NOT DETECTED 06/05/23 19:07 Nasal Enterovir/Rhinovir PCR NOT DETECTED 06/05/23 19:07 Nasal Influenza B PCR NOT DETECTED 06/05/23 19:07 Nasal Influenza A PCR NOT DETECTED 06/05/23 19:07 Nasal Parainfluen 1 PCR NOT DETECTED 06/05/23 19:07 Nasal Parainfluen 2 PCR NOT DETECTED 06/05/23 19:07 Nasal Parainfluen 3 PCR NOT DETECTED 06/05/23 19:07 Nasal Parainfluen 4 PCR NOT DETECTED 06/05/23 19:07 Nasal RSV (PCR) NOT DETECTED 06/05/23 19:07 Nasal B.pertussis DNA PCR NOT DETECTED 06/05/23 19:07 Nasal C.pneumoniae (PCR) NOT DETECTED 06/05/23 19:07 Scott Human Metapneumo PCR DETECTED A 06/05/23 19:07 Nasal M.pneumoniae (PCR) NOT DETECTED 06/05/23 19:07 Nasal SARS-CoV-2 (PCR) NOT DETECTED 06/05/23 19:07 Sepsis Event Note (H) - Evaluation Current Stage of Sepsis: Ruled out Current Medications - Current Medications Current Medications: Active Medications Acetaminophen (Acetaminophen 325 Mg Tablet) 650 mg PO Q4HR PRN PRN Reason: Pain 1 to 4, or Fever Last Admin: 06/06/23 05:52 Dose: 650 mg Hydrocodone Bitart/Acetaminophen (Hydrocod/Acetam 5/325 Mg Tablet) 1 tab PO Q4HR PRN PRN Reason: Pain 5 to 7 Last Admin: 06/06/23 11:39 Dose: 1 tab Albuterol/Ipratropium (Ipratropium/Albuterol 3 Ml Neb) 3 ml INH TID PRN PRN Reason: Shortness of Air/Wheezing Last Admin: 06/06/23 05:43 Dose: 3 ml Albuterol/Ipratropium (Ipratropium/Albuterol 3 Ml Neb) 3 ml INH Q4HR PRN PRN Reason: Wheezing Last Admin: 06/06/23 10:27 Dose: 3 ml Ascorbic Acid (Ascorbic Acid 500 Mg Tablet) 500 mg PO DAILY PENDING SALE TO [facility] Last Admin: 06/07/23 08:23 Dose: 500 mg Atorvastatin Calcium (Atorvastatin 10 Mg Tablet) 10 mg PO QPM PENDING SALE TO [facility] Last Admin: 06/06/23 21:11 Dose: 10 mg Clopidogrel Bisulfate (Clopidogrel 75 Mg Tablet) 75 mg PO DAILY PENDING SALE TO [facility] Last Admin: 06/07/23 08:23 Dose: 75 mg Sodium Chloride (Normal Saline 0.9%) 1,000 mls @ 100 mls/hr IV .Q10H PENDING SALE TO [facility] Last Admin: 06/07/23 09:46 Dose: 100 mls/hr Imipramine HCl (Imipramine 25 Mg Tablet) 150 mg PO QPM PENDING SALE TO [facility] Last Admin: 06/06/23 21:11 Dose: 150 mg Insulin Human Lispro (Insulin Lispro 300 Unit/3 Ml Pen) 1 - 9 unit SUBQ 0800,1200,1700,2100 PENDING SALE TO [facility]; Protocol Last Admin: 06/07/23 17:12 Dose: 1 unit Losartan Potassium (Losartan 50 Mg Tablet) 100 mg PO QPM PENDING SALE TO [facility] Methylprednisolone (Methylprednisolone Succinate 40 Mg/Ml Vial) 60 mg IVP Q8H PENDING SALE TO [facility] Last Admin: 06/07/23 16:07 Dose: 60 mg Morphine Sulfate (Morphine 2 Mg/Ml Carpuject) 2 mg IVP Q2HR PRN PRN Reason: Pain 8 to 10 Last Admin: 06/06/23 16:52 Dose: 2 mg Morphine Sulfate (Morphine Wen 10 Mg/0.5 Ml Oral Syringe) 5 mg PO Q4H PENDING SALE TO [facility] Last Admin: 06/07/23 19:43 Dose: 5 mg Non-Formulary Medication (Roflumilast [Daliresp]) 250 mcg PO DAILY PENDING SALE TO [facility] Ondansetron HCl (Ondansetron 4 Mg/2 Ml Vial) 4 mg IVP Q6HR PRN PRN Reason: Nausea / Vomiting Last Admin: 06/07/23 12:31 Dose: 4 mg Sodium Chloride (Sodium Chloride Flush 0.9% 10 Ml Syringe) 10 ml IVP PRN PRN PRN Reason: NEEDED PER PROVIDER ORDERS Last Admin: 06/07/23 06:35 Dose: 10 ml Sodium Chloride (Sodium Chloride Flush 0.9% 10 Ml Syringe) 10 ml IVP 0100,0900,1700 LUCHO Last Admin: 06/07/23 16:07 Dose: Not Given Zolpidem Tartrate (Zolpidem 5 Mg Tablet) 5 mg PO QPM PRN PRN Reason: Insomnia Albuterol Sulf [Ventolin Hfa Inhaler] 2 puffs INH Q4H PRN 05/18/20 Atorvastatin [Lipitor] 10 mg PO QPM 05/18/20 Clopidogrel [Plavix] 75 mg PO DAILY 05/18/20 Imipramine HCl 150 mg PO QPM 05/18/20 Ipratropium/Albuterol [Duoneb] 3 ml INH TID PRN 05/18/20 Losartan [Cozaar] 25 mg PO QPM 05/18/20 Metformin HCl [Glucophage Xr] 500 mg PO BID 05/18/20 Oxybutynin [Ditropan] 5 mg PO BID 05/18/20 Prednisone [Luis] 5 mg PO DAILY 04/21/23 hydroCHLOROthiazide [Hydrodiuril] 12.5 mg PO DAILY 04/21/23 Fluticasone/Umeclidin/Vilanter [Trelegy Ellipta 200-62.5-25] 1 each IH DAILY 06/06/23 Roflumilast [Daliresp] 250 mcg PO DAILY 06/06/23
[2023-06-07] MEDS: LOSARTAN 50 MG TABLET PO SCH (21:17)
[2023-06-08] MEDS: MORPHINE SOL 10 MG/0.5 ML ORAL SYRINGE PO PRN (00:18)
[2023-06-08 06:18] LABS: BASOPHILS % (AUTO) 0.1 %; EOSINOPHILS % (AUTO) 0.3 %; HCT - HEMATOCRIT 35.6 % (37.0-47.0); HGB - HEMOGLOBIN 10.9 g/dL (12.0-16.0); LYMPHOCYTES # (AUTO) 1.2 10^3/uL (1.5-3.5); LYMPHOCYTES % (AUTO) 10.6 %; MEAN CORPUSCULAR HEMOGLOBIN 26.5 pg (27.0-31.0); MEAN CORPUSCULAR HGB CONC 30.6 g/dL (32.0-36.0); MEAN CORPUSCULAR VOLUME 86.4 fL (81.0-99.0); MEAN PLATELET VOLUME 9.3 fL (7.9-10.8); MONOCYTES # (AUTO) 0.6 10^3/uL (0.0-1.0); MONOCYTES % (AUTO) 5.4 %; NEUTROPHILS # (AUTO) 9.7 10^3/uL (1.5-6.6); NEUTROPHILS % (AUTO) 82.8 %; PLT - PLATELET COUNT 322 10^3/uL (130-450); RED BLOOD COUNT 4.12 10^6/uL (4.20-5.40); RED CELL DISTRIBUTION WIDTH 16.8 % (12.0-15.0); WHITE BLOOD COUNT 11.7 x10^3/uL (4.8-10.8)
[2023-06-08 06:34] LABS: CALCIUM 9.6 mg/dL (8.5-10.3); MAGNESIUM 1.7 mg/dL (1.7-2.3); PHOSPHORUS 3.2 mg/dL (2.5-5.0); POTASSIUM 3.7 mmol/L (3.5-4.5)
[2023-06-08] MEDS: MORPHINE 2 MG/ML CARPUJECT IVP PRN (09:11)
[2023-06-08] MEDS: methylPREDNISolone SUCCINATE 40 MG/ML VIAL IVP SCH (09:12)
[2023-06-08] MEDS: ROFLUMILAST 250 MCG PO SCH (09:14)
[2023-06-08] MEDS ORDERED: SODIUM CHLORIDE 0.9% 1,000 ML IV ONE (09:15)
--- NOTE | 2023-06-08 15:25 | CONSULTATION NOTE ---
Palliative Care Follow Up - Referral Referring Provider: Dr. Moreno Time of Visit: 12:15-12:45; 11:00-11:15 am Referral setting: Hospitalized patient Referral Reason: Goals of Care / Advanced COPD - Information Sources Records reviewed: Previous records reviewed History/Review of Systems obtained from: Patient Exam limitations: Other (patient with STM deficits; able to engage in conversation) - History of Present Illness Update Brief HPI Update: See HPI 06/07. This is a 78-year-old woman who is here with severe COPD, with exacerbation of her COPD related to a viral infection. She reports she does feel better today, but still has a moist cough, difficulty moving secretions, and feeling quite weak. She continues to receive steroids, has been using morphine, reports she use x 1 so far today. She does feel this helps with her effort overall. She does have poor appetite but enjoys the food here, feels like she is doing somewhat better. Awaiting PT/OT evaluation in the context of patient's baseline, ability improved, and possible SNF placement. Palliative care is meeting with patient to provide psychosocial support and further explore goals of care and anxiety regarding her current decline and vulnerability. Did speak with daughter earlier, has gotten resources from [facility], is feeling somewhat in limbo with needing to plan for a discharge disposition. We did discuss would be helpful to have this evaluation to help guide, hope is for SNF placement as a transition point to getting back home which is the patient's goals. Social History - Living Situation Living arrangement: At home Living Situation: Alone Support System: Patient lives at home alone, daughter and son-in-law to provide support, she does have paid caregiver 1 to 2 days a week, 2 to 4 hours. Her daughter Griffin blank lives here in [place], she has another daughter and a son in law lives in [place] who was just recently visiting. And she has a son who is not involved in her care, but he lives in [place]. Last she saw him was 2 years ago. Patient does have resources to be able to hire assistance, also introduced both to patient and daughter assisted living, adult family homes, and long-term care if needed Medications/Allergies - Medications Active Medication List: Active Medications Acetaminophen (Acetaminophen 325 Mg Tablet) 650 mg PO Q4HR PRN PRN Reason: Pain 1 to 4, or Fever Last Admin: 06/06/23 05:52 Dose: 650 mg Hydrocodone Bitart/Acetaminophen (Hydrocod/Acetam 5/325 Mg Tablet) 1 tab PO Q4HR PRN PRN Reason: Pain 5 to 7 Last Admin: 06/06/23 11:39 Dose: 1 tab Albuterol/Ipratropium (Ipratropium/Albuterol 3 Ml Neb) 3 ml INH TID PRN PRN Reason: Shortness of Air/Wheezing Last Admin: 06/06/23 05:43 Dose: 3 ml Albuterol/Ipratropium (Ipratropium/Albuterol 3 Ml Neb) 3 ml INH Q4HR PRN PRN Reason: Wheezing Last Admin: 06/06/23 10:27 Dose: 3 ml Ascorbic Acid (Ascorbic Acid 500 Mg Tablet) 500 mg PO DAILY [facility] Last Admin: 06/08/23 09:12 Dose: 500 mg Atorvastatin Calcium (Atorvastatin 10 Mg Tablet) 10 mg PO QPM [facility] Last Admin: 06/07/23 21:17 Dose: 10 mg Clopidogrel Bisulfate (Clopidogrel 75 Mg Tablet) 75 mg PO DAILY [facility] Last Admin: 06/08/23 09:12 Dose: 75 mg Diltiazem HCl (Diltiazem 60 Mg Tablet) 60 mg PO BID [facility] Last Admin: 06/08/23 09:11 Dose: 60 mg Imipramine HCl (Imipramine 25 Mg Tablet) 150 mg PO QPM [facility] Last Admin: 06/07/23 21:17 Dose: 150 mg Insulin Human Lispro (Insulin Lispro 300 Unit/3 Ml Pen) 1 - 9 unit SUBQ 0800,1200,1700,2100 [facility]; Protocol Last Admin: 06/08/23 12:17 Dose: 1 unit Losartan Potassium (Losartan 50 Mg Tablet) 100 mg PO QPM [facility] Last Admin: 06/07/23 21:17 Dose: 100 mg Methylprednisolone (Methylprednisolone Succinate 40 Mg/Ml Vial) 60 mg IVP BID [facility] Last Admin: 06/08/23 09:12 Dose: 60 mg Morphine Sulfate (Morphine Wen 10 Mg/0.5 Ml Oral Syringe) 5 mg PO Q4H PRN PRN Reason: Dyspnea Last Admin: 06/08/23 00:18 Dose: 5 mg Morphine Sulfate (Morphine 2 Mg/Ml Carpuject) 2 mg IVP Q4HR PRN PRN Reason: Dyspnea Last Admin: 06/08/23 09:11 Dose: 2 mg Ondansetron HCl (Ondansetron 4 Mg/2 Ml Vial) 4 mg IVP Q6HR PRN PRN Reason: Nausea / Vomiting Last Admin: 06/07/23 12:31 Dose: 4 mg Patient Own Medication (Patient Own Med) 1 each PO DAILY [facility] Last Admin: 06/08/23 09:14 Dose: Not Given Sodium Chloride (Sodium Chloride Flush 0.9% 10 Ml Syringe) 10 ml IVP PRN PRN PRN Reason: NEEDED PER PROVIDER ORDERS Last Admin: 06/07/23 06:35 Dose: 10 ml Sodium Chloride (Sodium Chloride Flush 0.9% 10 Ml Syringe) 10 ml IVP 0100,0900,1700 [facility] Last Admin: 06/08/23 09:14 Dose: 10 ml Zolpidem Tartrate (Zolpidem 5 Mg Tablet) 5 mg PO QPM PRN PRN Reason: Insomnia Albuterol Sulf [Ventolin Hfa Inhaler] 2 puffs INH Q4H PRN 05/18/20 Atorvastatin [Lipitor] 10 mg PO QPM 05/18/20 Clopidogrel [Plavix] 75 mg PO DAILY 05/18/20 Imipramine HCl 150 mg PO QPM 05/18/20 Ipratropium/Albuterol [Duoneb] 3 ml INH TID PRN 05/18/20 Losartan [Cozaar] 25 mg PO QPM 05/18/20 Metformin HCl [Glucophage Xr] 500 mg PO BID 05/18/20 Oxybutynin [Ditropan] 5 mg PO BID 05/18/20 Prednisone [Luis] 5 mg PO DAILY 04/21/23 hydroCHLOROthiazide [Hydrodiuril] 12.5 mg PO DAILY 04/21/23 Fluticasone/Umeclidin/Vilanter [Trelegy Ellipta 200-62.5-25] 1 each IH DAILY 06/06/23 Roflumilast [Daliresp] 250 mcg PO DAILY 06/06/23 - Allergies Allergies/Adverse Reactions: Allergies Allergy/AdvReac Type Severity Reaction Status Date / Time azithromycin Allergy Emesis Verified 06/03/23 11:22 Review of Systems - Constitutional Constitutional: reports: Fatigue, Weakness, Poor appetite, Weight loss - Eyes Eyes: reports: Vision loss - Ears, Nose & Throat Ears, Nose & Throat: reports: Hearing loss, Hearing aids, Postnasal drainage, Dry mouth - Cardiovascular Cardiovascular: reports: Exertional dyspnea, Decr. exercise tolerance - Respiratory Respiratory: reports: Cough, Wheezing, Orthopnea, SOB at rest, SOB with exertion - Gastrointestinal Gastrointestinal: reports: Constipation, Nausea, Poor appetite, Early satiety - Genitourinary Genitourinary: reports: Incontinence (currently using [facility]) - Musculoskeletal Musculoskeletal: reports: Muscle pain, Back pain (acute on chronic with fall), Stiffness, Muscle weakness, Assistive devices (has cane and walker at home) - Integumentary Integumentary: reports: Dryness - Neurological Neurological: reports: General weakness, Memory problems - Psychiatric Psychiatric: reports: Depression, Anxiety - Endocrine Endocrine: reports: Diabetes type 2 - Hematologic/Lymphatic Hematologic/Lymph: reports: Anemia - All Other Systems All Other Systems: reports: Reviewed and negative Physical Exam - Vital Signs Vital Signs: Vital Signs x48h Temp Pulse Resp BP BP BP Pulse Ox 06/08/23 11:06 36.1 C L 104 H 0 L 147/92 H 92 06/08/23 10:40 137/92 H 06/08/23 09:11 174/109 H 06/08/23 07:34 36.3 C L 107 H 24 174/109 H 97 O2 Flow Rate 06/08/23 11:06 4 06/08/23 10:40 06/08/23 09:11 06/08/23 07:34 4 - Physical Exam General Appearance: positive: No acute distress, Alert, Anxious, Cachetic Eyes Bilateral: positive: Other (periorbital edema) Neck: positive: Trachea midline Cardiovascular: positive: Tachycardia Respiratory: positive: Other (mosti cough with conversation; increased respiratory effort and use of accessory muscles with conversation but less s tressed than yesterday) Abdomen: positive: Soft Skin: positive: Pallor, Bruising Extremities: positive: No pedal edema Neurologic/Psychiatric: positive: Oriented x3, Weakness, Depressed mood/affect Palliative Care - POLST Patient has POLST: Yes POLST Status: DNR, Selective Treatment Pain: Pain improved, Location (back from fall;) Sleep: Other (slept well last night) Performance Status: Patient had a fall previous to admit for few days, has had declining functional status. Is awaiting evaluation at this point from PT/OT and has not been up out of bed per her report. - Palliative Care Discussion: Spent time with patient regarding understanding of her illness, she does understand she is going to continue to decline, is hopeful to build to return to some level of independence. She does understand there will need to be a transition point before being able to go home, and does feel much more vulnerable regarding this. She has not ever been this sick or hospitalized this long, is concerned. She does trust her daughter as far as being able to help her navigate this. She does report being "emotional", normalize feelings of grief and loss in the context of advancing illness, loss of independence, and living in the unknown. Results - Lab Results Lab results reviewed: Yes Fish Bones: 06/08/23 05:23 06/08/23 05:23 Lab and Imaging Results: Lab Results x24hrs 06/08/23 06/08/23 06/08/23 Range/Units 11:03 07:26 05:23 WBC (4.8-10.8) x10^3/uL RBC (4.20-5.40) 10^6/uL Hgb (12.0-16.0) g/dL Hct (37.0-47.0) % MCV (81.0-99.0) fL MCH (27.0-31.0) pg MCHC (32.0-36.0) g/dL RDW (12.0-15.0) % Plt Count (130-450) 10^3/uL MPV (7.9-10.8) fL Neut # (Auto) (1.5-6.6) 10^3/uL Lymph # (Auto) (1.5-3.5) 10^3/uL [place] # (Auto) (0.0-1.0) 10^3/uL Eos # (Auto) (0.0-0.7) 10^3/uL Baso # (Auto) (0.0-0.1) 10^3/uL Absolute Nucleated RBC x10^3/uL Nucleated RBC % /100WBC Sodium 138 (135-145) mmol/L Potassium 3.7 (3.5-4.5) mmol/L Chloride 104 (101-111) mmol/L Carbon Dioxide 27 (21-32) mmol/L Anion Gap 7.0 (6-13) BUN 29 H (6-20) mg/dL Creatinine 1.0 (0.6-1.3) mg/dL Estimated GFR (MDRD) 53 L (>89) Glucose 123 H (74-104) mg/dL POC Whole Bld Glucose 150 H 110 H (70 - 100) mg/dL Calcium 9.6 (8.5-10.3) mg/dL Phosphorus 3.2 (2.5-5.0) mg/dL Magnesium 1.7 (1.7-2.3) mg/dL 06/08/23 06/07/23 06/07/23 Range/Units 05:23 20:47 16:38 WBC 11.7 H (4.8-10.8) x10^3/uL RBC 4.12 L (4.20-5.40) 10^6/uL Hgb 10.9 L (12.0-16.0) g/dL Hct 35.6 L (37.0-47.0) % MCV 86.4 (81.0-99.0) fL MCH 26.5 L (27.0-31.0) pg MCHC 30.6 L (32.0-36.0) g/dL RDW 16.8 H (12.0-15.0) % Plt Count 322 (130-450) 10^3/uL MPV 9.3 (7.9-10.8) fL Neut # (Auto) 9.7 H (1.5-6.6) 10^3/uL Lymph # (Auto) 1.2 L (1.5-3.5) 10^3/uL [place] # (Auto) 0.6 (0.0-1.0) 10^3/uL Eos # (Auto) 0.0 (0.0-0.7) 10^3/uL Baso # (Auto) 0.0 (0.0-0.1) 10^3/uL Absolute Nucleated RBC 0.00 x10^3/uL Nucleated RBC % 0.0 /100WBC Sodium (135-145) mmol/L Potassium (3.5-4.5) mmol/L Chloride (101-111) mmol/L Carbon Dioxide (21-32) mmol/L Anion Gap (6-13) BUN (6-20) mg/dL Creatinine (0.6-1.3) mg/dL Estimated GFR (MDRD) (>89) Glucose (74-104) mg/dL POC Whole Bld Glucose 241 H 173 H (70 - 100) mg/dL Calcium (8.5-10.3) mg/dL Phosphorus (2.5-5.0) mg/dL Magnesium (1.7-2.3) mg/dL Impression and Recommendations - Palliative Care Impression: This is an 78-year-old woman with severe COPD, presents with exacerbation attributed viral illness. She presents with high symptom burden, functional decline prior to acute hospitalization and increasing care needs. Patient's goals are to be able to return to independent living, is hoping to get stronger, including if this involves a SNF stay. Palliative care providing support regarding anticipatory guidance, transition to outpatient palliative care support. Recommendations/Counseling Done: 1. COPD exacerbation. Patient does have significant dyspnea, this is multifactorial. She is a little bit stronger, has moist cough, would benefit from scheduled DuoNebs, she does have them as needed encouraged patient to ask for DuoNebs as she was "waiting" for them to come in. Does look like they are per her request. Patient did use morphine 5 mg with relief of air hunger and tachypnea. Patient most likely would benefit for this as an outpatient tool as well, though at this point, concern if patient lives alone and ability to manage this. Will have to evaluate in new setting. 2. Anxiety. Patient presents with fluctuating anxiety, appropriate given her declining status, she does complain of poor appetite. She may benefit from mirtazapine 7.5 mg at bedtime, and titrate up as indicated. 3. Advance care planning. Patient does have a POLST with [facility], her daughter Jazlyn is her DPOA. She does defer to her in the context of decision making long-term goals in the continuum. Daughter does want to honor patient's goals, but counseling provided regarding needing to balance this with safety. Still awaiting PT/OT eval and support with consideration of SNF. If patient declines, will work with daughter for transition to hospice. Patient is hoping for the best, with the context of being able to get stronger, recognizing she will return to the previous level of functioning, but does find her current quality of life though compromise, acceptable. She does have a little dog Dmitriy at home, and is concerned about leaving him at the time of her . 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 Counseling with patient regarding anxiety, anticipatory guidance, and goals of care. Awaiting PT/OT evaluation to be able to move forward on transition plan.
--- NOTE | 2023-06-08 19:26 | PROVIDER PROGRESS NOTE ---
Assessment/Plan - Problem List (1) COPD exacerbation Assessment/Plan: COPD exacerbation most likely secondary to viral infection, since her viral panel was positive for metapneumovirus She is still very "tight" and desaturates and needs continued inpatient care Plan: Continue DuoNebs and Pulmicort nebs. Cont IV corticosteroids Will add Mucinex Cont droplet isolation due to being positive for metapneumovirus (2) Acute on Chronic Respiratory Failure Patient has severe end-stage COPD at baseline. She reports she has been admitted to the hospital 2-3 times over the last 12 months. In the event of a cardiopulmonary arrest, patient does not wish to be intubated, received chest compressions or shock. She is DO NOT RESUSCITATE. Palliative care is following the patient. Plan: Continue tx of COPD exacerbation Continue supplemental oxygen, to keep sats >88% (3) Diabetes Mellitus As per Hx Plan: Cont fingerstick checks, Sliding scale insulin, DM diert and Hypoglycemia protocol (4) Hypertension Plan: Losartan dose was increased to 100 mg daily. Will add B-brandon (see #5) (5) Tachycardia VS were all reviewed, she has been tachy with HR ~105 for nearly the entire admission. Part of that is from getting Duoneb, partly from stress/tachypnea. An EKG was done today. I interpreted the EKG: Sinus tachy, rate 107, RA enlgm. Since EKG from 04/24/24, EA enlgm is new (she had LA enlgm then). Plan: Start Cardizem 60 BID for controlling her tachycardia, adjust dose, while continuing to monitoring on telemetry - Current Meds Current Meds: Current Medications Generic Name Dose Route Start Last Admin Trade Name Derekq PRN Reason Stop Dose Admin Acetaminophen 650 mg 06/05/23 21:14 06/06/23 05:52 Acetaminophen 325 Mg Tablet PO 650 mg Q4HR PRN Administration Pain 1 to 4, or Fever Hydrocodone Bitart/Acetaminophen 1 tab 06/05/23 21:14 06/06/23 11:39 Hydrocod/Acetam 5/325 Mg Tablet PO 1 tab Q4HR PRN Administration Pain 5 to 7 Albuterol/Ipratropium 3 ml 06/05/23 21:13 06/06/23 05:43 Ipratropium/Albuterol 3 Ml Neb INH 3 ml TID PRN Administration Shortness of Air/Wheezing Albuterol/Ipratropium 3 ml 06/05/23 21:20 06/06/23 10:27 Ipratropium/Albuterol 3 Ml Neb INH 3 ml Q4HR PRN Administration Wheezing Ascorbic Acid 500 mg 06/06/23 09:00 06/08/23 09:12 Ascorbic Acid 500 Mg Tablet PO 500 mg DAILY [facility] Administration Atorvastatin Calcium 10 mg 06/06/23 21:00 06/07/23 21:17 Atorvastatin 10 Mg Tablet PO 10 mg QPM [facility] Administration Clopidogrel Bisulfate 75 mg 06/06/23 09:00 06/08/23 09:12 Clopidogrel 75 Mg Tablet PO 75 mg DAILY [facility] Administration Diltiazem HCl 60 mg 06/08/23 09:00 06/08/23 09:11 Diltiazem 60 Mg Tablet PO 60 mg BID [facility] Administration Imipramine HCl 150 mg 06/06/23 21:00 06/07/23 21:17 Imipramine 25 Mg Tablet PO 150 mg QPM [facility] Administration Insulin Human Lispro 1 - 9 unit 06/07/23 08:00 06/08/23 17:58 Insulin Lispro 300 Unit/3 Ml Pen SUBQ 7 unit 0800,1200,1700,2100 [facility] Administration Protocol Losartan Potassium 100 mg 06/07/23 21:00 06/07/23 21:17 Losartan 50 Mg Tablet PO 100 mg QPM [facility] Administration Methylprednisolone 60 mg 06/08/23 09:00 06/08/23 09:12 Methylprednisolone Succinate 40 Mg/Ml Vial IVP 60 mg BID [facility] Administration Morphine Sulfate 5 mg 06/07/23 21:16 06/08/23 00:18 Morphine Wen 10 Mg/0.5 Ml Oral Syringe PO 5 mg Q4H PRN Administration Dyspnea Morphine Sulfate 2 mg 06/08/23 08:10 06/08/23 09:11 Morphine 2 Mg/Ml Carpuject IVP 2 mg Q4HR PRN Administration Dyspnea Ondansetron HCl 4 mg 06/05/23 21:14 06/07/23 12:31 Ondansetron 4 Mg/2 Ml Vial IVP 4 mg Q6HR PRN Administration Nausea / Vomiting Patient Own Medication 1 each 06/08/23 09:00 06/08/23 09:14 Patient Own Med PO Not Given DAILY [facility] Sodium Chloride 10 ml 06/05/23 21:14 06/07/23 06:35 Sodium Chloride Flush 0.9% 10 Ml Syringe IVP 10 ml PRN PRN Administration NEEDED PER PROVIDER ORDERS Sodium Chloride 10 ml 06/06/23 01:00 06/08/23 18:00 Sodium Chloride Flush 0.9% 10 Ml Syringe IVP 10 ml 0100,0900,1700 [facility] Administration - Lab Result Fish Bone Diagrams: 06/08/23 05:23 06/08/23 05:23 - EKG Results EKG Interpreted Independently: Yes EKG Comparison: Changed from prior EKG EKG Findings: Sinus tachycardia, rate 107, right atrial enlargement. Since EKG from 04/21/2023, right atrial enlargement is new - Additional Planning My Orders: My Active Orders 06/08/23 Evaluate and Treat OT [OT] Routine Evaluate and Treat PT [PT] Routine 06/08/23 08:10 Morphine Inj (Carpuject) [Morphine (Carpuject)] 2 mg IVP Q4HR PRN 06/08/23 09:00 [id number] [Cardizem] 60 mg PO BID Subjective - Subjective Patient Reports: Cough, Shortness of Breath Objective Vital Signs: Vital Signs - 24 hr 06/07/23 06/08/23 06/08/23 20:00 00:12 03:55 Temperature 36.1 C L 36.1 C L 36.4 C L Heart Rate [ 104 H 105 H 93 Brachial] Heart Rate [ Sitting] Heart Rate [ Standing] Heart Rate [ Supine] Respiratory 20 20 14 Rate Blood Pressure Blood Pressure 181/115 H 125/92 H [Left Brachial artery] Blood Pressure 179/128 H 115/84 H [Right Brachial artery] Blood Pressure [Sitting] Blood Pressure [Standing] Blood Pressure [Supine] O2 Saturation 91 L 90 L 90 L If not protocol 4 4 4 : Oxygen Flow, liters/minute 06/08/23 06/08/23 06/08/23 07:34 09:11 10:40 Temperature 36.3 C L Heart Rate [ 107 H Brachial] Heart Rate [ Sitting] Heart Rate [ Standing] Heart Rate [ Supine] Respiratory 24 Rate Blood Pressure 174/109 H Blood Pressure 137/92 H [Left Brachial artery] Blood Pressure 174/109 H [Right Brachial artery] Blood Pressure [Sitting] Blood Pressure [Standing] Blood Pressure [Supine] O2 Saturation 97 If not protocol 4 : Oxygen Flow, liters/minute 06/08/23 06/08/23 06/08/23 11:06 15:00 15:49 Temperature 36.1 C L 36.7 C Heart Rate [ 104 H 105 H Brachial] Heart Rate [ 109 H Sitting] Heart Rate [ 122 H Standing] Heart Rate [ 104 H Supine] Respiratory 20 22 Rate Blood Pressure Blood Pressure 147/92 H [Left Brachial artery] Blood Pressure 153/105 H [Right Brachial artery] Blood Pressure 135/106 H [Sitting] Blood Pressure 104/75 [Standing] Blood Pressure 164/95 H [Supine] O2 Saturation 92 94 If not protocol 4 4 : Oxygen Flow, liters/minute Oxygen O2 Source Nasal cannula I&O (Last 24 Hrs): Intake and Output Totals x24h 06/06/23 06/07/23 06/08/23 23:59 23:59 23:59 Intake Total 4325.000 2400 1380 Output Total 3250 3100 600 Balance 1075.000 -700 780 General: Alert, Oriented x3, Mild distress (tachypneic after just moving in bed) HEENT: Mucous membr. moist/pink, Other (cachectic) Neuro: Alert, Non Focal Cardiovascular: Regular rate (Distant heart sounds due to COPD) Respiratory: Wheezes ("Tight" and poor air movement in all lung du.) Abdomen: Soft, No tenderness Extremities: No edema - Results Results: Laboratory Results WBC 11.7 x10^3/uL (4.8-10.8) H 06/08/23 05:23 RBC 4.12 10^6/uL (4.20-5.40) L 06/08/23 05:23 Hgb 10.9 g/dL (12.0-16.0) L 06/08/23 05:23 Hct 35.6 % (37.0-47.0) L 06/08/23 05:23 MCV 86.4 fL (81.0-99.0) 06/08/23 05:23 MCH 26.5 pg (27.0-31.0) L 06/08/23 05:23 MCHC 30.6 g/dL (32.0-36.0) L 06/08/23 05:23 RDW 16.8 % (12.0-15.0) H 06/08/23 05:23 Plt Count 322 10^3/uL (130-450) 06/08/23 05:23 MPV 9.3 fL (7.9-10.8) 06/08/23 05:23 Neut # (Auto) 9.7 10^3/uL (1.5-6.6) H 06/08/23 05:23 Lymph # (Auto) 1.2 10^3/uL (1.5-3.5) L 06/08/23 05:23 [place] # (Auto) 0.6 10^3/uL (0.0-1.0) 06/08/23 05:23 Eos # (Auto) 0.0 10^3/uL (0.0-0.7) 06/08/23 05:23 Baso # (Auto) 0.0 10^3/uL (0.0-0.1) 06/08/23 05:23 Absolute Nucleated RBC 0.00 x10^3/uL 06/08/23 05:23 Nucleated RBC % 0.0 /100WBC 06/08/23 05:23 Sodium 138 mmol/L (135-145) 06/08/23 05:23 Potassium 3.7 mmol/L (3.5-4.5) 06/08/23 05:23 Chloride 104 mmol/L (101-111) 06/08/23 05:23 Carbon Dioxide 27 mmol/L (21-32) 06/08/23 05:23 Anion Gap 7.0 (6-13) 06/08/23 05:23 BUN 29 mg/dL (6-20) H 06/08/23 05:23 Creatinine 1.0 mg/dL (0.6-1.3) 06/08/23 05:23 Estimated GFR (MDRD) 53 (>89) L 06/08/23 05:23 Glucose 123 mg/dL (74-104) H 06/08/23 05:23 POC Whole Bld Glucose 280 mg/dL (70 - 100) H 06/08/23 16:22 Estimat Average Glucose 151 mg/dL (70-100) H 06/06/23 05:17 Hemoglobin A1c % 6.9 % (4.27-6.07) H 06/06/23 05:17 Calcium 9.6 mg/dL (8.5-10.3) 06/08/23 05:23 Phosphorus 3.2 mg/dL (2.5-5.0) 06/08/23 05:23 Magnesium 1.7 mg/dL (1.7-2.3) 06/08/23 05:23 Total Bilirubin 0.4 mg/dL (0.2-1.0) 06/06/23 05:17 AST 14 IU/L (10-42) 06/06/23 05:17 ALT 10 IU/L (10-60) 06/06/23 05:17 Alkaline Phosphatase 64 IU/L (42-121) 06/06/23 05:17 Total Protein 5.7 g/dL (6.4-8.9) L 06/06/23 05:17 Albumin 3.5 g/dL (3.2-5.5) 06/06/23 05:17 Globulin 2.2 g/dL (2.1-4.2) 06/06/23 05:17 Albumin/Globulin Ratio 1.6 (1.0-2.2) 06/06/23 05:17 Lipase 12 U/L (11-82) 06/05/23 19:02 Nasal Adenovirus (PCR) NOT DETECTED 06/05/23 19:07 Nasal B. parapertussis DNA (PCR) NOT DETECTED 06/05/23 19:07 Nasal Coronavir 229E PCR NOT DETECTED 06/05/23 19:07 Nasal Coronavir HKU1 PCR NOT DETECTED 06/05/23 19:07 Nasal Coronavir NL63 PCR NOT DETECTED 06/05/23 19:07 Nasal Coronavir OC43 PCR NOT DETECTED 06/05/23 19:07 Nasal Enterovir/Rhinovir PCR NOT DETECTED 06/05/23 19:07 Nasal Influenza B PCR NOT DETECTED 06/05/23 19:07 Nasal Influenza A PCR NOT DETECTED 06/05/23 19:07 Nasal Parainfluen 1 PCR NOT DETECTED 06/05/23 19:07 Nasal Parainfluen 2 PCR NOT DETECTED 06/05/23 19:07 Nasal Parainfluen 3 PCR NOT DETECTED 06/05/23 19:07 Nasal Parainfluen 4 PCR NOT DETECTED 06/05/23 19:07 Nasal RSV (PCR) NOT DETECTED 06/05/23 19:07 Nasal B.pertussis DNA PCR NOT DETECTED 06/05/23 19:07 Nasal C.pneumoniae (PCR) NOT DETECTED 06/05/23 19:07 Scott Human Metapneumo PCR DETECTED A 06/05/23 19:07 Nasal M.pneumoniae (PCR) NOT DETECTED 06/05/23 19:07 Nasal SARS-CoV-2 (PCR) NOT DETECTED 06/05/23 19:07 Sepsis Event Note (H) - Evaluation Current Stage of Sepsis: Ruled out
[2023-06-09] MEDS: polyethylene glycoL 3350 17 GM PACKET PO SCH (08:52)
--- NOTE | 2023-06-09 19:10 | PROVIDER PROGRESS NOTE ---
Assessment/Plan - Problem List (1) COPD exacerbation Assessment/Plan: COPD exacerbation most likely secondary to viral infection, since her viral panel was positive for metapneumovirus She is still "tight", has wheezes, is tachypneic with mvm, and needs continued inpatient care Plan: Continue DuoNebs and Pulmicort nebs. 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 She is on home O2. She reports she has been admitted to the hospital 2-3 times over the last 12 months. In the event of a cardiopulmonary arrest she is DO NOT RESUSCITATE. Palliative care is following the patient. Plan: Continue tx of COPD exacerbation Continue supplemental oxygen, to keep sats >88% (3) Diabetes Mellitus As per Hx Plan: Cont fingerstick checks, Sliding scale insulin, DM diet and Hypoglycemia protocol (4) Hypertension Plan: Losartan dose was increased to 100 mg daily. Cont Cardizem (see #5) (5) Tachycardia She has been tachy with HR ~105 for nearly the entire admission. Part of that is from getting Duoneb, partly from stress/tachypnea. An EKG was done that confirmed Sinus tachy, rate 107, RA enlgm. Since EKG from 04/24/24, RA enlgm is new (she had LA enlgm then). Plan: Cont Cardizem 60 BID for controlling her tachycardia, adjust dose, while continuing to monitoring on telemetry - Current Meds Current Meds: Current Medications Generic Name Dose Route Start Last Admin Trade Name Lyndsay PRN Reason Stop Dose Admin Acetaminophen 650 mg 06/05/23 21:14 06/09/23 11:29 Acetaminophen 325 Mg Tablet PO 650 mg Q4HR PRN Administration Pain 1 to 4, or Fever Albuterol/Ipratropium 3 ml 06/05/23 21:13 06/06/23 05:43 Ipratropium/Albuterol 3 Ml Neb INH 3 ml TID PRN Administration Shortness of Air/Wheezing Ascorbic Acid 500 mg 06/06/23 09:00 06/09/23 08:58 Ascorbic Acid 500 Mg Tablet PO 500 mg DAILY LUCHO Administration Atorvastatin Calcium 10 mg 06/06/23 21:00 06/08/23 21:32 Atorvastatin 10 Mg Tablet PO 10 mg QPM LUCHO Administration Clopidogrel Bisulfate 75 mg 06/06/23 09:00 06/09/23 08:50 Clopidogrel 75 Mg Tablet PO 75 mg DAILY LUCHO Administration Diltiazem HCl 60 mg 06/08/23 09:00 06/09/23 08:50 Diltiazem 60 Mg Tablet PO 60 mg BID LUCHO Administration Imipramine HCl 150 mg 06/06/23 21:00 06/08/23 21:32 Imipramine 25 Mg Tablet PO 150 mg QPM LUCHO Administration Insulin Human Lispro 1 - 9 unit 06/07/23 08:00 06/09/23 17:08 Insulin Lispro 300 Unit/3 Ml Pen SUBQ 3 unit 0800,1200,1700,2100 LUCHO Administration Protocol Losartan Potassium 100 mg 06/07/23 21:00 06/08/23 21:32 Losartan 50 Mg Tablet PO 100 mg QPM LUCHO Administration Morphine Sulfate 5 mg 06/07/23 21:16 06/08/23 00:18 Morphine Wen 10 Mg/0.5 Ml Oral Syringe PO 5 mg Q4H PRN Administration Dyspnea Ondansetron HCl 4 mg 06/05/23 21:14 06/07/23 12:31 Ondansetron 4 Mg/2 Ml Vial IVP 4 mg Q6HR PRN Administration Nausea / Vomiting Patient Own Medication 1 each 06/08/23 09:00 06/09/23 08:59 Patient Own Med PO Not Given DAILY LUCHO Polyethylene Glycol 17 gm 06/09/23 09:00 06/09/23 08:52 Polyethylene Glycol 3350 17 Gm Packet PO 17 gm DAILY LUCHO Administration Sodium Chloride 10 ml 06/05/23 21:14 06/07/23 06:35 Sodium Chloride Flush 0.9% 10 Ml Syringe IVP 10 ml PRN PRN Administration NEEDED PER PROVIDER ORDERS Sodium Chloride 10 ml 06/06/23 01:00 06/09/23 17:01 Sodium Chloride Flush 0.9% 10 Ml Syringe IVP 10 ml 0100,0900,1700 LUCHO Administration - Lab Result Fish Bone Diagrams: 06/08/23 05:23 06/08/23 05:23 - Additional Planning My Orders: My Active Orders 06/09/23 09:00 polyethylene glycoL 3350 [Miralax] 17 gm PO DAILY 06/09/23 13:04 HYDROcod/ACETAM 5/325 [[place] 5/325] 1 tab PO Q8HR PRN 06/09/23 21:00 metFORMIN [Glucophage] 500 mg PO BID methylPREDNISolone SUCCINATE [SOLU-Medrol (40MG VIAL)] 40 mg IVP BID 06/11/23 21:00 methylPREDNISolone SUCCINATE [SOLU-Medrol (40MG VIAL)] 20 mg IVP BID Subjective - Subjective Patient Reports: Cough, Shortness of Breath Objective Vital Signs: Vital Signs - 24 hr 06/08/23 06/08/23 06/08/23 21:07 21:32 22:45 Temperature 36.1 C L Heart Rate [ 108 H Brachial] Respiratory 22 Rate Blood Pressure 161/106 H Blood Pressure [Left Brachial artery] Blood Pressure [Right Brachial artery] Blood Pressure 161/106 H [right leg] O2 Saturation 94 If not protocol 4 3 : Oxygen Flow, liters/minute 06/09/23 06/09/23 06/09/23 00:05 00:20 04:44 Temperature 36.5 C 36.7 C Heart Rate [ 78 75 Brachial] Respiratory 21 20 Rate Blood Pressure Blood Pressure [Left Brachial artery] Blood Pressure 151/98 H 151/95 H [Right Brachial artery] Blood Pressure [right leg] O2 Saturation 99 96 If not protocol 4 3 3 : Oxygen Flow, liters/minute 06/09/23 06/09/23 06/09/23 07:25 09:20 11:25 Temperature 36.8 C 36.8 C Heart Rate [ 87 98 Brachial] Respiratory 20 22 Rate Blood Pressure Blood Pressure 148/102 H 165/106 H [Left Brachial artery] Blood Pressure [Right Brachial artery] Blood Pressure [right leg] O2 Saturation 97 96 If not protocol 3 3 3 : Oxygen Flow, liters/minute 06/09/23 16:40 Temperature 36.0 C L Heart Rate [ 81 Brachial] Respiratory 20 Rate Blood Pressure Blood Pressure 165/95 H [Left Brachial artery] Blood Pressure [Right Brachial artery] Blood Pressure [right leg] O2 Saturation 94 If not protocol 3 : Oxygen Flow, liters/minute Oxygen O2 Source Nasal cannula I&O (Last 24 Hrs): Intake and Output Totals x24h 06/07/23 06/08/23 06/09/23 23:59 23:59 23:59 Intake Total 2400 1500 1860 Output Total 3100 600 900 Balance -700 900 960 General: Alert, Oriented x3, Other (Cachectic) HEENT: Mucous membr. moist/pink, Other (On O2 suppl) Neck: Supple Neuro: Alert, Non Focal Cardiovascular: Regular rate (Tachy) Respiratory: Wheezes (scattered), Other (Prolonged exp phase) Abdomen: Soft Extremities: No clubbing, No edema - Results Results: Laboratory Results WBC 11.7 x10^3/uL (4.8-10.8) H 06/08/23 05:23 RBC 4.12 10^6/uL (4.20-5.40) L 06/08/23 05:23 Hgb 10.9 g/dL (12.0-16.0) L 06/08/23 05:23 Hct 35.6 % (37.0-47.0) L 06/08/23 05:23 MCV 86.4 fL (81.0-99.0) 06/08/23 05:23 MCH 26.5 pg (27.0-31.0) L 06/08/23 05:23 MCHC 30.6 g/dL (32.0-36.0) L 06/08/23 05:23 RDW 16.8 % (12.0-15.0) H 06/08/23 05:23 Plt Count 322 10^3/uL (130-450) 06/08/23 05:23 MPV 9.3 fL (7.9-10.8) 06/08/23 05:23 Neut # (Auto) 9.7 10^3/uL (1.5-6.6) H 06/08/23 05:23 Lymph # (Auto) 1.2 10^3/uL (1.5-3.5) L 06/08/23 05:23 [place] # (Auto) 0.6 10^3/uL (0.0-1.0) 06/08/23 05:23 Eos # (Auto) 0.0 10^3/uL (0.0-0.7) 06/08/23 05:23 Baso # (Auto) 0.0 10^3/uL (0.0-0.1) 06/08/23 05:23 Absolute Nucleated RBC 0.00 x10^3/uL 06/08/23 05:23 Nucleated RBC % 0.0 /100WBC 06/08/23 05:23 Sodium 138 mmol/L (135-145) 06/08/23 05:23 Potassium 3.7 mmol/L (3.5-4.5) 06/08/23 05:23 Chloride 104 mmol/L (101-111) 06/08/23 05:23 Carbon Dioxide 27 mmol/L (21-32) 06/08/23 05:23 Anion Gap 7.0 (6-13) 06/08/23 05:23 BUN 29 mg/dL (6-20) H 06/08/23 05:23 Creatinine 1.0 mg/dL (0.6-1.3) 06/08/23 05:23 Estimated GFR (MDRD) 53 (>89) L 06/08/23 05:23 Glucose 123 mg/dL (74-104) H 06/08/23 05:23 POC Whole Bld Glucose 196 mg/dL (70 - 100) H 06/09/23 16:35 Estimat Average Glucose 151 mg/dL (70-100) H 06/06/23 05:17 Hemoglobin A1c % 6.9 % (4.27-6.07) H 06/06/23 05:17 Calcium 9.6 mg/dL (8.5-10.3) 06/08/23 05:23 Phosphorus 3.2 mg/dL (2.5-5.0) 06/08/23 05:23 Magnesium 1.7 mg/dL (1.7-2.3) 06/08/23 05:23 Total Bilirubin 0.4 mg/dL (0.2-1.0) 06/06/23 05:17 AST 14 IU/L (10-42) 06/06/23 05:17 ALT 10 IU/L (10-60) 06/06/23 05:17 Alkaline Phosphatase 64 IU/L (42-121) 06/06/23 05:17 Total Protein 5.7 g/dL (6.4-8.9) L 06/06/23 05:17 Albumin 3.5 g/dL (3.2-5.5) 06/06/23 05:17 Globulin 2.2 g/dL (2.1-4.2) 06/06/23 05:17 Albumin/Globulin Ratio 1.6 (1.0-2.2) 06/06/23 05:17 Lipase 12 U/L (11-82) 06/05/23 19:02 Nasal Adenovirus (PCR) NOT DETECTED 06/05/23 19:07 Nasal B. parapertussis DNA (PCR) NOT DETECTED 06/05/23 19:07 Nasal Coronavir 229E PCR NOT DETECTED 06/05/23 19:07 Nasal Coronavir HKU1 PCR NOT DETECTED 06/05/23 19:07 Nasal Coronavir NL63 PCR NOT DETECTED 06/05/23 19:07 Nasal Coronavir OC43 PCR NOT DETECTED 06/05/23 19:07 Nasal Enterovir/Rhinovir PCR NOT DETECTED 06/05/23 19:07 Nasal Influenza B PCR NOT DETECTED 06/05/23 19:07 Nasal Influenza A PCR NOT DETECTED 06/05/23 19:07 Nasal Parainfluen 1 PCR NOT DETECTED 06/05/23 19:07 Nasal Parainfluen 2 PCR NOT DETECTED 06/05/23 19:07 Nasal Parainfluen 3 PCR NOT DETECTED 06/05/23 19:07 Nasal Parainfluen 4 PCR NOT DETECTED 06/05/23 19:07 Nasal RSV (PCR) NOT DETECTED 06/05/23 19:07 Nasal B.pertussis DNA PCR NOT DETECTED 06/05/23 19:07 Nasal C.pneumoniae (PCR) NOT DETECTED 06/05/23 19:07 Scott Human Metapneumo PCR DETECTED A 06/05/23 19:07 Nasal M.pneumoniae (PCR) NOT DETECTED 06/05/23 19:07 Nasal SARS-CoV-2 (PCR) NOT DETECTED 06/05/23 19:07 Sepsis Event Note (H) - Evaluation Current Stage of Sepsis: Ruled out
[2023-06-09] MEDS ORDERED: METFORMIN HCL 500 MG PO SCH (21:00)
[2023-06-09] MEDS: methylPREDNISolone SUCCINATE 40 MG/ML VIAL IVP SCH (21:52)
[2023-06-09] MEDS: metFORMIN 500 MG TABLET PO SCH (21:52)
[2023-06-09] MEDS: INSULIN LISPRO 300 UNIT/3 ML PEN SUBQ SCH (21:58)
[2023-06-10] MEDS ORDERED: INSULIN LISPRO 300 UNIT/3 ML PEN SUBQ SCH (08:00)
[2023-06-10] MEDS: HYDROcod/ACETAM 5/325 MG TABLET PO PRN (16:03)
--- NOTE | 2023-06-10 18:32 | PROVIDER PROGRESS NOTE ---
Assessment/Plan - Problem List (1) COPD exacerbation Assessment/Plan: COPD exacerbation most likely secondary to viral infection, since her viral panel was positive for metapneumovirus She is still "tight", has scattered wheezes, is tachypneic with minimal mvm, and needs continued inpatient care Plan: Continue DuoNebs and Pulmicort nebs. Cont IV corticosteroids. I started to taper the iv steroid dose down slowly and I feel she is more tachypneic even at rest today. Will not taper steroids too quickly. Will add Mucinex Cont droplet isolation due to being positive for metapneumovirus I updated the daughter Jazlyn Miles by phone today at [phone]. (2) Acute on Chronic Respiratory Failure with hypoxia She is on home O2. 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 She reports she has been admitted to the hospital 2-3 times over the last 12 months. In the event of a cardiopulmonary arrest she is DO NOT RESUSCITATE. Palliative care is following the patient. Plan: Continue tx of COPD exacerbation Continue supplemental oxygen, to keep sats >88% (3) Diabetes Mellitus As per Hx Plan: Cont fingerstick checks, Sliding scale insulin, DM diet and Hypoglycemia protocol (4) Hypertension Plan: Losartan dose was increased to 100 mg daily. Cont Cardizem (see #5) (5) Tachycardia She has still been tachy with HR ~105 for nearly the entire admission. Part of that is from getting Duoneb, partly from stress/tachypnea. An EKG was done that confirmed Sinus tachy, rate 107, RA enlgm. Since EKG from 04/24/24, RA enlgm is new (she had LA enlgm then). The HR came down slightly to 90, then back to 105, despite being on 2 days of Cardizem 60 BID Plan: I will increase Cardizem 60 BID to TID, for controlling her tachycardia, adjust dose, while continuing to monitoring on telemetry - Current Meds Current Meds: Current Medications Generic Name Dose Route Start Last Admin Trade Name Freq PRN Reason Stop Dose Admin Acetaminophen 650 mg 06/05/23 21:14 06/10/23 05:45 Acetaminophen 325 Mg Tablet PO 650 mg Q4HR PRN Administration Pain 1 to 4, or Fever Hydrocodone Bitart/Acetaminophen 1 tab 06/09/23 13:04 02/08/24 16:03 Hydrocod/Acetam 5/325 Mg Tablet PO 1 tab Q8HR PRN Administration Pain 5 to 7 Albuterol/Ipratropium 3 ml 06/05/23 21:13 06/06/23 05:43 Ipratropium/Albuterol 3 Ml Neb INH 3 ml TID PRN Administration Shortness of Air/Wheezing Ascorbic Acid 500 mg 06/06/23 09:00 06/10/23 08:28 Ascorbic Acid 500 Mg Tablet PO 500 mg DAILY LUCHO Administration Atorvastatin Calcium 10 mg 06/06/23 21:00 06/09/23 21:51 Atorvastatin 10 Mg Tablet PO 10 mg QPM LUCHO Administration Clopidogrel Bisulfate 75 mg 06/06/23 09:00 06/10/23 08:24 Clopidogrel 75 Mg Tablet PO 75 mg DAILY LUCHO Administration Diltiazem HCl 60 mg 06/10/23 13:00 06/10/23 15:58 Diltiazem 60 Mg Tablet PO 60 mg QID LUCHO Administration Imipramine HCl 150 mg 06/06/23 21:00 06/09/23 21:52 Imipramine 25 Mg Tablet PO 150 mg QPM LUCHO Administration Insulin Human Lispro 2 - 10 unit 06/09/23 21:15 06/10/23 17:25 Insulin Lispro 300 Unit/3 Ml Pen SUBQ Not Given 0800,1200,1700,2100 [facility] Protocol Losartan Potassium 100 mg 06/07/23 21:00 06/09/23 21:53 Losartan 50 Mg Tablet PO 100 mg QPM LUCHO Administration Morphine Sulfate 5 mg 06/07/23 21:16 06/08/23 00:18 Morphine Wen 10 Mg/0.5 Ml Oral Syringe PO 5 mg Q4H PRN Administration Dyspnea Ondansetron HCl 4 mg 06/05/23 21:14 06/07/23 12:31 Ondansetron 4 Mg/2 Ml Vial IVP 4 mg Q6HR PRN Administration Nausea / Vomiting Patient Own Medication 1 each 06/08/23 09:00 06/10/23 08:27 Patient Own Med PO Not Given DAILY LUCHO Polyethylene Glycol 17 gm 06/09/23 09:00 06/10/23 08:24 Polyethylene Glycol 3350 17 Gm Packet PO 17 gm DAILY LUCHO Administration Sodium Chloride 10 ml 06/05/23 21:14 06/07/23 06:35 Sodium Chloride Flush 0.9% 10 Ml Syringe IVP 10 ml PRN PRN Administration NEEDED PER PROVIDER ORDERS Sodium Chloride 10 ml 06/06/23 01:00 06/10/23 15:58 Sodium Chloride Flush 0.9% 10 Ml Syringe IVP 10 ml 0100,0900,1700 [facility] Administration - Lab Result Fish Bone Diagrams: 06/08/23 05:23 06/08/23 05:23 - Additional Planning My Orders: My Active Orders 06/09/23 21:15 Insulin Lispro [Humalog Kwikpen U-100] 2 - 10 unit SUBQ 0800,1200,1700,2100 06/10/23 13:00 diltiaZEM [Cardizem] 60 mg PO QID 06/10/23 21:00 metFORMIN [Glucophage] 1,000 mg PO BID 06/11/23 21:00 methylPREDNISolone SUCCINATE [SOLU-Medrol (40MG VIAL)] 20 mg IVP BID Subjective - Subjective Patient Reports: Cough, Fatigue, Shortness of Breath Objective Vital Signs: Vital Signs - 24 hr 06/09/23 06/09/23 06/09/23 20:57 21:30 21:53 Temperature 36.7 C Heart Rate [ 90 Brachial] Heart Rate [ Monitoring electrodes] Respiratory 18 Rate Blood Pressure 168/106 H Blood Pressure 175/105 H [Left Brachial artery] Blood Pressure [Right Brachial artery] O2 Saturation 97 If not protocol 3 3 : Oxygen Flow, liters/minute 06/10/23 06/10/23 06/10/23 00:37 05:30 05:39 Temperature 36.5 C 36.5 C Heart Rate [ 84 94 89 Brachial] Heart Rate [ Monitoring electrodes] Respiratory 18 18 Rate Blood Pressure Blood Pressure [Left Brachial artery] Blood Pressure 133/92 H 150/102 H 145/94 H [Right Brachial artery] O2 Saturation 99 99 If not protocol 3 3 : Oxygen Flow, liters/minute 06/10/23 06/10/23 06/10/23 07:00 07:25 08:25 Temperature 36.6 C Heart Rate [ 93 Brachial] Heart Rate [ Monitoring electrodes] Respiratory 18 Rate Blood Pressure 166/104 H Blood Pressure [Left Brachial artery] Blood Pressure 166/104 H [Right Brachial artery] O2 Saturation 95 If not protocol 3 3 : Oxygen Flow, liters/minute 06/10/23 06/10/23 06/10/23 11:05 14:03 15:58 Temperature 36.8 C Heart Rate [ 101 H Brachial] Heart Rate [ Monitoring electrodes] Respiratory 18 Rate Blood Pressure 152/103 H 152/92 H Blood Pressure [Left Brachial artery] Blood Pressure 168/114 H [Right Brachial artery] O2 Saturation 96 If not protocol 3 : Oxygen Flow, liters/minute 06/10/23 06/10/23 16:00 17:36 Temperature 36.6 C 36.8 C Heart Rate [ 85 Brachial] Heart Rate [ 98 Monitoring electrodes] Respiratory 26 H 20 Rate Blood Pressure Blood Pressure [Left Brachial artery] Blood Pressure 138/78 H [Right Brachial artery] O2 Saturation 98 95 If not protocol 3 3 : Oxygen Flow, liters/minute Oxygen O2 Source Nasal cannula I&O (Last 24 Hrs): Intake and Output Totals x24h 06/08/23 06/09/23 06/10/23 23:59 23:59 23:59 Intake Total 1500 1860 1280 Output Total 600 1400 950 Balance 900 460 330 General: Alert, Oriented x3, Moderate distress (Is currently tachypneic at rest, sitting in chair) HEENT: Mucous membr. moist/pink, Other (Cachectic) Neck: Supple Neuro: Alert, Non Focal Cardiovascular: Other (Tachy, distant heart sounds due to hyperaeration (COPD)) Abdomen: Soft Extremities: No edema, No tenderness/swelling - Results Results: Laboratory Results WBC 11.7 x10^3/uL (4.8-10.8) H 06/08/23 05:23 RBC 4.12 10^6/uL (4.20-5.40) L 06/08/23 05:23 Hgb 10.9 g/dL (12.0-16.0) L 06/08/23 05:23 Hct 35.6 % (37.0-47.0) L 06/08/23 05:23 MCV 86.4 fL (81.0-99.0) 06/08/23 05:23 MCH 26.5 pg (27.0-31.0) L 06/08/23 05:23 MCHC 30.6 g/dL (32.0-36.0) L 06/08/23 05:23 RDW 16.8 % (12.0-15.0) H 06/08/23 05:23 Plt Count 322 10^3/uL (130-450) 06/08/23 05:23 MPV 9.3 fL (7.9-10.8) 06/08/23 05:23 Neut # (Auto) 9.7 10^3/uL (1.5-6.6) H 06/08/23 05:23 Lymph # (Auto) 1.2 10^3/uL (1.5-3.5) L 06/08/23 05:23 [place] # (Auto) 0.6 10^3/uL (0.0-1.0) 06/08/23 05:23 Eos # (Auto) 0.0 10^3/uL (0.0-0.7) 06/08/23 05:23 Baso # (Auto) 0.0 10^3/uL (0.0-0.1) 06/08/23 05:23 Absolute Nucleated RBC 0.00 x10^3/uL 06/08/23 05:23 Nucleated RBC % 0.0 /100WBC 06/08/23 05:23 Sodium 138 mmol/L (135-145) 06/08/23 05:23 Potassium 3.7 mmol/L (3.5-4.5) 06/08/23 05:23 Chloride 104 mmol/L (101-111) 06/08/23 05:23 Carbon Dioxide 27 mmol/L (21-32) 06/08/23 05:23 Anion Gap 7.0 (6-13) 06/08/23 05:23 BUN 29 mg/dL (6-20) H 06/08/23 05:23 Creatinine 1.0 mg/dL (0.6-1.3) 06/08/23 05:23 Estimated GFR (MDRD) 53 (>89) L 06/08/23 05:23 Glucose 123 mg/dL (74-104) H 06/08/23 05:23 POC Whole Bld Glucose 140 mg/dL (70 - 100) H 06/10/23 17:04 Estimat Average Glucose 151 mg/dL (70-100) H 06/06/23 05:17 Hemoglobin A1c % 6.9 % (4.27-6.07) H 06/06/23 05:17 Calcium 9.6 mg/dL (8.5-10.3) 06/08/23 05:23 Phosphorus 3.2 mg/dL (2.5-5.0) 06/08/23 05:23 Magnesium 1.7 mg/dL (1.7-2.3) 06/08/23 05:23 Total Bilirubin 0.4 mg/dL (0.2-1.0) 06/06/23 05:17 AST 14 IU/L (10-42) 06/06/23 05:17 ALT 10 IU/L (10-60) 06/06/23 05:17 Alkaline Phosphatase 64 IU/L (42-121) 06/06/23 05:17 Total Protein 5.7 g/dL (6.4-8.9) L 06/06/23 05:17 Albumin 3.5 g/dL (3.2-5.5) 06/06/23 05:17 Globulin 2.2 g/dL (2.1-4.2) 06/06/23 05:17 Albumin/Globulin Ratio 1.6 (1.0-2.2) 06/06/23 05:17 Lipase 12 U/L (11-82) 06/05/23 19:02 Nasal Adenovirus (PCR) NOT DETECTED 06/05/23 19:07 Nasal B. parapertussis DNA (PCR) NOT DETECTED 06/05/23 19:07 Nasal Coronavir 229E PCR NOT DETECTED 06/05/23 19:07 Nasal Coronavir HKU1 PCR NOT DETECTED 06/05/23 19:07 Nasal Coronavir NL63 PCR NOT DETECTED 06/05/23 19:07 Nasal Coronavir OC43 PCR NOT DETECTED 06/05/23 19:07 Nasal Enterovir/Rhinovir PCR NOT DETECTED 06/05/23 19:07 Nasal Influenza B PCR NOT DETECTED 06/05/23 19:07 Nasal Influenza A PCR NOT DETECTED 06/05/23 19:07 Nasal Parainfluen 1 PCR NOT DETECTED 06/05/23 19:07 Nasal Parainfluen 2 PCR NOT DETECTED 06/05/23 19:07 Nasal Parainfluen 3 PCR NOT DETECTED 06/05/23 19:07 Nasal Parainfluen 4 PCR NOT DETECTED 06/05/23 19:07 Nasal RSV (PCR) NOT DETECTED 06/05/23 19:07 Nasal B.pertussis DNA PCR NOT DETECTED 06/05/23 19:07 Nasal C.pneumoniae (PCR) NOT DETECTED 06/05/23 19:07 Scott Human Metapneumo PCR DETECTED A 06/05/23 19:07 Nasal M.pneumoniae (PCR) NOT DETECTED 06/05/23 19:07 Nasal SARS-CoV-2 (PCR) NOT DETECTED 06/05/23 19:07 Sepsis Event Note (H) - Evaluation Current Stage of Sepsis: Ruled out
[2023-06-10] MEDS: metFORMIN 500 MG TABLET PO SCH (21:35)
--- NOTE | 2023-06-11 08:18 | PROVIDER PROGRESS NOTE ---
Assessment/Plan - Problem List (1) COPD exacerbation Assessment/Plan: COPD exacerbation most likely secondary to viral infection, since her viral panel was positive for metapneumovirus She is still "tight", has scattered wheezes, is tachypneic with minimal mvm, and needs continued inpatient care Plan: Continue DuoNebs and Pulmicort nebs. Cont IV corticosteroids. I started to taper the iv steroid dose down slowly and I feel she is more tachypneic even at rest today. Will not taper steroids too quickly. Will add Mucinex Will start Montelukast qpm Cont droplet isolation due to being positive for metapneumovirus (2) Acute on Chronic Respiratory Failure with hypoxia She is on home O2. 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 She reports she has been admitted to the hospital 2-3 times over the last 12 months. In the event of a cardiopulmonary arrest she is DO NOT RESUSCITATE. Palliative care is following the patient. Plan: Continue tx of COPD exacerbation Continue supplemental oxygen, to keep sats >88% (3) Anemia Her Hgb runs 9.6-11. Today Hgb 11. This is low for someone who should have a compensatory high Hct from COPD. Yesterday spoke to her daughter Jazlyn Kasper who told me that the patient is due for a IV dextran infusion that she gets at the [facility] [place]. Plan: I will order IV dextran here x1 while she is an inpatient Will add po Ferrous Gluconate w/ vit C (4) Tachycardia She was tachycardic from adm until today, HR was continuously 105. Part of that was from getting Duoneb, partly caused by hypoxia/tachypnea and partly from anemia and being on HCTZ at home. An EKG was done that confirmed Sinus tachy, rate 107, with P pulmonale (RA enlgm). The HR has improved since starting Cardizem 60 BID>> 60 QID since yesterday. HR is 80 today (all VS were reviewed) Plan: Cont Cardizem 60 QID Remain off HCTZ, resume only if she has edema and if BP will tolerate it Work on her anemia as above (5) Diabetes Mellitus As per Hx. Her glu are running as high as 397, likely from being on iv steroids She was on metformin 500 BID at home, which I increased to 1000 BID Plan: Cont Metformin, fingerstick checks, Sliding scale insulin, DM diet and Hypoglycemia protocol (6) Hypertension She was on Losartan and HCTZ at home Plan: Losartan dose was increased to 100 mg daily. HCTZ was not resumed in order to uset new Cardizem (see #4) - Current Meds Current Meds: Current Medications Generic Name Dose Route Start Last Admin Trade Name Freq PRN Reason Stop Dose Admin Acetaminophen 650 mg 06/05/23 21:14 06/10/23 05:45 Acetaminophen 325 Mg Tablet PO 650 mg Q4HR PRN Administration Pain 1 to 4, or Fever Hydrocodone Bitart/Acetaminophen 1 tab 06/09/23 13:04 06/10/23 16:03 Hydrocod/Acetam 5/325 Mg Tablet PO 1 tab Q8HR PRN Administration Pain 5 to 7 Albuterol/Ipratropium 3 ml 06/05/23 21:13 06/11/23 06:05 Ipratropium/Albuterol 3 Ml Neb INH 3 ml TID PRN Administration Shortness of Air/Wheezing Ascorbic Acid 500 mg 06/06/23 09:00 06/10/23 08:28 Ascorbic Acid 500 Mg Tablet PO 500 mg DAILY LUCHO Administration Atorvastatin Calcium 10 mg 06/06/23 21:00 06/10/23 21:35 Atorvastatin 10 Mg Tablet PO 10 mg QPM LUCHO Administration Clopidogrel Bisulfate 75 mg 06/06/23 09:00 06/10/23 08:24 Clopidogrel 75 Mg Tablet PO 75 mg DAILY LUCHO Administration Diltiazem HCl 60 mg 06/10/23 13:00 06/10/23 21:37 Diltiazem 60 Mg Tablet PO 60 mg QID LUCHO Administration Imipramine HCl 150 mg 06/06/23 21:00 06/10/23 21:34 Imipramine 25 Mg Tablet PO 150 mg QPM LUCHO Administration Insulin Human Lispro 2 - 10 unit 06/09/23 21:15 06/10/23 21:32 Insulin Lispro 300 Unit/3 Ml Pen SUBQ 12 unit 0800,1200,1700,2100 LUCHO Administration Protocol Losartan Potassium 100 mg 06/07/23 21:00 06/10/23 21:37 Losartan 50 Mg Tablet PO 100 mg QPM LUCHO Administration Metformin HCl 1,000 mg 06/10/23 21:00 06/10/23 21:35 Metformin 500 Mg Tablet PO 1,000 mg BID LUCHO Administration Morphine Sulfate 5 mg 06/07/23 21:16 06/08/23 00:18 Morphine Wen 10 Mg/0.5 Ml Oral Syringe PO 5 mg Q4H PRN Administration Dyspnea Ondansetron HCl 4 mg 06/05/23 21:14 06/07/23 12:31 Ondansetron 4 Mg/2 Ml Vial IVP 4 mg Q6HR PRN Administration Nausea / Vomiting Patient Own Medication 1 each 06/08/23 09:00 06/10/23 08:27 Patient Own Med PO Not Given DAILY LUCHO Polyethylene Glycol 17 gm 06/09/23 09:00 06/10/23 08:24 Polyethylene Glycol 3350 17 Gm Packet PO 17 gm DAILY LUCHO Administration Sodium Chloride 10 ml 06/05/23 21:14 06/07/23 06:35 Sodium Chloride Flush 0.9% 10 Ml Syringe IVP 10 ml PRN PRN Administration NEEDED PER PROVIDER ORDERS Sodium Chloride 10 ml 06/06/23 01:00 06/11/23 01:10 Sodium Chloride Flush 0.9% 10 Ml Syringe IVP 10 ml 0100,0900,1700 LUCHO Administration - Lab Result Fish Bone Diagrams: 06/11/23 09:20 06/11/23 09:20 - Additional Planning My Orders: My Active Orders 06/10/23 13:00 diltiaZEM [Cardizem] 60 mg PO QID 06/10/23 21:00 metFORMIN [Glucophage] 1,000 mg PO BID 06/11/23 BMP - BASIC METABOLIC PANEL [CHEM] Urgent CBC - COMP BLD CT W/AUTO DIFF [HEME] Urgent 06/11/23 21:00 methylPREDNISolone SUCCINATE [SOLU-Medrol (40MG VIAL)] 20 mg IVP BID Subjective - Subjective Patient Reports: Feeling Better (She is less short of breath with talking, still very short of breath with activity) Objective Vital Signs: Vital Signs - 24 hr 06/10/23 06/10/23 06/10/23 08:25 11:05 14:03 Temperature 36.8 C Heart Rate Heart Rate [ 101 H Brachial] Heart Rate [ Monitoring electrodes] Respiratory 18 Rate Blood Pressure 166/104 H 152/103 H Blood Pressure [Left Brachial artery] Blood Pressure 168/114 H [Right Brachial artery] O2 Saturation 96 If not protocol 3 : Oxygen Flow, liters/minute 06/10/23 06/10/23 06/10/23 15:58 16:00 17:36 Temperature 36.6 C 36.8 C Heart Rate Heart Rate [ 85 Brachial] Heart Rate [ 98 Monitoring electrodes] Respiratory 26 H 20 Rate Blood Pressure 152/92 H Blood Pressure [Left Brachial artery] Blood Pressure 138/78 H [Right Brachial artery] O2 Saturation 98 95 If not protocol 3 3 : Oxygen Flow, liters/minute 06/10/23 06/10/23 06/10/23 19:40 20:20 21:37 Temperature 36.5 C Heart Rate 85 Heart Rate [ 82 Brachial] Heart Rate [ Monitoring electrodes] Respiratory 20 20 Rate Blood Pressure 139/85 H Blood Pressure [Left Brachial artery] Blood Pressure 128/77 [Right Brachial artery] O2 Saturation 93 If not protocol 3 3 : Oxygen Flow, liters/minute 06/11/23 06/11/23 06/11/23 00:48 05:23 06:05 Temperature 36.2 C L 36.3 C L Heart Rate 80 Heart Rate [ 80 83 Brachial] Heart Rate [ Monitoring electrodes] Respiratory 20 18 20 Rate Blood Pressure Blood Pressure 143/83 H [Left Brachial artery] Blood Pressure 142/84 H [Right Brachial artery] O2 Saturation 96 96 If not protocol 3 3 3 : Oxygen Flow, liters/minute Oxygen O2 Source Nasal cannula I&O (Last 24 Hrs): Intake and Output Totals x24h 06/09/23 06/10/23 06/11/23 23:59 23:59 23:59 Intake Total 1860 1760 100 Output Total 1400 950 400 Balance 460 810 -300 General: Alert, Oriented x3 HEENT: Mucous membr. moist/pink, Other (Cachectic) Neck: Supple Neuro: Alert, Non Focal Cardiovascular: No murmurs (Due to distant heart sounds due to COPD) Respiratory: Wheezes (Poor air movement in apices, better air movement in bases) Abdomen: Soft, No tenderness Extremities: No edema, No tenderness/swelling - Results Results: Laboratory Results WBC 11.7 x10^3/uL (4.8-10.8) H 06/08/23 05:23 RBC 4.12 10^6/uL (4.20-5.40) L 06/08/23 05:23 Hgb 10.9 g/dL (12.0-16.0) L 06/08/23 05:23 Hct 35.6 % (37.0-47.0) L 06/08/23 05:23 MCV 86.4 fL (81.0-99.0) 06/08/23 05:23 MCH 26.5 pg (27.0-31.0) L 06/08/23 05:23 MCHC 30.6 g/dL (32.0-36.0) L 06/08/23 05:23 RDW 16.8 % (12.0-15.0) H 06/08/23 05:23 Plt Count 322 10^3/uL (130-450) 06/08/23 05:23 MPV 9.3 fL (7.9-10.8) 06/08/23 05:23 Neut # (Auto) 9.7 10^3/uL (1.5-6.6) H 06/08/23 05:23 Lymph # (Auto) 1.2 10^3/uL (1.5-3.5) L 06/08/23 05:23 [place] # (Auto) 0.6 10^3/uL (0.0-1.0) 06/08/23 05:23 Eos # (Auto) 0.0 10^3/uL (0.0-0.7) 06/08/23 05:23 Baso # (Auto) 0.0 10^3/uL (0.0-0.1) 06/08/23 05:23 Absolute Nucleated RBC 0.00 x10^3/uL 06/08/23 05:23 Nucleated RBC % 0.0 /100WBC 06/08/23 05:23 Sodium 138 mmol/L (135-145) 06/08/23 05:23 Potassium 3.7 mmol/L (3.5-4.5) 06/08/23 05:23 Chloride 104 mmol/L (101-111) 06/08/23 05:23 Carbon Dioxide 27 mmol/L (21-32) 06/08/23 05:23 Anion Gap 7.0 (6-13) 06/08/23 05:23 BUN 29 mg/dL (6-20) H 06/08/23 05:23 Creatinine 1.0 mg/dL (0.6-1.3) 06/08/23 05:23 Estimated GFR (MDRD) 53 (>89) L 06/08/23 05:23 Glucose 123 mg/dL (74-104) H 06/08/23 05:23 POC Whole Bld Glucose 392 mg/dL (70 - 100) H 06/10/23 20:37 Estimat Average Glucose 151 mg/dL (70-100) H 06/06/23 05:17 Hemoglobin A1c % 6.9 % (4.27-6.07) H 06/06/23 05:17 Calcium 9.6 mg/dL (8.5-10.3) 06/08/23 05:23 Phosphorus 3.2 mg/dL (2.5-5.0) 06/08/23 05:23 Magnesium 1.7 mg/dL (1.7-2.3) 06/08/23 05:23 Total Bilirubin 0.4 mg/dL (0.2-1.0) 06/06/23 05:17 AST 14 IU/L (10-42) 06/06/23 05:17 ALT 10 IU/L (10-60) 06/06/23 05:17 Alkaline Phosphatase 64 IU/L (42-121) 06/06/23 05:17 Total Protein 5.7 g/dL (6.4-8.9) L 06/06/23 05:17 Albumin 3.5 g/dL (3.2-5.5) 06/06/23 05:17 Globulin 2.2 g/dL (2.1-4.2) 06/06/23 05:17 Albumin/Globulin Ratio 1.6 (1.0-2.2) 06/06/23 05:17 Lipase 12 U/L (11-82) 06/05/23 19:02 Nasal Adenovirus (PCR) NOT DETECTED 06/05/23 19:07 Nasal B. parapertussis DNA (PCR) NOT DETECTED 06/05/23 19:07 Nasal Coronavir 229E PCR NOT DETECTED 06/05/23 19:07 Nasal Coronavir HKU1 PCR NOT DETECTED 06/05/23 19:07 Nasal Coronavir NL63 PCR NOT DETECTED 06/05/23 19:07 Nasal Coronavir OC43 PCR NOT DETECTED 06/05/23 19:07 Nasal Enterovir/Rhinovir PCR NOT DETECTED 06/05/23 19:07 Nasal Influenza B PCR NOT DETECTED 06/05/23 19:07 Nasal Influenza A PCR NOT DETECTED 06/05/23 19:07 Nasal Parainfluen 1 PCR NOT DETECTED 06/05/23 19:07 Nasal Parainfluen 2 PCR NOT DETECTED 06/05/23 19:07 Nasal Parainfluen 3 PCR NOT DETECTED 06/05/23 19:07 Nasal Parainfluen 4 PCR NOT DETECTED 06/05/23 19:07 Nasal RSV (PCR) NOT DETECTED 06/05/23 19:07 Nasal B.pertussis DNA PCR NOT DETECTED 06/05/23 19:07 Nasal C.pneumoniae (PCR) NOT DETECTED 06/05/23 19:07 Scott Human Metapneumo PCR DETECTED A 06/05/23 19:07 Nasal M.pneumoniae (PCR) NOT DETECTED 06/05/23 19:07 Nasal SARS-CoV-2 (PCR) NOT DETECTED 06/05/23 19:07 Sepsis Event Note (H) - Evaluation Current Stage of Sepsis: Ruled out
[2023-06-11] MEDS ORDERED: IPRATROPIUM/ALBUTEROL 3 ML NEB INH PRN (08:22)
[2023-06-11 09:28] LABS: BASOPHILS % (AUTO) 0.1 %; EOSINOPHILS % (AUTO) 0.1 %; HCT - HEMATOCRIT 36.8 % (37.0-47.0); HGB - HEMOGLOBIN 11.2 g/dL (12.0-16.0); LYMPHOCYTES # (AUTO) 0.8 10^3/uL (1.5-3.5); LYMPHOCYTES % (AUTO) 4.8 %; MEAN CORPUSCULAR HEMOGLOBIN 26.5 pg (27.0-31.0); MEAN CORPUSCULAR HGB CONC 30.4 g/dL (32.0-36.0); MEAN PLATELET VOLUME 9.3 fL (7.9-10.8); MONOCYTES % (AUTO) 5.6 %; NEUTROPHILS # (AUTO) 15.5 10^3/uL (1.5-6.6); NEUTROPHILS % (AUTO) 88.8 %; PLT - PLATELET COUNT 370 10^3/uL (130-450); RED BLOOD COUNT 4.23 10^6/uL (4.20-5.40); RED CELL DISTRIBUTION WIDTH 17.2 % (12.0-15.0); WHITE BLOOD COUNT 17.4 x10^3/uL (4.8-10.8)
[2023-06-11] MEDS: IRON DEXTRAN 1,000 MG in SODIUM CHLORIDE 0.9% 250 ML IV ONE (10:03)
[2023-06-11 10:04] LABS: CALCIUM 9.7 mg/dL (8.5-10.3); CREATININE 1.2 mg/dL (0.6-1.3); POTASSIUM 4.4 mmol/L (3.5-4.5)
[2023-06-11] MEDS: guaiFENesin 600 MG TABLET PO SCH (10:08)
[2023-06-11] MEDS: BUDESONIDE 0.5 MG/2 ML NEB INH SCH (10:22)
[2023-06-11] MEDS: IPRATROPIUM/ALBUTEROL 3 ML NEB INH SCH (10:23)
[2023-06-11] MEDS: DOCUSATE SODIUM 250 MG CAPSULE PO SCH (11:35)
[2023-06-11] MEDS: SENNA 8.6 MG TABLET PO SCH (11:35)
[2023-06-11] MEDS: methylPREDNISolone SUCCINATE 40 MG/ML VIAL IVP SCH (11:35)
[2023-06-11] MEDS: CYANOCOBALAMIN 500 MCG TABLET PO SCH (13:34)
[2023-06-11] MEDS: MONTELUKAST 10 MG TABLET PO SCH (20:06)
[2023-06-11] MEDS: SOLIFENACIN SUCCINATE 5 MG TABLET PO SCH (20:06)
[2023-06-11] MEDS ORDERED: methylPREDNISolone SUCCINATE 40 MG/ML VIAL IVP SCH (21:00)
--- NOTE | 2023-06-12 08:11 | PROVIDER PROGRESS NOTE ---
Assessment/Plan - Problem List (1) COPD exacerbation Assessment/Plan: COPD exacerbation most likely secondary to viral infection, since her viral panel was positive for metapneumovirus She is still "tight", has scattered wheezes, is tachypneic with minimal mvm, and needs continued inpatient care Plan: Continue DuoNebs and Pulmicort nebs. Cont IV corticosteroids with a very slow taper planned. Cont new Mucinex Cont new Montelukast qpm Cont droplet isolation due to being positive for metapneumovirus I updated the daughter Trina at bedside today (2) Acute on Chronic Respiratory Failure with hypoxia She is on home O2. 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 She reports she has been admitted to the hospital 2-3 times over the last 12 months. In the event of a cardiopulmonary arrest she is DO NOT RESUSCITATE. Palliative care is following the patient. Plan: Continue tx of COPD exacerbation Continue supplemental oxygen, to keep sats 88% or above. (3) Orthostatic Hypotension While working with PT and OT yesterday she was very orthostatic and was symptomatic: Supine BP 133/82, HR 96. Seated BP 122/77, HR 103. Standing BP 87/62, HR 110 Plan: I will give saline bolus and a day of iv hydration Remain off HCTZ I will decrease her Losartan dose Check orthostatic vital signs daily (4) Prerenal azotemia Per labs yesterday 06/11, her BUN/creat was 20/1.2 Plan: Remain off HCTZ Encourage po liquids I will give saline bolus and a day of iv hydration Follow BMP daily (5) Anemia Her Hgb runs 9.6-11. This is low for someone who should have a compensatory high Hct from COPD. I spoke to her daughter Jazlyn Kasper who told me that the patient is due for a IV dextran infusion [place] [facility] [place] It was given yesterday Plan: Cont new po Ferrous Gluconate w/ vit C (6) Diabetes Mellitus As per Hx. Her glu are running as high as 397, likely from being on iv steroids She was on metformin 500 BID at home, which I increased to 1000 BID Plan: Cont Metformin, fingerstick checks, Sliding scale insulin, DM diet and Hypoglycemia protocol (7) Hypertension She was on Losartan and HCTZ at home Losartan dose was increased to 100 mg daily. HCTZ was not resumed in order to use new Cardizem (see #8) Plan: I will decrease the Losartan dose back down because of orthostasis (8) Tachycardia RESOLVED She was tachycardic from adm until 06/11/23, HR was continuously 105. Part of that was from getting Duoneb, partly caused by hypoxia/tachypnea and partly from anemia and being on HCTZ at home. An EKG was done that confirmed Sinus tachy, rate 107, with P pulmonale (RA enlgm). The HR has improved since starting Cardizem 60 BID>> 60 QID. HR is 80 today (all VS were reviewed) Plan: Cont Cardizem 60 QID Remain off HCTZ, resume only if she has edema and if BP will tolerate it - Current Meds Current Meds: Current Medications Generic Name Dose Route Start Last Admin Trade Name Freq PRN Reason Stop Dose Admin Acetaminophen 650 mg 06/05/23 21:14 06/11/23 13:56 Acetaminophen 325 Mg Tablet PO 650 mg Q4HR PRN Administration Pain 1 to 4, or Fever Hydrocodone Bitart/Acetaminophen 1 tab 06/09/23 13:04 06/10/23 16:03 Hydrocod/Acetam 5/325 Mg Tablet PO 1 tab Q8HR PRN Administration Pain 5 to 7 Albuterol/Ipratropium 3 ml 06/11/23 08:21 06/12/23 06:10 Ipratropium/Albuterol 3 Ml Neb INH 3 ml RTTID LUCHO Administration Ascorbic Acid 500 mg 06/06/23 09:00 06/11/23 10:08 Ascorbic Acid 500 Mg Tablet PO 500 mg DAILY LUCHO Administration Atorvastatin Calcium 10 mg 06/06/23 21:00 06/11/23 20:00 Atorvastatin 10 Mg Tablet PO 10 mg QPM LUCHO Administration Budesonide 0.5 mg 06/11/23 08:22 06/12/23 06:10 Budesonide 0.5 Mg/2 Ml Neb INH 0.5 mg RTBID LUCHO Administration Clopidogrel Bisulfate 75 mg 06/06/23 09:00 06/11/23 10:08 Clopidogrel 75 Mg Tablet PO 75 mg DAILY LUCHO Administration Cyanocobalamin 500 mcg 06/11/23 10:00 06/11/23 13:34 Cyanocobalamin 500 Mcg Tablet PO 500 mcg DAILY LUCHO Administration Diltiazem HCl 60 mg 06/10/23 13:00 06/11/23 20:00 Diltiazem 60 Mg Tablet PO 60 mg QID LUCHO Administration Docusate Sodium 250 - 500 mg 06/11/23 11:00 06/11/23 11:35 Docusate Sodium 250 Mg Capsule PO 500 mg DAILY LUCHO Administration Guaifenesin 600 mg 06/11/23 09:00 06/11/23 20:00 Guaifenesin 600 Mg Tablet PO 600 mg BID LUCHO Administration Imipramine HCl 150 mg 06/06/23 21:00 06/11/23 19:59 Imipramine 25 Mg Tablet PO 150 mg QPM LUCHO Administration Insulin Human Lispro 2 - 10 unit 06/09/23 21:15 06/11/23 20:08 Insulin Lispro 300 Unit/3 Ml Pen SUBQ 6 unit 0800,1200,1700,2100 LUCHO Administration Protocol Losartan Potassium 100 mg 06/07/23 21:00 06/11/23 19:59 Losartan 50 Mg Tablet PO 100 mg QPM LUCHO Administration Metformin HCl 1,000 mg 06/10/23 21:00 06/11/23 19:59 Metformin 500 Mg Tablet PO 1,000 mg BID LUCHO Administration Methylprednisolone 40 mg 06/11/23 09:00 06/11/23 20:00 Methylprednisolone Succinate 40 Mg/Ml Vial IVP 40 mg BID LUCHO Administration Montelukast Sodium 10 mg 06/11/23 21:00 06/11/23 20:06 Montelukast 10 Mg Tablet PO 10 mg QPM LUCHO Administration Morphine Sulfate 5 mg 06/07/23 21:16 06/08/23 00:18 Morphine Wen 10 Mg/0.5 Ml Oral Syringe PO 5 mg Q4H PRN Administration Dyspnea Ondansetron HCl 4 mg 06/05/23 21:14 06/07/23 12:31 Ondansetron 4 Mg/2 Ml Vial IVP 4 mg Q6HR PRN Administration Nausea / Vomiting Patient Own Medication 1 each 06/08/23 09:00 06/11/23 10:09 Patient Own Med PO Not Given DAILY LUCHO Polyethylene Glycol 17 gm 06/09/23 09:00 06/11/23 10:09 Polyethylene Glycol 3350 17 Gm Packet PO 17 gm DAILY LUCHO Administration Senna 8.6 - 17.2 mg 06/11/23 11:00 06/11/23 11:35 Senna 8.6 Mg Tablet PO 17.2 mg DAILY LUCHO Administration Sodium Chloride 10 ml 06/05/23 21:14 06/07/23 06:35 Sodium Chloride Flush 0.9% 10 Ml Syringe IVP 10 ml PRN PRN Administration NEEDED PER PROVIDER ORDERS Sodium Chloride 10 ml 06/06/23 01:00 06/12/23 00:55 Sodium Chloride Flush 0.9% 10 Ml Syringe IVP 10 ml 0100,0900,1700 LUCHO Administration Solifenacin 5 mg 06/11/23 21:00 06/11/23 20:06 Solifenacin Succinate 5 Mg Tablet PO 5 mg QPM LUCHO Administration - Lab Result Fish Bone Diagrams: 06/13/23 05:35 06/13/23 05:35 - Additional Planning My Orders: My Active Orders 06/11/23 08:21 Ipratropium/Albuterol [Duoneb] 3 ml INH RTTID 06/11/23 08:22 Budesonide [Pulmicort] 0.5 mg INH RTBID Ipratropium/Albuterol [Duoneb] 3 ml INH Q4H PRN 06/11/23 09:00 guaiFENesin [Mucinex] 600 mg PO BID methylPREDNISolone SUCCINATE [SOLU-Medrol (40MG VIAL)] 40 mg IVP BID 06/11/23 10:00 Cyanocobalamin [Vitamin B-12] 500 mcg PO DAILY 06/11/23 11:00 Docusate Sodium 250Mg Capsule [Colace 250Mg Capsule] 250 - 500 mg PO DAILY Senna [Senokot] 8.6 - 17.2 mg PO DAILY 06/11/23 21:00 Montelukast [Singulair] 10 mg PO QPM Solifenacin Succinate [Vesicare] 5 mg PO QPM 06/12/23 08:00 Ferrous Gluconate [Fergon] 324 mg PO DAILYWM 06/13/23 05:00 BMP - BASIC METABOLIC PANEL [CHEM] DAILYLAB CALCIUM [CHEM] DAILYLAB CBC - COMP BLD CT W/AUTO DIFF [HEME] DAILYLAB MAGNESIUM [CHEM] DAILYLAB PHOSPHORUS [CHEM] DAILYLAB Subjective - Subjective Patient Reports: Feeling Better (Breathing is better but very dizzy when upright), Dizzines Objective Vital Signs: Vital Signs - 24 hr 06/11/23 06/11/23 06/11/23 09:00 10:11 10:25 Temperature 36.6 C Heart Rate 88 Heart Rate [ 84 Brachial] Heart Rate [ Monitoring electrodes] Respiratory 20 22 Rate Blood Pressure 121/75 Blood Pressure [Left Brachial artery] Blood Pressure 121/75 [Right Brachial artery] O2 Saturation If not protocol 3 : Oxygen Flow, liters/minute 06/11/23 06/11/23 06/11/23 12:46 13:31 13:34 Temperature 37.2 C Heart Rate Heart Rate [ 95 Brachial] Heart Rate [ 99 Monitoring electrodes] Respiratory 20 20 Rate Blood Pressure 137/94 H Blood Pressure [Left Brachial artery] Blood Pressure 120/75 137/94 H [Right Brachial artery] O2 Saturation 92 90 L If not protocol 3 4 : Oxygen Flow, liters/minute 06/11/23 06/11/23 06/11/23 16:40 16:55 18:18 Temperature 36.6 C Heart Rate Heart Rate [ 92 Brachial] Heart Rate [ Monitoring electrodes] Respiratory 20 Rate Blood Pressure 127/78 Blood Pressure [Left Brachial artery] Blood Pressure 127/78 [Right Brachial artery] O2 Saturation 91 L If not protocol 4 2 : Oxygen Flow, liters/minute 06/11/23 06/12/23 06/12/23 19:59 00:25 05:19 Temperature 36.6 C 36.0 C L 36.4 C L Heart Rate Heart Rate [ 92 80 79 Brachial] Heart Rate [ Monitoring electrodes] Respiratory 16 22 20 Rate Blood Pressure Blood Pressure 101/73 162/96 H [Left Brachial artery] Blood Pressure 122/79 [Right Brachial artery] O2 Saturation 88 L 92 94 If not protocol 3 3 3 : Oxygen Flow, liters/minute 06/12/23 06:10 Temperature Heart Rate 81 Heart Rate [ Brachial] Heart Rate [ Monitoring electrodes] Respiratory 20 Rate Blood Pressure Blood Pressure [Left Brachial artery] Blood Pressure [Right Brachial artery] O2 Saturation If not protocol 2 : Oxygen Flow, liters/minute Oxygen O2 Source Nasal cannula I&O (Last 24 Hrs): Intake and Output Totals x24h 06/10/23 06/11/23 06/12/23 23:59 23:59 23:59 Intake Total 1760 1310 100 Output Total 950 2200 300 Balance 810 -890 -200 General: Alert, Oriented x3 HEENT: Mucous membr. moist/pink, Other (Cachectic. Wearing O2 via nasal cannula) Neck: Supple Neuro: Alert, Non Focal Cardiovascular: No murmurs (Distant heart sounds due to COPD) Respiratory: Wheezes, Rhonchi Abdomen: Soft, No tenderness Extremities: No edema, No tenderness/swelling - Results Results: Laboratory Results WBC 17.4 x10^3/uL (4.8-10.8) H 06/11/23 09:20 RBC 4.23 10^6/uL (4.20-5.40) 06/11/23 09:20 Hgb 11.2 g/dL (12.0-16.0) L 06/11/23 09:20 Hct 36.8 % (37.0-47.0) L 06/11/23 09:20 MCV 87.0 fL (81.0-99.0) 06/11/23 09:20 MCH 26.5 pg (27.0-31.0) L 06/11/23 09:20 MCHC 30.4 g/dL (32.0-36.0) L 06/11/23 09:20 RDW 17.2 % (12.0-15.0) H 06/11/23 09:20 Plt Count 370 10^3/uL (130-450) 06/11/23 09:20 MPV 9.3 fL (7.9-10.8) 06/11/23 09:20 Neut # (Auto) 15.5 10^3/uL (1.5-6.6) H 06/11/23 09:20 Lymph # (Auto) 0.8 10^3/uL (1.5-3.5) L 06/11/23 09:20 [place] # (Auto) 1.0 10^3/uL (0.0-1.0) 06/11/23 09:20 Eos # (Auto) 0.0 10^3/uL (0.0-0.7) 06/11/23 09:20 Baso # (Auto) 0.0 10^3/uL (0.0-0.1) 06/11/23 09:20 Absolute Nucleated RBC 0.00 x10^3/uL 06/11/23 09:20 Nucleated RBC % 0.0 /100WBC 06/11/23 09:20 Sodium 137 mmol/L (135-145) 06/11/23 09:20 Potassium 4.4 mmol/L (3.5-4.5) 06/11/23 09:20 Chloride 100 mmol/L (101-111) L 06/11/23 09:20 Carbon Dioxide 29 mmol/L (21-32) 06/11/23 09:20 Anion Gap 8.0 (6-13) 06/11/23 09:20 BUN 40 mg/dL (6-20) H 06/11/23 09:20 Creatinine 1.2 mg/dL (0.6-1.3) 06/11/23 09:20 Estimated GFR (MDRD) 43 (>89) L 06/11/23 09:20 Glucose 223 mg/dL (74-104) H 06/11/23 09:20 POC Whole Bld Glucose 144 mg/dL (70 - 100) H 06/12/23 07:43 Estimat Average Glucose 151 mg/dL (70-100) H 06/06/23 05:17 Hemoglobin A1c % 6.9 % (4.27-6.07) H 06/06/23 05:17 Calcium 9.7 mg/dL (8.5-10.3) 06/11/23 09:20 Phosphorus 3.2 mg/dL (2.5-5.0) 06/08/23 05:23 Magnesium 1.7 mg/dL (1.7-2.3) 06/08/23 05:23 Total Bilirubin 0.4 mg/dL (0.2-1.0) 06/06/23 05:17 AST 14 IU/L (10-42) 06/06/23 05:17 ALT 10 IU/L (10-60) 06/06/23 05:17 Alkaline Phosphatase 64 IU/L (42-121) 06/06/23 05:17 Total Protein 5.7 g/dL (6.4-8.9) L 06/06/23 05:17 Albumin 3.5 g/dL (3.2-5.5) 06/06/23 05:17 Globulin 2.2 g/dL (2.1-4.2) 06/06/23 05:17 Albumin/Globulin Ratio 1.6 (1.0-2.2) 06/06/23 05:17 Lipase 12 U/L (11-82) 06/05/23 19:02 Nasal Adenovirus (PCR) NOT DETECTED 06/05/23 19:07 Nasal B. parapertussis DNA (PCR) NOT DETECTED 06/05/23 19:07 Nasal Coronavir 229E PCR NOT DETECTED 06/05/23 19:07 Nasal Coronavir HKU1 PCR NOT DETECTED 06/05/23 19:07 Nasal Coronavir NL63 PCR NOT DETECTED 06/05/23 19:07 Nasal Coronavir OC43 PCR NOT DETECTED 06/05/23 19:07 Nasal Enterovir/Rhinovir PCR NOT DETECTED 06/05/23 19:07 Nasal Influenza B PCR NOT DETECTED 06/05/23 19:07 Nasal Influenza A PCR NOT DETECTED 06/05/23 19:07 Nasal Parainfluen 1 PCR NOT DETECTED 06/05/23 19:07 Nasal Parainfluen 2 PCR NOT DETECTED 06/05/23 19:07 Nasal Parainfluen 3 PCR NOT DETECTED 06/05/23 19:07 Nasal Parainfluen 4 PCR NOT DETECTED 06/05/23 19:07 Nasal RSV (PCR) NOT DETECTED 06/05/23 19:07 Nasal B.pertussis DNA PCR NOT DETECTED 06/05/23 19:07 Nasal C.pneumoniae (PCR) NOT DETECTED 06/05/23 19:07 Scott Human Metapneumo PCR DETECTED A 06/05/23 19:07 Nasal M.pneumoniae (PCR) NOT DETECTED 06/05/23 19:07 Nasal SARS-CoV-2 (PCR) NOT DETECTED 06/05/23 19:07 Sepsis Event Note (H) - Evaluation Current Stage of Sepsis: Ruled out
[2023-06-12] MEDS: FERROUS GLUCONATE 324 MG TABLET PO SCH (08:43)
[2023-06-12] MEDS: SODIUM CHLORIDE 0.9% 500 ML IV ONE (11:55)
[2023-06-12] MEDS: SODIUM CHLORIDE 0.9% 1,000 ML IV SCH (17:03)
[2023-06-12] MEDS: LOSARTAN 50 MG TABLET PO SCH (21:59)
[2023-06-13 06:02] LABS: BASOPHILS % (AUTO) 0.2 %; HGB - HEMOGLOBIN 10.4 g/dL (12.0-16.0); LYMPHOCYTES % (AUTO) 3.5 %; MEAN CORPUSCULAR HEMOGLOBIN 26.5 pg (27.0-31.0); MEAN CORPUSCULAR HGB CONC 30.6 g/dL (32.0-36.0); MEAN CORPUSCULAR VOLUME 86.5 fL (81.0-99.0); MEAN PLATELET VOLUME 9.4 fL (7.9-10.8); MONOCYTES % (AUTO) 2.1 %; NEUTROPHILS % (AUTO) 90.1 %; PLT - PLATELET COUNT 375 10^3/uL (130-450); RED BLOOD COUNT 3.93 10^6/uL (4.20-5.40); RED CELL DISTRIBUTION WIDTH 17.5 % (12.0-15.0); WHITE BLOOD COUNT 12.8 x10^3/uL (4.8-10.8)
[2023-06-13 06:09] LABS: ABNORMAL LYMPHS % (MANUAL) 0 %; BAND NEUTROPHILS % (MANUAL) 0 %
[2023-06-13 06:23] LABS: CALCIUM 9.7 mg/dL (8.5-10.3); CREATININE 0.9 mg/dL (0.6-1.3); MAGNESIUM 1.7 mg/dL (1.7-2.3); PHOSPHORUS 3.3 mg/dL (2.5-5.0); POTASSIUM 4.9 mmol/L (3.5-4.5)
[2023-06-13 06:45] LABS: LYMPHOCYTES # (MANUAL) 0.4 10^3/uL (1.5-3.5); LYMPHOCYTES % (MANUAL) 3 %; MONOCYTES # (MANUAL) 0.8 10^3/uL (0.0-1.0); NEUTROPHILS # (MANUAL) 11.6 10^3/uL (1.5-6.6)
[2023-06-13 06:46] LABS: PLATELET ESTIMATE, MANUAL NORMAL (130-450,000) (NORMAL); PLATELET MORPHOLOGY RARE GIANT PLATELETS (NORMAL)
[2023-06-13 06:47] LABS: DIFFERENTIAL COMMENT MANUAL DIFFERENTIAL
[2023-06-13] MEDS: MORPHINE 2 MG/ML CARPUJECT IVP STA (15:03)
--- NOTE | 2023-06-13 16:00 | XRAY Report ---
PROCEDURE: Chest 1V INDICATIONS: More SOB, got saline bolus yesterday TECHNIQUE: One view of the chest was acquired. COMPARISON: None. FINDINGS: Surgical changes and devices: None. Lungs and pleura: No pneumothorax. Chronic emphysematous changes are seen. Small left basilar atelec tasis/infiltrate is seen. Trace left pleural effusion is noted. Mediastinum: Mildly tortuous thoracic aorta is seen. Heart size is normal. Bones and chest wall: No suspicious bony lesions. Overlying soft tissues appear unremarkable. IMPRESSION: COPD and trace left pleural effusion with left basilar atelectasis. No pneumothorax. Reviewed by: Edward Roberts MD on 06/13/2023 3:59 PM PST Approved by: Edward Roberts MD on 06/13/2023 3:59 PM PST Station ID: [id number]
--- NOTE | 2023-06-13 18:46 | PROVIDER PROGRESS NOTE ---
Assessment/Plan - Problem List (1) COPD exacerbation Assessment/Plan: COPD exacerbation most likely secondary to viral infection, since her viral panel was positive for metapneumovirus She is still "tight", has scattered wheezes, is even more tachypneic today with tripoding. CXR done and did not show new CHF, after getting iv fluids yesterday Plan: Continue DuoNebs and Pulmicort nebs. Cont IV corticosteroids with a very slow taper planned. Cont new Mucinex Cont new Montelukast qpm Cont droplet isolation due to being positive for metapneumovirus I will have her try chest PT vest to help expectorate (2) Acute on Chronic Respiratory Failure with hypoxia She is on home O2. 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 She reports she has been admitted to the hospital 2-3 times over the last 12 months. In the event of a cardiopulmonary arrest she is DO NOT RESUSCITATE. Palliative care is following the patient. Plan: Continue tx of COPD exacerbation Continue supplemental oxygen, to keep sats 88% or above. (3) Orthostatic Hypotension While working with PT and OT yesterday she was very orthostatic and was symptomatic. I gave her an iv saline bolus and a day of iv hydration. CXR was done today and did not show new CHF, after getting iv fluids yesterday Plan: Remain off HCTZ Cont the decreased Losartan dose Cont to check orthostatic vital signs daily. I encouraged PT to keep working with her if BP not too low. (4) Prerenal azotemia Per recent labs, BUN/creat was 20/1.2 so she got iv fluids yesterday. Today: 27/0.9 (all labs were reviewed) Plan: Remain off HCTZ Encourage po liquids Follow BMP daily (5) Anemia Her Hgb runs 9.6-11. This is low for someone who should have a compensatory high Hct from COPD. I spoke to her daughter Jazlyn Kasper who told me that the patient is due for a IV dextran infusion that she [place] [facility]. It was given yesterday Plan: Cont new po Ferrous Gluconate w/ vit C (6) Diabetes Mellitus As per Hx. Her glu are running as high as 397, likely from being on iv steroids She was on metformin 500 BID at home, which I increased to 1000 BID Plan: Cont Metformin, fingerstick checks, Sliding scale insulin, DM diet and Hypoglycemia protocol (7) Hypertension She was on Losartan and HCTZ at home Losartan dose was increased to 100 mg daily. HCTZ was not resumed in order to use new Cardizem (see #8) Plan: I will decrease the Losartan dose back down because of orthostasis (8) Tachycardia RESOLVED She was tachycardic from adm until 06/11/23, HR was continuously 105. Part of that was from getting Duoneb, partly caused by hypoxia/tachypnea and partly from anemia and being on HCTZ at home. An EKG was done that confirmed Sinus tachy, rate 107, with P pulmonale (RA enl gm). The HR has improved since starting Cardizem 60 BID>> 60 QID. HR is 80 today (all VS were reviewed) Plan: Cont Cardizem 60 QID Remain off HCTZ, resume only if she has edema and if BP will tolerate it - Current Meds Current Meds: Current Medications Generic Name Dose Route Start Last Admin Trade Name Freq PRN Reason Stop Dose Admin Acetaminophen 650 mg 06/05/23 21:14 06/13/23 10:12 Acetaminophen 325 Mg Tablet PO 650 mg Q4HR PRN Administration Pain 1 to 4, or Fever Hydrocodone Bitart/Acetaminophen 1 tab 06/09/23 13:04 06/10/23 16:03 Hydrocod/Acetam 5/325 Mg Tablet PO 1 tab Q8HR PRN Administration Pain 5 to 7 Albuterol/Ipratropium 3 ml 06/11/23 08:21 06/13/23 18:06 Ipratropium/Albuterol 3 Ml Neb INH 3 ml RTTID LUCHO Administration Ascorbic Acid 500 mg 06/06/23 09:00 06/13/23 10:03 Ascorbic Acid 500 Mg Tablet PO 500 mg DAILY LUCHO Administration Atorvastatin Calcium 10 mg 06/06/23 21:00 06/12/23 21:58 Atorvastatin 10 Mg Tablet PO 10 mg QPM LUCHO Administration Budesonide 0.5 mg 06/11/23 08:22 06/13/23 18:06 Budesonide 0.5 Mg/2 Ml Neb INH 0.5 mg RTBID LUCHO Administration Clopidogrel Bisulfate 75 mg 06/06/23 09:00 06/13/23 10:03 Clopidogrel 75 Mg Tablet PO 75 mg DAILY LUCHO Administration Cyanocobalamin 500 mcg 06/11/23 10:00 06/13/23 10:04 Cyanocobalamin 500 Mcg Tablet PO 500 mcg DAILY LUCHO Administration Diltiazem HCl 60 mg 06/10/23 13:00 06/13/23 17:09 Diltiazem 60 Mg Tablet PO 60 mg QID LUCHO Administration Docusate Sodium 250 - 500 mg 06/11/23 11:00 06/13/23 10:03 Docusate Sodium 250 Mg Capsule PO 500 mg DAILY LUCHO Administration Ferrous Gluconate 324 mg 06/12/23 08:00 06/13/23 10:03 Ferrous Gluconate 324 Mg Tablet PO 324 mg DAILYWM LUCHO Administration Guaifenesin 600 mg 06/11/23 09:00 06/13/23 10:04 Guaifenesin 600 Mg Tablet PO 600 mg BID LUCHO Administration Imipramine HCl 150 mg 06/06/23 21:00 06/12/23 21:57 Imipramine 25 Mg Tablet PO 150 mg QPM LUCHO Administration Insulin Human Lispro 2 - 10 unit 06/09/23 21:15 06/13/23 17:07 Insulin Lispro 300 Unit/3 Ml Pen SUBQ Not Given 0800,1200,1700,2100 [facility] Protocol Losartan Potassium 50 mg 06/12/23 21:00 06/12/23 21:59 Losartan 50 Mg Tablet PO 50 mg QPM LUCHO Administration Metformin HCl 1,000 mg 06/10/23 21:00 06/13/23 10:02 Metformin 500 Mg Tablet PO 1,000 mg BID LUCHO Administration Methylprednisolone 40 mg 06/11/23 09:00 06/13/23 10:04 Methylprednisolone Succinate 40 Mg/Ml Vial IVP 40 mg BID LUCHO Administration Montelukast Sodium 10 mg 06/11/23 21:00 06/12/23 21:58 Montelukast 10 Mg Tablet PO 10 mg QPM LUCHO Administration Morphine Sulfate 5 mg 06/07/23 21:16 06/08/23 00:18 Morphine Wen 10 Mg/0.5 Ml Oral Syringe PO 5 mg Q4H PRN Administration Dyspnea Ondansetron HCl 4 mg 06/05/23 21:14 06/07/23 12:31 Ondansetron 4 Mg/2 Ml Vial IVP 4 mg Q6HR PRN Administration Nausea / Vomiting Patient Own Medication 1 each 06/08/23 09:00 06/13/23 10:04 Patient Own Med PO Not Given DAILY LUCHO Polyethylene Glycol 17 gm 06/09/23 09:00 06/13/23 10:04 Polyethylene Glycol 3350 17 Gm Packet PO Not Given DAILY LUCHO Senna 8.6 - 17.2 mg 06/11/23 11:00 06/13/23 10:03 Senna 8.6 Mg Tablet PO 17.2 mg DAILY LUCHO Administration Sodium Chloride 10 ml 06/05/23 21:14 06/13/23 15:04 Sodium Chloride Flush 0.9% 10 Ml Syringe IVP 10 ml PRN PRN Administration NEEDED PER PROVIDER ORDERS Sodium Chloride 10 ml 06/06/23 01:00 06/13/23 17:09 Sodium Chloride Flush 0.9% 10 Ml Syringe IVP 10 ml 0100,0900,1700 LUCHO Administration Solifenacin 5 mg 06/11/23 21:00 06/12/23 21:57 Solifenacin Succinate 5 Mg Tablet PO 5 mg QPM LUCHO Administration - Lab Result Fish Bone Diagrams: 06/15/23 05:49 06/15/23 05:49 - Additional Planning My Orders: My Active Orders 06/12/23 21:00 Losartan [Cozaar] 50 mg PO QPM 06/13/23 14:23 Telemetry- [RC] Q4HR 06/13/23 14:56 CPT - Chest Physical Therapy [RC] TID Subjective - Subjective Patient Reports: Shortness of Breath (Feels worse, ever since getting the iv fluids ) Objective Vital Signs: Vital Signs - 24 hr 06/12/23 06/12/23 06/12/23 19:00 21:00 21:54 Temperature 36.2 C L 36.8 C Heart Rate 89 Heart Rate [ 95 93 Brachial] Respiratory 22 20 20 Rate Blood Pressure Blood Pressure 140/69 H 131/75 H [Left Brachial artery] Blood Pressure [Right Brachial artery] O2 Saturation 95 95 If not protocol 3 3 3 : Oxygen Flow, liters/minute 06/12/23 06/13/23 06/13/23 21:59 00:09 00:40 Temperature 36.7 C Heart Rate Heart Rate [ 89 Brachial] Respiratory 22 20 Rate Blood Pressure 131/75 H Blood Pressure [Left Brachial artery] Blood Pressure 139/87 H [Right Brachial artery] O2 Saturation 97 If not protocol 3 3 : Oxygen Flow, liters/minute 06/13/23 06/13/23 06/13/23 05:21 06:10 08:19 Temperature 36.5 C 36.6 C Heart Rate 81 Heart Rate [ 82 93 Brachial] Respiratory 20 20 20 Rate Blood Pressure Blood Pressure [Left Brachial artery] Blood Pressure 142/87 H 171/100 H [Right Brachial artery] O2 Saturation 94 91 L If not protocol 3 3 3 : Oxygen Flow, liters/minute 06/13/23 06/13/23 06/13/23 08:55 12:56 13:12 Temperature 36.7 C 36.1 C L Heart Rate 79 Heart Rate [ 64 111 H Brachial] Respiratory 20 20 16 Rate Blood Pressure Blood Pressure [Left Brachial artery] Blood Pressure 130/77 182/109 H [Right Brachial artery] O2 Saturation 92 95 If not protocol 3 3 3 : Oxygen Flow, liters/minute 06/13/23 06/13/23 06/13/23 15:42 18:08 18:10 Temperature 36.3 C L Heart Rate 69 Heart Rate [ 80 Brachial] Respiratory 20 16 Rate Blood Pressure Blood Pressure 139/83 H [Left Brachial artery] Blood Pressure [Right Brachial artery] O2 Saturation 92 If not protocol 3 3 2 : Oxygen Flow, liters/minute Oxygen O2 Source Nasal cannula I&O (Last 24 Hrs): Intake and Output Totals x24h 06/11/23 06/12/23 06/13/23 23:59 23:59 23:59 Intake Total 1310 1380 1480 Output Total 2200 1200 750 Balance -890 180 730 General: Moderate distress (She is tripoding, pursed lip breathing today) HEENT: Mucous membr. moist/pink, Other (wearing O2 via n.c.) Neck: Supple Neuro: Alert, Non Focal Cardiovascular: Regular rate (distant heart sounds due to lung sounds) Respiratory: Wheezes (scattered), Rhonchi (scattered) Abdomen: Soft, No tenderness Extremities: No clubbing, No edema, No tenderness/swelling - Results Results: Laboratory Results WBC 12.8 x10^3/uL (4.8-10.8) H 06/13/23 05:35 RBC 3.93 10^6/uL (4.20-5.40) L 06/13/23 05:35 Hgb 10.4 g/dL (12.0-16.0) L 06/13/23 05:35 Hct 34.0 % (37.0-47.0) L 06/13/23 05:35 MCV 86.5 fL (81.0-99.0) 06/13/23 05:35 MCH 26.5 pg (27.0-31.0) L 06/13/23 05:35 MCHC 30.6 g/dL (32.0-36.0) L 06/13/23 05:35 RDW 17.5 % (12.0-15.0) H 06/13/23 05:35 Plt Count 375 10^3/uL (130-450) 06/13/23 05:35 MPV 9.4 fL (7.9-10.8) 06/13/23 05:35 Neut # (Auto) Not Reportable 06/13/23 05:35 Lymph # (Auto) Not Reportable 06/13/23 05:35 [place] # (Auto) Not Reportable 06/13/23 05:35 Eos # (Auto) Not Reportable 06/13/23 05:35 Baso # (Auto) Not Reportable 06/13/23 05:35 Absolute Nucleated RBC Not Reportable 06/13/23 05:35 Total Counted 100 06/13/23 05:35 Band Neuts % (Manual) 0 % (0-10) 06/13/23 05:35 Abnorm Lymph % (Manual) 0 % 06/13/23 05:35 Nucleated RBC % Not Reportable 06/13/23 05:35 Neutrophils # (Manual) 11.6 10^3/uL (1.5-6.6) H 06/13/23 05:35 Lymphocytes # (Manual) 0.4 10^3/uL (1.5-3.5) L 06/13/23 05:35 Monocytes # (Manual) 0.8 10^3/uL (0.0-1.0) 06/13/23 05:35 Eosinophils # (Manual) 0.0 10^3/uL (0-0.7) 06/13/23 05:35 Basophils # (Manual) 0.0 10^3/uL (0-0.1) 06/13/23 05:35 Differential Comment MANUAL DIFFERENTIAL 06/13/23 05:35 Platelet Estimate NORMAL (130-450,000) (NORMAL) 06/13/23 05:35 Platelet Morphology RARE GIANT PLATELETS (NORMAL) 06/13/23 05:35 RBC Morph Micro Appear 1+ POIKILOCYTOSIS (NORMAL) 2+ ACANTHOCYTES (NORMAL) 06/13/23 05:35 RBC Morph Micro Appear 1+ POIKILOCYTOSIS (NORMAL) 2+ ACANTHOCYTES (NORMAL) 06/13/23 05:35 Sodium 138 mmol/L (135-145) 06/13/23 05:35 Potassium 4.9 mmol/L (3.5-4.5) H 06/13/23 05:35 Chloride 105 mmol/L (101-111) 06/13/23 05:35 Carbon Dioxide 24 mmol/L (21-32) 06/13/23 05:35 Anion Gap 9.0 (6-13) 06/13/23 05:35 BUN 27 mg/dL (6-20) H 06/13/23 05:35 Creatinine 0.9 mg/dL (0.6-1.3) 06/13/23 05:35 Estimated GFR (MDRD) 60 (>89) L 06/13/23 05:35 Glucose 180 mg/dL (74-104) H 06/13/23 05:35 POC Whole Bld Glucose 130 mg/dL (70 - 100) H 06/13/23 17:02 Estimat Average Glucose 151 mg/dL (70-100) H 06/06/23 05:17 Hemoglobin A1c % 6.9 % (4.27-6.07) H 06/06/23 05:17 Calcium 9.7 mg/dL (8.5-10.3) 06/13/23 05:35 Phosphorus 3.3 mg/dL (2.5-5.0) 06/13/23 05:35 Magnesium 1.7 mg/dL (1.7-2.3) 06/13/23 05:35 Total Bilirubin 0.4 mg/dL (0.2-1.0) 06/06/23 05:17 AST 14 IU/L (10-42) 06/06/23 05:17 ALT 10 IU/L (10-60) 06/06/23 05:17 Alkaline Phosphatase 64 IU/L (42-121) 06/06/23 05:17 Total Protein 5.7 g/dL (6.4-8.9) L 06/06/23 05:17 Albumin 3.5 g/dL (3.2-5.5) 06/06/23 05:17 Globulin 2.2 g/dL (2.1-4.2) 06/06/23 05:17 Albumin/Globulin Ratio 1.6 (1.0-2.2) 06/06/23 05:17 Lipase 12 U/L (11-82) 06/05/23 19:02 Nasal Adenovirus (PCR) NOT DETECTED 06/05/23 19:07 Nasal B. parapertussis DNA (PCR) NOT DETECTED 06/05/23 19:07 Nasal Coronavir 229E PCR NOT DETECTED 06/05/23 19:07 Nasal Coronavir HKU1 PCR NOT DETECTED 06/05/23 19:07 Nasal Coronavir NL63 PCR NOT DETECTED 06/05/23 19:07 Nasal Coronavir OC43 PCR NOT DETECTED 06/05/23 19:07 Nasal Enterovir/Rhinovir PCR NOT DETECTED 06/05/23 19:07 Nasal Influenza B PCR NOT DETECTED 06/05/23 19:07 Nasal Influenza A PCR NOT DETECTED 06/05/23 19:07 Nasal Parainfluen 1 PCR NOT DETECTED 06/05/23 19:07 Nasal Parainfluen 2 PCR NOT DETECTED 06/05/23 19:07 Nasal Parainfluen 3 PCR NOT DETECTED 06/05/23 19:07 Nasal Parainfluen 4 PCR NOT DETECTED 06/05/23 19:07 Nasal RSV (PCR) NOT DETECTED 06/05/23 19:07 Nasal B.pertussis DNA PCR NOT DETECTED 06/05/23 19:07 Nasal C.pneumoniae (PCR) NOT DETECTED 06/05/23 19:07 Scott Human Metapneumo PCR DETECTED A 06/05/23 19:07 Nasal M.pneumoniae (PCR) NOT DETECTED 06/05/23 19:07 Nasal SARS-CoV-2 (PCR) NOT DETECTED 06/05/23 19:07 Sepsis Event Note (H) - Evaluation Current Stage of Sepsis: Ruled out
--- NOTE | 2023-06-14 08:12 | PROVIDER PROGRESS NOTE ---
Assessment/Plan - Problem List (1) COPD exacerbation Assessment/Plan: COPD exacerbation most likely from viral infection, she is (+) for metapneumovirus She improved when I slowed down her IV Solu-Medrol taper, and ordered DuoNebs scheduled and as needed, Pulmicort twice daily, and new Montelukast at night. Also she benefitted from Chest PT vest ordered, helping her expectorate. She is in more resp distress today probably from being constipated and also from skipping/postponing a scheduled QID nebulizer tx this a.m.. Plan: Continue DuoNebs and Pulmicort nebs. She should not postpone neb treatments, this was put in as [place] [facility] [place] Cont new Mucinex Cont Chest PT vest Cont new Montelukast qpm I will try to transition her from Solu-Medrol 40 mg BID dose to Prednisone 40 mg p.o. daily today. Plan will be for an extremely slow taper over several months, given her end stage COPD Cont droplet isolation due to being positive for metapneumovirus (as per Infec RN Marie Sanders, she can be out of isolation on 06/17/23, if she is asymptomatic) (2) Acute on Chronic Respiratory Failure with hypoxia She is on home O2. 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 She reports she has been admitted to the hospital 2-3 times over the last 12 months. In the event of a cardiopulmonary arrest she is DO NOT RESUSCITATE. Palliative care is following the patient. Plan: Continue tx of COPD exacerbation Continue supplemental oxygen, to keep sats 88% or above. (3) Orthostatic Hypotension While starting to work with PT and OT she was orthostatic and was symptomatic: Supine BP 133/82, HR 96. Seated BP 122/77, HR 103. Standing BP 87/62, HR 110. She got a 500cc saline bolus 2 days ago, and a day of slow iv hydration Plan: Remain off HCTZ Check orthostatic vital signs daily and if < 99 syst when standing, she may need Midodrine (4) Prerenal azotemia Per labs yesterday 06/13, her BUN/creat was 27/0.9 Plan: Remain off HCTZ Encourage po liquids Follow BMP intermittently (5) Constipation The patient has not had a BM in 12 days despite being on the bowel protocol here. Patient told her RN that she normally does not had a BM for 7 to 10 days. KUB done today showed a poss fecolith Plan: I will order Lactulose liquid po x1 (6) Diabetes Mellitus As per Hx. Her glu are running as high as 397, likely from being on iv steroids She was on metformin 500 BID at home, which I increased to 1000 BID Plan: Cont Metformin, fingerstick checks, Sliding scale insulin, DM diet and Hypoglycemia protocol (7) Hypertension She was on Losartan and HCTZ at home Losartan dose was increased to better control BP HCTZ was not resumed in order to use new Cardizem and because she is prerenal Plan: Increase Cardizem 60 QID to 90 QID today, both for HR control and better BP control (8) Anemia Her Hgb runs 9.6-11. This is low for someone who should have a compensatory high Hct from COPD. I spoke to her daughter Jazlyn Kasper who told me that the patient is due for a IV dextran infusion [place] [facility] [place] It was given several days ago. Plan: Cont new po Ferrous Gluconate w/ vit C (9) Tachycardia She has been tachycardic as high as 110 at rest. Part of that is from getting Duoneb, partly caused by hypoxia/tachypnea and partly from anemia and being on HCTZ at home. An EKG was done that confirmed Sinus tachy, rate 107, with P pulmonale (RA enlgm). The HR has improved since starting Cardizem 60 QID. Plan: Increase Cardizem 60 QID to 90 QID both for HR control and better BP control Remain off HCTZ, resume only if she has edema (10) Cachexia Her BMI is 17 and she has a poor appetite. She has "always been skinny". I suspect now she has cachexia associated with end-stage COPD, when it is too difficult to eat because it makes her short of breath Plan: Check lipid panel with a.m. labs. Her Lipitor can be stopped if she has a very low LDL, since she is cachectic and probably malnourished and does not need a statin - Current Meds Current Meds: Current Medications Generic Name Dose Route Start Last Admin Trade Name Freq PRN Reason Stop Dose Admin Acetaminophen 650 mg 06/05/23 21:14 06/13/23 10:12 Acetaminophen 325 Mg Tablet PO 650 mg Q4HR PRN Administration Pain 1 to 4, or Fever Hydrocodone Bitart/Acetaminophen 1 tab 06/09/23 13:04 06/13/23 21:15 Hydrocod/Acetam 5/325 Mg Tablet PO 1 tab Q8HR PRN Administration Pain 5 to 7 Albuterol/Ipratropium 3 ml 06/11/23 08:21 06/14/23 06:00 Ipratropium/Albuterol 3 Ml Neb INH 3 ml RTTID LUCHO Administration Ascorbic Acid 500 mg 06/06/23 09:00 06/13/23 10:03 Ascorbic Acid 500 Mg Tablet PO 500 mg DAILY LUCHO Administration Atorvastatin Calcium 10 mg 06/06/23 21:00 06/13/23 21:03 Atorvastatin 10 Mg Tablet PO 10 mg QPM LUCHO Administration Budesonide 0.5 mg 06/11/23 08:22 06/14/23 06:00 Budesonide 0.5 Mg/2 Ml Neb INH 0.5 mg RTBID LUCHO Administration Clopidogrel Bisulfate 75 mg 06/06/23 09:00 06/13/23 10:03 Clopidogrel 75 Mg Tablet PO 75 mg DAILY LUCHO Administration Cyanocobalamin 500 mcg 06/11/23 10:00 06/13/23 10:04 Cyanocobalamin 500 Mcg Tablet PO 500 mcg DAILY LUCHO Administration Diltiazem HCl 60 mg 06/10/23 13:00 06/13/23 21:05 Diltiazem 60 Mg Tablet PO 60 mg QID LUCHO Administration Docusate Sodium 250 - 500 mg 06/11/23 11:00 06/13/23 10:03 Docusate Sodium 250 Mg Capsule PO 500 mg DAILY LUCHO Administration Ferrous Gluconate 324 mg 06/12/23 08:00 06/13/23 10:03 Ferrous Gluconate 324 Mg Tablet PO 324 mg DAILYWM LUCHO Administration Guaifenesin 600 mg 06/11/23 09:00 06/13/23 21:03 Guaifenesin 600 Mg Tablet PO 600 mg BID LUCHO Administration Imipramine HCl 150 mg 06/06/23 21:00 06/13/23 21:02 Imipramine 25 Mg Tablet PO 150 mg QPM LUCHO Administration Insulin Human Lispro 2 - 10 unit 06/09/23 21:15 06/13/23 21:10 Insulin Lispro 300 Unit/3 Ml Pen SUBQ 6 unit 0800,1200,1700,2100 LUCHO Administration Protocol Losartan Potassium 50 mg 06/12/23 21:00 06/13/23 21:07 Losartan 50 Mg Tablet PO 50 mg QPM LUCHO Administration Metformin HCl 1,000 mg 06/10/23 21:00 06/13/23 21:09 Metformin 500 Mg Tablet PO Not Given BID LUCHO Montelukast Sodium 10 mg 06/11/23 21:00 06/13/23 21:03 Montelukast 10 Mg Tablet PO 10 mg QPM LUCHO Administration Morphine Sulfate 5 mg 06/07/23 21:16 06/08/23 00:18 Morphine Wen 10 Mg/0.5 Ml Oral Syringe PO 5 mg Q4H PRN Administration Dyspnea Ondansetron HCl 4 mg 06/05/23 21:14 06/07/23 12:31 Ondansetron 4 Mg/2 Ml Vial IVP 4 mg Q6HR PRN Administration Nausea / Vomiting Patient Own Medication 1 each 06/08/23 09:00 06/13/23 10:04 Patient Own Med PO Not Given DAILY LUCHO Polyethylene Glycol 17 gm 06/09/23 09:00 06/13/23 10:04 Polyethylene Glycol 3350 17 Gm Packet PO Not Given DAILY LUCHO Senna 8.6 - 17.2 mg 06/11/23 11:00 06/13/23 10:03 Senna 8.6 Mg Tablet PO 17.2 mg DAILY LUCHO Administration Sodium Chloride 10 ml 06/05/23 21:14 06/13/23 15:04 Sodium Chloride Flush 0.9% 10 Ml Syringe IVP 10 ml PRN PRN Administration NEEDED PER PROVIDER ORDERS Sodium Chloride 10 ml 06/06/23 01:00 06/14/23 02:02 Sodium Chloride Flush 0.9% 10 Ml Syringe IVP 10 ml 0100,0900,1700 LUCHO Administration Solifenacin 5 mg 06/11/23 21:00 06/13/23 21:02 Solifenacin Succinate 5 Mg Tablet PO 5 mg QPM LUCHO Administration - Lab Result Fish Bone Diagrams: 06/13/23 05:35 06/13/23 05:35 - Additional Planning My Orders: My Active Orders 06/13/23 14:23 Telemetry- [RC] Q4HR 06/13/23 14:56 CPT - Chest Physical Therapy [RC] TID 06/14/23 09:00 predniSONE [Deltasone] 40 mg PO DAILYWM 06/15/23 05:00 BMP - BASIC METABOLIC PANEL [CHEM] DAILYLAB CALCIUM [CHEM] DAILYLAB CBC - COMP BLD CT W/AUTO DIFF [HEME] DAILYLAB LIPID Panel [CHEM] DAILYLAB MAGNESIUM [CHEM] DAILYLAB PHOSPHORUS [CHEM] DAILYLAB Subjective - Subjective Patient Reports: Shortness of Breath (Feels more SOB the last 2 days) Objective Vital Signs: Vital Signs - 24 hr 06/13/23 06/13/23 06/13/23 08:19 08:55 12:56 Temperature 36.6 C 36.7 C 36.1 C L Heart Rate Heart Rate [ 93 64 111 H Brachial] Respiratory 20 20 20 Rate Blood Pressure Blood Pressure [Left Brachial artery] Blood Pressure 171/100 H 130/77 182/109 H [Right Brachial artery] O2 Saturation 91 L 92 95 If not protocol 3 3 3 : Oxygen Flow, liters/minute 06/13/23 06/13/23 06/13/23 13:12 15:42 18:08 Temperature 36.3 C L Heart Rate 79 69 Heart Rate [ 80 Brachial] Respiratory 16 20 16 Rate Blood Pressure Blood Pressure 139/83 H [Left Brachial artery] Blood Pressure [Right Brachial artery] O2 Saturation 92 If not protocol 3 3 3 : Oxygen Flow, liters/minute 06/13/23 06/13/23 06/13/23 18:10 19:07 21:05 Temperature 36.9 C Heart Rate Heart Rate [ 101 H Brachial] Respiratory 20 Rate Blood Pressure 146/89 H Blood Pressure 151/85 H [Left Brachial artery] Blood Pressure [Right Brachial artery] O2 Saturation 92 If not protocol 2 3 : Oxygen Flow, liters/minute 06/14/23 06/14/23 06/14/23 00:38 04:35 06:00 Temperature 37.3 C 36.5 C Heart Rate 78 Heart Rate [ 86 78 Brachial] Respiratory 20 20 18 Rate Blood Pressure Blood Pressure 123/70 [Left Brachial artery] Blood Pressure 145/82 H [Right Brachial artery] O2 Saturation 95 95 If not protocol 3 3 3 : Oxygen Flow, liters/minute Oxygen O2 Source Nasal cannula I&O (Last 24 Hrs): Intake and Output Totals x24h 06/12/23 06/13/23 06/14/23 23:59 23:59 23:59 Intake Total 1380 1830 Output Total 1200 1350 Balance 180 480 General: Oriented x3, Mild distress (Resp rate elevated, breathing with accessory muscles and is tripodding), Other HEENT: Mucous membr. moist/pink Neck: Supple Neuro: Alert, Non Focal Cardiovascular: Regular rate Respiratory: Wheezes Abdomen: Soft, No tenderness Extremities: No clubbing, No edema, No tenderness/swelling - Results Results: Laboratory Results WBC 12.8 x10^3/uL (4.8-10.8) H 06/13/23 05:35 RBC 3.93 10^6/uL (4.20-5.40) L 06/13/23 05:35 Hgb 10.4 g/dL (12.0-16.0) L 06/13/23 05:35 Hct 34.0 % (37.0-47.0) L 06/13/23 05:35 MCV 86.5 fL (81.0-99.0) 06/13/23 05:35 MCH 26.5 pg (27.0-31.0) L 06/13/23 05:35 MCHC 30.6 g/dL (32.0-36.0) L 06/13/23 05:35 RDW 17.5 % (12.0-15.0) H 06/13/23 05:35 Plt Count 375 10^3/uL (130-450) 06/13/23 05:35 MPV 9.4 fL (7.9-10.8) 06/13/23 05:35 Neut # (Auto) Not Reportable 06/13/23 05:35 Lymph # (Auto) Not Reportable 06/13/23 05:35 [place] # (Auto) Not Reportable 06/13/23 05:35 Eos # (Auto) Not Reportable 06/13/23 05:35 Baso # (Auto) Not Reportable 06/13/23 05:35 Absolute Nucleated RBC Not Reportable 06/13/23 05:35 Total Counted 100 06/13/23 05:35 Band Neuts % (Manual) 0 % (0-10) 06/13/23 05:35 Abnorm Lymph % (Manual) 0 % 06/13/23 05:35 Nucleated RBC % Not Reportable 06/13/23 05:35 Neutrophils # (Manual) 11.6 10^3/uL (1.5-6.6) H 06/13/23 05:35 Lymphocytes # (Manual) 0.4 10^3/uL (1.5-3.5) L 06/13/23 05:35 Monocytes # (Manual) 0.8 10^3/uL (0.0-1.0) 06/13/23 05:35 Eosinophils # (Manual) 0.0 10^3/uL (0-0.7) 06/13/23 05:35 Basophils # (Manual) 0.0 10^3/uL (0-0.1) 06/13/23 05:35 Differential Comment MANUAL DIFFERENTIAL 06/13/23 05:35 Platelet Estimate NORMAL (130-450,000) (NORMAL) 06/13/23 05:35 Platelet Morphology RARE GIANT PLATELETS (NORMAL) 06/13/23 05:35 RBC Morph Micro Appear 1+ POIKILOCYTOSIS (NORMAL) 2+ ACANTHOCYTES (NORMAL) 06/13/23 05:35 RBC Morph Micro Appear 1+ POIKILOCYTOSIS (NORMAL) 2+ ACANTHOCYTES (NORMAL) 06/13/23 05:35 Sodium 138 mmol/L (135-145) 06/13/23 05:35 Potassium 4.9 mmol/L (3.5-4.5) H 06/13/23 05:35 Chloride 105 mmol/L (101-111) 06/13/23 05:35 Carbon Dioxide 24 mmol/L (21-32) 06/13/23 05:35 Anion Gap 9.0 (6-13) 06/13/23 05:35 BUN 27 mg/dL (6-20) H 06/13/23 05:35 Creatinine 0.9 mg/dL (0.6-1.3) 06/13/23 05:35 Estimated GFR (MDRD) 60 (>89) L 06/13/23 05:35 Glucose 180 mg/dL (74-104) H 06/13/23 05:35 POC Whole Bld Glucose 223 mg/dL (70 - 100) H 06/14/23 07:35 Estimat Average Glucose 151 mg/dL (70-100) H 06/06/23 05:17 Hemoglobin A1c % 6.9 % (4.27-6.07) H 06/06/23 05:17 Calcium 9.7 mg/dL (8.5-10.3) 06/13/23 05:35 Phosphorus 3.3 mg/dL (2.5-5.0) 06/13/23 05:35 Magnesium 1.7 mg/dL (1.7-2.3) 06/13/23 05:35 Total Bilirubin 0.4 mg/dL (0.2-1.0) 06/06/23 05:17 AST 14 IU/L (10-42) 06/06/23 05:17 ALT 10 IU/L (10-60) 06/06/23 05:17 Alkaline Phosphatase 64 IU/L (42-121) 06/06/23 05:17 Total Protein 5.7 g/dL (6.4-8.9) L 06/06/23 05:17 Albumin 3.5 g/dL (3.2-5.5) 06/06/23 05:17 Globulin 2.2 g/dL (2.1-4.2) 06/06/23 05:17 Albumin/Globulin Ratio 1.6 (1.0-2.2) 06/06/23 05:17 Lipase 12 U/L (11-82) 06/05/23 19:02 Nasal Adenovirus (PCR) NOT DETECTED 06/05/23 19:07 Nasal B. parapertussis DNA (PCR) NOT DETECTED 06/05/23 19:07 Nasal Coronavir 229E PCR NOT DETECTED 06/05/23 19:07 Nasal Coronavir HKU1 PCR NOT DETECTED 06/05/23 19:07 Nasal Coronavir NL63 PCR NOT DETECTED 06/05/23 19:07 Nasal Coronavir OC43 PCR NOT DETECTED 06/05/23 19:07 Nasal Enterovir/Rhinovir PCR NOT DETECTED 06/05/23 19:07 Nasal Influenza B PCR NOT DETECTED 06/05/23 19:07 Nasal Influenza A PCR NOT DETECTED 06/05/23 19:07 Nasal Parainfluen 1 PCR NOT DETECTED 06/05/23 19:07 Nasal Parainfluen 2 PCR NOT DETECTED 06/05/23 19:07 Nasal Parainfluen 3 PCR NOT DETECTED 06/05/23 19:07 Nasal Parainfluen 4 PCR NOT DETECTED 06/05/23 19:07 Nasal RSV (PCR) NOT DETECTED 06/05/23 19:07 Nasal B.pertussis DNA PCR NOT DETECTED 06/05/23 19:07 Nasal C.pneumoniae (PCR) NOT DETECTED 06/05/23 19:07 Scott Human Metapneumo PCR DETECTED A 06/05/23 19:07 Nasal M.pneumoniae (PCR) NOT DETECTED 06/05/23 19:07 Nasal SARS-CoV-2 (PCR) NOT DETECTED 06/05/23 19:07 Sepsis Event Note (H) - Evaluation Current Stage of Sepsis: Ruled out
[2023-06-14] MEDS: predniSONE 20 MG TABLET PO SCH (08:34)
--- NOTE | 2023-06-14 15:16 | XRAY Report ---
PROCEDURE: Abdomen 1 V INDICATIONS: KUB, eval constipation x 12 days TECHNIQUE: One view of the abdomen acquired. COMPARISON: None. FINDINGS: Surgical changes and devices: None right inguinal vascular stent. Bowel: Bowel gas pattern is normal. Soft tissues: 1 cm calcification projecting over the pelvic inlet. Visualized solid organ contours a ppear normal in size. Bones: No suspicious bony lesions. IMPRESSION: No acute abdominal pathology. No significant colonic stool load. 1 cm calcification projecting of the pelvic inlet, possibly within the urinary bladder or a fecalith. Reviewed by: Joon Willis MD on 06/14/2023 3:14 PM PST Approved by: Joon Willis MD on 06/14/2023 3:14 PM PST Station ID: [id number]
[2023-06-14] MEDS: LACTULOSE 10 GM /15 ML UDC PO STA (16:40)
[2023-06-14] MEDS: LOSARTAN 50 MG TABLET PO SCH (22:05)
[2023-06-15 06:17] LABS: BASOPHILS % (AUTO) 0.2 %; EOSINOPHILS % (AUTO) 0.1 %; HCT - HEMATOCRIT 34.7 % (37.0-47.0); HGB - HEMOGLOBIN 10.6 g/dL (12.0-16.0); LYMPHOCYTES % (AUTO) 10.6 %; MEAN CORPUSCULAR HEMOGLOBIN 26.6 pg (27.0-31.0); MEAN CORPUSCULAR HGB CONC 30.5 g/dL (32.0-36.0); MEAN PLATELET VOLUME 9.3 fL (7.9-10.8); MONOCYTES % (AUTO) 5.8 %; NEUTROPHILS % (AUTO) 80.4 %; PLT - PLATELET COUNT 411 10^3/uL (130-450); RED BLOOD COUNT 3.99 10^6/uL (4.20-5.40); RED CELL DISTRIBUTION WIDTH 17.9 % (12.0-15.0); WHITE BLOOD COUNT 19.7 x10^3/uL (4.8-10.8)
[2023-06-15 06:29] LABS: ABNORMAL LYMPHS % (MANUAL) 0 %
[2023-06-15 06:43] LABS: BAND NEUTROPHILS % (MANUAL) 2 %; DIFFERENTIAL COMMENT MANUAL DIFFERENTIAL; LYMPHOCYTES # (MANUAL) 2.4 10^3/uL (1.5-3.5); LYMPHOCYTES % (MANUAL) 12 %; METAMYELOCYTES % (MANUAL) 2 %; MONOCYTES # (MANUAL) 1.4 10^3/uL (0.0-1.0); MYELOCYTES % (MANUAL) 1 %; NEUTROPHILS # (MANUAL) 15.4 10^3/uL (1.5-6.6); PLATELET ESTIMATE, MANUAL NORMAL (130-450,000) (NORMAL); RBC MORPHOLOGY (MULTIPLE) NORMAL APPEARANCE (NORMAL)
[2023-06-15 06:59] LABS: CHOL/HDL RATIO 2.1 (<4.4); CHOLESTEROL 167 mg/dL; HDL CHOLESTEROL 79 mg/dL; LDL CHOLESTEROL,CALCULATED 58 mg/dL; LDL/HDL RATIO 0.7 (<4.4); TRIGLYCERIDES 148 mg/dL (48-352); VLDL CHOLESTEROL 30 mg/dL
[2023-06-15 08:10] LABS: CALCIUM 9.7 mg/dL (8.5-10.3); CREATININE 0.9 mg/dL (0.6-1.3); MAGNESIUM 1.9 mg/dL (1.7-2.3); PHOSPHORUS 3.4 mg/dL (2.5-5.0); POTASSIUM 4.9 mmol/L (3.5-4.5)
[2023-06-15 10:18] VITALS: BP 130/87
[2023-06-15 10:28] VITALS: O2SAT 86
--- NOTE | 2023-06-15 11:22 | Discharge Plan ---
"Discharge Plan for SNF / [facility] - Discharge Plan And Transition Orders Problem Reviewed?: Yes Disposition: 03 SNF DC/Xfer Condition: Stable Allergies and Adverse Reactions: Allergies Allergy/AdvReac Type Severity Reaction Status Date / Time azithromycin Allergy Emesis Verified 06/03/23 11:22 Health Concerns: Elisa lady who lives in her own home and has chronic respiratory failure with hypoxia. Baseline is 3 L of nasal cannula oxygen at night. Presented as difficulty breathing worse over 2 days. Seen in ER 2 days prior to admission and chest x-ray and CT pulmonary angiogram without changes so sent home. Continue to have symptoms and worsening came back to the ER. Positive for human metapneumovirus as probable cause of acute on chronic COPD exacerbation. Initially needed 4 L of oxygen. Able to go back down to her usual 3 L of oxygen but now using it 23/11. Prior to this she is only been on nighttime oxygen use. O2 sats are 86 to 89% with these 3 L. She is significantly dyspneic with exerti on. Very fatigued. Below baseline with regards to toileting, dressing, and ambulating. Intermittent orthostatic hypotension. Bowel movements are every 7 to 10 days and KUB shows possible fecalith. Glucose was high. She does have diabetes mellitus. Decompensated due to the steroids we gave her for COPD. Also has chronic iron deficiency anemia and received a dose of dextran while in the hospital. She also has cachexia and poor appetite due to end-stage COPD. She has been seen by palliative care. . Fluctuating anxiety is also a problem and she is on Remeron 7.5 mg and it should be titrated up as indicated. She does have a POLST, daughter Jazlyn is DPOA. She is DNR Plan of Treatment: At this time she is being transferred to retirement facility for physical rehab. There should be a slow steroid taper. Goal is for her to regain her strength to be able to dress herself, ambulate in her home, bathe herself. Care Goals: Goals are to return to independent living, to get stronger with physical rehab. Morphine has been used to relieve her air hunger and tachypnea. Palliative care may be using it in the outpatient setting after rehab Assessment: Patient is alert, oriented to person, place, time and situation. - SNF / [facility] Transition Orders Admit to (Facility): [facility] Under the care of (Name): PCP is Geoff Plascencia Discharge Diagnosis: 1. Acute on chronic respiratory failure with hypoxia 2. COPD with exacerbation 3. Human metapneumovirus viral infection 4. Orthostatic hypotension 5. Prerenal azotemia 6. Constipation 7. Type 2 diabetes mellitus, uncontrolled with hyperglycemia, not on long-term insulin 8. Hypertension 9. Chronic iron deficiency anemia 10. Sinus tachycardia 11. Cachexia Medicare Certification Statement: I certify that [facility] retirement care is medically necessary on a continuing basis for any of the conditions for which she/he is receiving care during hospitalization. Notify PCP of admission and forward orders to primary provider for signature. Weight on admission and: Weekly Other Notification Orders: Call PCP immediately if patient develops dyspnea, chest pain/tightness or edema. House Bowel Program: Yes Additional Bowel Program Orders: If no BM after 2 days, nurse may give M.O.M. 30ml PO PRN and/or ducolax Supp 1 DC and/or CARLOS 250mg P.O., and/or senna 1-2 tabs PO. On day 3 nurse may give repeat above order until residents constipation is resolved. Annual Influenza Vaccine (between Jan 01 and July 31): Yes Two-step PPD per [facility] [phone] or approved exception documents: Yes Oxygen Orders: 3 L nasal cannula. To maintain O2 sats greater than 88%. Once she starts physical rehab, consider increasing oxygen with exertion Medication Orders: PLEASE REFER TO THE DISCHARGE MEDICATION LIST. Insulin Orders?: Yes - Medications New Prescriptions: diltiaZEM CD [Cardizem Cd] 180 mg PO BID #1 Morphine Oral Soln [Roxanol] 5 mg PO Q4H PRN #10 ml PRN Reason: Dyspnea - Diet Type: Geriatric Texture: Mech soft (bite sized) Liquids: Thin May have monthly special meal: Yes - Therapies | Activity Therapy: Evaluation | Treat if indicated: PT, OT Rehabilitation Potential: Maximize functional status Activity: Activity as Tolerated Weight Bearing: Full Weight Assistance Devices: Wheelchair, Walker Insulin Orders - SNF Basal | Correction | Custom Orders: Diagnosis: Diabetes Initiate hypo and hyperglycemia protocols for BG <70 and BG >375. May check BG PRN for signs/symptoms of dysglycemia. Frequency of BG checks: [AC/Meal/HS] Basal Insulin: [] Lantus 100 units / ml inject subq as follows: [] [] Other: [] Correction Insulin: - Select the type of insulin below [Choose: Novolog/Humalog]100 units /ml insulin inject subq per orders indicate below [xxx] LOW DOSE [] MODERATE DOSE [] MODERATE/HIGH DOSE [] HIGH DOSE GB UNITS GB UNITS GB UNITS GB UNITS 61-140 0 UNITS 61-140 0 UNITS 61-140 0 UNITS 61-140 0 UNITS 141-175 1 UNITS 141-175 1 UNITS 141-175 2 UNITS 141-175 3 UNITS 176-225 2 UNITS 176-225 3 UNITS 176-225 4 UNITS 176-225 5 UNITS 226-275 3 UNITS 226-275 5 UNITS 226-275 6 UNITS 226-275 7 UNITS 276-325 4 UNITS 276-325 7 UNITS 276-325 8 UNITS 276-325 9 UNITS 326-375 5 UNITS 326-375 9 UNITS 326-375 10 UNITS 326-375 11 UNITS >375 CONTACT MD >375 CONTACT MD >375 CONTACT MD >375 CONTACT MD Custom Dosing: [Choose: Novolog/Humalog] 100 units/ml Insulin inject subq as follows: GB Units 61-140 [] Units 141-175 [] Units 176-225 [] Units 226-275 [] Units 276-325 []Units 326-375 [] Units >375 Contact MD"
--- NOTE | 2023-06-15 20:13 | DISCHARGE SUMMARY ---
"Discharge Summary Admit Date: 06/05/23 Discharge Date: 06/15/23 Condition at Discharge: Stable Discharge Disposition: [facility] DC/Xfer - DIAGNOSES Discharge Diagnoses with Status of Each Condition: 1. Acute on chronic respiratory failure with hypoxia 2. COPD with exacerbation 3. Human metapneumovirus viral infection 4. Orthostatic hypotension 5. Prerenal azotemia 6. Constipation 7. Type 2 diabetes mellitus, uncontrolled with hyperglycemia, not on long-term insulin 8. Hypertension 9. Chronic iron deficiency anemia 10. Sinus tachycardia 11. Cachexia - HPI History of Present Illness: 78-year-old female with severe COPD presents to the emergency department with difficulty breathing, worsening over the past few days. She was seen here 2 days ago, did not have any acute findings on CT pulmonary angiogram of the chest. Improved with nebulizer treatment and steroids. She states she has been using her prednisone at home but her breathing is continuing to worsen. She is usually on 3 L of oxygen at home. She states she took her prednisone at home today. She received a breathing treatment and 125 mg Solu-Medrol with EMS tonight. 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 Trace left pleural effusion. Tortuous aorta. Heart size normal. No pneumothorax. Abdomen x-ray for constipation for 12 days shows no acute abdominal pathology, no significant colonic stool load. - HOSPITAL COURSE Hospital Course: Elisa lady who lives in her own home and has chronic respiratory failure with hypoxia. Baseline is 3 L of nasal cannula oxygen at night. Presented as difficulty breathing worse over 2 days. Seen in ER 2 days prior to admission and chest x-ray and CT pulmonary angiogram without changes so sent home. Continue to have symptoms and worsening came back to the ER. Positive for human metapneumovirus as probable cause of acute on chronic COPD exacerbation. Initially needed 4 L of oxygen. Able to go back down to her usual 3 L of oxygen but now using it 23/11. Prior to this she is only been on nighttime oxygen use. O2 sats are 86 to 89% with these 3 L. She is significantly dyspneic with exertion. Very fatigued. Below baseline with regards to toileting, dressing, and ambulating. Intermittent orthostatic hypotension. Bowel movements are every 7 to 10 days and KUB shows possible fecalith. Glucose was high. She does have diabetes mellitus. Decompensated due to the steroids we gave her for COPD. Also has chronic iron deficiency anemia and received a dose of dextran while in the hospital. She also has cachexia and poor appetite due to end-stage COPD. She has been seen by palliative care. . Fluctuating anxiety is also a problem and she is on Remeron 7.5 mg and it should be titrated up as indicated. She does have a POLST, daughter Jazlyn is DPOA. She is DNR Plan of Treatment: At this time she is being transferred to group home facility for physical rehab. There should be a slow steroid taper. Goal is for her to regain her str ength to be able to dress herself, ambulate in her home, bathe herself. Care Goals: Goals are to return to independent living, to get stronger with physical rehab. Morphine has been used to relieve her air hunger and tachypnea. Palliative care may be using it in the outpatient setting after rehab. Daughter feels that if mom does not improve enough to live alone, they may transition her to hospice after this episode in the alf. Assessment: Patient is alert, oriented to person, place, time and situation. However she is cachectic, easily fatigued, easily short of breath with minimal activity. Looks older than her stated age of 78. At time sternocleidomastoids are quite prominent as she struggles to breathe and speak. Quiet lung sounds, with prolonged end exhalation phase. Occasional coarse rhonchi, but they clear with deep cough. Tachypnea only occurs when I have her sit up and try and stand. She has a regular rate and rhythm. Abdomen has very quiet bowel sounds, nondistended. Extremities are thin with diffusely wasted muscle mass. Greater than 30-minute spent coordinating discharge - ALLERGIES Allergies/Adverse Reactions: Allergies Allergy/AdvReac Type Severity Reaction Status Date / Time azithromycin Allergy Emesis Verified 06/17/23 16:50 - MEDICATIONS Home Medications: Ambulatory Orders Medication Instructions Recorded Confirmed Albuterol Sulf [Ventolin Hfa 2 puffs INH Q4H PRN 05/18/20 06/06/23 Inhaler] Atorvastatin [Lipitor] 10 mg PO QPM 05/18/20 06/06/23 Oxybutynin [Ditropan] 5 mg PO BID 05/18/20 06/06/23 Acetaminophen [Tylenol] 650 mg PO Q4HR PRN tab 06/15/23 Ascorbic Acid [Vitamin C] 500 mg PO DAILY tab 06/15/23 Clopidogrel [Plavix] 75 mg PO DAILY #0 06/15/23 06/06/23 Cyanocobalamin [Vitamin B-12] 500 mcg PO DAILY tab 06/15/23 Ferrous Gluconate [Fergon] 324 mg PO DAILYWM tab 06/15/23 Fluticasone/Umeclidin/Vilanter 1 each IH DAILY #0 06/15/23 06/06/23 [Trelegy Ellipta 200-62.5-25] Imipramine HCl 150 mg PO QPM #0 06/15/23 06/06/23 Losartan [Cozaar] 50 mg PO BID tab 06/15/23 Montelukast [Singulair] 10 mg PO QPM tab 06/15/23 Roflumilast [Daliresp] 250 mcg PO DAILY #0 06/15/23 06/06/23 diltiaZEM CD [Cardizem Cd] 180 mg PO BID #1 06/15/23 guaiFENesin [Mucinex] 600 mg PO BID tab 06/15/23 metFORMIN [Glucophage] 1,000 mg PO BID tab 06/15/23 predniSONE [Deltasone] 40 mg PO DAILYWM tab 06/15/23 Morphine Oral Soln [Roxanol] 5 mg ORAL Q4HR PRN 06/17/23 06/17/23 Morphine Oral Soln [Roxanol] 5 mg PO Q4HR PRN 06/17/23 06/17/23 - LABS Result Diagrams: 06/15/23 05:49 06/15/23 05:49 - SEPSIS Current Stage of Sepsis: Ruled out"
== END 2023-06-15 14:00 | DRG 190 ==
LOC: EDUNIT# → ED 18:39 → MS2 21:14
PROVIDERS: ADMIT Internal Medicine; ATTEND Specialist
DX: J44.1 Chronic obstructive pulmonary disease with (acute) exacerbation (principal); J12.3 Human metapneumovirus pneumonia; J96.11 Chronic respiratory failure with hypoxia; J96.21 Acute and chronic respiratory failure with hypoxia; I10 Essential (primary) hypertension; E11.9 Type 2 diabetes mellitus without complications; R64 Cachexia; Z68.1 Body mass index [BMI] 19.9 or less, adult; Z99.81 Dependence on supplemental oxygen; Z87.891 Personal history of nicotine dependence; J44.0 Chronic obstructive pulmonary disease with (acute) lower respiratory infection; I95.1 Orthostatic hypotension; R79.89 Other specified abnormal findings of blood chemistry; E11.65 Type 2 diabetes mellitus with hyperglycemia; Z79.84 Long term (current) use of oral hypoglycemic drugs; D50.9 Iron deficiency anemia, unspecified; R00.0 Tachycardia, unspecified; Z66 Do not resuscitate; R63.0 Anorexia; E11.22 Type 2 diabetes mellitus with diabetic chronic kidney disease; I12.9 Hypertensive chronic kidney disease with stage 1 through stage 4 chronic kidney disease, or unspecified chronic kidney disease; N18.9 Chronic kidney disease, unspecified; Z51.5 Encounter for palliative care; E11.51 Type 2 diabetes mellitus with diabetic peripheral angiopathy without gangrene; M54.9 Dorsalgia, unspecified; K59.00 Constipation, unspecified; F41.9 Anxiety disorder, unspecified
CPT/HCPCS: 36415; 71045; 74018; 80048; 80053; 80061; 83036; 83690; 83735; 84100; 85025; 87633; 93005; 94640; 94667; 96360; 96361; 97162; 97166; 97530; 99285; A9270; J1750; J7512; J7626; 83721

== ENCOUNTER 2023-06-17 16:30 | Outpatient (CLI) | payer MEDICARE, OTHER | END 2023-06-17 16:31 | disposition critical access hospital (66) | LOC: EMS 16:30 | DX: T40.2X1A Poisoning by other opioids, accidental (unintentional), initial encounter (principal); R06.03 Acute respiratory distress; Y92.129 Unspecified place in nursing home as the place of occurrence of the external cause | CPT/HCPCS: A0425; A0427 ==

== ENCOUNTER 2023-06-17 16:38 | Inpatient (IN) | payer MEDICARE, OTHER ==
--- NOTE | 2023-06-17 16:48 | ED Physician Documentation ---
History of Present Illness - Stated complaint Stated Complaint: SOA - History obtained from History obtained from: Patient, EMS - Additonal information Additional information: 78-year-old woman presents by ambulance. She was hospitalized here and discharged after over a week. She went to [facility] 2 days ago. She was here for COPD exacerbation. This morning at the SNF her daughter found her obtunded in the 8:00 hour. It later became apparent that she had received a 5 fold overdose of morphine. After several hours she was given Narcan and woke up but she was quite tachypneic and had sats in the 50s. History is limited from the patient at this point due to respiratory distress but does admit to shortness of breath but denies chest pain. PD PAST MEDICAL HISTORY - Past Medical History Cardiovascular: Hypertension, Peripheral Vascular Disease, Other Respiratory: COPD, Shortness of breath, Other Neuro: Other Endocrine/Autoimmune: Type 2 diabetes GI: Chronic constipation : Incontinence, Nocturia, Frequency HEENT: Chronic vision loss Psych: Depression, Anxiety, Panic attacks Musculoskeletal: Osteoarthritis, Fatigue, Other Derm: None - Past Surgical History Past Surgical History: Yes Ortho: Knee replacement, Rotator cuff repair, Other HEENT: Tonsil/Adenoidectomy - Present Medications Home Medications: Ambulatory Orders Medication Instructions Recorded Confirmed Albuterol Sulf [Ventolin Hfa 2 puffs INH Q4H PRN 05/18/20 06/06/23 Inhaler] Atorvastatin [Lipitor] 10 mg PO QPM 05/18/20 06/06/23 Oxybutynin [Ditropan] 5 mg PO BID 05/18/20 06/06/23 Acetaminophen [Tylenol] 650 mg PO Q4HR PRN tab 06/15/23 Ascorbic Acid [Vitamin C] 500 mg PO DAILY tab 06/15/23 Clopidogrel [Plavix] 75 mg PO DAILY #0 06/15/23 06/06/23 Cyanocobalamin [Vitamin B-12] 500 mcg PO DAILY tab 06/15/23 Ferrous Gluconate [Fergon] 324 mg PO DAILYWM tab 06/15/23 Fluticasone/Umeclidin/Vilanter 1 each IH DAILY #0 06/15/23 06/06/23 [Trelegy Ellipta 200-62.5-25] Imipramine HCl 150 mg PO QPM #0 06/15/23 06/06/23 Losartan [Cozaar] 50 mg PO BID tab 06/15/23 Montelukast [Singulair] 10 mg PO QPM tab 06/15/23 Roflumilast [Daliresp] 250 mcg PO DAILY #0 06/15/23 06/06/23 diltiaZEM CD [Cardizem Cd] 180 mg PO BID #1 06/15/23 guaiFENesin [Mucinex] 600 mg PO BID tab 06/15/23 metFORMIN [Glucophage] 1,000 mg PO BID tab 06/15/23 predniSONE [Deltasone] 40 mg PO DAILYWM tab 06/15/23 Morphine Oral Soln [Roxanol] 5 mg PO Q4H PRN #10 ml 06/16/23 - Allergies Allergies/Adverse Reactions: Allergies Allergy/AdvReac Type Severity Reaction Status Date / Time azithromycin Allergy Emesis Verified 06/17/23 16:50 - Social History Does the pt smoke?: No Smoking Status: Never smoker Does the pt drink ETOH?: Yes Does the pt have substance abuse?: No - Immunizations Immunizations are current?: Yes - POLST Patient has POLST: Yes PD ED PE NORMAL - Vitals Vital signs reviewed: Yes - General General: Alert and oriented X 3, Other (She is struggling to breathe and is on a nonrebreather.) - Cardiac Cardiac: Other (Tachycardic without clear murmur) - Respiratory Respiratory: Other (Tachypneic and struggling to breathe with rhonchorous breath sounds throughout and wet lungs.) - Abdomen Abdomen: Non tender - Extremities Extremities: No edema, No calf tenderness / cord - Neuro Neuro: Alert and oriented X 3 Results - Vitals Vitals: Vital Signs - 24 hr 06/17/23 06/17/23 06/17/23 16:40 16:56 17:10 Temperature 38.8 C H Heart Rate 127 H 131 H 134 H Respiratory 34 H 28 H 26 H Rate Blood Pressure 139/118 H 139/118 H 174/101 H O2 Saturation 100 95 96 If not protocol : Oxygen Flow, liters/minute 06/17/23 06/17/23 17:15 17:20 Temperature Heart Rate 133 H 78 Respiratory 32 H 20 Rate Blood Pressure 158/101 H O2 Saturation 97 If not protocol 15 : Oxygen Flow, liters/minute Oxygen O2 Source Non-rebreather mask - EKG (time done) 1655 EKG releavant findings:: EKG personally interpreted by author of this note. Relevant findings are: Rate: Rate (enter#) (132) Rhythm: Sinus tachycardia, LAE [place]: Normal Intervals: Normal VA QRS: Normal Ischemia: Non specific changes. No: ST elevation c/w ischemia, ST depression - Labs Labs: Laboratory Tests 06/17/23 06/17/23 06/17/23 16:53 16:53 16:53 WBC 30.1 H RBC 4.49 Hgb 12.1 Hct 39.7 MCV 88.4 MCH 26.9 L MCHC 30.5 L RDW 18.7 H Plt Count 395 MPV 9.3 Sodium 136 Potassium 4.4 Chloride 101 Carbon Dioxide 28 Anion Gap 7.0 BUN 35 H Creatinine 1.2 Estimated GFR (MDRD) 43 L Glucose 213 H Calcium 9.8 Magnesium 1.6 L Total Bilirubin 0.7 AST 10 ALT 19 Alkaline Phosphatase 74 B-Natriuretic Peptide 107 H Total Protein 6.2 L Albumin 3.3 Globulin 2.9 Albumin/Globulin Ratio 1.1 - Rads (name of study) Single view chest x-ray demonstrates patchy bibasilar opacities which could represent atelectasis, aspiration, or pneumonia. Relevant Findings:: Final report received, EMP independent interpretation of test PD Medical Decision Making - ED course ED course: 78-year-old woman presents from local SNF, she was just discharged from here for COPD and had a therapeutic misadventure today with an overdose of morphine and was obtunded for some time now. After this was recognized she was given Narcan and now presents with significant respiratory distress. Narcotic induced pulmonary edema was considered but the current findings which include being febrile to 38 8 and her chest x-ray are more suggestive of an episode of aspiration. Also her white count of 30,000. She was administered Zosyn after blood cultures and she was quite tachypneic and anxious and was given a small dose of Ativan. Spoke with Dr. Hinojosa for admission at 5:23 PM. Confirmed with daughter DNR/DNI status. - Critical Care Time(min): 35 Time Includes: Direct patient care, Review records, Reassess patient, Document care, Coordinate care, Medical consult, Family consult for tx dec Data interpretation: Labs, Pulse ox Procedures included in critical care time: Peripheral IV Procedures excluded from critical care time: EKG Departure - Departure Disposition: 66 [facility] DC/Xfer Clinical Impression: Pneumonia Qualifiers: Pneumonia type: aspiration pneumonia Aspiration pneumonia type: unspecified Laterality: bilateral Lung location: lower lobe of lung Qualified Code(s): J69.0 - Pneumonitis due to inhalation of food and vomit Condition: Serious
[2023-06-17 17:01] LABS: BASOPHILS % (AUTO) 0.3 %; HCT - HEMATOCRIT 39.7 % (37.0-47.0); HGB - HEMOGLOBIN 12.1 g/dL (12.0-16.0); LYMPHOCYTES % (AUTO) 4.3 %; MEAN CORPUSCULAR HEMOGLOBIN 26.9 pg (27.0-31.0); MEAN CORPUSCULAR HGB CONC 30.5 g/dL (32.0-36.0); MEAN CORPUSCULAR VOLUME 88.4 fL (81.0-99.0); MEAN PLATELET VOLUME 9.3 fL (7.9-10.8); MONOCYTES % (AUTO) 2.1 %; NEUTROPHILS % (AUTO) 92.2 %; PLT - PLATELET COUNT 395 10^3/uL (130-450); RED BLOOD COUNT 4.49 10^6/uL (4.20-5.40); RED CELL DISTRIBUTION WIDTH 18.7 % (12.0-15.0); WHITE BLOOD COUNT 30.1 x10^3/uL (4.8-10.8)
[2023-06-17 17:03] LABS: ABNORMAL LYMPHS % (MANUAL) 0 %; BAND NEUTROPHILS % (MANUAL) 0 %
--- NOTE | 2023-06-17 17:06 | XRAY Report ---
PROCEDURE: Chest 1V INDICATIONS: dyspnea, pulm edema vs aspiration TECHNIQUE: One view of the chest was acquired. COMPARISON: None. FINDINGS: Surgical changes and devices: None. Lungs and pleura: Trace bilateral pleural effusions. Patchy bibasilar opacities. Mediastinum: Mediastinal contours appear normal. Heart size is normal. Bones and chest wall: No suspicious bony lesions. Overlying soft tissues appear unremarkable. IMPRESSION: Patchy bibasilar opacities which could represent atelectasis, aspiration or pneumonia. Trace bilateral pleural effusions. Reviewed by: Pam Isaacs MD, PhD on 06/17/2023 5:05 PM PST Approved by: Pam Isaacs MD, PhD on 06/17/2023 5:05 PM PST Station ID: [id number]
[2023-06-17] MEDS: ACETAMINOPHEN 1,000 MG/100 ML 1,000 MG/100 ML BAG IV ONE (17:07)
[2023-06-17 17:12] LABS: ALBUMIN 3.3 g/dL (3.2-5.5); ALBUMIN/GLOBULIN RATIO 1.1 (1.0-2.2); BILIRUBIN,TOTAL 0.7 mg/dL (0.2-1.0); CALCIUM 9.8 mg/dL (8.5-10.3); CREATININE 1.2 mg/dL (0.6-1.3); MAGNESIUM 1.6 mg/dL (1.7-2.3); POTASSIUM 4.4 mmol/L (3.5-4.5); TOTAL PROTEIN 6.2 g/dL (6.4-8.9)
[2023-06-17] MEDS: IPRATROPIUM/ALBUTEROL 3 ML NEB INH STA (17:12)
[2023-06-17 17:24] LABS: LYMPHOCYTES # (MANUAL) 2.4 10^3/uL (1.5-3.5); LYMPHOCYTES % (MANUAL) 8 %; MONOCYTES # (MANUAL) 0.6 10^3/uL (0.0-1.0); NEUTROPHILS # (MANUAL) 27.1 10^3/uL (1.5-6.6)
[2023-06-17] MEDS ORDERED: ONDANSETRON 4 MG/2 ML VIAL IVP PRN (17:25)
[2023-06-17] MEDS ORDERED: ONDANSETRON ODT 4 MG TABLET TL PRN (17:25)
[2023-06-17 17:26] LABS: PLATELET MORPHOLOGY NORMAL APPEARANCE (NORMAL); RBC MORPHOLOGY (MULTIPLE) 1+ OVALOCYTES (NORMAL)
[2023-06-17 17:27] LABS: DIFFERENTIAL COMMENT MANUAL DIFFERENTIAL; PLATELET ESTIMATE, MANUAL NORMAL (130-450,000) (NORMAL)
[2023-06-17] MEDS: PIPERACILLIN/TAZOBACTAM 4.5 GM in SODIUM CHLORIDE 0.9% MINIBAG 100 ML IV STA (17:28)
[2023-06-17] MEDS: LORazepam 2 MG/ML VIAL IVP STA (17:34)
[2023-06-17] MEDS: SODIUM CHLORIDE 0.9% 1,000 ML IV STA (17:37)
[2023-06-17] MEDS ORDERED: PIPERACILLIN/TAZOBACTAM 3.375 GM in SODIUM CHLORIDE 0.9% MINIBAG 100 ML IV SCH (18:00)
[2023-06-17] MEDS: ALBUTEROL NEB 2.5 MG/3 ML INH PRN (19:01)
[2023-06-17] MEDS: BUDESONIDE 0.5 MG/2 ML NEB INH SCH (19:01)
--- NOTE | 2023-06-17 19:01 | HISTORY & PHYSICAL EXAMINATION ---
Chief Complaint - Chief Complaint Chief Complaint: shortness of breath History of Present Illness - Admitted From Admitted From:: ED - History Obtained From Records Reviewed: yes History obtained from: daughter Jazlyn at bedside Exam Limitations: dyspnea and drowsiness - History of Present Illness HPI Comment/Other: The patient is an 78-year-old female with history of end-stage COPD who was BIBA from [facility] for altered mental status and shortness of breath. She was recently hospitalized here for respiratory failure due to human metapneumovirus infection, discharged to [facility] 2d ago. History unable to be obtained from patient due to respiratory distress, info obtained from daughter Jazlyn at bedside. Daughter visits patient 2-3x per day and this morning noted patient was obtunded and "out of it". She expressed her concerns to staff at [facility] but reports there was a delay in evaluation. Daughter then received a call from SNF that patient had received an unintentional overdose of morphine this afternoon ~1300 and was given Narcan. When daughter arrived back to [facility] to evaluate patient, she was awake but having significant difficulty breathing. EMS was called and patient was brought to ED for evaluation. Daughter states at baseline patient can communicate normally, but today has only been able to speak a few words which is not her baseline. Upon exam in ED patient is on non-rebreather mask, tachycardic, tachypneic, and febrile, and appears in acute distress. Daughter has had discussion with hospice and there is consideration of transfer to hospice if she worsens. Patient was already on palliative care. Daughter agrees if patient's respiratory status deteriorates her DNR will be upheld and she will be made comfortable. Unable to obtain ROS due to shortness of breath. History - Past Medical History Cardiovascular: reports: Hypertension, Peripheral Vascular Disease, Other Respiratory: reports: COPD, Shortness of breath, Other Neuro: reports: Other Endocrine/Autoimmune: reports: Type 2 diabetes GI: reports: Chronic constipation : reports: Incontinence, Nocturia, Frequency HEENT: reports: Chronic vision loss Psych: reports: Depression, Anxiety, Panic attacks Musculoskeletal: reports: Osteoarthritis, Fatigue, Other Derm: reports: None MRSA Hx?: No - Past Surgical History Ortho: reports: Knee replacement, Rotator cuff repair, Other HEENT: reports: Tonsil/Adenoidectomy - Family & Social History Family History: Mother: , Diabetes, Type 2, Father: , Cancer, Brother: , Cancer, CVA/TIA Family History Comment/Other: Her brother recently in March 2020 from a CVA. Her father when the patient was 16 years old from lung cancer. He was a smoker. Her mother of natural causes. Living Situation: Alone Social History Notes: The patient lives alone but her family lives nearby. She moved to [facility] to live close to her daughter. She used to living [facility]. She reports quitting smoking cigarettes a few weeks ago. She has sm oked cigarettes from the age of 15. She used to smoke 1 pack/day. She reports drinking a glass of wine daily. She denies any recreational substances. - Substance History Use: Uses substance without health or social issues: Tobacco - POLST Patient has POLST: Yes Meds/Allgy - Home Medications Home Medications: Ambulatory Orders Medication Instructions Recorded Confirmed Albuterol Sulf [Ventolin Hfa 2 puffs INH Q4H PRN 05/18/20 06/06/23 Inhaler] Atorvastatin [Lipitor] 10 mg PO QPM 05/18/20 06/06/23 Oxybutynin [Ditropan] 5 mg PO BID 05/18/20 06/06/23 Acetaminophen [Tylenol] 650 mg PO Q4HR PRN tab 06/15/23 Ascorbic Acid [Vitamin C] 500 mg PO DAILY tab 06/15/23 Clopidogrel [Plavix] 75 mg PO DAILY #0 06/15/23 06/06/23 Cyanocobalamin [Vitamin B-12] 500 mcg PO DAILY tab 06/15/23 Ferrous Gluconate [Fergon] 324 mg PO DAILYWM tab 06/15/23 Fluticasone/Umeclidin/Vilanter 1 each IH DAILY #0 06/15/23 06/06/23 [Trelegy Ellipta 200-62.5-25] Imipramine HCl 150 mg PO QPM #0 06/15/23 06/06/23 Losartan [Cozaar] 50 mg PO BID tab 06/15/23 Montelukast [Singulair] 10 mg PO QPM tab 06/15/23 Roflumilast [Daliresp] 250 mcg PO DAILY #0 06/15/23 06/06/23 diltiaZEM CD [Cardizem Cd] 180 mg PO BID #1 06/15/23 guaiFENesin [Mucinex] 600 mg PO BID tab 06/15/23 metFORMIN [Glucophage] 1,000 mg PO BID tab 06/15/23 predniSONE [Deltasone] 40 mg PO DAILYWM tab 06/15/23 Morphine Oral Soln [Roxanol] 5 mg ORAL Q4HR PRN 06/17/23 06/17/23 Morphine Oral Soln [Roxanol] 5 mg PO Q4HR PRN 06/17/23 06/17/23 - Allergies Allergies/Adverse Reactions: Allergies Allergy/AdvReac Type Severity Reaction Status Date / Time azithromycin Allergy Emesis Verified 06/17/23 16:50 Exam - Vital Signs Vital Signs: Vital Signs x48h Temp Pulse Pulse Resp BP BP Pulse Ox 06/17/23 18:40 06/17/23 18:26 125 H 142/84 H 98 06/17/23 17:45 127 H 32 H 130/76 96 06/17/23 17:41 38.3 C H 131 H 38 H 149/104 H 99 06/17/23 17:20 78 20 06/17/23 17:15 133 H 32 H 158/101 H 97 06/17/23 17:10 134 H 26 H 174/101 H 96 06/17/23 16:56 38.8 C H 131 H 28 H 139/118 H 95 06/17/23 16:40 127 H 34 H 139/118 H 100 O2 Flow Rate 06/17/23 18:40 15 06/17/23 18:26 15 06/17/23 17:45 06/17/23 17:41 06/17/23 17:20 15 06/17/23 17:15 06/17/23 17:10 06/17/23 16:56 06/17/23 16:40 - Physical Exam General Appearance: positive: Severe distress, Anxious, Other (Cachectic, ill- appearing) Respiratory: positive: Rhonchi (no wheezes, accessory muscle use and tachypnea noted on non-rebreather mask) Cardiovascular: positive: Tachycardia (no murmur heard) Abdomen: positive: Non-tender, Nml bowel sounds Skin: positive: No rash, Warm Extremities: positive: Non-tender, No pedal edema Neurologic/Psychiatric: positive: Other (Awake but drowsy, does awaken very briefly to say a word once in awhile but cannot interact consistently) Sepsis Event Note (H) - Evaluation Current Stage of Sepsis: Sepsis Possible source of Sepsis: positive: Pulmonary - Sepsis Criteria Sepsis Criteria: Recorded Temperature greater than 38.3C or Less than 36C, Recorded Heart Rate greater than 90 bpm, Respiratory: Increasing oxygen requirements, WBC count greater than 12,000 or less than 4000, CERTIFIED HISTOLOGIC TECHNICIAN: altered consciousness (unrelated to primary neuro pathology) Conclusion/Plan - Problem List (1) Acute and chronic respiratory failure with hypoxia Conclusion/Plan: Unintentional overdose of opiates prior to admission with subsequent obtundation and requiring Narcan. Then dyspnea and respiratory distress were noted. Suspect aspiration pneumonia in setting of end-stage COPD. Currently on non-rebreather mask. Plan: Wean O2 as able Goal SpO2 88-92 DNR/DNI, if respiratory status worsens will focus on comfort Albuterol and Pulmicort (2) Sepsis Conclusion/Plan: Meets septic criteria for fever, tachycardia, and WBC count. Likely from aspiration pneumonia. Blood cultures drawn, results pending. lactate normal. Plan: Monitor wbc count Treat fever Continue Zosyn Follow blood culture results Qualifiers: Sepsis acute organ dysfunction status: with acute organ dysfunction Severe sepsis acute organ dysfunction type: acute respiratory failure Acute respiratory failure type: with hypoxia Severe sepsis shock status: without septic shock (3) Aspiration pneumonia Conclusion/Plan: Suspected due to significant dyspnea, fever, and elevated WBC after needing Narcan for obtundation. CXR with bibasilar opacities, in this setting will treat for aspiration pneumonia. Plan: Continue Zosyn for now, plan to de-escalate in AM Monitor WBC count Treat fever with anti-pyretics Blood cx drawn in ED, follow up results (4) COPD (chronic obstructive pulmonary disease) Conclusion/Plan: end-stage with cachexia Plan: Hold Daliresp for now while struggling to breathe Albuterol and Pulmicort (5) Opiate overdose Conclusion/Plan: Unintentional, reported medication error at [facility], was given 5x prescribed dose of morphine and required Narcan when she became obtunded. Now awake. Plan: hold morphine for now Monitor mental status and RR, if RR<8 or mental status worsens may need repeat dose of Narcan Once more awake and alert consider restarting morphine for air hunger due to end-stage COPD Qualifiers: Encounter type: initial encounter Injury intent: accidental or unintentional Qualified Code(s): T40.601A - Poisoning by unspecified narcotics, accidental (unintentional), initial encounter (6) Type 2 diabetes mellitus Conclusion/Plan: On metformin at home Plan: hold metformin Monitor blood sugars Consider insulin protocol if indicated (goal is more comfort focused) Qualifiers: Diabetes mellitus termination clerk insulin use: without [place] use Diabetes mellitus complication status: with neurologic complications Diabetes mellitus complication detail: with polyneuropathy Qualified Code(s): E11.42 - Type 2 diabetes mellitus with diabetic polyneuropathy (7) Depression with anxiety Conclusion/Plan: Problem at baseline, worse now with dyspnea. Plan: prn Ativan if needed (low-dose) for her severe dyspnea Restart home imipramine when more awake (8) Peripheral vascular disease Conclusion/Plan: Plan: Restart home Plavix when able to safely take PO - Lab Results Lab results reviewed: Yes Jose E Bones: 06/17/23 16:53 06/17/23 16:53 - Diagnostic Imaging Results Diagnostic Imaging Results: positive: Final report reviewed - EKG Results EKG Interpreted Independently: No Core Measures - Anticipated LOS I expect patient to be DC'd or transferred within 96 hours.: Yes - DVT/VTE - Prophylaxis VTE/DVT Prophylaxis med ordered at admit?: Yes
[2023-06-17] MEDS: MAGNESIUM SULFATE 2 GRAM 2 GM/50 ML BAG IV ONE (21:17)
[2023-06-17] MEDS: methylPREDNISolone SUCCINATE 40 MG/ML VIAL IVP SCH (21:17)
[2023-06-17] MEDS: INSULIN LISPRO 300 UNIT/3 ML PEN SUBQ SCH (21:32)
[2023-06-18] MEDS: PIPERACILLIN/TAZOBACTAM 2.25 GM in SODIUM CHLORIDE 0.9% MINIBAG 100 ML IV SCH (00:08)
[2023-06-18] MEDS: SODIUM CHLORIDE FLUSH 0.9% 10 ML SYRINGE IVP SCH (00:09)
[2023-06-18] MEDS: SODIUM CHLORIDE FLUSH 0.9% 10 ML SYRINGE IVP PRN (05:36)
[2023-06-18] MEDS: diltiaZEM CD 180 MG CAPSULE PO SCH (08:47)
--- NOTE | 2023-06-18 10:51 | PHARMACY PROGRESS NOTE ---
- Best Possible Medication History Admit Date and Time: 06/17/23 6295 Processed by: Pharmacy Medications reviewed in ED?: Yes Medication History completed: Yes Patient Interview: Completed Secondary Source(s): Insurance records, Facility MAR as ONLY source As the person ultimately responsible for medication therapy, providers are able to order a medication from an existing home medication list in [facility] via the "Reconcile Routine" prior to Confirmation of that medication by sales support specialist. Such practice is discouraged except when the physician, in their clinical judgment, deems that a medical need exists for a medication without regard to previous use.
[2023-06-18 10:55] LABS: ESTIMATED AVERAGE GLUCOSE 157 mg/dL (70-100); HEMOGLOBIN A1c% 7.1 % (4.27-6.07)
--- NOTE | 2023-06-18 12:29 | PROVIDER PROGRESS NOTE ---
Subjective - Prog Note Date Prog Note Date: 06/18/23 Prog Note Time: 12:27 - Subjective Pt reports feeling: Improved (Feeling much better. Awake, alert, both daughters at bedside. Now on high flow O2.) Current Medications - Current Medications Current Medications: Active Medications Generic Name Dose Route Start Last Admin Trade Name Freq PRN Reason Stop Dose Admin Acetaminophen 650 mg 06/17/23 17:25 Acetaminophen 325 Mg Tablet PO Q4HR PRN Pain 1 to 4, or Fever Albuterol 2.5 mg 06/17/23 17:28 06/18/23 06:10 Albuterol Neb 2.5 Mg/3 Ml INH 2.5 mg RTQ4H PRN Administration Wheezing Budesonide 0.5 mg 06/17/23 19:00 06/18/23 06:10 Budesonide 0.5 Mg/2 Ml Neb INH 0.5 mg RTBID LUCHO Administration Diltiazem HCl 180 mg 06/18/23 09:00 06/18/23 08:47 Diltiazem Cd 180 Mg Capsule PO 180 mg DAILY LUCHO Administration Piperacillin Sod/Tazobactam 100 mls @ 200 mls/hr 06/18/23 00:00 06/18/23 12:15 Sod 2.25 gm/ Sodium Chloride IV 200 mls/hr Q6H LUCHO Administration Insulin Human Lispro 2 - 10 unit 06/17/23 21:00 06/18/23 12:15 Insulin Lispro 300 Unit/3 Ml Pen SUBQ 2 unit 0800,1200,1700,2100 LUCHO Administration Protocol Methylprednisolone 40 mg 06/17/23 19:59 06/18/23 08:47 Methylprednisolone Succinate 40 Mg/Ml Vial IVP 40 mg DAILY LUCHO Administration Ondansetron HCl 4 mg 06/17/23 17:25 Ondansetron Odt 4 Mg Tablet TL Q6HR PRN Nausea / Vomiting Ondansetron HCl 4 mg 06/17/23 17:25 Ondansetron 4 Mg/2 Ml Vial IVP Q6HR PRN Nausea / Vomiting Sodium Chloride 10 ml 06/17/23 17:25 06/18/23 05:36 Sodium Chloride Flush 0.9% 10 Ml Syringe IVP 10 ml PRN PRN Administration NEEDED PER PROVIDER ORDERS Sodium Chloride 10 ml 06/18/23 01:00 06/18/23 08:48 Sodium Chloride Flush 0.9% 10 Ml Syringe IVP 10 ml 0100,0900,1700 LUCHO Administration Albuterol Sulf [Ventolin Hfa Inhaler] 2 puffs INH Q4H PRN 05/18/20 Atorvastatin [Lipitor] 10 mg PO QPM 05/18/20 Oxybutynin [Ditropan] 5 mg PO BID 05/18/20 Morphine Oral Soln [Roxanol] 5 mg PO Q4HR PRN 06/17/23 Ferrous Gluconate [Fergon] 324 mg PO DAILYWM 06/18/23 diltiaZEM CD [Cardizem Cd] 180 mg PO BID 06/18/23 guaiFENesin [Guaifenesin ER] 600 mg PO BID PRN 06/18/23 metFORMIN [Glucophage] 1,000 mg PO BID 06/18/23 Objective - Vital Signs/Intake & Output Reviewed Vital Signs: Yes Vital Signs: Vital Signs x48h Temp Pulse Pulse Resp BP Pulse Ox O2 Flow Rate 06/18/23 07:30 36.7 C 101 H 20 135/86 H 97 35 06/18/23 06:10 96 20 35 Intake & Output: Intake & Output 06/15/23 06/16/23 06/17/23 06/18/23 23:59 23:59 23:59 23:59 Intake Total 1300 440 Output Total 350 Balance 1300 90 - Objective General Appearance: positive: Alert, Mild distress Respiratory: positive: Chest non-tender, No respiratory distress, Rales (bibasilar crackles) Cardiovascular: positive: Regular rate & rhythm, No murmur Peripheral Pulses: 2+ Dorsalis pedis (R), 2+ Dorsalis pedis (L) Abdomen: positive: Nml bowel sounds, Other (mild generalized abdominal discomfort) Skin: positive: No rash, Warm Extremities: positive: Non-tender, No pedal edema Neurologic/Psychiatric: positive: Mood/affect nml, Weakness, Other (oriented to name and situation) - Lab Results Fish Bones: 06/17/23 16:53 06/17/23 16:53 Other Labs: Lab Results x24hrs 06/18/23 06/17/23 06/17/23 Range/Units 05:14 21:15 17:06 WBC (4.8-10.8) x10^3/uL RBC (4.20-5.40) 10^6/uL Hgb (12.0-16.0) g/dL Hct (37.0-47.0) % MCV (81.0-99.0) fL MCH (27.0-31.0) pg MCHC (32.0-36.0) g/dL RDW (12.0-15.0) % Plt Count (130-450) 10^3/uL MPV (7.9-10.8) fL Neut # (Auto) Lymph # (Auto) [place] # (Auto) Eos # (Auto) Baso # (Auto) Absolute Nucleated RBC Total Counted Band Neuts % (Manual) (0 - 10) % Abnorm Lymph % (Manual) % Nucleated RBC % Neutrophils # (Manual) (1.5-6.6) 10^3/uL Lymphocytes # (Manual) (1.5-3.5) 10^3/uL Monocytes # (Manual) (0.0-1.0) 10^3/uL Eosinophils # (Manual) (0-0.7) 10^3/uL Basophils # (Manual) (0-0.1) 10^3/uL Differential Comment Platelet Estimate (NORMAL) Platelet Morphology (NORMAL) RBC Morph Micro Appear (NORMAL) Sodium (135-145) mmol/L Potassium (3.5-4.5) mmol/L Chloride (101-111) mmol/L Carbon Dioxide (21-32) mmol/L Anion Gap (6-13) BUN (6-20) mg/dL Creatinine (0.6-1.3) mg/dL Estimated GFR (MDRD) (>89) Glucose (74-104) mg/dL POC Whole Bld Glucose 168 H (70 - 100) mg/dL Estimat Average Glucose 157 H (70-100) mg/dL Hemoglobin A1c % 7.1 H (4.27-6.07) % Lactic Acid 1.6 (0.5-2.2) mmol/L Calcium (8.5-10.3) mg/dL Magnesium (1.7-2.3) mg/dL Total Bilirubin (0.2-1.0) mg/dL AST (10-42) IU/L ALT (10-60) IU/L Alkaline Phosphatase (42-121) IU/L B-Natriuretic Peptide (5-100) pg/mL Total Protein (6.4-8.9) g/dL Albumin (3.2-5.5) g/dL Globulin (2.1-4.2) g/dL Albumin/Globulin Ratio (1.0-2.2) 06/17/23 06/17/23 06/17/23 Range/Units 16:53 16:53 16:53 WBC 30.1 H (4.8-10.8) x10^3/uL RBC 4.49 (4.20-5.40) 10^6/uL Hgb 12.1 (12.0-16.0) g/dL Hct 39.7 (37.0-47.0) % MCV 88.4 (81.0-99.0) fL MCH 26.9 L (27.0-31.0) pg MCHC 30.5 L (32.0-36.0) g/dL RDW 18.7 H (12.0-15.0) % Plt Count 395 (130-450) 10^3/uL MPV 9.3 (7.9-10.8) fL Neut # (Auto) Not Reportable Lymph # (Auto) Not Reportable [place] # (Auto) Not Reportable Eos # (Auto) Not Reportable Baso # (Auto) Not Reportable Absolute Nucleated RBC Not Reportable Total Counted 100 Band Neuts % (Manual) 0 (0 - 10) % Abnorm Lymph % (Manual) 0 % Nucleated RBC % Not Reportable Neutrophils # (Manual) 27.1 H (1.5-6.6) 10^3/uL Lymphocytes # (Manual) 2.4 (1.5-3.5) 10^3/uL Monocytes # (Manual) 0.6 (0.0-1.0) 10^3/uL Eosinophils # (Manual) 0.0 (0-0.7) 10^3/uL Basophils # (Manual) 0.0 (0-0.1) 10^3/uL Differential Comment MANUAL DIFFERENTIAL Platelet Estimate NORMAL (130-450,000) (NORMAL) Platelet Morphology NORMAL APPEARANCE (NORMAL) RBC Morph Micro Appear 1+ OVALOCYTES (NORMAL) Sodium 136 (135-145) mmol/L Potassium 4.4 (3.5-4.5) mmol/L Chloride 101 (101-111) mmol/L Carbon Dioxide 28 (21-32) mmol/L Anion Gap 7.0 (6-13) BUN 35 H (6-20) mg/dL Creatinine 1.2 (0.6-1.3) mg/dL Estimated GFR (MDRD) 43 L (>89) Glucose 213 H (74-104) mg/dL POC Whole Bld Glucose (70 - 100) mg/dL Estimat Average Glucose (70-100) mg/dL Hemoglobin A1c % (4.27-6.07) % Lactic Acid (0.5-2.2) mmol/L Calcium 9.8 (8.5-10.3) mg/dL Magnesium 1.6 L (1.7-2.3) mg/dL Total Bilirubin 0.7 (0.2-1.0) mg/dL AST 10 (10-42) IU/L ALT 19 (10-60) IU/L Alkaline Phosphatase 74 (42-121) IU/L B-Natriuretic Peptide 107 H (5-100) pg/mL Total Protein 6.2 L (6.4-8.9) g/dL Albumin 3.3 (3.2-5.5) g/dL Globulin 2.9 (2.1-4.2) g/dL Albumin/Globulin Ratio 1.1 (1.0-2.2) ABX Reporting Has patient been on IV antibiotics over the past 48 hours?: Yes Sepsis Event Note (H) - Evaluation Current Stage of Sepsis: Sepsis Possible source of Sepsis: positive: Pulmonary - Sepsis Criteria Sepsis Criteria: Recorded Heart Rate greater than 90 bpm, Recorded Respiratory Rate greater than 20, WBC count greater than 12,000 or less than 4000 Assessment/Plan - Problem List (1) Acute and chronic respiratory failure with hypoxia Impression: Unintentional overdose of opiates prior to admission with subsequent obtundation requiring Narcan in setting of end-stage COPD and aspiration pneumonia. Initially on non-rebreather mask, now on high-flow O2, appears more comfortable. Plan: Wean O2 as able Goal SpO2 88-92 DNR/DNI, if respiratory status worsens will focus on comfort Continue Albuterol and Pulmicort (2) Sepsis Impression: Met septis criteria on admission (fever, tachycardia, WBC count), today improved. Likely from aspiration pneumonia. Blood cultures drawn, results pendin g. lactate normal. Plan: Monitor wbc count Continue Zosyn Follow blood culture results Qualifiers: Sepsis type: sepsis due to unspecified organism Sepsis acute organ dysfunction status: with acute organ dysfunction Severe sepsis acute organ dysfunction type: acute respiratory failure Acute respiratory failure type: with hypoxia Severe sepsis shock status: without septic shock Qualified Code(s): A41.9 - Sepsis, unspecified organism; R65.20 - Severe sepsis without septic shock; J96.01 - Acute respiratory failure with hypoxia (3) Aspiration pneumonia Impression: Suspected due to significant dyspnea, fever, and elevated WBC after needing Narcan for obtundation. CXR with bibasilar opacities, in this setting treating for aspiration pneumonia. 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 Now awake, alert. Plan: hold morphine for now, patient is reluctant to take it again in future Monitor mental status and RR Qualifiers: Encounter type: initial encounter Injury intent: accidental or unintentional Qualified Code(s): T40.601A - Poisoning by unspecified narcotics, accidental (unintentional), initial encounter (6) Type 2 diabetes mellitus Impression: On metformin at home Plan: hold metformin Monitor blood sugars Insulin protocol (especially while on steroids) Qualifiers: Diabetes mellitus ferry terminal agent insulin use: without skilled nursing use Diabetes mellitus complication status: with neurologic complications Diabetes mellitus complication detail: with polyneuropathy Qualified Code(s): E11.42 - Type 2 diabetes mellitus with diabetic polyneuropathy (7) Depression with anxiety Impression: Stable, at times has episodes of anxiety with her dyspnea. Plan: prn Ativan if needed (low-dose) for her severe dyspnea Restart home imipramine (8) Peripheral vascular disease Impression: Stable Plan: Restart home Plavix (9) Protein-calorie malnutrition, severe Impression: Cachexia in setting of end-stage COPD. Poor appetite currently due to dyspnea. Plan: Supplements Followed by hat forming machine feeder
[2023-06-18 13:03] LABS: BASOPHILS # (AUTO) 0.1 10^3/uL (0.0-0.1); BASOPHILS % (AUTO) 0.2 %; HGB - HEMOGLOBIN 10.1 g/dL (12.0-16.0); LYMPHOCYTES # (AUTO) 0.2 10^3/uL (1.5-3.5); LYMPHOCYTES % (AUTO) 0.8 %; MEAN CORPUSCULAR HEMOGLOBIN 27.3 pg (27.0-31.0); MEAN CORPUSCULAR HGB CONC 30.6 g/dL (32.0-36.0); MEAN CORPUSCULAR VOLUME 89.2 fL (81.0-99.0); MEAN PLATELET VOLUME 9.6 fL (7.9-10.8); MONOCYTES # (AUTO) 0.2 10^3/uL (0.0-1.0); MONOCYTES % (AUTO) 0.9 %; NEUTROPHILS # (AUTO) 22.3 10^3/uL (1.5-6.6); NEUTROPHILS % (AUTO) 97.4 %; PLT - PLATELET COUNT 298 10^3/uL (130-450); RED CELL DISTRIBUTION WIDTH 18.7 % (12.0-15.0); WHITE BLOOD COUNT 22.9 x10^3/uL (4.8-10.8)
[2023-06-18 13:06] LABS: SLIDE REVIEW? Indicated
[2023-06-18 13:32] LABS: PLATELET ESTIMATE, MANUAL NORMAL (130-450,000) (NORMAL); PLATELET MORPHOLOGY NORMAL APPEARANCE (NORMAL); RBC MORPHOLOGY (MULTIPLE) NORMAL APPEARANCE (NORMAL)
[2023-06-18] MEDS: SOLIFENACIN SUCCINATE 5 MG TABLET PO SCH (13:41)
[2023-06-18 15:13] LABS: CALCIUM 9.2 mg/dL (8.5-10.3); CREATININE 1.1 mg/dL (0.6-1.3); POTASSIUM 3.7 mmol/L (3.5-4.5)
[2023-06-18] MEDS: guaiFENesin 600 MG TABLET PO PRN (17:04)
[2023-06-18] MEDS: IMIPRAMINE 25 MG TABLET PO SCH (20:22)
[2023-06-18] MEDS: ATORVASTATIN 10 MG TABLET PO SCH (20:23)
[2023-06-18] MEDS: MONTELUKAST 10 MG TABLET PO SCH (20:23)
[2023-06-18] MEDS: LOSARTAN 50 MG TABLET PO SCH (20:24)
[2023-06-18] MEDS: IPRATROPIUM/ALBUTEROL 3 ML NEB INH SCH (21:00)
[2023-06-18] MEDS ORDERED: NON FORMULARY MED (Oxybutynin [Ditropan] 5 MG Tablet) PO SCH (21:00)
[2023-06-19 05:11] LABS: BASOPHILS % (AUTO) 0.1 %; EOSINOPHILS # (AUTO) 0.1 10^3/uL (0.0-0.7); EOSINOPHILS % (AUTO) 0.3 %; HCT - HEMATOCRIT 30.3 % (37.0-47.0); HGB - HEMOGLOBIN 9.3 g/dL (12.0-16.0); LYMPHOCYTES # (AUTO) 0.8 10^3/uL (1.5-3.5); LYMPHOCYTES % (AUTO) 4.6 %; MEAN CORPUSCULAR HEMOGLOBIN 27.4 pg (27.0-31.0); MEAN CORPUSCULAR HGB CONC 30.7 g/dL (32.0-36.0); MEAN CORPUSCULAR VOLUME 89.1 fL (81.0-99.0); MEAN PLATELET VOLUME 9.3 fL (7.9-10.8); MONOCYTES # (AUTO) 0.4 10^3/uL (0.0-1.0); MONOCYTES % (AUTO) 2.5 %; NEUTROPHILS # (AUTO) 16.5 10^3/uL (1.5-6.6); PLT - PLATELET COUNT 269 10^3/uL (130-450); RED CELL DISTRIBUTION WIDTH 18.8 % (12.0-15.0); WHITE BLOOD COUNT 17.9 x10^3/uL (4.8-10.8)
[2023-06-19 05:27] LABS: CALCIUM 9.7 mg/dL (8.5-10.3); POTASSIUM 3.7 mmol/L (3.5-4.5)
[2023-06-19] MEDS: CYANOCOBALAMIN 500 MCG TABLET PO SCH (08:39)
[2023-06-19] MEDS: FERROUS GLUCONATE 324 MG TABLET PO SCH (08:39)
[2023-06-19] MEDS: ASCORBIC ACID 500 MG TABLET PO SCH (08:39)
[2023-06-19] MEDS: CLOPIDOGREL 75 MG TABLET PO SCH (08:39)
[2023-06-19] MEDS: MULTIVITAMIN W/MINERALS TABLET PO SCH (08:39)
--- NOTE | 2023-06-19 10:41 | PROVIDER PROGRESS NOTE ---
Subjective - Prog Note Date Prog Note Date: 06/19/23 Prog Note Time: 10:39 - Subjective Pt reports feeling: Improved (WBC improved, hgb 9.3 (10.1), A1c 7.1, feels better but has more upper airway secretions) Current Medications - Current Medications Current Medications: Active Medications Generic Name Dose Route Start Last Admin Trade Name Freq PRN Reason Stop Dose Admin Acetaminophen 650 mg 06/17/23 17:25 Acetaminophen 325 Mg Tablet PO Q4HR PRN Pain 1 to 4, or Fever Albuterol 2.5 mg 06/17/23 17:28 06/18/23 14:40 Albuterol Neb 2.5 Mg/3 Ml INH 2.5 mg RTQ4H PRN Administration Wheezing Albuterol/Ipratropium 3 ml 06/18/23 19:00 06/19/23 07:14 Ipratropium/Albuterol 3 Ml Neb INH 3 ml RTQID LUCHO Administration Ascorbic Acid 500 mg 06/19/23 09:00 06/19/23 08:39 Ascorbic Acid 500 Mg Tablet PO 500 mg DAILY LUCHO Administration Atorvastatin Calcium 10 mg 06/18/23 21:00 06/18/23 20:23 Atorvastatin 10 Mg Tablet PO 10 mg QPM LUCHO Administration Budesonide 0.5 mg 06/17/23 19:00 06/19/23 07:14 Budesonide 0.5 Mg/2 Ml Neb INH 0.5 mg RTBID LUCHO Administration Clopidogrel Bisulfate 75 mg 06/19/23 09:00 06/19/23 08:39 Clopidogrel 75 Mg Tablet PO 75 mg DAILY LUCHO Administration Cyanocobalamin 500 mcg 06/19/23 09:00 06/19/23 08:39 Cyanocobalamin 500 Mcg Tablet PO 500 mcg DAILY LUCHO Administration Diltiazem HCl 180 mg 06/18/23 09:00 06/19/23 08:39 Diltiazem Cd 180 Mg Capsule PO 180 mg DAILY LUCHO Administration Ferrous Gluconate 324 mg 06/19/23 08:00 06/19/23 08:39 Ferrous Gluconate 324 Mg Tablet PO 324 mg DAILYWM LUCHO Administration Guaifenesin 600 mg 06/18/23 12:54 06/19/23 08:42 Guaifenesin 600 Mg Tablet PO 600 mg BID PRN Administration Cough Piperacillin Sod/Tazobactam 100 mls @ 200 mls/hr 06/18/23 00:00 06/19/23 06:22 Sod 2.25 gm/ Sodium Chloride IV Infused Q6H LUCHO Infusion Imipramine HCl 150 mg 06/18/23 21:00 06/18/23 20:22 Imipramine 25 Mg Tablet PO 150 mg QPM LUCHO Administration Insulin Human Lispro 2 - 10 unit 06/17/23 21:00 06/19/23 08:11 Insulin Lispro 300 Unit/3 Ml Pen SUBQ Not Given 0800,1200,1700,2100 [facility] Protocol Losartan Potassium 50 mg 06/18/23 21:00 06/19/23 08:39 Losartan 50 Mg Tablet PO 50 mg BID LUCHO Administration Methylprednisolone 40 mg 06/17/23 19:59 06/19/23 08:39 Methylprednisolone Succinate 40 Mg/Ml Vial IVP 40 mg DAILY LUCHO Administration Montelukast Sodium 10 mg 06/18/23 21:00 06/18/23 20:23 Montelukast 10 Mg Tablet PO 10 mg QPM LUCHO Administration Multivitamins/Minerals 1 tab 06/19/23 08:00 06/19/23 08:39 Multivitamin W/Minerals Tablet PO 1 tab DAILYWM [facility] Administration Ondansetron HCl 4 mg 06/17/23 17:25 Ondansetron Odt 4 Mg Tablet TL Q6HR PRN Nausea / Vomiting Ondansetron HCl 4 mg 06/17/23 17:25 Ondansetron 4 Mg/2 Ml Vial IVP Q6HR PRN Nausea / Vomiting Sodium Chloride 10 ml 06/17/23 17:25 06/18/23 05:36 Sodium Chloride Flush 0.9% 10 Ml Syringe IVP 10 ml PRN PRN Administration NEEDED PER PROVIDER ORDERS Sodium Chloride 10 ml 06/18/23 01:00 06/19/23 08:39 Sodium Chloride Flush 0.9% 10 Ml Syringe IVP 10 ml 0100,0900,1700 [facility] Administration Solifenacin 5 mg 06/18/23 14:00 06/18/23 13:41 Solifenacin Succinate 5 Mg Tablet PO 5 mg DAILY LUCHO Administration Albuterol Sulf [Ventolin Hfa Inhaler] 2 puffs INH Q4H PRN 05/18/20 Atorvastatin [Lipitor] 10 mg PO QPM 05/18/20 Oxybutynin [Ditropan] 5 mg PO BID 05/18/20 Morphine Oral Soln [Roxanol] 5 mg PO Q4HR PRN 06/17/23 Bisacodyl Supp [Dulcolax Supp] 10 mg NE PRN PRN 06/18/23 Ferrous Gluconate [Fergon] 324 mg PO DAILYWM 06/18/23 Mineral Oil [Mineral Oil Enema] 133 ml NE PRN PRN 06/18/23 Senna [Senokot] 17.6 mg PO PRN PRN 06/18/23 diltiaZEM CD [Cardizem Cd] 180 mg PO BID 06/18/23 guaiFENesin [Guaifenesin ER] 600 mg PO BID PRN 06/18/23 metFORMIN [Glucophage] 1,000 mg PO BID 06/18/23 polyethylene glycoL 3350 [Miralax] 17 g NE PRN PRN 06/18/23 Objective - Vital Signs/Intake & Output Reviewed Vital Signs: Yes Vital Signs: Vital Signs x48h Temp Pulse Pulse Resp BP Pulse Ox O2 Flow Rate 06/19/23 08:00 36.6 C 93 20 120/64 90 L 40 06/19/23 07:16 92 20 40 Intake & Output: Intake & Output 06/16/23 06/17/23 06/18/23 06/19/23 23:59 23:59 23:59 23:59 Intake Total 1300 1240 440 Output Total 350 Balance 1300 890 440 - Objective General Appearance: positive: Alert, Mild distress Respiratory: positive: Chest non-tender, Rhonchi Cardiovascular: positive: Regular rate & rhythm, No murmur Skin: positive: No rash, Warm Extremities: positive: Non-tender, No pedal edema Neurologic/Psychiatric: positive: Mood/affect nml, Weakness, Other (orientation at baseline) - Lab Results Fish Bones: 06/19/23 05:02 06/19/23 05:02 Other Labs: Lab Results x24hrs 06/19/23 06/19/23 06/18/23 Range/Units 05:02 05:02 20:15 WBC 17.9 H (4.8-10.8) x10^3/uL RBC 3.40 L (4.20-5.40) 10^6/uL Hgb 9.3 L (12.0-16.0) g/dL Hct 30.3 L (37.0-47.0) % MCV 89.1 (81.0-99.0) fL MCH 27.4 (27.0-31.0) pg MCHC 30.7 L (32.0-36.0) g/dL RDW 18.8 H (12.0-15.0) % Plt Count 269 (130-450) 10^3/uL MPV 9.3 (7.9-10.8) fL Neut # (Auto) 16.5 H (1.5-6.6) 10^3/uL Lymph # (Auto) 0.8 L (1.5-3.5) 10^3/uL [place] # (Auto) 0.4 (0.0-1.0) 10^3/uL Eos # (Auto) 0.1 (0.0-0.7) 10^3/uL Baso # (Auto) 0.0 (0.0-0.1) 10^3/uL Absolute Nucleated RBC 0.00 x10^3/uL Nucleated RBC % 0.0 /100WBC Manual Slide Review Platelet Estimate (NORMAL) Platelet Morphology (NORMAL) RBC Morph Micro Appear (NORMAL) Sodium 140 (135-145) mmol/L Potassium 3.7 (3.5-4.5) mmol/L Chloride 109 (101-111) mmol/L Carbon Dioxide 25 (21-32) mmol/L Anion Gap 6.0 (6-13) BUN 31 H (6-20) mg/dL Creatinine 1.0 (0.6-1.3) mg/dL Estimated GFR (MDRD) 53 L (>89) Glucose 114 H (74-104) mg/dL POC Whole Bld Glucose 239 H (70 - 100) mg/dL Estimat Average Glucose (70-100) mg/dL Hemoglobin A1c % (4.27-6.07) % Calcium 9.7 (8.5-10.3) mg/dL Vitamin B12 (180-914) pg/mL Folate (5.90 - >24.8) ng/mL 06/18/23 06/18/23 06/18/23 Range/Units 12:53 12:53 12:53 WBC 22.9 H (4.8-10.8) x10^3/uL RBC 3.70 L (4.20-5.40) 10^6/uL Hgb 10.1 L (12.0-16.0) g/dL Hct 33.0 L (37.0-47.0) % MCV 89.2 (81.0-99.0) fL MCH 27.3 (27.0-31.0) pg MCHC 30.6 L (32.0-36.0) g/dL RDW 18.7 H (12.0-15.0) % Plt Count 298 (130-450) 10^3/uL MPV 9.6 (7.9-10.8) fL Neut # (Auto) 22.3 H (1.5-6.6) 10^3/uL Lymph # (Auto) 0.2 L (1.5-3.5) 10^3/uL [place] # (Auto) 0.2 (0.0-1.0) 10^3/uL Eos # (Auto) 0.0 (0.0-0.7) 10^3/uL Baso # (Auto) 0.1 (0.0-0.1) 10^3/uL Absolute Nucleated RBC 0.00 x10^3/uL Nucleated RBC % 0.0 /100WBC Manual Slide Review Indicated Platelet Estimate NORMAL (130-450,000) (NORMAL) Platelet Morphology NORMAL APPEARANCE (NORMAL) RBC Morph Micro Appear NORMAL APPEARANCE (NORMAL) Sodium 138 (135-145) mmol/L Potassium 3.7 (3.5-4.5) mmol/L Chloride 108 (101-111) mmol/L Carbon Dioxide 21 (21-32) mmol/L Anion Gap 9.0 (6-13) BUN 38 H (6-20) mg/dL Creatinine 1.1 (0.6-1.3) mg/dL Estimated GFR (MDRD) 48 L (>89) Glucose 332 H (74-104) mg/dL POC Whole Bld Glucose (70 - 100) mg/dL Estimat Average Glucose (70-100) mg/dL Hemoglobin A1c % (4.27-6.07) % Calcium 9.2 (8.5-10.3) mg/dL Vitamin B12 494 (180-914) pg/mL Folate 7.9 (5.90 - >24.8) ng/mL 06/18/23 Range/Units 05:14 WBC (4.8-10.8) x10^3/uL RBC (4.20-5.40) 10^6/uL Hgb (12.0-16.0) g/dL Hct (37.0-47.0) % MCV (81.0-99.0) fL MCH (27.0-31.0) pg MCHC (32.0-36.0) g/dL RDW (12.0-15.0) % Plt Count (130-450) 10^3/uL MPV (7.9-10.8) fL Neut # (Auto) (1.5-6.6) 10^3/uL Lymph # (Auto) (1.5-3.5) 10^3/uL [place] # (Auto) (0.0-1.0) 10^3/uL Eos # (Auto) (0.0-0.7) 10^3/uL Baso # (Auto) (0.0-0.1) 10^3/uL Absolute Nucleated RBC x10^3/uL Nucleated RBC % /100WBC Manual Slide Review Platelet Estimate (NORMAL) Platelet Morphology (NORMAL) RBC Morph Micro Appear (NORMAL) Sodium (135-145) mmol/L Potassium (3.5-4.5) mmol/L Chloride (101-111) mmol/L Carbon Dioxide (21-32) mmol/L Anion Gap (6-13) BUN (6-20) mg/dL Creatinine (0.6-1.3) mg/dL Estimated GFR (MDRD) (>89) Glucose (74-104) mg/dL POC Whole Bld Glucose (70 - 100) mg/dL Estimat Average Glucose 157 H (70-100) mg/dL Hemoglobin A1c % 7.1 H (4.27-6.07) % Calcium (8.5-10.3) mg/dL Vitamin B12 (180-914) pg/mL Folate (5.90 - >24.8) ng/mL Sepsis Event Note (H) - Evaluation Current Stage of Sepsis: Sepsis Possible source of Sepsis: positive: Pulmonary - Sepsis Criteria Sepsis Criteria: Recorded Heart Rate greater than 90 bpm, Recorded Respiratory Rate greater than 20, WBC count greater than 12,000 or less than 4000 Assessment/Plan - Problem List (1) Acute and chronic respiratory failure with hypoxia Impression: Unintentional overdose of opiates prior to admission with subsequent obtundation requiring Narcan in setting of end-stage COPD and aspiration pneumonia. Initially on non-rebreather mask, now on high-flow O2, appears more comfortable. O2 requirements did go up today (suspect due to secretions) but clinically improved. Plan: Wean O2 as able Goal SpO2 88-92 DNR/DNI, if respiratory status worsens will focus on comfort Continue Albuterol and Pulmicort RT eval and OOB to chair for secretion clearance (2) Sepsis Impression: Met sepsis criteria on admission (fever, tachycardia, WBC count), today [facility] ed. Likely from aspiration pneumonia. Blood cultures drawn, results pending. lactate normal. Plan: Monitor wbc count Continue Zosyn Follow blood culture results Qualifiers: Sepsis type: sepsis due to unspecified organism Sepsis acute organ dysfunction status: with acute organ dysfunction Severe sepsis acute organ dysfunction type: acute respiratory failure Acute respiratory failure type: with hypoxia Severe sepsis shock status: without septic shock Qualified Code(s): A41.9 - Sepsis, unspecified organism; R65.20 - Severe sepsis without septic shock; J96.01 - Acute respiratory failure with hypoxia (3) Aspiration pneumonia Impression: Suspected due to significant dyspnea, fever, and elevated WBC after needing Narcan for obtundation. CXR with bibasilar opacities, in this setting treating for aspiration pneumonia. 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 Now awake, alert. Plan: hold morphine for now, patient is reluctant to take it again in future Monitor mental status and RR Qualifiers: Encounter type: initial encounter Injury intent: accidental or unintentional Qualified Code(s): T40.601A - Poisoning by unspecified narcotics, accidental (unintentional), initial encounter (6) Type 2 diabetes mellitus Impression: On metformin at home. A1c here 7.1. Plan: hold metformin Monitor blood sugars Insulin protocol (especially while on steroids) Qualifiers: Diabetes mellitus termite treater helper insulin use: without termite treater helper use Diabetes mellitus complication status: with neurologic complications Diabetes mellitus complication detail: with polyneuropathy Qualified Code(s): E11.42 - Type 2 diabetes mellitus with diabetic polyneuropathy (7) Depression with anxiety Impression: Stable, at times has episodes of anxiety with her dyspnea. Plan: prn Ativan if needed (low-dose) for her severe dyspnea Continue home imipramine (8) Peripheral vascular disease Impression: Stable Plan: Continue home Plavix (9) Protein-calorie malnutrition, severe Impression: Cachexia in setting of end-stage COPD. Poor appetite currently due to dyspnea. Plan: Supplements, continue home B12 Followed by clothes separator (10) Anemia Impression: Hgb 10.1 to 9.3. Suspect inflammatory block, no signs of acute bleeding. Plan: Monitor for any signs of bleeding. Continue home B12 and iron. Qualifiers: Anemia type: unspecified type Qualified Code(s): D64.9 - Anemia, unspecified
[2023-06-19] MEDS: INSULIN LISPRO 300 UNIT/3 ML PEN SUBQ STA (17:23)
[2023-06-19] MEDS: INSULIN GLARGINE-YFGN 300 UNIT/3 ML PEN SUBQ SCH (21:13)
[2023-06-20 06:04] LABS: BASOPHILS % (AUTO) 0.1 %; EOSINOPHILS % (AUTO) 0.1 %; HCT - HEMATOCRIT 29.6 % (37.0-47.0); HGB - HEMOGLOBIN 8.9 g/dL (12.0-16.0); LYMPHOCYTES # (AUTO) 0.5 10^3/uL (1.5-3.5); LYMPHOCYTES % (AUTO) 3.4 %; MEAN CORPUSCULAR HGB CONC 30.1 g/dL (32.0-36.0); MEAN CORPUSCULAR VOLUME 89.7 fL (81.0-99.0); MEAN PLATELET VOLUME 9.8 fL (7.9-10.8); MONOCYTES # (AUTO) 0.4 10^3/uL (0.0-1.0); MONOCYTES % (AUTO) 3.1 %; NEUTROPHILS # (AUTO) 12.4 10^3/uL (1.5-6.6); NEUTROPHILS % (AUTO) 92.6 %; PLT - PLATELET COUNT 262 10^3/uL (130-450); RED CELL DISTRIBUTION WIDTH 18.8 % (12.0-15.0); WHITE BLOOD COUNT 13.4 x10^3/uL (4.8-10.8)
[2023-06-20 06:38] LABS: CALCIUM 9.7 mg/dL (8.5-10.3); CREATININE 0.9 mg/dL (0.6-1.3); POTASSIUM 3.9 mmol/L (3.5-4.5)
--- NOTE | 2023-06-20 11:03 | PROVIDER PROGRESS NOTE ---
Subjective - Prog Note Date Prog Note Date: 06/20/23 Prog Note Time: 11:01 - Subjective Pt reports feeling: Improved (States doing a bit better. Is afraid to get up because she recently had a fall and tripped over her dog. Reassured her we will safely transfer her to chair and reasons why this is important for her recovery.) Current Medications - Current Medications Current Medications: Active Medications Generic Name Dose Route Start Last Admin Trade Name Freq PRN Reason Stop Dose Admin Acetaminophen 650 mg 06/17/23 17:25 Acetaminophen 325 Mg Tablet PO Q4HR PRN Pain 1 to 4, or Fever Albuterol 2.5 mg 06/17/23 17:28 06/18/23 14:40 Albuterol Neb 2.5 Mg/3 Ml INH 2.5 mg RTQ4H PRN Administration Wheezing Albuterol/Ipratropium 3 ml 06/18/23 19:00 06/20/23 07:36 Ipratropium/Albuterol 3 Ml Neb INH 3 ml RTQID LUCHO Administration Ascorbic Acid 500 mg 06/19/23 09:00 06/20/23 09:01 Ascorbic Acid 500 Mg Tablet PO 500 mg DAILY LUCHO Administration Atorvastatin Calcium 10 mg 06/18/23 21:00 06/19/23 21:08 Atorvastatin 10 Mg Tablet PO 10 mg QPM LUCHO Administration Budesonide 0.5 mg 06/17/23 19:00 06/20/23 07:36 Budesonide 0.5 Mg/2 Ml Neb INH 0.5 mg RTBID LUCHO Administration Clopidogrel Bisulfate 75 mg 06/19/23 09:00 06/20/23 09:01 Clopidogrel 75 Mg Tablet PO 75 mg DAILY LUCHO Administration Cyanocobalamin 500 mcg 06/19/23 09:00 06/20/23 09:01 Cyanocobalamin 500 Mcg Tablet PO 500 mcg DAILY LUCHO Administration Diltiazem HCl 180 mg 06/18/23 09:00 06/20/23 09:01 Diltiazem Cd 180 Mg Capsule PO 180 mg DAILY LUCHO Administration Ferrous Gluconate 324 mg 06/19/23 08:00 06/20/23 09:01 Ferrous Gluconate 324 Mg Tablet PO 324 mg DAILYWM LUCHO Administration Guaifenesin 600 mg 06/18/23 12:54 06/19/23 08:42 Guaifenesin 600 Mg Tablet PO 600 mg BID PRN Administration Cough Piperacillin Sod/Tazobactam 100 mls @ 25 mls/hr 06/20/23 12:00 Sod 3.375 gm/ Sodium Chloride IV Q8H [facility] Imipramine HCl 150 mg 06/18/23 21:00 06/19/23 21:06 Imipramine 25 Mg Tablet PO 150 mg QPM LUCHO Administration Insulin Glargine-yfgn 18 unit 06/19/23 21:00 06/19/23 21:13 Insulin Glargine-Yfgn 300 Unit/3 Ml Pen SUBQ 18 unit QPM LUCHO Administration Insulin Human Lispro 2 - 10 unit 06/17/23 21:00 06/20/23 07:53 Insulin Lispro 300 Unit/3 Ml Pen SUBQ Not Given 0800,1200,1700,2100 [facility] Protocol Losartan Potassium 50 mg 06/18/23 21:00 06/20/23 09:01 Losartan 50 Mg Tablet PO 50 mg BID LUCHO Administration Methylprednisolone 40 mg 06/17/23 19:59 06/20/23 09:01 Methylprednisolone Succinate 40 Mg/Ml Vial IVP 40 mg DAILY LUCHO Administration Montelukast Sodium 10 mg 06/18/23 21:00 06/19/23 21:07 Montelukast 10 Mg Tablet PO 10 mg QPM LUCHO Administration Multivitamins/Minerals 1 tab 06/19/23 08:00 06/20/23 09:01 Multivitamin W/Minerals Tablet PO 1 tab DAILYWM LUCHO Administration Ondansetron HCl 4 mg 06/17/23 17:25 Ondansetron Odt 4 Mg Tablet TL Q6HR PRN Nausea / Vomiting Ondansetron HCl 4 mg 06/17/23 17:25 Ondansetron 4 Mg/2 Ml Vial IVP Q6HR PRN Nausea / Vomiting Sodium Chloride 10 ml 06/17/23 17:25 06/18/23 05:36 Sodium Chloride Flush 0.9% 10 Ml Syringe IVP 10 ml PRN PRN Administration NEEDED PER PROVIDER ORDERS Sodium Chloride 10 ml 06/18/23 01:00 06/20/23 09:01 Sodium Chloride Flush 0.9% 10 Ml Syringe IVP 10 ml 0100,0900,1700 LUCHO Administration Solifenacin 5 mg 06/18/23 14:00 06/20/23 09:01 Solifenacin Succinate 5 Mg Tablet PO 5 mg DAILY LUCHO Administration Albuterol Sulf [Ventolin Hfa Inhaler] 2 puffs INH Q4H PRN 05/18/20 Atorvastatin [Lipitor] 10 mg PO QPM 05/18/20 Oxybutynin [Ditropan] 5 mg PO BID 05/18/20 Morphine Oral Soln [Roxanol] 5 mg PO Q4HR PRN 06/17/23 Bisacodyl Supp [Dulcolax Supp] 10 mg [place] PRN PRN 06/18/23 Ferrous Gluconate [Fergon] 324 mg PO DAILYWM 06/18/23 Mineral Oil [Mineral Oil Enema] 133 ml [place] PRN PRN 06/18/23 Senna [Senokot] 17.6 mg PO PRN PRN 06/18/23 diltiaZEM CD [Cardizem Cd] 180 mg PO BID 06/18/23 guaiFENesin [Guaifenesin ER] 600 mg PO BID PRN 06/18/23 metFORMIN [Glucophage] 1,000 mg PO BID 06/18/23 polyethylene glycoL 3350 [Miralax] 17 g [place] PRN PRN 06/18/23 Objective - Vital Signs/Intake & Output Reviewed Vital Signs: Yes Vital Signs: Vital Signs x48h Temp Pulse Pulse Resp BP Pulse Ox O2 Flow Rate 06/20/23 07:36 75 18 25 06/20/23 07:25 36.2 C L 83 20 153/84 H 100 35 Intake & Output: Intake & Output 06/17/23 06/18/23 06/19/23 06/20/23 23:59 23:59 23:59 23:59 Intake Total 1300 1240 1660 1040 Output Total 033 642 9468 Balance 1300 890 750 40 - Objective General Appearance: positive: Alert, Mild distress, Other (Cachectic, chronically ill-appearing elderly female, pleasant) Respiratory: positive: Chest non-tender, Breath sounds nml, Other (Diminished at both bases, no wheezes, rales, rhonchi, "wet cough" present) Cardiovascular: positive: Regular rate & rhythm, No murmur Abdomen: positive: Nml bowel sounds, Other (generalized discomfort) Skin: positive: No rash, Warm Extremities: positive: Non-tender, No pedal edema Neurologic/Psychiatric: positive: Weakness, Other (mentation at baseline) - Lab Results Fish Bones: 06/20/23 05:43 06/20/23 05:43 Other Labs: Lab Results x24hrs 06/20/23 06/20/23 06/19/23 Range/Units 05:43 05:43 16:37 WBC 13.4 H (4.8-10.8) x10^3/uL RBC 3.30 L (4.20-5.40) 10^6/uL Hgb 8.9 L (12.0-16.0) g/dL Hct 29.6 L (37.0-47.0) % MCV 89.7 (81.0-99.0) fL MCH 27.0 (27.0-31.0) pg MCHC 30.1 L (32.0-36.0) g/dL RDW 18.8 H (12.0-15.0) % Plt Count 262 (130-450) 10^3/uL MPV 9.8 (7.9-10.8) fL Neut # (Auto) 12.4 H (1.5-6.6) 10^3/uL Lymph # (Auto) 0.5 L (1.5-3.5) 10^3/uL [place] # (Auto) 0.4 (0.0-1.0) 10^3/uL Eos # (Auto) 0.0 (0.0-0.7) 10^3/uL Baso # (Auto) 0.0 (0.0-0.1) 10^3/uL Absolute Nucleated RBC 0.00 x10^3/uL Nucleated RBC % 0.0 /100WBC Sodium 140 (135-145) mmol/L Potassium 3.9 (3.5-4.5) mmol/L Chloride 110 (101-111) mmol/L Carbon Dioxide 25 (21-32) mmol/L Anion Gap 5.0 L (6-13) BUN 27 H (6-20) mg/dL Creatinine 0.9 (0.6-1.3) mg/dL Estimated GFR (MDRD) 60 L (>89) Glucose 163 H (74-104) mg/dL POC Whole Bld Glucose 472 H (70 - 100) mg/dL Calcium 9.7 (8.5-10.3) mg/dL ABX Reporting Has patient been on IV antibiotics over the past 48 hours?: Yes Sepsis Event Note (H) - Evaluation Current Stage of Sepsis: Sepsis Possible source of Sepsis: positive: Pulmonary - Sepsis Criteria Sepsis Criteria: Recorded Heart Rate greater than 90 bpm (Improved), Recorded Respiratory Rate greater than 20, WBC count greater than 12,000 or less than 4000 Assessment/Plan - Problem List (1) Acute and chronic respiratory failure with hypoxia Impression: Due to accidental overdose of opiates prior to admission (at SNF) requiring Narcan in setting of end-stage COPD and aspiration pneumonia. Initially on non-rebreather mask, now on high-flow O2, appears more comfortable. O2 requirements decreasing and clinically improved. Plan: Continue to wean O2 as able Goal SpO2 88-92% DNR/DNI, if respiratory status worsens will focus on comfort Continue Albuterol, steroids, Pulmicort RT eval and OOB to chair for secretion clearance (2) Sepsis Impression: Improved. WBC trending down, continues to improve. Likely from aspiration pneumonia. Blood cultures no growth to date. Plan: Continue Zosyn Qualifiers: Sepsis type: sepsis due to unspecified organism Sepsis acute organ dysfunction status: with acute organ dysfunction Severe sepsis acute organ dysfunction type: acute respiratory failure Acute respiratory failure type: with hypoxia Severe sepsis shock status: without septic shock Qualified Code(s): A41.9 - Sepsis, unspecified organism; R65.20 - Severe sepsis without septic shock; J96.01 - Acute respiratory failure with hypoxia (3) Aspiration pneumonia Impression: Suspected due to significant dyspnea, fever, and elevated WBC after needing Narcan. CXR with bibasilar opacities, in this setting treating for aspiration pneumonia. Plan: Continue Zosyn, meets criteria for hospital-acquired due to recent hospitalization WBC count trending down Blood cultures no growth to date Continue home steroids Qualifiers: Qualified Code(s): J69.0 - Pneumonitis due to inhalation of food and vomit (4) COPD (chronic obstructive pulmonary disease) Impression: End-stage with cachexia Plan: Hold home Daliresp (not on formulary) Continue home steroids Continue Duonebs, steroids, Pulmicort Qualifiers: COPD type: COPD with acute lower respiratory infection Qualified Code(s): J44.0 - Chronic obstructive pulmonary disease with (acute) lower respiratory infection (5) Type 2 diabetes mellitus Impression: On metformin at home. A1c 7.1. Plan: hold metformin Monitor blood sugars Insulin protocol (especially while on steroids) Qualifiers: Diabetes mellitus superintendent [employer] insulin use: without longterm use Diabetes mellitus complication status: with neurologic complications Diabetes mellitus complication detail: with polyneuropathy Qualified Code(s): E11.42 - Type 2 diabetes mellitus with diabetic polyneuropathy (6) Depression with anxiety Impression: Stable, at times has episodes of anxiety with her dyspnea. Plan: prn Ativan if needed (low-dose) for her severe dyspnea Continue home imipramine (7) Protein-calorie malnutrition, severe Impression: Cachexia in setting of end-stage COPD. Poor appetite currently due to dyspnea. Plan: Supplements, continue home B12 Followed by residential sales manager (8) Opiate overdose Impression: Unintentional, reported medication error at SNF, was given 5x prescribed dose of morphine and required Narcan when she became obtunded. Now awake, alert. Plan: hold morphine, patient is reluctant to take it again in future but may want to reconsider if air hunger is a problem Qualifiers: Encounter type: initial encounter Injury intent: accidental or unintentional Qualified Code(s): T40.601A - Poisoning by unspecified narcotics, accidental (unintentional), initial encounter (9) Peripheral vascular disease Impression: Stable Plan: Continue home Plavix (10) Anemia Impression: Suspect inflammatory block, no signs of acute bleeding. Plan: Monitor for any bleeding. Continue home B12 and iron. Qualifiers: Anemia type: unspecified type Qualified Code(s): D64.9 - Anemia, unspecified
[2023-06-20] MEDS: ACETAMINOPHEN 325 MG TABLET PO PRN (12:43)
[2023-06-20] MEDS: PIPERACILLIN/TAZOBACTAM 3.375 GM in SODIUM CHLORIDE 0.9% MINIBAG 100 ML IV SCH (12:44)
[2023-06-21 05:28] LABS: BASOPHILS % (AUTO) 0.1 %; HCT - HEMATOCRIT 28.2 % (37.0-47.0); HGB - HEMOGLOBIN 8.6 g/dL (12.0-16.0); LYMPHOCYTES # (AUTO) 0.7 10^3/uL (1.5-3.5); LYMPHOCYTES % (AUTO) 5.9 %; MEAN CORPUSCULAR HEMOGLOBIN 27.2 pg (27.0-31.0); MEAN CORPUSCULAR HGB CONC 30.5 g/dL (32.0-36.0); MEAN CORPUSCULAR VOLUME 89.2 fL (81.0-99.0); MEAN PLATELET VOLUME 9.8 fL (7.9-10.8); MONOCYTES # (AUTO) 0.4 10^3/uL (0.0-1.0); MONOCYTES % (AUTO) 3.6 %; NEUTROPHILS # (AUTO) 10.6 10^3/uL (1.5-6.6); NEUTROPHILS % (AUTO) 89.3 %; PLT - PLATELET COUNT 267 10^3/uL (130-450); RED BLOOD COUNT 3.16 10^6/uL (4.20-5.40); RED CELL DISTRIBUTION WIDTH 18.9 % (12.0-15.0); WHITE BLOOD COUNT 11.9 x10^3/uL (4.8-10.8)
[2023-06-21 05:45] LABS: CALCIUM 9.7 mg/dL (8.5-10.3); CREATININE 0.8 mg/dL (0.6-1.3); POTASSIUM 3.8 mmol/L (3.5-4.5)
--- NOTE | 2023-06-21 08:58 | PROVIDER PROGRESS NOTE ---
Subjective - Prog Note Date Prog Note Date: 06/21/23 Prog Note Time: 08:56 - Subjective Pt reports feeling: Improved (A bit nauseated this morning, states no BM since prior to admit. Was OOB to chair yesterday, enjoyed this, encouraged more movement today. Now at baseline O2 requirements.) Current Medications - Current Medications Current Medications: Active Medications Generic Name Dose Route Start Last Admin Trade Name Freq PRN Reason Stop Dose Admin Acetaminophen 650 mg 06/17/23 17:25 06/20/23 12:43 Acetaminophen 325 Mg Tablet PO 650 mg Q4HR PRN Administration Pain 1 to 4, or Fever Albuterol 2.5 mg 06/17/23 17:28 06/18/23 14:40 Albuterol Neb 2.5 Mg/3 Ml INH 2.5 mg RTQ4H PRN Administration Wheezing Albuterol/Ipratropium 3 ml 06/18/23 19:00 06/21/23 07:48 Ipratropium/Albuterol 3 Ml Neb INH Not Given RTQID LUCHO Ascorbic Acid 500 mg 06/19/23 09:00 06/21/23 08:21 Ascorbic Acid 500 Mg Tablet PO 500 mg DAILY LUCHO Administration Atorvastatin Calcium 10 mg 06/18/23 21:00 06/20/23 20:09 Atorvastatin 10 Mg Tablet PO 10 mg QPM LUCHO Administration Budesonide 0.5 mg 06/17/23 19:00 06/21/23 07:48 Budesonide 0.5 Mg/2 Ml Neb INH Not Given RTBID LUCHO Clopidogrel Bisulfate 75 mg 06/19/23 09:00 06/21/23 08:21 Clopidogrel 75 Mg Tablet PO 75 mg DAILY LUCHO Administration Cyanocobalamin 500 mcg 06/19/23 09:00 06/21/23 08:21 Cyanocobalamin 500 Mcg Tablet PO 500 mcg DAILY LUCHO Administration Diltiazem HCl 180 mg 06/18/23 09:00 06/21/23 08:22 Diltiazem Cd 180 Mg Capsule PO 180 mg DAILY LUCHO Administration Ferrous Gluconate 324 mg 06/19/23 08:00 06/21/23 08:21 Ferrous Gluconate 324 Mg Tablet PO 324 mg DAILYWM LUCHO Administration Guaifenesin 600 mg 06/18/23 12:54 06/19/23 08:42 Guaifenesin 600 Mg Tablet PO 600 mg BID PRN Administration Cough Piperacillin Sod/Tazobactam 100 mls @ 25 mls/hr 06/20/23 12:00 06/21/23 08:22 Sod 3.375 gm/ Sodium Chloride IV Infused Q8H LUCHO Infusion Imipramine HCl 150 mg 06/18/23 21:00 06/20/23 20:09 Imipramine 25 Mg Tablet PO 150 mg QPM LUCHO Administration Insulin Glargine-yfgn 18 unit 06/19/23 21:00 06/20/23 21:26 Insulin Glargine-Yfgn 300 Unit/3 Ml Pen SUBQ 18 unit QPM LUCHO Administration Insulin Human Lispro 2 - 10 unit 06/17/23 21:00 06/21/23 08:22 Insulin Lispro 300 Unit/3 Ml Pen SUBQ Not Given 0800,1200,1700,2100 [facility] Protocol Losartan Potassium 50 mg 06/18/23 21:00 06/21/23 08:21 Losartan 50 Mg Tablet PO 50 mg BID LUCHO Administration Methylprednisolone 40 mg 06/17/23 19:59 06/21/23 08:22 Methylprednisolone Succinate 40 Mg/Ml Vial IVP 40 mg DAILY LUCHO Administration Montelukast Sodium 10 mg 06/18/23 21:00 06/20/23 20:09 Montelukast 10 Mg Tablet PO 10 mg QPM LUCHO Administration Multi-Ingredient Mouthwash/Gargle 30 ml 06/21/23 09:00 Magic Mouthwash (Nystatin) 120 Ml Bottle PO Q4H PRN Mouth Sore Pain Multivitamins/Minerals 1 tab 06/19/23 08:00 06/21/23 08:22 Multivitamin W/Minerals Tablet PO 1 tab DAILYWM LUCHO Administration Ondansetron HCl 4 mg 06/17/23 17:25 Ondansetron Odt 4 Mg Tablet TL Q6HR PRN Nausea / Vomiting Ondansetron HCl 4 mg 06/17/23 17:25 Ondansetron 4 Mg/2 Ml Vial IVP Q6HR PRN Nausea / Vomiting Sodium Chloride 10 ml 06/17/23 17:25 06/18/23 05:36 Sodium Chloride Flush 0.9% 10 Ml Syringe IVP 10 ml PRN PRN Administration NEEDED PER PROVIDER ORDERS Sodium Chloride 10 ml 06/18/23 01:00 06/21/23 08:22 Sodium Chloride Flush 0.9% 10 Ml Syringe IVP 10 ml 0100,0900,1700 LUCHO Administration Solifenacin 5 mg 06/18/23 14:00 06/21/23 08:21 Solifenacin Succinate 5 Mg Tablet PO 5 mg DAILY LUCHO Administration Albuterol Sulf [Ventolin Hfa Inhaler] 2 puffs INH Q4H PRN 05/18/20 Atorvastatin [Lipitor] 10 mg PO QPM 05/18/20 Oxybutynin [Ditropan] 5 mg PO BID 05/18/20 Morphine Oral Soln [Roxanol] 5 mg PO Q4HR PRN 06/17/23 Bisacodyl Supp [Dulcolax Supp] 10 mg [place] PRN PRN 06/18/23 Ferrous Gluconate [Fergon] 324 mg PO DAILYWM 06/18/23 Mineral Oil [Mineral Oil Enema] 133 ml [place] PRN PRN 06/18/23 Senna [Senokot] 17.6 mg PO PRN PRN 06/18/23 diltiaZEM CD [Cardizem Cd] 180 mg PO BID 06/18/23 guaiFENesin [Guaifenesin ER] 600 mg PO BID PRN 06/18/23 metFORMIN [Glucophage] 1,000 mg PO BID 06/18/23 polyethylene glycoL 3350 [Miralax] 17 g [place] PRN PRN 06/18/23 Objective - Vital Signs/Intake & Output Reviewed Vital Signs: Yes Vital Signs: Vital Signs x48h Temp Pulse Resp BP Pulse Ox O2 Flow Rate 06/21/23 08:00 36.7 C 89 20 139/96 H 97 3 Intake & Output: Intake & Output 06/18/23 06/19/23 06/20/23 06/21/23 23:59 23:59 23:59 23:59 Intake Total 1240 1660 2010 200 Output Total 628 014 9112 600 Balance 890 750 310 -400 - Objective General Appearance: positive: Alert, Other (Mild distress, patient states she is near his baseline.) Respiratory: positive: Chest non-tender, Other (States dyspnea is not quite back to baseline, lungs clear, diminshed at bases, no wheezing or rhonchi) Cardiovascular: positive: Regular rate & rhythm, No murmur Abdomen: positive: Non-tender, Nml bowel sounds Skin: positive: Color nml, No rash, Warm Extremities: positive: Non-tender, No pedal edema Neurologic/Psychiatric: positive: Mood/affect nml, Other (orientation at baseline, oriented to self and location) - Lab Results Fish Bones: 06/21/23 05:01 06/21/23 05:01 Other Labs: Lab Results x24hrs 06/21/23 06/21/23 06/21/23 Range/Units 07:39 05:01 05:01 WBC 11.9 H (4.8-10.8) x10^3/uL RBC 3.16 L (4.20-5.40) 10^6/uL Hgb 8.6 L (12.0-16.0) g/dL Hct 28.2 L (37.0-47.0) % MCV 89.2 (81.0-99.0) fL MCH 27.2 (27.0-31.0) pg MCHC 30.5 L (32.0-36.0) g/dL RDW 18.9 H (12.0-15.0) % Plt Count 267 (130-450) 10^3/uL MPV 9.8 (7.9-10.8) fL Neut # (Auto) 10.6 H (1.5-6.6) 10^3/uL Lymph # (Auto) 0.7 L (1.5-3.5) 10^3/uL [place] # (Auto) 0.4 (0.0-1.0) 10^3/uL Eos # (Auto) 0.0 (0.0-0.7) 10^3/uL Baso # (Auto) 0.0 (0.0-0.1) 10^3/uL Absolute Nucleated RBC 0.00 x10^3/uL Nucleated RBC % 0.0 /100WBC Sodium 142 (135-145) mmol/L Potassium 3.8 (3.5-4.5) mmol/L Chloride 111 (101-111) mmol/L Carbon Dioxide 26 (21-32) mmol/L Anion Gap 5.0 L (6-13) BUN 26 H (6-20) mg/dL Creatinine 0.8 (0.6-1.3) mg/dL Estimated GFR (MDRD) 69 L (>89) Glucose 148 H (74-104) mg/dL POC Whole Bld Glucose 83 (70 - 100) mg/dL Calcium 9.7 (8.5-10.3) mg/dL 06/20/23 06/20/23 06/20/23 Range/Units 20:16 16:44 11:05 WBC (4.8-10.8) x10^3/uL RBC (4.20-5.40) 10^6/uL Hgb (12.0-16.0) g/dL Hct (37.0-47.0) % MCV (81.0-99.0) fL MCH (27.0-31.0) pg MCHC (32.0-36.0) g/dL RDW (12.0-15.0) % Plt Count (130-450) 10^3/uL MPV (7.9-10.8) fL Neut # (Auto) (1.5-6.6) 10^3/uL Lymph # (Auto) (1.5-3.5) 10^3/uL [place] # (Auto) (0.0-1.0) 10^3/uL Eos # (Auto) (0.0-0.7) 10^3/uL Baso # (Auto) (0.0-0.1) 10^3/uL Absolute Nucleated RBC x10^3/uL Nucleated RBC % /100WBC Sodium (135-145) mmol/L Potassium (3.5-4.5) mmol/L Chloride (101-111) mmol/L Carbon Dioxide (21-32) mmol/L Anion Gap (6-13) BUN (6-20) mg/dL Creatinine (0.6-1.3) mg/dL Estimated GFR (MDRD) (>89) Glucose (74-104) mg/dL POC Whole Bld Glucose 259 H 342 H 229 H (70 - 100) mg/dL Calcium (8.5-10.3) mg/dL 06/20/23 06/19/23 06/19/23 Range/Units 07:25 20:42 11:25 WBC (4.8-10.8) x10^3/uL RBC (4.20-5.40) 10^6/uL Hgb (12.0-16.0) g/dL Hct (37.0-47.0) % MCV (81.0-99.0) fL MCH (27.0-31.0) pg MCHC (32.0-36.0) g/dL RDW (12.0-15.0) % Plt Count (130-450) 10^3/uL MPV (7.9-10.8) fL Neut # (Auto) (1.5-6.6) 10^3/uL Lymph # (Auto) (1.5-3.5) 10^3/uL [place] # (Auto) (0.0-1.0) 10^3/uL Eos # (Auto) (0.0-0.7) 10^3/uL Baso # (Auto) (0.0-0.1) 10^3/uL Absolute Nucleated RBC x10^3/uL Nucleated RBC % /100WBC Sodium (135-145) mmol/L Potassium (3.5-4.5) mmol/L Chloride (101-111) mmol/L Carbon Dioxide (21-32) mmol/L Anion Gap (6-13) BUN (6-20) mg/dL Creatinine (0.6-1.3) mg/dL Estimated GFR (MDRD) (>89) Glucose (74-104) mg/dL POC Whole Bld Glucose 134 H 299 H 259 H (70 - 100) mg/dL Calcium (8.5-10.3) mg/dL 06/19/23 06/18/23 06/18/23 Range/Units 07:35 16:21 11:04 WBC (4.8-10.8) x10^3/uL RBC (4.20-5.40) 10^6/uL Hgb (12.0-16.0) g/dL Hct (37.0-47.0) % MCV (81.0-99.0) fL MCH (27.0-31.0) pg MCHC (32.0-36.0) g/dL RDW (12.0-15.0) % Plt Count (130-450) 10^3/uL MPV (7.9-10.8) fL Neut # (Auto) (1.5-6.6) 10^3/uL Lymph # (Auto) (1.5-3.5) 10^3/uL [place] # (Auto) (0.0-1.0) 10^3/uL Eos # (Auto) (0.0-0.7) 10^3/uL Baso # (Auto) (0.0-0.1) 10^3/uL Absolute Nucleated RBC x10^3/uL Nucleated RBC % /100WBC Sodium (135-145) mmol/L Potassium (3.5-4.5) mmol/L Chloride (101-111) mmol/L Carbon Dioxide (21-32) mmol/L Anion Gap (6-13) BUN (6-20) mg/dL Creatinine (0.6-1.3) mg/dL Estimated GFR (MDRD) (>89) Glucose (74-104) mg/dL POC Whole Bld Glucose 111 H 264 H 152 H (70 - 100) mg/dL Calcium (8.5-10.3) mg/dL 06/18/23 Range/Units 07:29 WBC (4.8-10.8) x10^3/uL RBC (4.20-5.40) 10^6/uL Hgb (12.0-16.0) g/dL Hct (37.0-47.0) % MCV (81.0-99.0) fL MCH (27.0-31.0) pg MCHC (32.0-36.0) g/dL RDW (12.0-15.0) % Plt Count (130-450) 10^3/uL MPV (7.9-10.8) fL Neut # (Auto) (1.5-6.6) 10^3/uL Lymph # (Auto) (1.5-3.5) 10^3/uL [place] # (Auto) (0.0-1.0) 10^3/uL Eos # (Auto) (0.0-0.7) 10^3/uL Baso # (Auto) (0.0-0.1) 10^3/uL Absolute Nucleated RBC x10^3/uL Nucleated RBC % /100WBC Sodium (135-145) mmol/L Potassium (3.5-4.5) mmol/L Chloride (101-111) mmol/L Carbon Dioxide (21-32) mmol/L Anion Gap (6-13) BUN (6-20) mg/dL Creatinine (0.6-1.3) mg/dL Estimated GFR (MDRD) (>89) Glucose (74-104) mg/dL POC Whole Bld Glucose 175 H (70 - 100) mg/dL Calcium (8.5-10.3) mg/dL ABX Reporting Has patient been on IV antibiotics over the past 48 hours?: Yes Sepsis Event Note (H) - Evaluation Current Stage of Sepsis: Sepsis Possible source of Sepsis: positive: Pulmonary - Sepsis Criteria Sepsis Criteria: Recorded Heart Rate greater than 90 bpm (Improved), Recorded Respiratory Rate greater than 20, WBC count greater than 12,000 or less than 4000 Assessment/Plan - Problem List (1) Acute and chronic respiratory failure with hypoxia Impression: Improved. Due to accidental overdose of opiates prior to admission (at SNF) requiring Narcan in setting of end-stage COPD and aspiration pneumonia. Initially on non-rebreather mask, then high-flow O2, now on baseline 3L O2. Plan: Goal SpO2 88-92% DNR/DNI, if respiratory status worsens will focus on comfort Continue Albuterol, steroids, Pulmicort RT and OOB to chair for secretion clearance (2) Sepsis Impression: Improved. From aspiration pneumonia. Sepsis physiology has resolved with near normal WBC, afebrile, normal RR. Now near baseline. WBC trending down. Blood cultures neg. Plan: Continue Zosyn Qualifiers: Sepsis type: sepsis due to unspecified organism Sepsis acute organ d ysfunction status: with acute organ dysfunction Severe sepsis acute organ dysfunction type: acute respiratory failure Acute respiratory failure type: with hypoxia Severe sepsis shock status: without septic shock Qualified Code(s): A41.9 - Sepsis, unspecified organism; R65.20 - Severe sepsis without septic shock; J96.01 - Acute respiratory failure with hypoxia (3) Aspiration pneumonia Impression: Suspected due to significant dyspnea, fever, and elevated WBC after needing Narcan. CXR with bibasilar opacities. Plan: Continue Zosyn, meets criteria for hospital-acquired due to recent hospitalization Qualifiers: Qualified Code(s): J69.0 - Pneumonitis due to inhalation of food and vomit (4) COPD (chronic obstructive pulmonary disease) Impression: Stable. End-stage with cachexia. Goal sat 88-92%. Plan: Hold home Daliresp (not on formulary) Continue home steroids Continue Duoneestefani, Pulmicort Qualifiers: COPD type: COPD with acute lower respiratory infection Qualified Code(s): J44.0 - Chronic obstructive pulmonary disease with (acute) lower respiratory infection (5) Type 2 diabetes mellitus Impression: On metformin at home. A1c 7.1. Sugars here have been labile. Plan: metformin has been on hold, consider restarting Monitor blood sugars Insulin protocol, adjust dosing as needed Qualifiers: Diabetes mellitus alf insulin use: without extermination supervisor use Diabetes mellitus complication status: with neurologic complications Diabetes mellitus complication detail: with polyneuropathy Qualified Code(s): E11.42 - Type 2 diabetes mellitus with diabetic polyneuropathy (6) Constipation Impression: Reports no BM since admission. Abdomen remains soft. Bowel tones present. Plan: bowel regimen Qualifiers: Constipation type: unspecified constipation type Qualified Code(s): K59.00 - Constipation, unspecified (7) Depression with anxiety Impression: Stable, at times has episodes of anxiety with her dyspnea. Plan: Continue home imipramine (8) Protein-calorie malnutrition, severe Impression: Stable. Chronic cachexia in setting of end-stage COPD. Poor appetite improving. Plan: Supplements, continue home B12 Followed by technical supervisor (9) Peripheral vascular disease Impression: Stable. Chronic. Plan: Continue home Plavix (10) Anemia Impression: Stable. Suspect multifactorial due to malnutrition and inflammatory block, no signs of acute bleeding. Plan: Monitor for any bleeding. Continue home B12 and iron. Qualifiers: Anemia type: unspecified type Qualified Code(s): D64.9 - Anemia, unspecified (11) Opiate overdose Impression: Resolved. Unintentional, reported medication error at [facility], was given 5x prescribed dose of morphine and required Narcan when she became obtunded. Now awake, alert. Plan: hold morphine, patient is reluctant to take it again in future but may want to reconsider if air hunger is a problem Qualifiers: Encounter type: initial encounter Injury intent: accidental or unintentional Qualified Code(s): T40.601A - Poisoning by unspecified narcotics, accidental (unintentional), initial encounter
[2023-06-21] MEDS ORDERED: MAGIC MOUTHWASH (NYSTATIN) 120 ML BOTTLE PO PRN (09:00)
--- NOTE | 2023-06-21 12:17 | Discharge Plan ---
"Discharge Plan for SNF / [facility] - SNF / [facility] Transition Orders Admit to (Facility): [facility] Under the care of (Name): Dr Geoff Plascencia Medicare Certification Statement: I certify that [facility] care is medically necessary on a continuing basis for any of the conditions for which she/he is receiving care during hospitalization. Notify PCP of admission and forward orders to primary provider for signature. Other Notification Orders: Call PCP immediately if patient develops dyspnea, chest pain/tightness or edema. Additional Bowel Program Orders: If no BM after 2 days, nurse may give M.O.M. 30ml PO PRN and/or ducolax Supp 1 ID and/or CARLOS 250mg P.O., and/or senna 1-2 tabs PO. On day 3 nurse may give repeat above order until residents constipation is resolved. Medication Orders: PLEASE REFER TO THE DISCHARGE MEDICATION LIST. <Rosa Elena Emery - Last Filed: 06/25/23 08:36> - Discharge Plan And Transition Orders Problem Reviewed?: Yes - SNF / RETIREMENT Transition Orders Discharge Diagnosis: THIS PATIENT WAS DC'D BY A DIFFERENT PROVICER AND THIS WAS CREATED IN ANTICIPA TION OF THIS MD DISCHARGING HER. PLEASE DISREGARD THIS NOTE AND REFER TO DATE OF DC NOTE. UNABLE TO CANCER DOCUMENT. 1. Acute on chronic respiratory failure with hypoxia 2. Sepsis from #3 3. Aspiration pneumonia 4. End-stage COPD with exacerbation 5. 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 Constipation, chronic. Daughter states that mom may have a bowel movement once a week and can sometimes go as long as 2 weeks 7. Depression with anxiety 8. Severe protein calorie malnutrition 9. Peripheral vascular disease on Plavix 10. Multifactorial anemia 11. Accidental opioid overdose Medicare Certification Statement: I certify that [facility] care is medically necessary on a continuing basis for any of the conditions for which she/he is receiving care during hospitalization. Notify PCP of admission and forward orders to primary provider for signature. Weight on admission and: Weekly Other Notification Orders: Call PCP immediately if patient develops dyspnea, chest pain/tightness or edema. House Bowel Program: Yes Additional Bowel Program Orders: If no BM after 2 days, nurse may give M.O.M. 30ml PO PRN and/or ducolax Supp 1 ID and/or CARLOS 250mg P.O., and/or senna 1-2 tabs PO. On day 3 nurse may give repeat above order until residents constipation is resolved. Annual Influenza Vaccine (between Jan 01 and July 31): Yes Two-step PPD per [facility] [phone] or approved exception documents: Yes Medication Orders: PLEASE REFER TO THE DISCHARGE MEDICATION LIST. Insulin Orders?: Yes - Diet Type: No added sugar Texture: Regular Liquids: Thin May have monthly special meal: Yes - Therapies | Activity Therapy: Evaluation | Treat if indicated: PT, OT Rehabilitation Potential: Return to independent living Activity: Activity as Tolerated Weight Bearing: Full Weight Assistance Devices: Walker Follow Up: Geoff Plascencia MD is PCP <Tamanna Hinojosa - Last Filed: 06/29/23 13:45> - Discharge Plan And Transition Orders Disposition: 03 SNF DC/Xfer Condition: Fair Allergies and Adverse Reactions: Allergies Allergy/AdvReac Type Severity Reaction Status Date / Time azithromycin Allergy Emesis Verified 06/17/23 16:50 Health Concerns: This is a senait elderly female with end-stage COPD. She had only quit smoking in May of this year. COPD is gradually getting worse over the last few months. Her regular home medications are Ventolin HFA inhaler to be in her purse, albuterol nebulized solution via machine at home, Daliresp, and Ellipta. She is also on 3 L nasal cannula oxygen continuously but definitely when sleeping. She became ill with a progressive upper respiratory tract infection at the beginning of June and was in the emergency room with severe COPD exacerbation. She was positive then for human metapneumovirus as the most likely inciting cause. She was treated with steroids, nebulizers, and high oxygen nasal cannula. She responded to treatment slowly, and was able to come down to her baseline 3 L/min O2 setting. But she was significantly below baseline functional status andwas discharged to a SNF for rehab. On the morning of June 17, the patient was accidentally overtreated with morphine at the SNF. She became obtunded, developed respiratory distress. A few hours passed where it was recognized as she had a reaction to the excessive morphine dose. Narcan was given. Ambulance was called. And she was brought to the emergency room and found to have an aspiration pneumonia, sepsis, and respiratory failure. She was admitted again and has responded very well to antibiotics, nebulizers, steroids, and oxygen. Within 24 hours she was awake, responding appropriately to questions, and oriented. She initially was on a nonrebreather mask, then high flow nasal cannula, then down to Oxymizer for supplemental O2. She is now down to her baseline nasal cannula of 3 L. She is now extremely deconditioned from 2 hospitalizations. She needs PT and OT rehab. She has been found to be orthostatic, and very weak with that, therefore Midodrine was started and that helps her BP. Plan of Treatment: Medication list was reviewed with her daughter, to make sure that all of her home medications were to be renewed as they should be. There apparently was some meds dropped when she went from our hospital [facility] [place] [facility]. The patient should be on a handheld ventolin inhaler for rescue. But she must be on maintenance nebulized albuterol 3 times a day. Her Ellipta is once a day, and Daliresp is once a day. The patient should be tapered off steroids very slowly. I would recommend: Prednisone 30 mg June 25 Prednisone 25 mg June 26, , , Prednisone 20 mg June 30, , July 01, Prednisone 15 mg July 03, , , 6 Prednisone 10 mg July 07, , , Prednsione 5 mg daily from then on She is a Doiabetic and steroids did cause an increase in her glucose to as high as 472. That was managed with Lantus and sliding scale insulin. In the outpatient setting this patient is usually only on Metformin 1000 mg p.o. twice daily. We do not know what her glucose will be while she is on tapering steroid schedule. As such she will be discharged on her usual home Metformin dose and a sliding scale insulin schedule while she is on steroids, which you will probably decrease then stop. Patient (and daughter) would like NO MORPHINE given ever. Morphine was being used for severe air hunger and anxiety. Instead she is being discharged on Ativan to use prn. Care Goals: Physical therapy goals to achieve would be going from a supine to sitting, sitting to standing, and standing to pivot transfer to a chair with a walker. If she could walk a few feet that would be even better. The Midodrine tablets help prevent her orthostatsis, which causes her to be weak and sleepy. Occupational therapy goals that would be wonderful to achieve will be able to dress herself, feed herself, brush her own teeth and toilet herself. However it is understood that because of her weakness, shortness of breath she may need a standby assist at all times. Once she has achieved her goals with physical rehab and occupational rehab, she should be transitioned to an assisted living nursing facility. She will be discharged with Palliative Care for follow-up, but eventually would transition to Hospice. Assessment: Patient is alert and oriented to person, place, situation but not time. She is agreeable to the plan of care. Her daughter Jazlyn is the DPOA, and her number is [phone]. - Medications New Prescriptions: LORazepam [Ativan] 0.5 mg PO Q6H PRN #30 tablet PRN Reason: air hunger anxiety Midodrine [ProAmatine] 1.25 mg PO TIDWM 30 Days #45 tablet Insulin Orders - SNF Basal | Correction | Custom Orders: Diagnosis: Diabetes Initiate hypo and hyperglycemia protocols for BG <70 and BG >375. May check BG PRN for signs/symptoms of dysglycemia. Frequency of BG checks: [AC/Meal/HS] Basal Insulin: None Correction Insulin: - Select the type of insulin below [Choose: Novolog/Humalog]100 units /ml insulin inject subq per orders indicate below [] LOW DOSE [] MODERATE DOSE [] MODERATE/HIGH DOSE [] HIGH DOSE GB UNITS GB UNITS GB UNITS GB UNITS 61-140 0 UNITS 61-140 0 UNITS 61-140 0 UNITS 61-140 0 UNITS 141-175 1 UNITS 141-175 1 UNITS 141-175 2 UNITS 141-175 3 UNITS 176-225 2 UNITS 176-225 3 UNITS 176-225 4 UNITS 176-225 5 UNITS 226-275 3 UNITS 226-275 5 UNITS 226-275 6 UNITS 226-275 7 UNITS 276-325 4 UNITS 276-325 7 UNITS 276-325 8 UNITS 276-325 9 UNITS 326-375 5 UNITS 326-375 9 UNITS 326-375 10 UNITS 326-375 11 UNITS >375 CONTACT MD >375 CONTACT MD >375 CONTACT MD >375 CONTACT <Rosa Elena Emery - Last Filed: 06/25/23 08:36> Basal | Correction | Custom Orders: Diagnosis: Diabetes Initiate hypo and hyperglycemia protocols for BG <70 and BG >375. May check BG PRN for signs/symptoms of dysglycemia. Frequency of BG checks: [AC/Meal/HS] Basal Insulin: [] Lantus 100 units / ml inject subq as follows: [] [] Other: [] Correction Insulin: - Select the type of insulin below [Choose: Novolog/Humalog]100 units /ml insulin inject subq per orders indicate below [] LOW DOSE [xxx] MODERATE DOSE [] MODERATE/HIGH DOSE [] HIGH DOSE GB UNITS GB UNITS GB UNITS GB UNITS 61-140 0 UNITS 61-140 0 UNITS 61-140 0 UNITS 61-140 0 UNITS 141-175 1 UNITS 141-175 1 UNITS 141-175 2 UNITS 141-175 3 UNITS 176-225 2 UNITS 176-225 3 UNITS 176-225 4 UNITS 176-225 5 UNITS 226-275 3 UNITS 226-275 5 UNITS 226-275 6 UNITS 226-275 7 UNITS 276-325 4 UNITS 276-325 7 UNITS 276-325 8 UNITS 276-325 9 UNITS 326-375 5 UNITS 326-375 9 UNITS 326-375 10 UNITS 326-375 11 UNITS >375 CONTACT MD >375 CONTACT MD >375 CONTACT MD >375 CONTACT MD Custom Dosing: [Choose: Novolog/Humalog] 100 units/ml Insulin inject subq as follows: GB Units 61-140 [] Units 141-175 [] Units 176-225 [] Units 226-275 [] Units 276-325 []Units 326-375 [] Units >375 Contact <Tamanna Hinojosa - Last Filed: 06/29/23 13:45>"
[2023-06-22 05:57] LABS: BASOPHILS % (AUTO) 0.1 %; EOSINOPHILS % (AUTO) 0.1 %; HCT - HEMATOCRIT 29.7 % (37.0-47.0); HGB - HEMOGLOBIN 9.1 g/dL (12.0-16.0); LYMPHOCYTES # (AUTO) 0.9 10^3/uL (1.5-3.5); LYMPHOCYTES % (AUTO) 8.5 %; MEAN CORPUSCULAR HEMOGLOBIN 27.2 pg (27.0-31.0); MEAN CORPUSCULAR HGB CONC 30.6 g/dL (32.0-36.0); MEAN CORPUSCULAR VOLUME 88.9 fL (81.0-99.0); MEAN PLATELET VOLUME 9.4 fL (7.9-10.8); MONOCYTES # (AUTO) 0.5 10^3/uL (0.0-1.0); MONOCYTES % (AUTO) 4.4 %; NEUTROPHILS # (AUTO) 8.8 10^3/uL (1.5-6.6); NEUTROPHILS % (AUTO) 85.2 %; PLT - PLATELET COUNT 269 10^3/uL (130-450); RED BLOOD COUNT 3.34 10^6/uL (4.20-5.40); WHITE BLOOD COUNT 10.3 x10^3/uL (4.8-10.8)
[2023-06-22 06:23] LABS: CALCIUM 9.4 mg/dL (8.5-10.3); CREATININE 0.8 mg/dL (0.6-1.3); POTASSIUM 3.7 mmol/L (3.5-4.5)
[2023-06-22] MEDS: INSULIN LISPRO 300 UNIT/3 ML PEN SUBQ SCH (08:17)
[2023-06-22] MEDS: predniSONE 20 MG TABLET PO SCH (08:31)
[2023-06-22] MEDS: SENNA 8.6 MG TABLET PO SCH (10:44)
[2023-06-22] MEDS: polyethylene glycoL 3350 17 GM PACKET PO SCH (10:44)
--- NOTE | 2023-06-22 17:37 | PROVIDER PROGRESS NOTE ---
Assessment/Plan - Problem List (1) Acute and chronic respiratory failure with hypoxia Assessment/Plan: Improved. Due to accidental overdose of opiates prior to admission (at SNF) requiring Narcan in setting of end-stage COPD and aspiration pneumonia. Initially on non-rebreather mask, then high-flow O2, now on baseline 3L O2. Plan: Goal SpO2 88-92% DNR/DNI, if respiratory status worsens will focus on comfort Continue Albuterol, steroids, Pulmicort RT and OOB to chair for secretion clearance PT and OT evals needed before going to SNF for rehab (2) Aspiration pneumonia Impression: Aspiration was suspected due to significant dyspnea, fever, and elevated WBC after needing Narcan for obtundation. CXR had bibasilar opacities. Plan: Continue Zosyn, she meets criteria for hospital-acquired due to recent hospitalization Qualifiers: Qualified Code(s): J69.0 - Pneumonitis due to inhalation of food and vomit (3) COPD (chronic obstructive pulmonary disease) with exacerbation Impression: Stable. End-stage with cachexia. Goal sat 88-92%. Plan: Hold home Daliresp (not on formulary) Continue home steroids Continue Duonebs, Pulmicort Qualifiers: COPD type: COPD with acute lower respiratory infection Qualified Code(s): J44.0 - Chronic obstructive pulmonary disease with (acute) lower respiratory infection (4) Type 2 diabetes mellitus Impression: On metformin at home. A1c 7.1. Sugars here have been labile. Plan: Metformin has been on hold, will consider restarting Monitor blood sugars Insulin protocol, adjust dosing as needed Qualifiers: Diabetes mellitus fpc insulin use: without terminal make up operator use Diabetes mellitus complication status: with neurologic complications Diabetes mellitus complication detail: with polyneuropathy Qualified Code(s): E11.42 - Type 2 diabetes mellitus with diabetic polyneuropathy (5) Constipation Impression: Reported no BM since the last admission. Likely from narcotics Plan: Cont to advance bowel regimen Will check KUB film and if needed will ask for manual disimpaction by Gen Surg Qualifiers: Constipation type: unspecified constipation type Qualified Code(s): K59.00 - Constipation, unspecified (6) Depression with anxiety Impression: Stable, at times has episodes of anxiety with her dyspnea. Plan: Continue home imipramine (7) Protein-calorie malnutrition, severe Impression: Stable. Chronic cachexia in setting of end-stage COPD. Poor appetite improving. Plan: Cont protein supplements, continue home B12 Appreciate recommendations from international specialist (8) Peripheral vascular disease Impression: Stable. Chronic. Plan: Continue home Plavix (9) Anemia Impression: Stable. Suspect multifactorial due to malnutrition and inflammatory blocking med, no signs of acute bleeding. Plan: Monitor for any bleeding. Continue home B12 and iron. Qualifiers: Anemia type: unspecified type Qualified Code(s): D64.9 - Anemia, unspeci fied (10) Opiate overdose Impression: RESOLVED Unintentional, it was a reported medication error at [facility]: she was given 5x prescribed dose of morphine and required Narcan when she became obtunded. Now awake, alert. Plan: Cont to hold morphine, patient is reluctant to take it again in future but may want to reconsider if air hunger is a problem Qualifiers: Encounter type: initial encounter Injury intent: accidental or unintentional Qualified Code(s): T40.601A - Poisoning by unspecified narcotics, accidental (unintentional), initial encounter (11) Sepsis Impression: RESOLVED Caused by aspiration pneumonia. Sepsis physiology has resolved with near normal WBC, afebrile, normal RR. Now near baseline. WBC trending down. Blood cultures neg. Plan: Complete a course of antibx, currently on Zosyn Qualifiers: Sepsis type: sepsis due to unspecified organism Sepsis acute organ dysfunction status: with acute organ dysfunction Severe sepsis acute organ dysfunction type: acute respiratory failure Acute respiratory failure type: with hypoxia Severe sepsis shock status: without septic shock Qualified Code(s): A41.9 - Sepsis, unspecified organism; R65.20 - Severe sepsis without septic shock; J96.01 - Acute respiratory failure with hypoxia - Current Meds Current Meds: Current Medications Generic Name Dose Route Start Last Admin Trade Name Freq PRN Reason Stop Dose Admin Acetaminophen 650 mg 06/17/23 17:25 06/22/23 16:21 Acetaminophen 325 Mg Tablet PO 650 mg Q4HR PRN Administration Pain 1 to 4, or Fever Albuterol 2.5 mg 06/17/23 17:28 06/18/23 14:40 Albuterol Neb 2.5 Mg/3 Ml INH 2.5 mg RTQ4H PRN Administration Wheezing Albuterol/Ipratropium 3 ml 06/18/23 19:00 06/22/23 16:22 Ipratropium/Albuterol 3 Ml Neb INH Not Given RTQID LUCHO Ascorbic Acid 500 mg 06/19/23 09:00 06/22/23 08:30 Ascorbic Acid 500 Mg Tablet PO 500 mg DAILY LUCHO Administration Atorvastatin Calcium 10 mg 06/18/23 21:00 06/21/23 20:14 Atorvastatin 10 Mg Tablet PO 10 mg QPM LUCHO Administration Budesonide 0.5 mg 06/17/23 19:00 06/22/23 09:35 Budesonide 0.5 Mg/2 Ml Neb INH 0.5 mg RTBID LUCHO Administration Clopidogrel Bisulfate 75 mg 06/19/23 09:00 06/22/23 08:32 Clopidogrel 75 Mg Tablet PO 75 mg DAILY [facility]CHO Administration Cyanocobalamin 500 mcg 06/19/23 09:00 06/22/23 08:31 Cyanocobalamin 500 Mcg Tablet PO 500 mcg DAILY [facility] Administration Diltiazem HCl 180 mg 06/18/23 09:00 06/22/23 08:31 Diltiazem Cd 180 Mg Capsule PO 180 mg DAILY [facility] Administration Ferrous Gluconate 324 mg 06/19/23 08:00 06/22/23 08:31 Ferrous Gluconate 324 Mg Tablet PO 324 mg DAILYWM LUCHO Administration Guaifenesin 600 mg 06/18/23 12:54 06/19/23 08:42 Guaifenesin 600 Mg Tablet PO 600 mg BID PRN Administration Cough Piperacillin Sod/Tazobactam 100 mls @ 25 mls/hr 06/20/23 12:00 06/22/23 16:00 Sod 3.375 gm/ Sodium Chloride IV Infused Q8H [facility] Infusion Imipramine HCl 150 mg 06/18/23 21:00 06/21/23 20:14 Imipramine 25 Mg Tablet PO 150 mg QPM [facility]CHO Administration Insulin Glargine-yfgn 18 unit 06/19/23 21:00 06/21/23 20:25 Insulin Glargine-Yfgn 300 Unit/3 Ml Pen SUBQ 18 unit QPM [facility]CHO Administration Insulin Human Lispro 3 - 11 unit 06/22/23 08:00 06/22/23 17:10 Insulin Lispro 300 Unit/3 Ml Pen SUBQ 7 unit 0800,1200,1700,2100 [facility] Administration Protocol Losartan Potassium 50 mg 06/18/23 21:00 06/22/23 08:32 Losartan 50 Mg Tablet PO 50 mg BID [facility] Administration Montelukast Sodium 10 mg 06/18/23 21:00 06/21/23 20:14 Montelukast 10 Mg Tablet PO 10 mg QPM LCUHO Administration Multivitamins/Minerals 1 tab 06/19/23 08:00 06/22/23 08:30 Multivitamin W/Minerals Tablet PO 1 tab DAILYWM [facility]CHO Administration Polyethylene Glycol 17 gm 06/22/23 09:00 06/22/23 10:44 Polyethylene Glycol 3350 17 Gm Packet PO 17 gm DAILY [facility] Administration Prednisone 30 mg 06/22/23 08:00 06/22/23 08:31 Prednisone 20 Mg Tablet PO 30 mg DAILYWM LUCHO Administration Senna 8.6 - 17.2 mg 06/22/23 09:00 06/22/23 10:44 Senna 8.6 Mg Tablet PO 17.2 mg DAILY [facility] Administration Sodium Chloride 10 ml 06/17/23 17:25 06/18/23 05:36 Sodium Chloride Flush 0.9% 10 Ml Syringe IVP 10 ml PRN PRN Administration NEEDED PER PROVIDER ORDERS Sodium Chloride 10 ml 06/18/23 01:00 06/22/23 15:28 Sodium Chloride Flush 0.9% 10 Ml Syringe IVP 10 ml 0100,0900,1700 [facility] Administration Solifenacin 5 mg 06/18/23 14:00 06/22/23 08:31 Solifenacin Succinate 5 Mg Tablet PO 5 mg DAILY [facility] Administration - Lab Result Fish Bone Diagrams: 06/23/23 04:59 06/23/23 04:59 - Additional Planning My Orders: My Active Orders 06/22/23 Evaluate and Treat OT [OT] Routine Evaluate and Treat PT [PT] Routine 06/22/23 09:00 Senna [Senokot] 8.6 - 17.2 mg PO DAILY polyethylene glycoL 3350 [Miralax] 17 gm PO DAILY Subjective - Subjective Patient Reports: Resting Comfortably, No Complaints Objective Vital Signs: Vital Signs - 24 hr 06/21/23 06/21/23 06/22/23 19:45 20:17 00:15 Temperature 36.6 C Heart Rate 93 Heart Rate [ Activity] Heart Rate [ 102 H 84 Brachial] Heart Rate [ Sitting] Heart Rate [ Standing] Heart Rate [ Supine] Respiratory 18 18 Rate Blood Pressure [Activity] Blood Pressure 137/83 H 160/99 H [Right Brachial artery] Blood Pressure [Sitting] Blood Pressure [Standing] Blood Pressure [Supine] O2 Saturation 100 O2 Saturation [ Sitting] If not protocol 3 3 : Oxygen Flow, liters/minute 06/22/23 06/22/23 06/22/23 07:55 09:41 10:48 Temperature 37.1 C Heart Rate 97 Heart Rate [ 125 H Activity] Heart Rate [ 90 Brachial] Heart Rate [ 113 H Sitting] Heart Rate [ 125 H Standing] Heart Rate [ 106 H Supine] Respiratory 18 16 Rate Blood Pressure 115/80 [Activity] Blood Pressure 154/103 H [Right Brachial artery] Blood Pressure 136/93 H [Sitting] Blood Pressure 107/74 [Standing] Blood Pressure 127/83 H [Supine] O2 Saturation 96 O2 Saturation [ 91 L Sitting] If not protocol 3 3 : Oxygen Flow, liters/minute 06/22/23 06/22/23 10:50 15:57 Temperature 37.0 C Heart Rate Heart Rate [ 125 H Activity] Heart Rate [ 93 Brachial] Heart Rate [ 113 H Sitting] Heart Rate [ 125 H Standing] Heart Rate [ 106 H Supine] Respiratory 18 Rate Blood Pressure 115/80 [Activity] Blood Pressure 125/81 H [Right Brachial artery] Blood Pressure 136/93 H [Sitting] Blood Pressure 107/74 [Standing] Blood Pressure 127/83 H [Supine] O2 Saturation 93 O2 Saturation [ Sitting] If not protocol 3 : Oxygen Flow, liters/minute Oxygen O2 Source Nasal cannula I&O (Last 24 Hrs): Intake and Output Totals x24h 06/20/23 06/21/23 06/22/23 23:59 23:59 23:59 Intake Total 2009 1438 1020 Output Total 1699 1750 600 Balance 310 -312 420 General: Alert, Oriented x3 HEENT: Mucous membr. moist/pink, Other (Cachectic. Wearing O2 via n.c.) Neck: Supple Neuro: Alert, Non Focal Cardiovascular: Regular rate Respiratory: No respiratory distress (on suppl O2), Rhonchi Abdomen: Soft, No tenderness Extremities: No edema, No tenderness/swelling - Results Results: Laboratory Results WBC 10.3 x10^3/uL (4.8-10.8) 06/22/23 05:33 RBC 3.34 10^6/uL (4.20-5.40) L 06/22/23 05:33 Hgb 9.1 g/dL (12.0-16.0) L 06/22/23 05:33 Hct 29.7 % (37.0-47.0) L 06/22/23 05:33 MCV 88.9 fL (81.0-99.0) 06/22/23 05:33 MCH 27.2 pg (27.0-31.0) 06/22/23 05:33 MCHC 30.6 g/dL (32.0-36.0) L 06/22/23 05:33 RDW 19.0 % (12.0-15.0) H 06/22/23 05:33 Plt Count 269 10^3/uL (130-450) 06/22/23 05:33 MPV 9.4 fL (7.9-10.8) 06/22/23 05:33 Neut # (Auto) 8.8 10^3/uL (1.5-6.6) H 06/22/23 05:33 Lymph # (Auto) 0.9 10^3/uL (1.5-3.5) L 06/22/23 05:33 [place]ward # (Auto) 0.5 10^3/uL (0.0-1.0) 06/22/23 05:33 Eos # (Auto) 0.0 10^3/uL (0.0-0.7) 06/22/23 05:33 Baso # (Auto) 0.0 10^3/uL (0.0-0.1) 06/22/23 05:33 Absolute Nucleated RBC 0.00 x10^3/uL 06/22/23 05:33 Total Counted 100 06/17/23 16:53 Band Neuts % (Manual) 0 % (0-10) 06/17/23 16:53 Abnorm Lymph % (Manual) 0 % 06/17/23 16:53 Nucleated RBC % 0.0 /100WBC 06/22/23 05:33 Neutrophils # (Manual) 27.1 10^3/uL (1.5-6.6) H 06/17/23 16:53 Lymphocytes # (Manual) 2.4 10^3/uL (1.5-3.5) 06/17/23 16:53 Monocytes # (Manual) 0.6 10^3/uL (0.0-1.0) 06/17/23 16:53 Eosinophils # (Manual) 0.0 10^3/uL (0-0.7) 06/17/23 16:53 Basophils # (Manual) 0.0 10^3/uL (0-0.1) 06/17/23 16:53 Differential Comment MANUAL DIFFERENTIAL 06/17/23 16:53 Manual Slide Review Indicated 06/18/23 12:53 Platelet Estimate NORMAL (130-450,000) (NORMAL) 06/18/23 12:53 Platelet Morphology NORMAL APPEARANCE (NORMAL) 06/18/23 12:53 RBC Morph Micro Appear NORMAL APPEARANCE (NORMAL) 06/18/23 12:53 Sodium 140 mmol/L (135-145) 06/22/23 05:33 Potassium 3.7 mmol/L (3.5-4.5) 06/22/23 05:33 Chloride 109 mmol/L (101-111) 06/22/23 05:33 Carbon Dioxide 26 mmol/L (21-32) 06/22/23 05:33 Anion Gap 5.0 (6-13) L 06/22/23 05:33 BUN 24 mg/dL (6-20) H 06/22/23 05:33 Creatinine 0.8 mg/dL (0.6-1.3) 06/22/23 05:33 Estimated GFR (MDRD) 69 (>89) L 06/22/23 05:33 Glucose 84 mg/dL (74-104) 06/22/23 05:33 POC Whole Bld Glucose 262 mg/dL (70 - 100) H 06/22/23 16:30 Estimat Average Glucose 157 mg/dL (70-100) H 06/18/23 05:14 Hemoglobin A1c % 7.1 % (4.27-6.07) H 06/18/23 05:14 Lactic Acid 1.6 mmol/L (0.5-2.2) 06/17/23 17:06 Calcium 9.4 mg/dL (8.5-10.3) 06/22/23 05:33 Magnesium 1.6 mg/dL (1.7-2.3) L 06/17/23 16:53 Total Bilirubin 0.7 mg/dL (0.2-1.0) 06/17/23 16:53 AST 10 IU/L (10-42) 06/17/23 16:53 ALT 19 IU/L (10-60) 06/17/23 16:53 Alkaline Phosphatase 74 IU/L (42-121) 06/17/23 16:53 B-Natriuretic Peptide 107 pg/mL (5-100) H 06/17/23 16:53 Total Protein 6.2 g/dL (6.4-8.9) L 06/17/23 16:53 Albumin 3.3 g/dL (3.2-5.5) 06/17/23 16:53 Globulin 2.9 g/dL (2.1-4.2) 06/17/23 16:53 Albumin/Globulin Ratio 1.1 (1.0-2.2) 06/17/23 16:53 Vitamin B12 494 pg/mL (180-914) 06/18/23 12:53 Folate 7.9 ng/mL (5.90 - >24.8) 06/18/23 12:53 Sepsis Event Note (H) - Evaluation Current Stage of Sepsis: Sepsis Possible source of Sepsis: positive: Pulmonary - Sepsis Criteria Sepsis Criteria: Recorded Heart Rate greater than 90 bpm (Improved), Recorded Respiratory Rate greater than 20, WBC count greater than 12,000 or less than 4000
[2023-06-23] MEDS: hydrALAZINE INJ 20 MG/ML VIAL IVP ONE (00:35)
[2023-06-23 05:24] LABS: HCT - HEMATOCRIT 34.2 % (37.0-47.0); HGB - HEMOGLOBIN 10.4 g/dL (12.0-16.0); MEAN CORPUSCULAR HEMOGLOBIN 27.2 pg (27.0-31.0); MEAN CORPUSCULAR VOLUME 89.3 fL (81.0-99.0); RED BLOOD COUNT 3.83 10^6/uL (4.20-5.40); WHITE BLOOD COUNT 11.8 x10^3/uL (4.8-10.8)
[2023-06-23 05:25] LABS: BASOPHILS % (AUTO) 0.2 %; EOSINOPHILS # (AUTO) 0.1 10^3/uL (0.0-0.7); EOSINOPHILS % (AUTO) 0.5 %; LYMPHOCYTES # (AUTO) 1.8 10^3/uL (1.5-3.5); LYMPHOCYTES % (AUTO) 15.6 %; MEAN CORPUSCULAR HGB CONC 30.4 g/dL (32.0-36.0); MEAN PLATELET VOLUME 9.1 fL (7.9-10.8); MONOCYTES # (AUTO) 0.7 10^3/uL (0.0-1.0); MONOCYTES % (AUTO) 5.8 %; NEUTROPHILS # (AUTO) 8.9 10^3/uL (1.5-6.6); NEUTROPHILS % (AUTO) 75.4 %; NRBC ABSOLUTE COUNT (AUTO) 0.02 x10^3/uL; NUCLEATED RED BLOOD CELLS AUTO 0.2 /100WBC; PLT - PLATELET COUNT 318 10^3/uL (130-450); RED CELL DISTRIBUTION WIDTH 19.5 % (12.0-15.0)
[2023-06-23 05:52] LABS: CALCIUM 9.4 mg/dL (8.5-10.3); CREATININE 0.8 mg/dL (0.6-1.3); POTASSIUM 3.7 mmol/L (3.5-4.5)
[2023-06-23] MEDS ORDERED: IPRATROPIUM/ALBUTEROL 3 ML NEB INH PRN (07:41)
--- NOTE | 2023-06-23 08:37 | PROVIDER PROGRESS NOTE ---
Assessment/Plan - Problem List (1) Hypoglycemia Assessment/Plan: Early this morning her fingerstick glucose was 48 then despite getting glu, the repeat fingerstick check was 58. Then needed more replacement before her glucoses went into the 70s then 108 She is ordered to get long-acting insulin 18 units at at bedtime, plus sliding scale insulin Plan: The patient is not yet ready for discharge because of this severe hypoglycemia and her DM meds need to be adjusted I will stop her nightime scheduled Insulin I will resume her Metformin 1000 mg po BID Continue to do fingerstick checks and continue hypoglycemia protocol. and ss Insulin coverage (2) Orthostatic hypotension Assessment/Plan: When working with PT they checked her orthostatic vital signs which were very abnormal: Supine BP 148/91, HR 104. Sitting BP 113/87, HR 108. Standing BP 83/58, HR 116. Plan: The patient is not yet ready for discharge When she was here a week ago with the same problem she received 1 day of IV fluids and then went into pulmonary edema. I will therefore not give her any saline. I will stop her Losartan 50 mg twice daily dose and change it to 25 mg and just give nightly when she will be supine I will start her on Midodrine TID w/ meals>> this caused HTN 171/110 this afternoon>> will change her to Midodrine 1.25 mg just with breakfast starting tomorrow. I updated the daughter by phone today (3) Acute and chronic respiratory failure with hypoxia Assessment/Plan: Improved. Due to accidental overdose of opiates prior to admission (at [facility]) requiring Narcan in setting of end-stage COPD and getting an aspiration pneumonia. Initially on non-rebreather mask, then high-flow O2, now on baseline 3L O2. Also, the daughter told our oyster sorter Rain today that there was an oversight and her nebulized bronchodilators were not ordered to continue when she was at [facility], si nce they did not appear on our pharmacy reconciled list. Plan: Goal SpO2 88-92% Continue scheduled Duonebs, daily oral steroids, scheduled Pulmicort RT and OOB to chair for secretion clearance PT and OT evals recommended return to SNF for rehab DNR/DNI, if respiratory status worsens will focus on comfort (4) Aspiration pneumonia Impression: Aspiration was suspected due to significant dyspnea, fever, and elevated WBC after needing Narcan for obtundation. CXR had bibasilar opacities. She has been on IV Zosyn, as she met criteria for hospital-acquired due to recent hospitalization. Plan: Her IV fell out today so I we will transition her from Zosyn to p.o. Augmentin and plan to complete a 7 day course of antibx Qualifiers: Qualified Code(s): J69.0 - Pneumonitis due to inhalation of food and vomit (5) COPD (chronic obstructive pulmonary disease) with exacerbation Impression: Stable. End-stage with cachexia. Goal sat 88-92%. Plan: Hold home Daliresp (not on formulary) Continue oral steroids Continue scheduled Duonebs, Pulmicort Qualifiers: COPD type: COPD with acute lower respiratory infection Qualified Code(s): J44.0 - Chronic obstructive pulmonary disease with (acute) lower respiratory infection (6) Type 2 diabetes mellitus Impression: On metformin at home. A1c 7.1. Sugars here have been labile. Plan: Metformin will be restarted today and Insulin stopped (see #1) Monitor blood sugars Cont ss Insulin coverage Qualifiers: Diabetes mellitus fdc insulin use: without terminal manager use Diabetes mellitus complication status: with neurologic complications Diabetes mellitus complication detail: with polyneuropathy Qualified Code(s): E11.42 - Type 2 diabetes mellitus with diabetic polyneuropathy (7) Constipation Impression: Reported no BM since the last admission. Likely from narcotics Plan: Cont to advance bowel regimen Will check KUB film and if needed will ask for manual disimpaction by Gen Surg Qualifiers: Constipation type: unspecified constipation type Qualified Code(s): K59.00 - Constipation, unspecified (8) Depression with anxiety Impression: Stable, at times has episodes of anxiety with her dyspnea. Plan: Continue home imipramine (9) Protein-calorie malnutrition, severe Impression: Stable. Chronic cachexia in setting of end-stage COPD. Poor appetite improving. Plan: Cont protein supplements, continue home B12 Appreciate recommendations from instructional design manager (10) Peripheral vascular disease Impression: Stable. Chronic. Plan: Continue home Plavix (11) Anemia Impression: Stable. Suspect multifactorial due to malnutrition and inflammatory blocking med, no signs of acute bleeding. Plan: Monitor for any bleeding. Continue home B12 and iron. Qualifiers: Anemia type: unspecified type Qualified Code(s): D64.9 - Anemia, unspecified (12) Opiate overdose Impression: RESOLVED Unintentional, it was a reported medication error at SNF: she was given 5x prescribed dose of morphine and required Narcan when she became obtunded. Now awake, alert. Plan: Cont to hold morphine, patient is reluctant to take it again in future but may want to reconsider if air hunger is a problem. PT and OT amarilis recommended return to SNF for rehab, and she does not wish to return to that SNF where she received the excessive Morphine dose. Qualifiers: Encounter type: initial encounter Injury intent: accidental or unintentional Qualified Code(s): T40.601A - Poisoning by unspecified narcotics, accidental (unintentional), initial encounter (13) Sepsis Impression: RESOLVED Caused by aspiration pneumonia. Sepsis physiology has resolved with near normal WBC, afebrile, normal RR. Now near baseline. WBC trending down. Blood cultures neg. Plan: Complete a 7-day course of antibx, currently on Zosyn, day 5 Qualifiers: Sepsis type: sepsis due to unspecified organism Sepsis acute organ dysfunction status: with acute organ dysfunction Severe sepsis acute organ dysfunction type: acute respiratory failure Acute respiratory failure type: with hypoxia Severe sepsis shock status: without septic shock Qualified Code(s): A41.9 - Sepsis, unspecified organism; R65.20 - Severe sepsis without septic shock; J96.01 - Acute respiratory failure with hypoxia - Current Meds Current Meds: Current Medications Generic Name Dose Route Start Last Admin Trade Name Freq PRN Reason Stop Dose Admin Acetaminophen 650 mg 06/17/23 17:25 06/22/23 16:21 Acetaminophen 325 Mg Tablet PO 650 mg Q4HR PRN Administration Pain 1 to 4, or Fever Albuterol 2.5 mg 06/17/23 17:28 06/18/23 14:40 Albuterol Neb 2.5 Mg/3 Ml INH 2.5 mg RTQ4H PRN Administration Wheezing Ascorbic Acid 500 mg 06/19/23 09:00 06/23/23 08:09 Ascorbic Acid 500 Mg Tablet PO 500 mg DAILY LUCHO Administration Atorvastatin Calcium 10 mg 06/18/23 21:00 06/22/23 20:47 Atorvastatin 10 Mg Tablet PO 10 mg QPM LUCHO Administration Clopidogrel Bisulfate 75 mg 06/19/23 09:00 06/23/23 08:10 Clopidogrel 75 Mg Tablet PO 75 mg DAILY LUCHO Administration Cyanocobalamin 500 mcg 06/19/23 09:00 06/23/23 08:09 Cyanocobalamin 500 Mcg Tablet PO 500 mcg DAILY LUCHO Administration Diltiazem HCl 180 mg 06/18/23 09:00 06/23/23 08:09 Diltiazem Cd 180 Mg Capsule PO 180 mg DAILY LUCHO Administration Ferrous Gluconate 324 mg 06/19/23 08:00 06/22/23 08:31 Ferrous Gluconate 324 Mg Tablet PO 324 mg DAILYWM LUCHO Administration Guaifenesin 600 mg 06/18/23 12:54 06/19/23 08:42 Guaifenesin 600 Mg Tablet PO 600 mg BID PRN Administration Cough Piperacillin Sod/Tazobactam 100 mls @ 25 mls/hr 06/20/23 12:00 06/23/23 04:49 Sod 3.375 gm/ Sodium Chloride IV 25 mls/hr Q8H LUCHO Administration Imipramine HCl 150 mg 06/18/23 21:00 06/22/23 20:47 Imipramine 25 Mg Tablet PO 150 mg QPM LUCHO Administration Insulin Human Lispro 3 - 11 unit 06/22/23 08:00 06/23/23 08:11 Insulin Lispro 300 Unit/3 Ml Pen SUBQ Not Given 0800,1200,1700,2100 [facility] Protocol Losartan Potassium 50 mg 06/18/23 21:00 06/23/23 08:10 Losartan 50 Mg Tablet PO 50 mg BID LUCHO Administration Montelukast Sodium 10 mg 06/18/23 21:00 06/22/23 20:47 Montelukast 10 Mg Tablet PO 10 mg QPM LUCHO Administration Multivitamins/Minerals 1 tab 06/19/23 08:00 06/23/23 08:09 Multivitamin W/Minerals Tablet PO 1 tab DAILYWM LUCHO Administration Polyethylene Glycol 17 gm 06/22/23 09:00 06/23/23 08:10 Polyethylene Glycol 3350 17 Gm Packet PO 17 gm DAILY LUCHO Administration Prednisone 30 mg 06/22/23 08:00 06/23/23 08:09 Prednisone 20 Mg Tablet PO 30 mg DAILYWM LUCHO Administration Senna 8.6 - 17.2 mg 06/22/23 09:00 06/23/23 08:10 Senna 8.6 Mg Tablet PO 8.6 mg DAILY LUCHO Administration Sodium Chloride 10 ml 06/17/23 17:25 06/18/23 05:36 Sodium Chloride Flush 0.9% 10 Ml Syringe IVP 10 ml PRN PRN Administration NEEDED PER PROVIDER ORDERS Sodium Chloride 10 ml 06/18/23 01:00 06/23/23 08:11 Sodium Chloride Flush 0.9% 10 Ml Syringe IVP Not Given 0100,0900,1700 LUCHO Solifenacin 5 mg 06/18/23 14:00 06/23/23 08:09 Solifenacin Succinate 5 Mg Tablet PO 5 mg DAILY LUCHO Administration - Lab Result Fish Bone Diagrams: 06/23/23 04:59 06/23/23 04:59 - Additional Planning My Orders: My Active Orders 06/22/23 09:00 Senna [Senokot] 8.6 - 17.2 mg PO DAILY polyethylene glycoL 3350 [Miralax] 17 gm PO DAILY 06/23/23 07:40 Nebulizer/MDI Tx. [RC] QID Resp Teach Nebulizer/MDI [RC] .ONCE 06/23/23 07:41 Ipratropium/Albuterol [Duoneb] 3 ml INH RTQID PRN 06/23/23 21:00 Insulin Glargine-Yfgn [Semglee] 7 unit SUBQ QPM Subjective - Subjective Patient Reports: Feeling Better, Resting Comfortably (on O2 via n.c.), No Complaints Objective Vital Signs: Vital Signs - 24 hr 06/22/23 06/22/23 06/22/23 09:41 10:48 10:50 Temperature Heart Rate 97 Heart Rate [ 125 H 125 H Activity] Heart Rate [ Brachial] Heart Rate [ 113 H 113 H Sitting] Heart Rate [ 125 H 125 H Standing] Heart Rate [ 106 H 106 H Supine] Respiratory 16 Rate Blood Pressure Blood Pressure 115/80 115/80 [Activity] Blood Pressure [Right Brachial artery] Blood Pressure 136/93 H 136/93 H [Sitting] Blood Pressure 107/74 107/74 [Standing] Blood Pressure 127/83 H 127/83 H [Supine] O2 Saturation O2 Saturation [ 91 L Sitting] If not protocol 3 : Oxygen Flow, liters/minute 06/22/23 06/22/23 06/23/23 15:57 23:46 00:03 Temperature 37.0 C 36.1 C L 36.4 C L Heart Rate Heart Rate [ Activity] Heart Rate [ 93 78 Brachial] Heart Rate [ Sitting] Heart Rate [ Standing] Heart Rate [ Supine] Respiratory 18 20 Rate Blood Pressure Blood Pressure [Activity] Blood Pressure 125/81 H 174/108 H [Right Brachial artery] Blood Pressure [Sitting] Blood Pressure [Standing] Blood Pressure [Supine] O2 Saturation 93 98 O2 Saturation [ Sitting] If not protocol 3 3 : Oxygen Flow, liters/minute 06/23/23 06/23/23 06/23/23 00:35 00:38 00:43 Temperature Heart Rate Heart Rate [ Activity] Heart Rate [ Brachial] Heart Rate [ Sitting] Heart Rate [ Standing] Heart Rate [ Supine] Respiratory Rate Blood Pressure 166/100 H Blood Pressure [Activity] Blood Pressure 158/96 H 146/93 H [Right Brachial artery] Blood Pressure [Sitting] Blood Pressure [Standing] Blood Pressure [Supine] O2 Saturation O2 Saturation [ Sitting] If not protocol : Oxygen Flow, liters/minute 06/23/23 06/23/23 06/23/23 00:48 01:03 01:18 Temperature Heart Rate Heart Rate [ Activity] Heart Rate [ 76 Brachial] Heart Rate [ Sitting] Heart Rate [ Standing] Heart Rate [ Supine] Respiratory Rate Blood Pressure Blood Pressure [Activity] Blood Pressure 144/88 H 146/91 H 141/88 H [Right Brachial artery] Blood Pressure [Sitting] Blood Pressure [Standing] Blood Pressure [Supine] O2 Saturation O2 Saturation [ Sitting] If not protocol : Oxygen Flow, liters/minute 06/23/23 06/23/23 01:40 07:49 Temperature 36.5 C Heart Rate Heart Rate [ Activity] Heart Rate [ 76 99 Brachial] Heart Rate [ Sitting] Heart Rate [ Standing] Heart Rate [ Supine] Respiratory 18 Rate Blood Pressure Blood Pressure [Activity] Blood Pressure 140/89 H 145/88 H [Right Brachial artery] Blood Pressure [Sitting] Blood Pressure [Standing] Blood Pressure [Supine] O2 Saturation 93 O2 Saturation [ Sitting] If not protocol : Oxygen Flow, liters/minute Oxygen O2 Source Nasal cannula I&O (Last 24 Hrs): Intake and Output Totals x24h 06/21/23 06/22/23 06/23/23 23:59 23:59 23:59 Intake Total 1438 1500 100 Output Total 1750 900 400 Balance -312 600 -300 General: Alert, Oriented x3, No acute distress HEENT: Mucous membr. moist/pink, Other (wearing O2 n.c.) Neck: Supple Neuro: Alert, Non Focal Cardiovascular: Regular rate Respiratory: No respiratory distress (at rest, on O2 suppl), Other (Poor air nvn but no wheezing or rales) Abdomen: Normal bowel sounds, Soft, No tenderness Extremities: No clubbing, No edema, No tenderness/swelling - Results Results: Laboratory Results WBC 11.8 x10^3/uL (4.8-10.8) H 06/23/23 04:59 RBC 3.83 10^6/uL (4.20-5.40) L 06/23/23 04:59 Hgb 10.4 g/dL (12.0-16.0) L 06/23/23 04:59 Hct 34.2 % (37.0-47.0) L 06/23/23 04:59 MCV 89.3 fL (81.0-99.0) 06/23/23 04:59 MCH 27.2 pg (27.0-31.0) 06/23/23 04:59 MCHC 30.4 g/dL (32.0-36.0) L 06/23/23 04:59 RDW 19.5 % (12.0-15.0) H 06/23/23 04:59 Plt Count 318 10^3/uL (130-450) 06/23/23 04:59 MPV 9.1 fL (7.9-10.8) 06/23/23 04:59 Neut # (Auto) 8.9 10^3/uL (1.5-6.6) H 06/23/23 04:59 Lymph # (Auto) 1.8 10^3/uL (1.5-3.5) 06/23/23 04:59 Hyde # (Auto) 0.7 10^3/uL (0.0-1.0) 06/23/23 04:59 Eos # (Auto) 0.1 10^3/uL (0.0-0.7) 06/23/23 04:59 Baso # (Auto) 0.0 10^3/uL (0.0-0.1) 06/23/23 04:59 Absolute Nucleated RBC 0.02 x10^3/uL 06/23/23 04:59 Total Counted 100 06/17/23 16:53 Band Neuts % (Manual) 0 % (0-10) 06/17/23 16:53 Abnorm Lymph % (Manual) 0 % 06/17/23 16:53 Nucleated RBC % 0.2 /100WBC 06/23/23 04:59 Neutrophils # (Manual) 27.1 10^3/uL (1.5-6.6) H 06/17/23 16:53 Lymphocytes # (Manual) 2.4 10^3/uL (1.5-3.5) 06/17/23 16:53 Monocytes # (Manual) 0.6 10^3/uL (0.0-1.0) 06/17/23 16:53 Eosinophils # (Manual) 0.0 10^3/uL (0-0.7) 06/17/23 16:53 Basophils # (Manual) 0.0 10^3/uL (0-0.1) 06/17/23 16:53 Differential Comment MANUAL DIFFERENTIAL 06/17/23 16:53 Manual Slide Review Indicated 06/18/23 12:53 Platelet Estimate NORMAL (130-450,000) (NORMAL) 06/18/23 12:53 Platelet Morphology NORMAL APPEARANCE (NORMAL) 06/18/23 12:53 RBC Morph Micro Appear NORMAL APPEARANCE (NORMAL) 06/18/23 12:53 Sodium 142 mmol/L (135-145) 06/23/23 04:59 Potassium 3.7 mmol/L (3.5-4.5) 06/23/23 04:59 Chloride 109 mmol/L (101-111) 06/23/23 04:59 Carbon Dioxide 28 mmol/L (21-32) 06/23/23 04:59 Anion Gap 5.0 (6-13) L 06/23/23 04:59 BUN 23 mg/dL (6-20) H 06/23/23 04:59 Creatinine 0.8 mg/dL (0.6-1.3) 06/23/23 04:59 Estimated GFR (MDRD) 69 (>89) L 06/23/23 04:59 Glucose 42 mg/dL (74-104) L* 06/23/23 04:59 POC Whole Bld Glucose 139 mg/dL (70 - 100) H 06/23/23 07:43 Estimat Average Glucose 157 mg/dL (70-100) H 06/18/23 05:14 Hemoglobin A1c % 7.1 % (4.27-6.07) H 06/18/23 05:14 Lactic Acid 1.6 mmol/L (0.5-2.2) 06/17/23 17:06 Calcium 9.4 mg/dL (8.5-10.3) 06/23/23 04:59 Magnesium 1.6 mg/dL (1.7-2.3) L 06/17/23 16:53 Total Bilirubin 0.7 mg/dL (0.2-1.0) 06/17/23 16:53 AST 10 IU/L (10-42) 06/17/23 16:53 ALT 19 IU/L (10-60) 06/17/23 16:53 Alkaline Phosphatase 74 IU/L (42-121) 06/17/23 16:53 B-Natriuretic Peptide 107 pg/mL (5-100) H 06/17/23 16:53 Total Protein 6.2 g/dL (6.4-8.9) L 06/17/23 16:53 Albumin 3.3 g/dL (3.2-5.5) 06/17/23 16:53 Globulin 2.9 g/dL (2.1-4.2) 06/17/23 16:53 Albumin/Globulin Ratio 1.1 (1.0-2.2) 06/17/23 16:53 Vitamin B12 494 pg/mL (180-914) 06/18/23 12:53 Folate 7.9 ng/mL (5.90 - >24.8) 06/18/23 12:53 Sepsis Event Note (H) - Evaluation Current Stage of Sepsis: Sepsis Possible source of Sepsis: positive: Pulmonary - Sepsis Criteria Sepsis Criteria: Recorded Heart Rate greater than 90 bpm (Improved), Recorded Respiratory Rate greater than 20, WBC count greater than 12,000 or less than 4000
[2023-06-23] MEDS ORDERED: BISACODYL 10 MG SUPP PR PRN (09:07)
[2023-06-23] MEDS ORDERED: MINERAL OIL ENEMA 133 ML BOTTLE RC PRN (09:07)
[2023-06-23] MEDS ORDERED: polyethylene glycoL 3350 17 GM PACKET PO PRN (09:07)
[2023-06-23] MEDS ORDERED: SENNA 8.6 MG TABLET PO PRN (09:07)
[2023-06-23] MEDS ORDERED: ALBUTEROL NEB 2.5 MG/3 ML INH PRN (09:13)
[2023-06-23] MEDS ORDERED: IPRATROPIUM/ALBUTEROL 3 ML NEB INH SCH (11:00)
[2023-06-23] MEDS: IPRATROPIUM/ALBUTEROL 3 ML NEB INH SCH ×2 (14:03→22:00)
[2023-06-23] MEDS ORDERED: ZINC OXIDE 20% OINT 30 GM TUBE TOP PRN (14:06)
[2023-06-23] MEDS: MIDODRINE 2.5 MG TABLET PO SCH (17:13)
[2023-06-23] MEDS ORDERED: INSULIN GLARGINE-YFGN 300 UNIT/3 ML PEN SUBQ SCH (21:00)
[2023-06-23] MEDS: LOSARTAN 50 MG TABLET PO SCH (21:04)
[2023-06-23] MEDS: AMOX/CLAV 875 MG/125 MG TABLET PO SCH (21:04)
[2023-06-23] MEDS: metFORMIN 500 MG TABLET PO SCH (21:04)
[2023-06-24] MEDS: CALCIUM CARBONATE CHEW 500 MG TABLET PO PRN (03:04)
[2023-06-24] MEDS: MIDODRINE 2.5 MG TABLET PO SCH (09:27)
[2023-06-24] MEDS: ACETAMINOPHEN 325 MG TABLET PO PRN (09:58)
[2023-06-24] MEDS: MIDODRINE 2.5 MG TABLET PO ONE (15:36)
--- NOTE | 2023-06-24 18:24 | PROVIDER PROGRESS NOTE ---
Assessment/Plan - Problem List (1) Orthostatic hypotension Assessment/Plan: She was very orthostatic yesterday and her DCh was cancelled. Yesterday I started her on midodrine 2.5 TID w/ meals. This made her hypertensive. Today I dropped her midodrine to just 1.25 mg in a.m. and with that she was still orthostatic today. We gave another dose of 1.25 mg this afternoon ~1530 which brought up her blood pressure just slightly Plan: I will plan to dose her with midodrine 1.25 mg TID with meals. With that she should be ready for discharge tomorrow (2) Acute and chronic respiratory failure with hypoxia Assessment/Plan: Improved. Due to accidental overdose of opiates prior to admission (at [facility]) requiring Narcan in setting of end-stage COPD and getting an aspiration pneumonia. Initially on non-rebreather mask, then high-flow O2, now on baseline 3L O2. Also, the daughter told our curtain worker Rain today that there was an oversight and her nebulized bronchodilators were not ordered to continue when she was at [facility], since they did not appear on our pharmacy reconciled list. Plan: Goal SpO2 88-92% Continue scheduled Duonebs, daily oral steroids, scheduled Pulmicort RT and OOB to chair for secretion clearance PT and OT evals recommended return to SNF for rehab DNR/DNI, if respiratory status worsens will focus on comfort (3) Aspiration pneumonia Impression: Aspiration was suspected due to significant dyspnea, fever, and elevated WBC after needing Narcan for obtundation. CXR had bibasilar opacities. She has been on IV Zosyn, as she met criteria for hospital-acquired due to recent hospitalization. Plan: Her IV fell out so I we will transition her from Zosyn to p.o. Augmentin and plan to complete a 7 day course of antibx Qualifiers: Qualified Code(s): J69.0 - Pneumonitis due to inhalation of food and vomit (4) COPD (chronic obstructive pulmonary disease) with exacerbation Impression: Stable. End-stage with cachexia. Goal sat 88-92%. Plan: Hold home Daliresp (not on formulary) Continue oral steroids Continue scheduled Duonebs, Pulmicort Qualifiers: COPD type: COPD with acute lower respiratory infection Qualified Code(s): J44.0 - Chronic obstructive pulmonary disease with (acute) lower respiratory infection (5) Type 2 diabetes mellitus Impression: On metformin at home. A1c 7.1. Sugars here have been labile. Plan: Metformin was restarted yesterday and long acting Insulin stopped, since she was hypoglycemic yesterday, postponing her DCh (see #6) Monitor blood sugars Cont ss Insulin coverage Qualifiers: Diabetes mellitus halfway insulin use: without halfway use Diabetes mellitus complication status: with neurologic complications Diabetes mellitus complication detail: with polyneuropathy Qualified Code(s): E11.42 - Type 2 diabetes mellitus with diabetic polyneuropathy (6) Hypoglycemia Assessment/Plan: RESOLVED after scheduled Insulin stopped Yesterday her fingerstick glucose was 48 then despite getting glu, the repeat fingerstick check was 58. Then needed more replacement before her glucoses went into the 70s then 108 She was ordered to get long-acting insulin 18 units at at bedtime, plus sliding scale insulin The patient was not yet ready for discharge because of this severe hypoglycemia yesterday and her DM meds needed to be adjusted: I stopped her nightime scheduled Insulin and I resumed her Metformin 1000 mg po BID Plan: Continue to do fingerstick checks and continue hypoglycemia protocol. and ss Insulin coverage (7) Constipation Impression: Reported no BM since admission, which RESOLVED today with a BM Plan: Cont bowel regimen Qualifiers: Constipation type: unspecified constipation type Qualified Code(s): K59.00 - Constipation, unspecified (8) Depression with anxiety Impression: Stable, at times has episodes of anxiety with her dyspnea. Plan: Continue home imipramine (9) Protein-calorie malnutrition, severe Impression: Stable. Chronic cachexia in setting of end-stage COPD. Poor appetite improving. Plan: Cont protein supplements, continue home B12 Appreciate recommendations from upward bound director (10) Peripheral vascular disease Impression: Stable. Chronic. Plan: Continue home Plavix (11) Anemia Impression: Stable. Suspect multifactorial due to malnutrition and inflammatory blocking med, no signs of acute bleeding. Plan: Monitor for any bleeding. Continue home B12 and iron. Qualifiers: Anemia type: unspecified type Qualified Code(s): D64.9 - Anemia, unspecified (12) Opiate overdose Impression: RESOLVED Unintentional, it was a reported medication error at SNF: she was given 5x prescribed dose of morphine and required Narcan when she became obtunded. Now awake, alert. Plan: Cont to hold morphine, patient is reluctant to take it again in future but may want to reconsider if air hunger is a problem. PT and OT amarilis recommended return to SNF for rehab, and she does not wish to return to that SNF where she received the excessive Morphine dose. Qualifiers: Encounter type: initial encounter Injury intent: accidental or unintentional Qualified Code(s): T40.601A - Poisoning by unspecified narcotics, accidental (unintentional), initial encounter (13) Sepsis Impression: RESOLVED Caused by aspiration pneumonia. Sepsis physiology has resolved with near normal WBC, afebrile, normal RR. Now near baseline. WBC trending down. Blood cultures neg. Plan: Complete a 7-day course of antibx, currently on Zosyn, day 5 Qualifiers: Sepsis type: sepsis due to unspecified organism Sepsis acute organ dysfunction status: with acute organ dysfunction Severe sepsis acute organ dysfunction type: acute respiratory failure Acute respiratory failure type: with hypoxia Severe sepsis shock status: without septic shock Qualified Code(s): A41.9 - Sepsis, unspecified organism; R65.20 - Severe sepsis without septic shock; J96.01 - Acute respiratory failure with hypoxia - Current Meds Current Meds: Current Medications Generic Name Dose Route Start Last Admin Trade Name Freq PRN Reason Stop Dose Admin Acetaminophen 650 mg 06/23/23 09:07 06/24/23 09:58 Acetaminophen 325 Mg Tablet PO 650 mg Q4HR PRN Administration Pain 1 to 4, or Fever Albuterol/Ipratropium 3 ml 06/23/23 13:00 06/24/23 17:47 Ipratropium/Albuterol 3 Ml Neb INH Not Given RTTID LUCHO Amoxicillin/Clavulanate Potassium 1 tab 06/23/23 21:00 06/24/23 09:22 Amox/Clav 875 Mg/125 Mg Tablet PO 1 tab BID LUCHO Administration Ascorbic Acid 500 mg 06/19/23 09:00 06/24/23 09:22 Ascorbic Acid 500 Mg Tablet PO 500 mg DAILY LUCHO Administration Atorvastatin Calcium 10 mg 06/18/23 21:00 06/23/23 21:04 Atorvastatin 10 Mg Tablet PO 10 mg QPM LUCHO Administration Calcium Carbonate/Glycine 500 mg 06/24/23 02:26 06/24/23 03:04 Calcium Carbonate Chew 500 Mg Tablet PO 500 mg BID PRN Administration Heartburn Clopidogrel Bisulfate 75 mg 06/19/23 09:00 06/24/23 09:22 Clopidogrel 75 Mg Tablet PO 75 mg DAILY LUCHO Administration Cyanocobalamin 500 mcg 06/19/23 09:00 06/24/23 09:22 Cyanocobalamin 500 Mcg Tablet PO 500 mcg DAILY LUCHO Administration Diltiazem HCl 180 mg 06/18/23 09:00 06/24/23 09:22 Diltiazem Cd 180 Mg Capsule PO 180 mg DAILY LUCHO Administration Ferrous Gluconate 324 mg 06/19/23 08:00 06/24/23 09:21 Ferrous Gluconate 324 Mg Tablet PO 324 mg DAILYWM LUCHO Administration Guaifenesin 600 mg 06/18/23 12:54 06/19/23 08:42 Guaifenesin 600 Mg Tablet PO 600 mg BID PRN Administration Cough Imipramine HCl 150 mg 06/18/23 21:00 06/23/23 21:04 Imipramine 25 Mg Tablet PO 150 mg QPM LUCHO Administration Insulin Human Lispro 3 - 11 unit 06/22/23 08:00 06/24/23 17:06 Insulin Lispro 300 Unit/3 Ml Pen SUBQ 3 unit 0800,1200,1700,2100 LUCHO Administration Protocol Losartan Potassium 25 mg 06/23/23 21:00 06/23/23 21:04 Losartan 50 Mg Tablet PO 25 mg QPM LUCHO Administration Metformin HCl 1,000 mg 06/23/23 21:00 06/24/23 09:21 Metformin 500 Mg Tablet PO 1,000 mg BID LUCHO Administration Midodrine 1.25 mg 06/24/23 08:00 06/24/23 09:27 Midodrine 2.5 Mg Tablet PO 1.25 mg 0800 LUCHO Administration Montelukast Sodium 10 mg 06/18/23 21:00 06/23/23 21:04 Montelukast 10 Mg Tablet PO 10 mg QPM LUCHO Administration Multivitamins/Minerals 1 tab 06/19/23 08:00 06/24/23 09:22 Multivitamin W/Minerals Tablet PO 1 tab DAILYWM LUCHO Administration Polyethylene Glycol 17 gm 06/22/23 09:00 06/24/23 09:22 Polyethylene Glycol 3350 17 Gm Packet PO Not Given DAILY LUCHO Prednisone 30 mg 06/22/23 08:00 06/24/23 09:22 Prednisone 20 Mg Tablet PO 30 mg DAILYWM LUCHO Administration Senna 8.6 - 17.2 mg 06/22/23 09:00 06/24/23 09:22 Senna 8.6 Mg Tablet PO Not Given DAILY LUCHO Solifenacin 5 mg 06/18/23 14:00 06/24/23 09:21 Solifenacin Succinate 5 Mg Tablet PO 5 mg DAILY LUCHO Administration - Lab Result Fish Bone Diagrams: 06/23/23 04:59 06/23/23 04:59 - Additional Planning My Orders: My Active Orders 06/23/23 21:00 Amox/Clav 875/125 [Augmentin 875/125 Tab] 1 tab PO BID Losartan [Cozaar] 25 mg PO QPM metFORMIN [Glucophage] 1,000 mg PO BID 06/24/23 09:29 Orthostatic [Vital Signs - Orthostatic] [RC] QSHIFT 06/25/23 08:00 Midodrine [ProAmatine] 1.25 mg PO TIDWM Subjective - Subjective Patient Reports: Resting Comfortably, No Complaints Objective Vital Signs: Vital Signs - 24 hr 06/23/23 06/24/23 06/24/23 22:00 00:10 07:23 Temperature 36.6 C Heart Rate 104 H Heart Rate [ 95 Brachial] Respiratory 18 20 Rate Blood Pressure 146/95 H [Right Brachial artery] O2 Saturation 95 If not protocol 4 3 : Oxygen Flow, liters/minute 06/24/23 06/24/23 06/24/23 07:24 07:40 12:51 Temperature 36.2 C L Heart Rate Heart Rate [ 105 H Brachial] Respiratory 18 Rate Blood Pressure 119/70 [Right Brachial artery] O2 Saturation 89 L 95 If not protocol 3 3 3 : Oxygen Flow, liters/minute 06/24/23 15:40 Temperature 36.4 C L Heart Rate Heart Rate [ 87 Brachial] Respiratory 24 Rate Blood Pressure 117/75 [Right Brachial artery] O2 Saturation 97 If not protocol 3 : Oxygen Flow, liters/minute Oxygen O2 Source Nasal cannula I&O (Last 24 Hrs): Intake and Output Totals x24h 06/22/23 06/23/23 06/24/23 23:59 23:59 23:59 Intake Total 1500 1100 1078 Output Total 900 950 Balance 376 323 6221 General: Alert, Oriented x3, Other (FRail appearing) HEENT: EOMI, Other (on O2) Neck: Supple Neuro: Alert, Non Focal Cardiovascular: Other (Distant heart sounds) Respiratory: No respiratory distress (at rest, on suppl O2) Abdomen: Soft, No tenderness Extremities: No edema, No tenderness/swelling - Results Results: Laboratory Results WBC 11.8 x10^3/uL (4.8-10.8) H 06/23/23 04:59 RBC 3.83 10^6/uL (4.20-5.40) L 06/23/23 04:59 Hgb 10.4 g/dL (12.0-16.0) L 06/23/23 04:59 Hct 34.2 % (37.0-47.0) L 06/23/23 04:59 MCV 89.3 fL (81.0-99.0) 06/23/23 04:59 MCH 27.2 pg (27.0-31.0) 06/23/23 04:59 MCHC 30.4 g/dL (32.0-36.0) L 06/23/23 04:59 RDW 19.5 % (12.0-15.0) H 06/23/23 04:59 Plt Count 318 10^3/uL (130-450) 06/23/23 04:59 MPV 9.1 fL (7.9-10.8) 06/23/23 04:59 Neut # (Auto) 8.9 10^3/uL (1.5-6.6) H 06/23/23 04:59 Lymph # (Auto) 1.8 10^3/uL (1.5-3.5) 06/23/23 04:59 Redwood # (Auto) 0.7 10^3/uL (0.0-1.0) 06/23/23 04:59 Eos # (Auto) 0.1 10^3/uL (0.0-0.7) 06/23/23 04:59 Baso # (Auto) 0.0 10^3/uL (0.0-0.1) 06/23/23 04:59 Absolute Nucleated RBC 0.02 x10^3/uL 06/23/23 04:59 Total Counted 100 06/17/23 16:53 Band Neuts % (Manual) 0 % (0-10) 06/17/23 16:53 Abnorm Lymph % (Manual) 0 % 06/17/23 16:53 Nucleated RBC % 0.2 /100WBC 06/23/23 04:59 Neutrophils # (Manual) 27.1 10^3/uL (1.5-6.6) H 06/17/23 16:53 Lymphocytes # (Manual) 2.4 10^3/uL (1.5-3.5) 06/17/23 16:53 Monocytes # (Manual) 0.6 10^3/uL (0.0-1.0) 06/17/23 16:53 Eosinophils # (Manual) 0.0 10^3/uL (0-0.7) 06/17/23 16:53 Basophils # (Manual) 0.0 10^3/uL (0-0.1) 06/17/23 16:53 Differential Comment MANUAL DIFFERENTIAL 06/17/23 16:53 Manual Slide Review Indicated 06/18/23 12:53 Platelet Estimate NORMAL (130-450,000) (NORMAL) 06/18/23 12:53 Platelet Morphology NORMAL APPEARANCE (NORMAL) 06/18/23 12:53 RBC Morph Micro Appear NORMAL APPEARANCE (NORMAL) 06/18/23 12:53 Sodium 142 mmol/L (135-145) 06/23/23 04:59 Potassium 3.7 mmol/L (3.5-4.5) 06/23/23 04:59 Chloride 109 mmol/L (101-111) 06/23/23 04:59 Carbon Dioxide 28 mmol/L (21-32) 06/23/23 04:59 Anion Gap 5.0 (6-13) L 06/23/23 04:59 BUN 23 mg/dL (6-20) H 06/23/23 04:59 Creatinine 0.8 mg/dL (0.6-1.3) 06/23/23 04:59 Estimated GFR (MDRD) 69 (>89) L 06/23/23 04:59 Glucose 42 mg/dL (74-104) L* 06/23/23 04:59 POC Whole Bld Glucose 161 mg/dL (70 - 100) H 06/24/23 16:55 Estimat Average Glucose 157 mg/dL (70-100) H 06/18/23 05:14 Hemoglobin A1c % 7.1 % (4.27-6.07) H 06/18/23 05:14 Lactic Acid 1.6 mmol/L (0.5-2.2) 06/17/23 17:06 Calcium 9.4 mg/dL (8.5-10.3) 06/23/23 04:59 Magnesium 1.6 mg/dL (1.7-2.3) L 06/17/23 16:53 Total Bilirubin 0.7 mg/dL (0.2-1.0) 06/17/23 16:53 AST 10 IU/L (10-42) 06/17/23 16:53 ALT 19 IU/L (10-60) 06/17/23 16:53 Alkaline Phosphatase 74 IU/L (42-121) 06/17/23 16:53 B-Natriuretic Peptide 107 pg/mL (5-100) H 06/17/23 16:53 Total Protein 6.2 g/dL (6.4-8.9) L 06/17/23 16:53 Albumin 3.3 g/dL (3.2-5.5) 06/17/23 16:53 Globulin 2.9 g/dL (2.1-4.2) 06/17/23 16:53 Albumin/Globulin Ratio 1.1 (1.0-2.2) 06/17/23 16:53 Vitamin B12 494 pg/mL (180-914) 06/18/23 12:53 Folate 7.9 ng/mL (5.90 - >24.8) 06/18/23 12:53 Sepsis Event Note (H) - Evaluation Current Stage of Sepsis: Sepsis Possible source of Sepsis: positive: Pulmonary - Sepsis Criteria Sepsis Criteria: Recorded Heart Rate greater than 90 bpm (Improved), Recorded Respiratory Rate greater than 20, WBC count greater than 12,000 or less than 4000
[2023-06-25] MEDS: MIDODRINE 2.5 MG TABLET PO SCH (07:43)
--- NOTE | 2023-06-25 08:49 | DISCHARGE SUMMARY ---
Discharge Summary Admit Date: 06/17/23 Discharge Date: 06/25/23 Discharging Provider: Dr Rosa Elena Emery Primary Care Provider: Dr Geoff Plascencia Condition at Discharge: Fair Discharge Disposition: 03 SNF DC/Xfer - HPI History of Present Illness: The patient is an 78-year-old female with history of end-stage COPD who was BIBA from [facility] for altered mental status and shortness of breath. She was recently hospitalized here for respiratory failure due to human metapneumovirus infection, discharged to [facility] 2d ago. History unable to be obtained from patient due to respiratory distress, info obtained from daughter Jazlyn at bedside. Daughter visits patient 2-3x per day and this morning noted patient was obtunded and "out of it". She expressed her concerns to staff at [facility] but reports there was a delay in evaluation. Daughter then received a call from SNF that patient had received an unintentional overdose of morphine this afternoon ~1300 and was given Narcan. When daughter arrived back to [facility] to evaluate patient, she was awake but having significant difficulty breathing. EMS was called and patient was brought to ED for evaluation. Daughter states at baseline patient can communicate normally, but today has only been able to speak a few words which is not her baseline. Upon exam in ED patient is on non-rebreather mask, tachycardic, tachypneic, and febrile, and appears in acute distress. Daughter has had discussion with Hospice (due to her end-stage COPD) and there is consideration of transfer to Hospice if she worsens. Patient was already on the Palliative Care service. Daughter agrees if patient's respiratory status deteriorates, her DNR will be upheld and she will be made comfortable. Unable to obtain ROS due to shortness of breath. - HOSPITAL COURSE Hospital Course: (1) Opiate overdose Unintentional, it was a reported medication error at [facility]: she was given 5x prescribed dose of morphine and required Narcan when she became obtunded. She awakened, became alert and back to her baseline mentation. Patient is reluctant to ever take Morphine again in future but may want to reconsider if air hunger is a problem. PT and OT evals recommended return to SNF for rehab, and she was discharged to a different SNF. (2) Aspiration pneumonia Aspiration was suspected due to significant dyspnea, fever, and elevated WBC after needing Narcan for being obtunded. CXR showed bibasilar opacities. She received IV Zosyn, since she met criteria for hospital-acquired due to recent hospitalization. Her IV fell out and we transitioned her from Zosyn to p.o. Augmentin and planned for her to complete a 7 day course of antibx (3) Sepsis Caused by aspiration pneumonia. Sepsis physiology has resolved with near normal WBC, afebrile, normal RR. And WBC trending down. Blood cultures remained neg. (4) Acute and chronic respiratory failure with hypoxia Due to accidental overdose of opiates prior to admission (at [facility]) requiring Narc an in setting of end-stage COPD and getting an aspiration pneumonia. She was initially on non-rebreather mask, then high-flow O2, then was able to transition to baseline 3L O2. Her wishes are DNR/DNI, if respiratory status worsens, then will focus on comfort. (5) COPD (chronic obstructive pulmonary disease) with exacerbation She has end-stage COPD with cachexia. Goal O2 saturation is 88-92%. She received nebs and steroids and was eventually down to here usual COPD meds. She was also discharged on oral Prednisone, planning a very slow taper over several weeks. (6) Type 2 diabetes mellitus On metformin at home. A1c 7.1. Sugars here were labile due to steroid use. (7) Hypoglycemia Resolved after scheduled long-acting Insulin was stopped. She got management per Hypoglycemia protocol. (8) Orthostatic hypotension She was very orthostatic and her DCh was postponed. Eventually a dose of mi dodrine 1.25 mg TID with meals helped and she was discharged on this. (9) Constipation Reported no BM from admission until 8 days later, was on a bowel regimen. (10) Depression with anxiety Stable, at times she has episodes of anxiety with her dyspnea. WE continued her home Imipramine (11) Protein-calorie malnutrition, severe Chronic cachexia in setting of end-stage COPD. (12) Peripheral vascular disease Stable. We continued her home Plavix (13) Anemia Suspect multifactorial due to malnutrition and inflammatory blocking med, there were no signs of acute bleeding. We continued her home B12 and iron. - ALLERGIES Allergies/Adverse Reactions: Allergies Allergy/AdvReac Type Severity Reaction Status Date / Time azithromycin Allergy Emesis Verified 06/17/23 16:50 - MEDICATIONS Home Medications: Ambulatory Orders Medication Instructions Recorded Confirmed Albuterol Sulf [Ventolin Hfa 2 puffs INH Q4H PRN 05/18/20 06/18/23 Inhaler] Oxybutynin [Ditropan] 5 mg PO BID 05/18/20 06/18/23 Acetaminophen [Tylenol] 650 mg PO Q4HR PRN tab 06/15/23 06/18/23 Ascorbic Acid [Vitamin C] 500 mg PO DAILY tab 06/15/23 06/18/23 Clopidogrel [Plavix] 75 mg PO DAILY #0 06/15/23 06/18/23 Cyanocobalamin [Vitamin B-12] 500 mcg PO DAILY tab 06/15/23 06/18/23 Fluticasone/Umeclidin/Vilanter 1 each IH DAILY #0 06/15/23 06/18/23 [Trelegy Ellipta 200-62.5-25] Imipramine HCl 150 mg PO QPM #0 06/15/23 06/18/23 Losartan [Cozaar] 50 mg PO BID tab 06/15/23 06/18/23 Montelukast [Singulair] 10 mg PO QPM tab 06/15/23 06/18/23 Roflumilast [Daliresp] 250 mcg PO DAILY #0 06/15/23 06/18/23 Bisacodyl Supp [Dulcolax Supp] 10 mg WI PRN PRN 06/18/23 06/18/23 Mineral Oil [Mineral Oil Enema] 133 ml WI PRN PRN 06/18/23 06/18/23 Senna [Senokot] 17.6 mg PO PRN PRN 06/18/23 06/18/23 [id number] CD [Cardizem Cd] 180 mg PO BID 06/18/23 06/18/23 guaiFENesin [Guaifenesin ER] 600 mg PO BID PRN 06/18/23 06/18/23 metFORMIN [Glucophage] 1,000 mg PO BID 06/18/23 06/18/23 polyethylene glycoL 3350 [Miralax] 17 g WI PRN PRN 06/18/23 06/18/23 Atorvastatin [Lipitor] 10 mg PO QPM #0 06/21/23 06/18/23 Ferrous Gluconate [Fergon] 324 mg PO DAILYWM #0 06/21/23 06/18/23 Ipratropium/Albuterol [Duoneb] 3 ml INH RTQID ml 06/21/23 LORazepam [Ativan] 0.5 mg PO Q6H PRN #30 tablet 06/21/23 Multivitamin W/Minerals [Theragran 1 tab PO DAILYWM tab 06/21/23 M] predniSONE [Deltasone] 30 mg PO DAILYWM tab 06/21/23 Midodrine [ProAmatine] 1.25 mg PO TIDWM 30 Days #45 tablet 06/25/23 - PHYSICAL EXAM AT DISCHARGE General Appearance: positive: No acute distress, Alert, Other (Elderly, frail) Eyes Bilateral: positive: Normal inspection, EOMI ENT: positive: No signs of dehydration, Other (On O2 via n.c.) Neck: positive: Nml inspection, No JVD Respiratory: positive: No respiratory distress (at rest, on suppl O2), Other (Poor air mvm but no wheezing or rhonchi) Cardiovascular: positive: Other (Distant heart sounds to COPD) Abdomen: positive: Non-tender, No organomegaly, No distention Back: positive: Other (Kyphosis) Skin: positive: Warm, Dry Neurologic/Psychiatric: positive: Oriented x3, CN's nml (2-12), Motor nml - LABS Result Diagrams: 06/23/23 04:59 06/23/23 04:59 - SEPSIS Current Stage of Sepsis: Sepsis Possible source of Sepsis: Pulmonary Sepsis Criteria: Recorded Heart Rate greater than 90 bpm (Improved), Recorded Respiratory Rate greater than 20, WBC count greater than 12,000 or less than 4000 - FOLLOW UP Follow Up: See PCP after DCh from SNF. - TIME SPENT Time Spent in Discharge (Minutes): 45
[2023-06-25 08:51] VITALS: BP 142/92; O2SAT 92
== END 2023-06-25 09:23 | DRG 871 ==
LOC: EDUNIT# → ED 16:38 → MS2 17:25
PROVIDERS: ADMIT Specialist; ATTEND Internal Medicine
DX: A41.9 Sepsis, unspecified organism (principal); E43 Unspecified severe protein-calorie malnutrition; R06.03 Acute respiratory distress; I10 Essential (primary) hypertension; E11.9 Type 2 diabetes mellitus without complications; R00.0 Tachycardia, unspecified; J69.0 Pneumonitis due to inhalation of food and vomit; J96.21 Acute and chronic respiratory failure with hypoxia; J44.0 Chronic obstructive pulmonary disease with (acute) lower respiratory infection; R64 Cachexia; Z68.1 Body mass index [BMI] 19.9 or less, adult; E11.649 Type 2 diabetes mellitus with hypoglycemia without coma; F32.A Depression, unspecified; E11.51 Type 2 diabetes mellitus with diabetic peripheral angiopathy without gangrene; F41.9 Anxiety disorder, unspecified; T39.395A Adverse effect of other nonsteroidal anti-inflammatory drugs [NSAID], initial encounter; D64.89 Other specified anemias; T40.2X1D Poisoning by other opioids, accidental (unintentional), subsequent encounter; K59.09 Other constipation; R35.0 Frequency of micturition; I95.1 Orthostatic hypotension; R65.20 Severe sepsis without septic shock; Z66 Do not resuscitate; Z79.02 Long term (current) use of antithrombotics/antiplatelets; Z79.84 Long term (current) use of oral hypoglycemic drugs; Z79.899 Other long term (current) drug therapy; Z80.1 Family history of malignant neoplasm of trachea, bronchus and lung; Z82.3 Family history of stroke; Z83.3 Family history of diabetes mellitus; Z87.891 Personal history of nicotine dependence
CPT/HCPCS: 36415; 71045; 80048; 80053; 82607; 82746; 83036; 83605; 83735; 83880; 85025; 87040; 93005; 94640; 96365; 97162; 97166; 97530; 97535; 99285; A9270; J0131; J1815; J2060; J7512; J7626